=== PATIENT | female | born 1960 | race Caucasian/White ===

== ENCOUNTER → 2017-10-31 07:24 | Outpatient (CLI) | payer OTHER, SELFPAY | PROVIDERS: Family Provider Family Medicine; PCP Family Medicine; Visit Provider Obstetrics & Gynecology | DX: Z12.31 Encounter for screening mammogram for malignant neoplasm of breast (principal) | CPT/HCPCS: 77063; 77067 ==

== ENCOUNTER → 2018-01-14 15:30 | Outpatient (CLI) | payer OTHER, SELFPAY ==
[2018-01-18 10:35] LABS: HPV APTIMA, High Risk Negative (Negative)
== END ==
PROVIDERS: PCP Family Medicine; Visit Provider Obstetrics & Gynecology
DX: Z12.4 Encounter for screening for malignant neoplasm of cervix (principal)
CPT/HCPCS: 87624; 88175; G0145

== ENCOUNTER → 2019-06-23 | Outpatient (CLI) | payer OTHER, SELFPAY ==
--- NOTE | 2019-06-23 16:53 | CT_ITS ---
STUDY: CT ABDOMEN WITH CONTRAST REASON FOR EXAM: Female, 58 years old. JAUNDICE RADIATION DOSAGE (If Supplied By Facility): CTDIvol = ( 20.435 ) mGy, DLP = ( 492.74 ) mGycm TECHNIQUE: Transaxial images were obtained post I.V. administration of Oral and amp; IV Gastrografin and amp; 100mL Isovue-300, and oral contrast. Sagittal and coronal images were reconstructed. Individualized dose optimization techniques were used for this CT. COMPARISON: None. FINDINGS: The visualized lung bases are unremarkable. The visualized portions of the heart are within normal limits. Mild intrahepatic biliary ductal dilatation is present. Normal liver enhancement and contour. No liver masses are seen. The gallbladder is contracted. Normal spleen. Normal pancreas. Normal bilateral adrenal glands. Normal right kidney. Several small cysts are present in the left kidney. Normal visualized stomach. Normal small intestine. Normal colon. The appendix is visualized and appears normal. There is diffuse atherosclerotic calcification of the abdominal aorta, without a demonstrated aneurysm. Normal inferior vena cava. Normal retroperitoneum. Normal abdominal wall. There are diffuse degenerative changes of the visualized lumbar spine. CT/Abdomen WITH IV Contrast IMPRESSION: 1. Mild intrahepatic biliary ductal dilatation. No visualized mass kathleen hepatis or within the liver. No obvious stone seen in the CBD. Consider further assessment in the nonacute setting with MRCP/MRI of the abdomen or evaluation by GI. Electronically Signed: Sher Rubin MD at 20:21 EDT , Service support ,
== END | disposition home or self-care (01) ==
LOC: CT 16:51
PROVIDERS: Referring Provider Family Medicine; Visit Provider Family Medicine
DX: R17 Unspecified jaundice (principal)
CPT/HCPCS: 74160; Q9967

== ENCOUNTER → 2019-06-23 | Outpatient (CLI) | payer OTHER, SELFPAY ==
[2018-01-14 14:41] VITALS: BMI 31.4
[2019-06-23 18:09] LABS: Absolute Lymphocyte Count 1.56 X10^3/uL (0.83-4.51); Absolute Neutrophil Count 4.4 X10^3/uL (2.0-7.7); Basophil# 0.03 X10^3/uL; Basophil% 0.4 % (0-1); Eosinophil# 0.28 X10^3/uL; Eosinophils% 4.1 % (0-5); Hematocrit 38.1 % (37-47); Hemoglobin 12.6 g/dL (12.0-15.0); Lymphocyte # 1.56 X10^3/ul (4.0); Lymphocyte % 22.9 % (19-41); Mean Corp Hgb Conc 33.1 g/dL (32-36); Mean Corpuscular Hgb 32.2 pg (27.0-32.0); Mean Corpuscular Volume 97.4 fL (81-99); Mean Platelet Vol. 10.8 fl (6.2-12.0); Monocyte# 0.52 X10^3/uL; Monocyte% 7.6 % (0-10); NRBC Flagged by Analyzer 0 % (0-5); Neutrophil # 4.42 X10^3/uL (2.7-7.7); Neutrophil % 64.9 % (47-70); Platelet Count 397 K/mm3 (150-450); RBC Distribution Width CV 15.2 % (11.6-14.6); RBC Distribution Width SD 54.1 fl (35.1-43.9); Red Blood Count 3.91 M/mm3 (4.2-5.4); White Blood Count 6.8 K/mm3 (4.4-11.0)
[2019-06-23 18:16] LABS: Ammonia < 10.0 umol/L (11-32)
[2019-06-23 18:31] LABS: ALB/GLOB Ratio 0.8 RATIO (0.9-2.4); AST(SGOT) 100 U/L (15-37); Alanine Aminotransfer ALT/SGPT 148 U/L (13-56); Albumin, Serum 3.6 g/dL (3.2-5.0); Alkaline Phosphatase 589 U/L (45-117); Anion Gap 7 (5-15); BUN 12 mg/dL (7-18); BUN/Creat Ratio 15.5 RATIO (10-20); Calcium,Total 9.2 mg/dL (8.5-10.1); Chloride 106 mmol/L (98-107); Creatinine, Serum 0.78 mg/dL (0.55-1.02); EST Glomerular Filtration Rate 81 mL/min (>60); Est Glom Filt Rate - Afr Amer 98 mL/min (>60); Globulin 4.3 g/dL (2.2-4.2); Glucose 105 mg/dL (74-106); Potassium 3.6 mmol/L (3.5-5.1); Protein, Total 7.9 g/dL (6.4-8.2); Sodium Level 139 mmol/L (136-145)
[2019-06-25 05:06] LABS: HEPATITIS B SURFACE AG Negative (Negative); Hepatitis A AB, Total Negative (Negative); Hepatitis A IgM Antibody Negative (Negative); Hepatitis B Core AB IgM Negative (Negative); Hepatitis B Core Ab Total Negative (Negative); Hepatitis C Ab <0.1 s/co ratio (0.0-0.9)
[2019-06-25 05:16] LABS: Hep B Surface Antibodies Non Reactive (.)
== END | disposition home or self-care (01) ==
PROVIDERS: PCP Family Medicine; Referring Provider Family Medicine; Visit Provider Family Medicine
DX: R17 Unspecified jaundice (principal)
CPT/HCPCS: 36415; 80053; 82140; 85025; 86704; 86705; 86706; 86708; 86709; 86803; 87340

== ENCOUNTER → 2019-06-24 | Outpatient (CLI) | payer OTHER, SELFPAY ==
--- NOTE | 2019-06-24 14:30 | MRI_ITS ---
STUDY: MRI ABDOMEN WITHOUT CONTRAST REASON FOR EXAM: Female, 58 years old. Jaundice, nausea, no pain, no surgery TECHNIQUE: Standardized fat and water weighted pulse sequences were obtained in all 3 orthogonal planes. COMPARISON: CT 06/23/2019 FINDINGS: The visualized lung bases are unremarkable. The visualized portions of the heart are within normal limits. Normal liver. Mild intrahepatic biliary ductal dilatation and moderate extrahepatic biliary ductal dilatation with the common hepatic duct measuring 10 mm in diameter with abrupt obstruction of the proximal common bile duct with a normal appearance to the distal common bile duct and pancreatic duct. Possibilities include a common bile duct stone, common bile duct stricture, common bile duct intrinsic mass (cholangiocarcinoma) or less likely extrinsic compression by a mass in the head of the pancreas. Normal spleen. Normal pancreas. Normal bilateral adrenal glands. Normal right kidney. Normal left kidney. Normal visualized stomach. Normal small intestine. Normal colon. There is non-visualization of the appendix. Normal abdominal aorta. Normal inferior vena cava. Normal retroperitoneum. Normal abdominal wall. Normal osseous structures. MRI/Abdomen without Contrast IMPRESSION: Abrupt narrowing of the proximal common bile duct with moderate dilatation the common hepatic duct and mild intrahepatic biliary duct dilatation. Differential diagnosis includes common bile duct stone, stricture, or mass (cholangiocarcinoma). Correlation with ERCP would be useful. Electronically Signed: Joesph Vasquez MD at 15:23 EDT Tel , Service support ,
== END | disposition home or self-care (01) ==
PROVIDERS: Referring Provider Family Medicine; Visit Provider Family Medicine
DX: R17 Unspecified jaundice (principal)
CPT/HCPCS: 74181

== ENCOUNTER → 2019-06-25 10:13 | Outpatient (CLI) | payer OTHER, SELFPAY ==
[2019-06-26 13:08] LABS: Anti-Smooth Muscle ABS 13 Units (0-19)
[2019-06-26 13:09] LABS: Carbohydrate AG 19-9 19 U/mL (0-35)
== END ==
LOC: LAB.FUTURE 10:19 → LAB 06-27 06:58
PROVIDERS: PCP Family Medicine; Referring Provider Family Medicine; Visit Provider Family Medicine
DX: R17 Unspecified jaundice (principal)
CPT/HCPCS: 36415; 83516; 86301

== ENCOUNTER → 2019-07-01 | Outpatient (CLI) | payer OTHER, SELFPAY ==
[2019-07-01 14:39] LABS: Hematocrit 38.1 % (37-47); Hemoglobin 12.7 g/dL (12.0-15.0); Mean Corp Hgb Conc 33.3 g/dL (32-36); Mean Corpuscular Hgb 32.2 pg (27.0-32.0); Mean Corpuscular Volume 96.5 fL (81-99); Mean Platelet Vol. 11.1 fl (6.2-12.0); Platelet Count 431 K/mm3 (150-450); RBC Distribution Width CV 17.2 % (11.6-14.6); RBC Distribution Width SD 60.9 fl (35.1-43.9); Red Blood Count 3.95 M/mm3 (4.2-5.4); White Blood Count 7.5 K/mm3 (4.4-11.0)
[2019-07-01 14:48] LABS: International Normalized Ratio 0.9; Prothrombin Time (Protime)PT. 11.9 SECONDS (11.7-14.9)
[2019-07-01 14:49] LABS: Partial Thromboplast Time 28.3 Seconds (24.1-36.2)
[2019-07-01 15:16] LABS: ALB/GLOB Ratio 0.8 RATIO (0.9-2.4); AST(SGOT) 81 U/L (15-37); Alanine Aminotransfer ALT/SGPT 110 U/L (13-56); Albumin, Serum 3.4 g/dL (3.2-5.0); Alkaline Phosphatase 531 U/L (45-117); Anion Gap 7 (5-15); BUN 12 mg/dL (7-18); Calcium,Total 9.5 mg/dL (8.5-10.1); Chloride 109 mmol/L (98-107); Creatinine, Serum 0.71 mg/dL (0.55-1.02); EST Glomerular Filtration Rate 90 mL/min (>60); Est Glom Filt Rate - Afr Amer 109 mL/min (>60); Globulin 4.3 g/dL (2.2-4.2); Glucose 70 mg/dL (74-106); Potassium 3.7 mmol/L (3.5-5.1); Protein, Total 7.7 g/dL (6.4-8.2); Sodium Level 140 mmol/L (136-145)
== END | disposition home or self-care (01) ==
LOC: MTLAB 12:45
PROVIDERS: PCP Family Medicine; Referring Provider Internal Medicine Gastroenterology; Visit Provider Internal Medicine Gastroenterology
DX: R17 Unspecified jaundice (principal)
CPT/HCPCS: 36415; 80053; 85027; 85610; 85730

== ENCOUNTER 2019-07-04 07:16 | Inpatient (IN) | payer OTHER, SELFPAY ==
[2019-07-04 07:17] VITALS: BP 137/73; PULSE 65; RESP 18; TEMP 36.4; O2SAT 97; BMI 30.3
--- NOTE | 2019-07-04 07:40 | CT_ITS ---
STUDY: CT ABDOMEN AND PELVIS WITH CONTRAST REASON FOR EXAM: Female, 58 years old. CBD STENT X1 DAY AGO -- TODAY ABD PAIN, N/V RADIATION DOSAGE (If Supplied By Facility): CTDIvol = ( 15.04 ) mGy, DLP = ( 834.57 ) mGycm TECHNIQUE: Transaxial images were obtained from the dome of the diaphragm to the symphysis pubis with oral contrast. Oral and amp; IV Gastrografin and amp; 100mL Isovue-300 was administered. Sagittal and coronal images were reconstructed. Individualized dose optimization techniques were used for this CT. COMPARISON: None. FINDINGS: Minimal linear atelectasis in the medial right middle lobe. The visualized portions of the heart are within normal limits. A small caliber stent is seen in the common bile duct and proximal right hepatic duct. I suspect small gallstones within the gallbladder lumen. Normal spleen. Normal pancreas. Normal bilateral adrenal glands. Normal right kidney. Normal left kidney. Normal visualized stomach. Normal small intestine. Normal colon. The appendix is visualized and appears normal. There is diffuse atherosclerotic calcification of the abdominal aorta, without a demonstrated aneurysm. Normal inferior vena cava. Normal retroperitoneum. Normal urinary bladder. Calcified fibroid uterus. Normal abdominal wall. Normal osseous structures. CT/Abdomen/Pelvis WITH Contrast IMPRESSION: Status post stent in the common bile duct. The proximal tip is in the right hepatic duct and the distal tip is in the second portion of the duodenum. Findings suggestive of small gallstones. Calcified fibroid uterus. Electronically Signed: Eliot Barroso, at 9:48 EDT , Service support ,
[2019-07-04] MEDS: HYDROmorphone 1 MG/ML Syringe IV ×2 (07:51→10:33)
[2019-07-04] MEDS: 0.9% Normal Saline 1,000 ML 1000 ML IV (07:51)
[2019-07-04] MEDS: Ondansetron 4 MG/2 ML Vial IV ×2 (07:51→22:18)
--- NOTE | 2019-07-04 07:51 | ED.VISSUMM ---
- ER Visit Summary Date of Service: 07/04/19 Chief Complaint: Abdominal pain History of Present Illness: The patient is a [address] Raji Luque in Dr. Morales. Patient reports that she has been jaundiced for the past 2 weeks. She denies any pain with this. She had had a work-up undertaken and yesterday had an ERCP with a stent placement by Dr. Morales at [facility]. States that he found that there was a stricture there. This was an outpatient procedure. She is not taking anything for pain. Patient reports that she has abdominal pain that began last night. Is a sharp pain is 10 of 10 at worst 9-10 currently. Is worsened by pushing on it. She taken ibuprofen without relief. She is been nauseated and vomited 5-6 times. No blood in her emesis. She reports that she said 2-3 episodes of diarrhea today. Is been gail colored. No blood in her stools or black tarry stools. No dysuria or frequency. Physical Examination: Vitals: Stable. Afebrile. General: Well-nourished and well-developed. Head: Normocephalic atraumatic. Neck: Supple, no lymphadenopathy. No JVD. Nontender. Cardiovascular: Regular rate and rhythm. No murmurs. Respiratory: No respiratory distress. Clear to auscultation bilaterally. Abdominal: Soft, severe tenderness to palpation in the epigastric region as well as the left and right upper quadrants with mild left lower quadrant tenderness to palpation, nondistended, hypoactive bowel sounds. Guarding is present to the upper abdomen. Back: Nontender. Extremities: Nontender, no edema. Skin: Normal color, no rash. Neurologic: Alert and oriented ?3. Cranial nerves II through XII are intact. Normal strength and sensation. Psych: Normal affect. Test Results: CBC shows a white count of 11.2 with 89 segmented neutrophils and 7 lymphocytes. Hematocrit is 35.7. Chem-7 shows a potassium 3.3, glucose 125. Lactic acid is 1.2. LFTs show a total bili of 9.7 with a direct bili of 7.41. Her bilirubin was 12.6 3 days ago. Her alk phos is 476, ALT is 86, AST is 57. Lipase is 22,799. INR is normal. Clinical Impression(s) from Imaging Studies Abdomen/Pelvis CT 07/04/19 07:40 IMPRESSION: Status post stent in the common bile duct. The proximal tip is in the right hepatic duct and the distal tip is in the second portion of the duodenum. Findings suggestive of small gallstones. Calcified fibroid uterus. Electronically Signed: Eliot Barroso, at 9:48 EDT , Service support , Emergency Department Course and Treatment: Patient had an IV placed. She was given a liter of normal saline. She was given Dilaudid and Zofran IV. She is resting more comfortably. Patient was discussed with Dr. Murphy. She reports that her nausea has resolved after Zofran. Her pain is a 2 out of 10 in severity after pain medications. She refused an NG tube. Treatment Plan: Patient was discussed with Dr. Morales. He reports that he put a wire through the pancreatic duct and suspects that the pancreatitis is from that. He would like the patient to be admitted by hospitalist here. States that he is available by phone consult if needed. Disposition: Admitted in improved and stable condition. Impression: 1. Pancreatitis. 2. Jaundice, painless. 3. 1 day status post ERCP with stent placement. This note was generated with [employer] dictation software. It may contain incorrect words, spelling, and punctuation that were not noted in review of the chart prior to signing ED Disposition - Plan for ED Patient: Referrals: Raji Mathis MD [Primary Care Provider] -
[2019-07-04 07:52] LABS: Absolute Lymphocyte Count 0.77 X10^3/uL (0.83-4.51); Basophil# 0.02 X10^3/uL; Basophil% 0.2 % (0-1); Eosinophil# 0.07 X10^3/uL; Eosinophils% 0.6 % (0-5); Hematocrit 35.7 % (37-47); Hemoglobin 12.3 g/dL (12.0-15.0); Lymphocyte # 0.77 X10^3/ul (4.0); Lymphocyte % 6.9 % (19-41); Mean Corp Hgb Conc 34.5 g/dL (32-36); Mean Corpuscular Hgb 33.4 pg (27.0-32.0); Mean Platelet Vol. 10.2 fl (6.2-12.0); Monocyte# 0.38 X10^3/uL; Monocyte% 3.4 % (0-10); NRBC Flagged by Analyzer 0 % (0-5); Neutrophil # 9.95 X10^3/uL (2.7-7.7); Neutrophil % 88.5 % (47-70); Platelet Count 390 K/mm3 (150-450); RBC Distribution Width SD 62.8 fl (35.1-43.9); Red Blood Count 3.68 M/mm3 (4.2-5.4); White Blood Count 11.2 K/mm3 (4.4-11.0)
[2019-07-04 08:12] LABS: AST(SGOT) 57 U/L (15-37); Alanine Aminotransfer ALT/SGPT 86 U/L (13-56); Alkaline Phosphatase 476 U/L (45-117); Anion Gap 8 (5-15); BUN 12 mg/dL (7-18); BUN/Creat Ratio 16.6 RATIO (10-20); Bilirubin, Direct 7.41 mg/dL (0.00-0.30); Calcium,Total 9.2 mg/dL (8.5-10.1); Chloride 107 mmol/L (98-107); Creatinine, Serum 0.72 mg/dL (0.55-1.02); EST Glomerular Filtration Rate 87 mL/min (>60); Est Glom Filt Rate - Afr Amer 106 mL/min (>60); Estimated Creatinine Clearance 73.55 ml/min; Globulin 4.2 g/dL (2.2-4.2); Glucose 125 mg/dL (74-106); Lipase 22799 U/L (73-393); Potassium 3.3 mmol/L (3.5-5.1); Protein, Total 7.2 g/dL (6.4-8.2); Sodium Level 140 mmol/L (136-145)
[2019-07-04 08:15] LABS: Lactic Acid 1.2 mmol/L (0.4-1.9)
[2019-07-04 08:45] LABS: International Normalized Ratio 0.9
[2019-07-04 10:34] VITALS: BP 121/67; PULSE 58; RESP 14; O2SAT 97
--- NOTE | 2019-07-04 10:44 | NURSING ---
MED SURG [place] PANCREATITIS
[2019-07-04 11:52] VITALS: BP 112/55; PULSE 53; RESP 16; TEMP 36.6; O2SAT 95
[2019-07-04 12:03] VITALS: BMI 30.3
[2019-07-04 12:05] VITALS: BMI 30.3
[2019-07-04] MEDS: 0.9% Normal Saline 1,000 ML 150 ML IV (12:25)
--- NOTE | 2019-07-04 13:47 | CASEMGMT ---
RN CM Assessment. Presentation: abd pain, pancreatitis, jaundice Intro role of CM to patient in room. Pt is awake, alert, oriented and able to participate in assessment. States she works @ [employer] weekends in [employer]. Had procedure yesterday in [place], then increased abd pain, nausea, vomiting. States she works, is very independent. PCP: Dr. Mathis Specialist: Dr. Morales. [facility] Insurance: [employer] Prescription coverage: yes Living Arrangements: Lives independently, no care needs identified. DME: none Transportation: drives [place] PLAN: pt plans to return home. No needs identified @ this time. Lamont AVILESN RN ACM
[2019-07-04] MEDS: 0.9% Normal Saline 1,000 ML 500 ML IV (15:33)
[2019-07-04] MEDS: Potassium Chloride 10mEq/100mL 10 MEQ/100 ML IV.SOLN. 100 MEQ IV BOLUS (16:29)
[2019-07-04 16:36] VITALS: BP 119/63; PULSE 61; RESP 16; TEMP 36.8; O2SAT 97
--- NOTE | 2019-07-04 16:51 | HP.PCM_ITS ---
History of Present Illness Date of Admission: 07/04/19 Chief Complaint: Gastric abdominal pain The patient is a 58 year old F with no significant past medical history presents to the hospital with severe abdominal pain. She has noticed over the last 2 weeks she was becoming more jaundiced and had lost a little bit of weight. She also denied any pain during these last 2 weeks. She has noticed that with her jaundice, her urine has become darker and her stools have become breakdown person. She saw Dr. Morales who performed an ERCP yesterday and placed a stent in her common bile duct and took brushings as well as sent for cytology, with the concern being cancer given her painless jaundice. CT scan in the ER demonstrated good position for her bile duct stent, however she did have a lipase of 22,000 indicating post procedure pancreatitis. She was given a liter fluid in the ER and admitted to the hospital. Past Medical History Past Medical History (Chronic Problems): Chronic Problems (This Medical Record has been edited. Action required.) Obesity (Chronic) discussed weight loss, info given and why weight referral given Medical History: Medical History (This Medical Record has been edited. Action required.) Fatigue R53.83 Hay fever J30.1 Knee pain M25.569 Migraines G43.909 SOB (shortness of breath) R06.02 Sarcoidosis D86.9 Shoulder pain M25.519 Allergies No Known Allergies Allergy (Verified 07/04/19 07:17) Home Medications: Ambulatory Orders Medication Instructions Recorded Cholestyramine/Aspartame 4 gm PO BID 07/04/19 [Prevalite Packet] Surgical History: no surgical history Smoking Status: Former smoker Tobacco Use: Non-smoker, Cigarettes Alcohol: None Drugs: None - *Family History Maternal History Items: Heart Disease, Stroke Paternal History Items: Heart Disease, Stroke Review of Systems Constitutional: Denies: Chills, Fever, Weight Change Eyes: Reports: - - Jaundice HEENT: Denies: Head Aches, Sinus Congestion, Sinus Drainage Cardiovascular: Denies: Chest Pain, Palpitations Respiratory: Denies: Cough, Shortness of breath at rest, Sputum production Gastrointestinal: Reports: Abdominal Pain, Diarrhea. Denies: Nausea, Vomiting Genitourinary: Denies: Dysuria Musculoskeletal: Denies: Joint Pain, Joint Tenderness Skin: Reports: Jaundice. Denies: Rash, Wounds Neurological: Denies: Numbness, Tingling, Focal weakness Psychiatric: Denies: Anxiety, Depression Hematologic/ Lymphatic: Denies: Easy Bruising, Easy Bleeding VTE Information - Inpt Only VTE Present on Admission: No - Physical Exam Vitals/I&O's: Vital Signs Temp Pulse Resp BP Pulse Ox 98.3 F 61 16 119/63 97 07/04/19 16:36 07/04/19 16:36 07/04/19 16:36 07/04/19 16:36 07/04/19 16:36 Oxygen Delivery Method Room Air Weight: 176 lb 9.444 oz Body Mass Index (BMI) 30.3 Intake and Output for Last 24 Hours 07/02/19 07/03/19 07/04/19 23:59 23:59 23:59 Intake Total 2472.5 / 2472.5 Output Total 600 / 600 Balance 1872.5 / 1872.5 General: Alert, Oriented x3, Cooperative, No apparent distress HEENT: Atraumatic, PERRLA, EOMI, Normocephalic Oral: Dry Mucosa Neck: Supple, No JVD Lungs: Clear to auscultation, Normal air movement, No rhonchi, No wheeze, No rales, Diminished Cardiovascular: Regular rate, Regular Rhythm, Normal S1, Normal S2, No murmurs Abdomen: Soft, Non-Distended, No Hepato-splenomegaly, Tender - In the epigastric region and in the left upper and lower quadrants Extremities: No edema, Capillary Refill Less than 3 Seconds Skin: No rashes, No breakdown Neurological: Neuro grossly intact, Sensory exam intact to light touch and pain Psych/Mental Status: Normal Affect, Appropriate Laboratory Results 07/04/19 07:40: WBC 11.2 H, RBC 3.68 L, Hgb 12.3, Hct 35.7 L, MCV 97.0, MCH 33.4 H, MCHC 34.5, RDW Std Deviation 62.8 H, RDW Coeff of Todd 18.0 H, Plt Count 390, MPV 10.2, Immature Gran % (Auto) 0.400, Neut % (Auto) 88.5 H, Lymph % (Auto) 6.9 L, [place] % (Auto) 3.4, Eos % (Auto) 0.6, Baso % (Auto) 0.2, Absolute Neuts (auto) 10.0 H, Absolute Lymphs (auto) 0.77 L, Nucleated RBC % 0 07/04/19 07:40: Sodium 140, Potassium 3.3 L, Chloride 107, Carbon Dioxide 25.0, Anion Gap 8, BUN 12, Creatinine 0.72, Estim Creat Clear Calc 73.55, Est GFR (MDRD) Af Amer 106, Est GFR (MDRD) Non-Af 87, BUN/Creatinine Ratio 16.6, Glucose 125 H, Calcium 9.2, Total Bilirubin 9.70 H, Direct Bilirubin 7.41 H, AST 57 H, ALT 86 H, Alkaline Phosphatase 476 H, Total Protein 7.2, Albumin 3.0 L, Globulin 4.2, Lipase 08317 H 07/04/19 07:40: Lactic Acid 1.2 07/04/19 07:40: PT 12.0, INR 0.9 Current Medications Acetaminophen (Tylenol) 650 mg PO Q6H PRN PRN PRN Reason: Pain Score 1-10/Temp > 100.7 F Enoxaparin Sodium (Lovenox) 40 mg SC DAILY [facility] Sodium Chloride () 1,000 mls @ 150 mls/hr IV .Q6H40M [facility] Last Infusion: 07/04/19 16:29 Dose: 100 mls/hr Documented by: Sodium Chloride () 1,000 mls @ 500 mls/hr IV .Q2H [facility] Stop: 07/04/19 17:04 Last Infusion: 07/04/19 16:30 Dose: Infused Documented by: Potassium Chloride () 10 meq in 100 mls @ 100 mls/hr IV BOLUS Q1H [facility] Stop: 07/04/19 19:29 Last Admin: 07/04/19 16:29 Dose: 100 mls/hr Documented by: Melatonin (Melatonin) 3 mg PO QHS PRN PRN PRN Reason: INSOMNIA Morphine Sulfate () 4 mg IV Q3H PRN PRN PRN Reason: Pain Score 6-10/10 Ondansetron HCl (Zofran) 4 mg IV Q8H PRN PRN PRN Reason: NAUSEA/VOMITING Promethazine HCl (Phenergan) 25 mg IM Q6H PRN PRN PRN Reason: Breakthrough nausea/vomiting Sodium Chloride () 10 - 40 ml IV UD PRN PRN Reason: SALINE FLUSH Assessment/Plan All Active Problems (This Medical Record has been edited. Action required.) Acute bronchitis (Acute) 1. 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 Morales's wishes -Maintain n.p.o. until her pain improves, continue with IV morphine DVT: Lovenox Inpatient E&M: 39788 Init Hosp L2
[2019-07-04] MEDS: Potassium Chloride 10mEq/100mL 10 MEQ/100 ML IV.SOLN. 75 MEQ IV BOLUS ×3 (17:50→20:52)
[2019-07-04] MEDS: 0.9% Normal Saline 1,000 ML 100 ML IV (20:48)
[2019-07-04] MEDS: Morphine 4 MG/ML Syringe IV (22:18)
[2019-07-04 22:30] VITALS: BP 133/73; PULSE 73; RESP 16; TEMP 36.9; O2SAT 98
[2019-07-05] MEDS: 0.9% Normal Saline 1,000 ML 150 ML IV ×3 (04:03→18:22)
[2019-07-05 04:30] VITALS: BP 115/63; PULSE 68; RESP 16; TEMP 36.8; O2SAT 95
[2019-07-05 06:03] LABS: Absolute Lymphocyte Count 1.28 X10^3/uL (0.83-4.51); Absolute Neutrophil Count 7.1 X10^3/uL (2.0-7.7); Basophil# 0.02 X10^3/uL; Basophil% 0.2 % (0-1); Eosinophil# 0.21 X10^3/uL; Eosinophils% 2.3 % (0-5); Hematocrit 29.4 % (37-47); Hemoglobin 9.8 g/dL (12.0-15.0); Lymphocyte # 1.28 X10^3/ul (4.0); Lymphocyte % 14.1 % (19-41); Mean Corp Hgb Conc 33.3 g/dL (32-36); Mean Corpuscular Hgb 33.3 pg (27.0-32.0); Mean Platelet Vol. 10.1 fl (6.2-12.0); Monocyte# 0.44 X10^3/uL; Monocyte% 4.8 % (0-10); NRBC Flagged by Analyzer 0 % (0-5); Neutrophil % 78.1 % (47-70); POSITIVE MORPHOLOGY YES; Platelet Count 282 K/mm3 (150-450); RBC Distribution Width CV 18.6 % (11.6-14.6); Red Blood Count 2.94 M/mm3 (4.2-5.4); White Blood Count 9.1 K/mm3 (4.4-11.0)
[2019-07-05 06:06] LABS: Differential Indicated SCAN CRITERIA MET
[2019-07-05 06:21] LABS: Differential Comment SCANNED; Stomatocyte 1+; Target Cells 1+
[2019-07-05 06:31] LABS: ALB/GLOB Ratio 0.6 RATIO (0.9-2.4); AST(SGOT) 40 U/L (15-37); Alanine Aminotransfer ALT/SGPT 54 U/L (13-56); Albumin, Serum 2.2 g/dL (3.2-5.0); Alkaline Phosphatase 354 U/L (45-117); Anion Gap 8 (5-15); BUN 8 mg/dL (7-18); BUN/Creat Ratio 16.8 RATIO (10-20); Calcium,Total 8.3 mg/dL (8.5-10.1); Chloride 110 mmol/L (98-107); Creatinine, Serum 0.48 mg/dL (0.55-1.02); EST Glomerular Filtration Rate 142 mL/min (>60); Est Glom Filt Rate - Afr Amer 172 mL/min (>60); Estimated Creatinine Clearance 110.32 ml/min; Globulin 3.4 g/dL (2.2-4.2); Glucose 82 mg/dL (74-106); Lipase 6918 U/L (73-393); Potassium 3.8 mmol/L (3.5-5.1); Protein, Total 5.6 g/dL (6.4-8.2); Sodium Level 142 mmol/L (136-145)
--- NOTE | 2019-07-05 08:32 | PN_ITS ---
Subjective: Feels better, abdominal pain is significantly improved. No issues overnight Vitals/I&O's: Vital Signs Temp Pulse Resp BP Pulse Ox 98.3 F 68 16 115/63 95 07/05/19 04:30 07/05/19 04:30 07/05/19 04:30 07/05/19 04:30 07/05/19 04:30 Oxygen Delivery Method Room Air Weight: 176 lb 9.444 oz Body Mass Index (BMI) 30.3 Intake and Output for Last 24 Hours 07/03/19 07/04/19 07/05/19 23:59 23:59 23:59 Intake Total 3304.17 / 3304.17 725 / 725 Output Total 600 / 600 Balance 2704.17 / 2704.17 725 / 725 General: Alert, Oriented x3, Cooperative, No apparent distress HEENT: Atraumatic, PERRLA, EOMI, Normocephalic, scleral icterus Oral: Dry Mucosa Neck: Supple, No JVD Lungs: Clear to auscultation, Normal air movement, No rhonchi, No wheeze, No rales, Diminished Cardiovascular: Regular rate, Regular Rhythm, Normal S1, Normal S2, No murmurs Abdomen: Soft, Non-Distended, No Hepato-splenomegaly, Tender - In the epigastric region and in the left upper and lower quadrants Extremities: No edema, Capillary Refill Less than 3 Seconds Skin: No rashes, No breakdown, jaundice Neurological: Neuro grossly intact, Sensory exam intact to light touch and pain Psych/Mental Status: Normal Affect, Appropriate Laboratory Results 07/04/19 07:40: PT 12.0, INR 0.9 07/05/19 05:54: WBC 9.1, RBC 2.94 L, Hgb 9.8 L, Hct 29.4 L, MCV 100.0 H, MCH 33.3 H, MCHC 33.3, RDW Std Deviation 67.0 H, RDW Coeff of Todd 18.6 H, Plt Count 282, MPV 10.1, Immature Gran % (Auto) 0.500, Neut % (Auto) 78.1 H, Lymph % (Auto) 14.1 L, [place] % (Auto) 4.8, Eos % (Auto) 2.3, Baso % (Auto) 0.2, Absolute Neuts (auto) 7.1, Absolute Lymphs (auto) 1.28, Nucleated RBC % 0, Differential Comment SCANNED, Target Cells 1+, Stomatocytes 1+ 07/05/19 05:54: Sodium 142, Potassium 3.8, Chloride 110 H, Carbon Dioxide 24.0, Anion Gap 8, BUN 8, Creatinine 0.48 L, Estim Creat Clear Calc 110.32, Est GFR (MDRD) Af Amer 172, Est GFR (MDRD) Non-Af 142, BUN/Creatinine Ratio 16.8, Glucose 82, Calcium 8.3 L, Total Bilirubin 6.70 H, AST 40 H, ALT 54, Alkaline Phosphatase 354 H, Total Protein 5.6 L, Albumin 2.2 L, Globulin 3.4, Albumin/Globulin Ratio 0.6 L, Lipase 6918 H Current Medications Acetaminophen (Tylenol) 650 mg PO Q6H PRN PRN PRN Reason: Pain Score 1-10/Temp > 100.7 F Enoxaparin Sodium (Lovenox) 40 mg SC DAILY [facility] Sodium Chloride () 1,000 mls @ 150 mls/hr IV .Q6H40M [facility] Last Admin: 07/05/19 04:03 Dose: 150 mls/hr Documented by: Melatonin (Melatonin) 3 mg PO QHS PRN PRN PRN Reason: INSOMNIA Morphine Sulfate () 4 mg IV Q3H PRN PRN PRN Reason: Pain Score 6-10/10 Last Admin: 07/04/19 22:18 Dose: 4 mg Documented by: Ondansetron HCl (Zofran) 4 mg IV Q8H PRN PRN PRN Reason: NAUSEA/VOMITING Last Admin: 07/04/19 22:18 Dose: 4 mg Documented by: Promethazine HCl (Phenergan) 25 mg IM Q6H PRN PRN PRN Reason: Breakthrough nausea/vomiting Sodium Chloride () 10 - 40 ml IV UD PRN PRN Reason: SALINE FLUSH Medical Necessity - Tobacco Use Smoking Status: Former smoker Tobacco Use: Non-smoker, Cigarettes Assessment/Plan All Active Problems (This Medical Record has been edited. Action required.) Acute bronchitis (Acute) 1. 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 Morales's wishes -We will start her on a full liquid diet and see how she improves DVT: Lovenox Inpatient E&M: 37486 Subs Hosp L2
[2019-07-05 09:00] VITALS: BP 126/68; PULSE 73; RESP 16; TEMP 37.1; O2SAT 98
[2019-07-05 16:33] VITALS: BP 125/68; PULSE 89; RESP 18; TEMP 37.3; O2SAT 98
[2019-07-05 22:34] VITALS: BP 133/70; PULSE 82; RESP 18; TEMP 36.8
[2019-07-05 22:39] VITALS: RESP 18
[2019-07-05] MEDS: MELATONIN 3 MG TABLET PO (22:47)
[2019-07-06] MEDS: 0.9% Normal Saline 1,000 ML 150 ML IV ×2 (00:01→06:10)
[2019-07-06 04:30] VITALS: BP 124/78; PULSE 74; RESP 18; TEMP 36.7; O2SAT 95
--- NOTE | 2019-07-06 08:35 | DCINST_ITS ---
You will use the following diet at home:: Regular - Low fat and drink plenty of water Your food should be the consistency of: Regular Your liquids should be the consistency of: Regular/Thin Discharge Activity: Return to Normal Activity Call your doctor if you observe: Fever of 101 or Higher, Shortness of breath, Dizziness, Fainting spells, Swelling in the ankles, Chest pain, Increased palpitations (irregular heartbeat) Allergies/Adverse Reactions: Allergies No Known Allergies Allergy (Verified 07/04/19 07:17) Medications to take at Discharge Cholestyramine/Aspartame [Prevalite Packet] 4 gm PO BID 07/04/19 Primary Care Physician: Raji Mathis MD [Primary Care Provider] - Please follow up with your Primary Care Physician in: 1-2 weeks Test Results: Test results from this visit will be discussed in further detail at your follow- up appointment, if applicable. Please Follow Up With: Miguel Morales MD When: Sunday
--- NOTE | 2019-07-06 08:37 | DS.PCM_ITS ---
Discharge Date and Diagnosis Date of Admission: 07/04/19 Date of Discharge: 07/06/19 - Secondary Discharge Diagnosis Chronic Problems (This Medical Record has been edited. Action required.) Obesity (Chronic) discussed weight loss, info given and why weight referral given Hospital Course and Treatment Imaging Results: CT Abd/pelvis: IMPRESSION: Status post stent in the common bile duct. The proximal tip is in the right hepatic duct and the distal tip is in the second portion of the duodenum. Findings suggestive of small gallstones. Calcified fibroid uterus. Consults: None Operations: None Procedures: None Summary of Care Provided: Per HPI: The patient is a 58 year old F with no significant past medical history presents to the hospital with severe abdominal pain. She has noticed over the last 2 weeks she was becoming more jaundiced and had lost a little bit of we ight. She also denied any pain during these last 2 weeks. She has noticed that with her jaundice, her urine has become darker and her stools have become physician industrial. She saw Dr. Morales who performed an ERCP yesterday and placed a stent in her common bile duct and took brushings as well as sent for cytology, with the concern being cancer given her painless jaundice. CT scan in the ER demonstrated good position for her bile duct stent, however she did have a lipase of 22,000 indicating post procedure pancreatitis. She was given a liter fluid in the ER and admitted to the hospital. Hospital Course: 1. Post ERCP pancreatitis/possible cholangiocarcinoma with hyperbilirubinemia and painless [id number] female with no significant past medical history presents with severe abdominal pain after an ERCP. The ERCP was for painless jaundice and a stent has been placed. Initially her lipase on admission was 22,000, it did go down yesterday to about 7000 and she was feeling much better. She was started on a full liquid diet which she tolerated and requested to have a regular diet for dinner last night. She said that she was able to eat without any pain and would like to go home today. I discussed with her the risks and benefits of discharge and she expressed understanding. She will need to follow-up with GI to obtain pathology results from her ERCP. I d iscussed with her to have a low-fat diet and to drink plenty of fluids when she is home. - Physical Exam Vitals/I&O's: Vital Signs Temp Pulse Resp BP Pulse Ox 98.1 F 74 18 124/78 H 95 07/06/19 04:30 07/06/19 04:30 07/06/19 04:30 07/06/19 04:30 07/06/19 04:30 Oxygen Delivery Method Room Air Weight: 176 lb 9.444 oz Body Mass Index (BMI) 30.3 Intake and Output for Last 24 Hours 07/04/19 07/05/19 07/06/19 23:59 23:59 23:59 Intake Total 3304.17 / 3304.17 4175 / 4175 2170.0 / 2170.0 Output Total 600 / 600 Balance 2704.17 / 2704.17 4175 / 4175 2170.0 / 2170.0 General: Alert, Oriented x3, Cooperative, No apparent distress HEENT: Atraumatic, PERRLA, EOMI, Normocephalic, Oral: Dry Mucosa Neck: Supple, No JVD Lungs: Clear to auscultation, Normal air movement, No rhonchi, No wheeze, No rales, Diminished Cardiovascular: Regular rate, Regular Rhythm, Normal S1, Normal S2, No murmurs Abdomen: Soft, Non-Distended, No Hepato-splenomegaly, nontender Extremities: No edema, Capillary Refill Less than 3 Seconds Skin: No rashes, No breakdown, jaundice-improving Neurological: Neuro grossly intact, Sensory exam intact to light touch and pain Psych/Mental Status: Normal Affect, Appropriate Current Medications Acetaminophen (Tylenol) 650 mg PO Q6H PRN PRN PRN Reason: Pain Score 1-10/Temp > 100.7 F Enoxaparin Sodium (Lovenox) 40 mg SC DAILY TAYLRO Last Admin: 07/05/19 10:56 Dose: Not Given Documented by: Melatonin (Melatonin) 3 mg PO QHS PRN PRN PRN Reason: INSOMNIA Last Admin: 07/05/19 22:47 Dose: 3 mg Documented by: Morphine Sulfate () 4 mg IV Q3H PRN PRN PRN Reason: Pain Score 6-10/10 Last Admin: 07/04/19 22:18 Dose: 4 mg Documented by: Ondansetron HCl (Zofran) 4 mg IV Q8H PRN PRN PRN Reason: NAUSEA/VOMITING Last Admin: 07/04/19 22:18 Dose: 4 mg Documented by: Promethazine HCl (Phenergan) 25 mg IM Q6H PRN PRN PRN Reason: Breakthrough nausea/vomiting Sodium Chloride () 10 - 40 ml IV UD PRN PRN Reason: SALINE FLUSH Discharge Activity: Return to Normal Activity Call your doctor if you observe: Fever of 101 or Higher, Shortness of breath, Dizziness, Fainting spells, Swelling in the ankles, Chest pain, Increased palpitations (irregular heartbeat) Home Medications: Medications to take at Discharge Cholestyramine/Aspartame [Prevalite Packet] 4 gm PO BID 07/04/19 Primary Care Physician: Raji Mathis MD [Primary Care Provider] - Please follow up with your Primary Care Physician in: 1-2 weeks Please Follow Up With: Miguel Morales MD When: Sunday Disposition: Home Minutes spent on discharge:: 35 Patient Condition:: Stable Medical Necessity - Tobacco Use Smoking Status: Former smoker Tobacco Use: Non-smoker, Cigarettes Meaningful Use Info Meaningful Use Diagnoses (Choose all that apply): None applicable Inpatient E&M: 91134 [facility]
[2019-07-06 08:43] VITALS: BP 111/68; PULSE 81; RESP 16; TEMP 36.7; O2SAT 98
== END 2019-07-06 09:45 | disposition home or self-care (01) | DRG 439 ==
LOC: ED 07:44 → MS3 11:41
PROVIDERS: Admitting Provider Family Medicine; Emergency Provider Emergency Medicine; PCP Family Medicine; Visit Provider Family Medicine
DX: K85.90 Acute pancreatitis without necrosis or infection, unspecified (principal); K91.89 Other postprocedural complications and disorders of digestive system; R17 Unspecified jaundice; Y84.8 Other medical procedures as the cause of abnormal reaction of the patient, or of later complication, without mention of misadventure at the time of the procedure; E66.9 Obesity, unspecified; Z87.891 Personal history of nicotine dependence; Z68.30 Body mass index [BMI] 30.0-30.9, adult
CPT/HCPCS: 36415; 74177; 80048; 80053; 80076; 83605; 83690; 85025; 85610; 96361; 96374; 96375; 97802; 99282; J7030; Q9967; A4216; J2405

== ENCOUNTER → 2019-07-07 | Outpatient (CLI) | payer OTHER, SELFPAY ==
[2019-07-04 12:03] VITALS: BMI 30.3
[2019-07-07 15:10] LABS: International Normalized Ratio 0.9
[2019-07-07 15:11] LABS: Partial Thromboplast Time 28.4 Seconds (24.1-36.2)
[2019-07-07 15:23] LABS: ALB/GLOB Ratio 0.7 RATIO (0.9-2.4); AST(SGOT) 53 U/L (15-37); Alanine Aminotransfer ALT/SGPT 65 U/L (13-56); Albumin, Serum 2.8 g/dL (3.2-5.0); Alkaline Phosphatase 375 U/L (45-117); Anion Gap 6 (5-15); BUN 8 mg/dL (7-18); BUN/Creat Ratio 11.8 RATIO (10-20); Calcium,Total 9.3 mg/dL (8.5-10.1); Chloride 107 mmol/L (98-107); Creatinine, Serum 0.68 mg/dL (0.55-1.02); EST Glomerular Filtration Rate 94 mL/min (>60); Est Glom Filt Rate - Afr Amer 114 mL/min (>60); Globulin 4.2 g/dL (2.2-4.2); Glucose 123 mg/dL (74-106); Potassium 3.2 mmol/L (3.5-5.1); Sodium Level 141 mmol/L (136-145)
== END | disposition home or self-care (01) ==
LOC: MTLAB 13:33
PROVIDERS: PCP Family Medicine; Referring Provider Internal Medicine Gastroenterology; Visit Provider Internal Medicine Gastroenterology
DX: K83.8 Other specified diseases of biliary tract (principal); R17 Unspecified jaundice; R93.2 Abnormal findings on diagnostic imaging of liver and biliary tract
CPT/HCPCS: 36415; 80053; 85610; 85730

== ENCOUNTER → 2019-07-09 | Outpatient (CLI) | payer OTHER, SELFPAY ==
[2019-07-04 12:03] VITALS: BMI 30.3
== END | disposition home or self-care (01) ==
PROVIDERS: PCP Family Medicine; Referring Provider Internal Medicine Gastroenterology; Visit Provider Internal Medicine Gastroenterology
DX: K83.1 Obstruction of bile duct (principal)
CPT/HCPCS: 36415

== ENCOUNTER → 2019-07-17 | Outpatient (CLI) | payer OTHER, SELFPAY ==
[2019-07-04 12:03] VITALS: BMI 30.3
[2019-07-17 15:43] LABS: ALB/GLOB Ratio 0.6 RATIO (0.9-2.4); AST(SGOT) 98 U/L (15-37); Alanine Aminotransfer ALT/SGPT 136 U/L (13-56); Alkaline Phosphatase 576 U/L (45-117); Anion Gap 7 (5-15); BUN 12 mg/dL (7-18); Calcium,Total 9.4 mg/dL (8.5-10.1); Chloride 102 mmol/L (98-107); Creatinine, Serum 0.66 mg/dL (0.55-1.02); EST Glomerular Filtration Rate 97 mL/min (>60); Est Glom Filt Rate - Afr Amer 117 mL/min (>60); Globulin 4.8 g/dL (2.2-4.2); Glucose 99 mg/dL (74-106); Potassium 3.7 mmol/L (3.5-5.1); Protein, Total 7.8 g/dL (6.4-8.2); Sodium Level 135 mmol/L (136-145)
[2019-07-19 12:17] LABS: Carcinoembryonic Antigen 3.4 ng/mL (0.0-4.7)
== END | disposition home or self-care (01) ==
PROVIDERS: PCP Family Medicine; Referring Provider Internal Medicine Gastroenterology; Visit Provider Internal Medicine Gastroenterology
DX: K83.1 Obstruction of bile duct (principal)
CPT/HCPCS: 36415; 80053; 82378

== ENCOUNTER → 2019-08-08 | Outpatient (CLI) | payer OTHER, SELFPAY ==
--- NOTE | 2019-08-08 06:49 | MRI_ITS ---
STUDY: MRI ABDOMEN WITHOUT CONTRAST REASON FOR EXAM: Female, 59 years old. pre op, f/u biliary stenosis TECHNIQUE: Standardized fat and water weighted pulse sequences were obtained in all 3 orthogonal planes. COMPARISON: CT for 2420 FINDINGS: The visualized lung bases are unremarkable. The visualized portions of the heart are within normal limits. Normal liver. Normal gallbladder and extrahepatic biliary system. Normal spleen. Normal pancreas. Normal bilateral adrenal glands. Normal right kidney. Normal left kidney. Normal visualized stomach. Normal small intestine. Normal colon. The appendix is visualized and appears normal. Normal abdominal aorta. Normal inferior vena cava. Normal retroperitoneum. Normal abdominal wall. Normal osseous structures. MRI/Abdomen without Contrast IMPRESSION: Normal unenhanced MRI of the abdomen. Electronically Signed: Joesph Vasquez MD at 9:29 EDT Tel , Service support ,
== END | disposition home or self-care (01) ==
PROVIDERS: PCP Family Medicine
DX: K83.1 Obstruction of bile duct (principal); R93.2 Abnormal findings on diagnostic imaging of liver and biliary tract
CPT/HCPCS: 74181

== ENCOUNTER → 2019-08-26 | Outpatient (CLI) | payer OTHER, SELFPAY ==
--- NOTE | 2019-08-26 13:28 | RAD_ITS ---
STUDY: X-RAY CHEST REASON FOR EXAM: Female, 59 years old. PRE-OP. NO CHEST COMPLAINTS TODAY. HX COUGH D/T ALLERGIES POSSIBLE. ALSO HX CA TECHNIQUE: PA and lateral views of the chest. COMPARISON: Comparison is made with prior dated June 19, 2012. FINDINGS: Hyperinflation. Mild increased markings in the lung bases suggest mild scarring. There is no demonstrated pleural abnormality. Normal size heart. Calcified bilateral hilar. Normal visualized pulmonary arteries. Normal visualized aortic arch and descending thoracic aorta. Normal visualized thoracic spine. Normal visualized ribs, clavicles, and shoulders. A stent is seen within the common bile duct. RAD/Chest PA and Lateral IMPRESSION: Hyperinflation with mild degree of increased linear markings at the lung bases suggestive of mild scarring Electronically Signed: Eliot Barroso, at 15:35 EDT , Service support ,
--- NOTE | 2019-08-26 13:30 | EKG12_ITS ---
Test Reason : PRE OP Blood Pressure : / mmHG Vent. Rate : 082 BPM Atrial Rate : 082 BPM P-R Int : 150 ms QRS Dur : 098 ms QT Int : 370 ms P-R-T Axes : 056 022 032 degrees QTc Int : 432 ms Normal sinus rhythm Normal ECG Confirmed by QUETA MANRIQUE, RONAK ([id number]), pictures editor SHANELLE SUAREZ ([id number]) on 08/29/2019 11:16:35 AM Referred By: GERONIMO GUDINO Confirmed By:RONAK BIRCH MD
== END | disposition home or self-care (01) ==
LOC: LAB 13:12 → PSN 13:27
PROVIDERS: PCP Family Medicine
DX: Z01.818 Encounter for other preprocedural examination (principal)
CPT/HCPCS: 71046; 93005

== ENCOUNTER → 2019-08-27 | Outpatient (CLI) | payer OTHER, SELFPAY ==
[2019-08-27 16:51] LABS: Absolute Lymphocyte Count 1.83 X10^3/uL (0.83-4.51); Absolute Neutrophil Count 3.5 X10^3/uL (2.0-7.7); Basophil# 0.03 X10^3/uL; Basophil% 0.5 % (0-1); Eosinophil# 0.34 X10^3/uL; Eosinophils% 5.6 % (0-5); Hematocrit 47.9 % (37-47); Hemoglobin 14.5 g/dL (12.0-15.0); Lymphocyte # 1.83 X10^3/ul (4.0); Mean Corp Hgb Conc 30.3 g/dL (32-36); Mean Corpuscular Hgb 32.9 pg (27.0-32.0); Mean Corpuscular Volume 108.6 fL (81-99); Mean Platelet Vol. 8.8 fl (6.2-12.0); Monocyte# 0.42 X10^3/uL; Monocyte% 6.9 % (0-10); NRBC Flagged by Analyzer 0 % (0-5); Neutrophil # 3.46 X10^3/uL (2.7-7.7); Neutrophil % 56.7 % (47-70); Platelet Count 329 K/mm3 (150-450); RBC Distribution Width CV 12.2 % (11.6-14.6); RBC Distribution Width SD 48.8 fl (35.1-43.9); Red Blood Count 4.41 M/mm3 (4.2-5.4); White Blood Count 6.1 K/mm3 (4.4-11.0)
[2019-08-27 17:44] LABS: ALB/GLOB Ratio 0.9 RATIO (0.9-2.4); AST(SGOT) 44 U/L (15-37); Alanine Aminotransfer ALT/SGPT 34 U/L (13-56); Albumin, Serum 3.9 g/dL (3.2-5.0); Alkaline Phosphatase 147 U/L (45-117); Anion Gap 8 (5-15); BUN 9 mg/dL (7-18); BUN/Creat Ratio 11.7 RATIO (10-20); Calcium,Total 9.5 mg/dL (8.5-10.1); Chloride 104 mmol/L (98-107); Creatinine, Serum 0.77 mg/dL (0.55-1.02); EST Glomerular Filtration Rate 82 mL/min (>60); Est Glom Filt Rate - Afr Amer 99 mL/min (>60); Globulin 4.2 g/dL (2.2-4.2); Glucose 96 mg/dL (74-106); Potassium 3.9 mmol/L (3.5-5.1); Protein, Total 8.1 g/dL (6.4-8.2); Sodium Level 139 mmol/L (136-145)
== END | disposition home or self-care (01) ==
PROVIDERS: PCP Family Medicine
DX: Z01.818 Encounter for other preprocedural examination (principal)
CPT/HCPCS: 36415; 80053; 85025

== ENCOUNTER 2019-09-29 11:24 | Day surgery (SDC) | payer OTHER, SELFPAY ==
[2019-09-24 12:48] VITALS: BMI 28.7
[2019-09-25 17:14] LABS: Hematocrit 41.2 % (37-47); Hemoglobin 13.4 g/dL (12.0-15.0); Mean Corp Hgb Conc 32.5 g/dL (32-36); Mean Corpuscular Hgb 31.7 pg (27.0-32.0); Mean Corpuscular Volume 97.4 fL (81-99); Mean Platelet Vol. 8.9 fl (6.2-12.0); Platelet Count 409 K/mm3 (150-450); RBC Distribution Width SD 42.6 fl (35.1-43.9); Red Blood Count 4.23 M/mm3 (4.2-5.4); White Blood Count 5.3 K/mm3 (4.4-11.0)
[2019-09-25 17:50] LABS: Anion Gap 3 (5-15); BUN 15 mg/dL (7-18); BUN/Creat Ratio 22.6 RATIO (10-20); Calcium,Total 9.6 mg/dL (8.5-10.1); Chloride 107 mmol/L (98-107); Creatinine, Serum 0.66 mg/dL (0.55-1.02); EST Glomerular Filtration Rate 97 mL/min (>60); Est Glom Filt Rate - Afr Amer 117 mL/min (>60); Glucose 100 mg/dL (74-106); Potassium 3.9 mmol/L (3.5-5.1); Sodium Level 138 mmol/L (136-145)
[2019-09-29] VITALS (7 sets, daily range): BP systolic 121–134; BP diastolic 72–85; PULSE 74–84; RESP 15–16; TEMP 36.2–37.2; O2SAT 98–100; BMI 28.5
[2019-09-29] MEDS: Lactated Ringers 1,000 ML 100 ML IV (12:08)
--- NOTE | 2019-09-29 13:11 | PCM.HP.BLA ---
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: No Is patient in pain?: No Allergies No Known Allergies Allergy (Verified 09/24/19 12:48) Medications acetaminophen 325 mg capsule 325 mg PO ONCE PRN 09/24/19 [History Confirmed 09/24/19] docusate sodium 100 mg capsule 100 mg PO BID 09/24/19 [History Confirmed 09/24/19] magnesium hydroxide 400 mg/5 mL oral suspension 30 ml PO BID PRN ml 09/24/19 [History Confirmed 09/24/19] metoclopramide HCl 10 mg tablet 10 mg PO TID PRN tab 09/24/19 [History Confirmed 09/24/19] oxycodone 5 mg tablet 5 mg PO Q6H PRN 09/24/19 [History Confirmed 09/24/19] pantoprazole 40 mg tablet,delayed release 40 mg PO DAILY 09/24/19 [History Confirmed 09/24/19] Is last menstrual period known: No Post menopausal: Yes Patient : No PFSH Medical History (Updated 09/24/19 @ 13:[address] Chris Osman MD) Cholangiocarcinoma (Acute) Cholangiocarcinoma (Acute) Fatigue (Acute) Hay fever (Acute) Knee pain (Acute) Migraines (Acute) SOB (shortness of breath) (Acute) Sarcoidosis (Acute) Shoulder pain (Acute) Surgical History (Updated 09/24/19 @ 12:47 by Jannet Salazar) History of laparoscopy (Acute) Family History (Updated 09/24/19 @ 12:47 by Jannet Salazar) Father Heart disease Diabetes Cancer leukemia Mother Multiple sclerosis Social History (Updated 09/24/19 @ 13:[address] 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 The patient has been seen and operated on by Dr. Bakari Gaston at [facility]. Hopes have been made to be able to pursue a Whipple procedure but the patient was found to have peritoneal metastasis and so that procedure was aborted. The patient now is being referred locally to Dr. Cora Villalba for oncologic treatment. A request was made made to facilitate that treatment with placement of a port. The patient has not had any head neck interventions no IV devices. HPI HPI HPI: RUDY GONZALEZ, is a 59 F who presents to the office today for ROS General General: No weight change, appetite, fatigue, colon cancer, breast cancer or weakness HEENT HEENT: No difficulty swallowing, eye injury, eye surgery, swollen glands or hoarseness Endo Endocrine: No thyroid disease, diabetes mellitus, thyroid cancer, Hair loss, heat intolerance or cold intolerance Cardio Cardiovascular: No murmur, pacemaker, heart disease, atrial fibrillation, high blood pressure, heart attack, heart stent, palpitations, shortness of breat with exertion or chest pain Psych Psychiatric: No depression, anxiety or hearing voices Resp Respiratory: No shortness of breath, No sleep apnea, No cough, No COPD, No asthma, No emphysema, No wheezing Gastro Gastrointestinal: No abdominal pain, No nausea or vomiting, No diarrhea, No constipation, No blood in stool, No acid reflux, No hemorrhoids, No ulcers, Yes gallbladder problem, No black,tarry stools Rachid Hematologic: No blood thinners, No blood disorders, No bleeding, No anemia, No blood clots Neuro Neurologic: No weakness Exam Const General: cooperative, comfortable Nutritional Appearance: average body habitus Orientation: alert, awake [facility] Head: normal to inspection Resp Effort & Inspection: normal respiratory effort Auscultation: clear to auscultation bilaterally Cardio Rate: regular rate Rhythm: regular rhythm Heart Sounds: no murmurs GI Palpation: soft Auscultation: normal bowel sounds Skin General: no rashes or lesions noted Neuro General: alert Extrem General: no calf tenderness Psych Affect: normal affect Assessment & Plan Problems 1. 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 She recently had an exploratory laparotomy for intended Whipple procedure per Dr. Bakari Gaston at the [facility] on September 01, 2019. Unfortunately metastatic omental disease was identified. A gastrojejunal bypass procedure of the stomach was performed. Clinical stage IV (cT2, cN0, pM1) I have discussed with the patient placement of a internal jugular port. I recommend an attempt at a right internal jugular port placement possible conversion to the left. I described technique, benefit, risk and alternatives. She has had an opportunity to ask and have questions answered. We will schedule and expedite. Patient is aware of Covid-19 pandemic. Currently the [facility] is reporting a low local incidence. Cc: Dr. Raji Mathis and Dr. Cora Villalba and Dr. Nicolás Osman M.D., F.A.C.S. 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 There are no clinical changes since date of exam. Procedure Criteria Procedure Type: Elective COVID Risk Discussion: The surgeon/proceduralist and patient have discussed in detail the risk of exposure to and/or potential harm posed by the COVID-19 virus with having a surgery/procedure at this time versus the risk of delaying the surgery/procedure. It is not possible to know either the risk of delaying the surgery or procedure or chance of getting an infection with perfect accuracy, but a joint decision was made between the patient and the surgeon/proceduralist to proceed at this time with the scheduled surgery/procedure as indicated on the consent form.
--- NOTE | 2019-09-29 13:12 | PCM.DC.POR ---
Discharge Diet: No Restrictions - Pain medication may cause nausea. You should typically eat light foods as you take your pain medication. Discharge Activity: Return to Normal Activity, May Shower - Leave the bandage on for 2-3 days. When you remove the bandage, leave the steri-strips intact for one week. Additional Activity Instructions:: May not drive, work with heavy equipment, or sign legal documents for [address] if you are no longer taking narcotic pain medications. You may drive when you are no longer taking pain medications. Additional Dressing/Incision Instructions:: Leave the bandage on for 2-3 days. When you remove the bandage, leave the steri-strips intact until they fall off. Allergies/Adverse Reactions: Allergies No Known Allergies Allergy (Verified 09/29/19 11:57) Medications to take at Discharge acetaminophen 325 mg capsule 325 mg PO ONCE PRN 09/24/19 docusate sodium 100 mg capsule 100 mg PO BID PRN 09/24/19 magnesium hydroxide 400 mg/5 mL oral suspension 30 ml PO BID PRN ml 09/24/19 metoclopramide HCl 10 mg tablet 10 mg PO TID PRN tab 09/24/19 oxycodone 5 mg tablet 5 mg PO Q6H PRN 09/24/19 pantoprazole 40 mg tablet,delayed release 40 mg PO 1700 09/24/19 Enoxaparin Sodium [Lovenox] 40 mg SQ DAILY 09/25/19 Orders to be completed after discharge: CORONAVIRUS 19, JUDD SCREEN Time Frame: 09/25/19, Facility: [facility], Location: Laboratory Primary Care Physician: Raji Mathis MD [Primary Care Provider] - Test Results: Test results from this visit will be discussed in further detail at your follow-up appointment, if applicable. Please Follow Up With: Chris Osman MD - [phone] When: Office follow-up can be as needed
[2019-09-29] MEDS: Cefazolin 2 GM in 0.9% Normal Saline 100 ML IV (13:32)
[2019-09-29] MEDS: Bupivacaine Mpf 0.5% 30 ML VIAL (13:49)
--- NOTE | 2019-09-29 14:30 | PCM.OPRPT ---
Problem List (1) Cholangiocarcinoma Status: Acute Report of Operation Date of Procedure: 09/29/19 Pre-Operative Diagnosis: Cholangiocarcinoma Post-Operative Diagnosis: Same Surgery/Procedure Performed:: Right internal jugular 6 [employer] placement. Reference [id number]. Lot number [id number], expiry date 11/09/2020 Description of Surgical Findings:: 59-year-old female was taken the operating placed on the table underwent monitored anesthesia care. Ancef 2 g given intravenously. The right neck and chest were sterilely prepped and draped. 1% lidocaine mixed 50-50 with 0.5% Marcaine was used as a local anesthetic. Throughout the procedure total 20 cc was used. Under ultrasound guidance local was instilled overlying the right internal jugular vein that a micropuncture needle inserted micropuncture wire inserted. Then local instilled down upon the right chest wall. Midclavicular space secondary crawlspace transverse incision was created electrocautery is used to make a subcutaneous pocket. The tubing was tunneled from the neck to the chest site. Micropuncture sheath was placed over the wire and then exchanged out for an 035 J-wire. Fluoroscopy demonstrated good positioning. The sheath dilator was inserted. The wire dilator removed. The catheter advanced through the sheath. The sheath was split the catheterization at what was felt to be SVC atrial junction. I connected to the port secured with a port attachment device placed the port in the pocket secured that with 2-0 silk close the site with 3-0 Vicryl. Inserted a Osborne needle did not aspirated easily I looked with fluoroscopy lines appear to be slightly deep so I reopen the pocket removed a couple extra centimeters of line checked with fluoroscopy and 1 cc of Isovue. The catheter appeared to be in better position. I reconnected to the port resecured it replaced the port in the pocket and secured that with 2-0 silk. Port site was closed interrupted 3-0 Vicryl subdermal stitch. The port was accessed now it seemed to aspirate and flushed easily with saline was flushed with 2 and half cc of heparinized saline. The neck site was closed interrupted 5-0 Vicryl. Steri-Strips Telfa OpSite dressings applied. Sponge and instrument and needle counts were reported to the surgeon be correct. Blood loss minimal. Specimens none. Drains none. Blood loss minimal. The patient was taken to the recovery room satisfactory addition without apparent complication. Stat portable chest x-ray is pending. Chris Osman M.D., F.A.C.S. Type of Anesthesia:: Local MAC Anesthesiologist: Mariano Anne
--- NOTE | 2019-09-29 14:41 | RAD_ITS ---
STUDY: X-RAY CHEST REASON FOR EXAM: Female, 59 years old. POST OP RIGHT SIDED PORT PLACEMENT TECHNIQUE: Single AP portable view of the chest. COMPARISON: 08/26/2019 FINDINGS: EKG leads overlie the chest. As the previous study, a right subclavian Port-A-Cath has been placed, tip is in the distal SVC, no pneumothorax. The lungs are clear and expanded. There is no demonstrated pleural abnormality. Normal size heart. Normal mediastinum and aurelio. Normal visualized pulmonary arteries. Normal visualized aortic arch and descending thoracic aorta. Normal visualized thoracic spine. Normal visualized ribs, clavicles, and shoulders. There is no demonstrated abnormality of the visualized soft tissue structures of the upper abdomen. RAD/Chest 1 View (Portable) IMPRESSION: No acute pulmonary process Right subclavian Port-A-Cath has been placed, tip is in the SVC, no pneumothorax. Electronically Signed: Walter Perkins MD at 15:00 EDT , Service support ,
== END 2019-09-29 16:29 | disposition home or self-care (01) ==
LOC: SDC 11:25 → AC 11:26
PROVIDERS: PCP Family Medicine; Referring Provider Surgery; Visit Provider Surgery
PROC: (CPT 36561; principal; 2019-09-29 12:45)
DX: C22.1 Intrahepatic bile duct carcinoma (principal); C78.6 Secondary malignant neoplasm of retroperitoneum and peritoneum; Z45.2 Encounter for adjustment and management of vascular access device; K21.9 Gastro-esophageal reflux disease without esophagitis; Z87.891 Personal history of nicotine dependence
CPT/HCPCS: 00532; 36561; 36415; 71045; 77001; 80048; 85027; 87635; G2023; J7120; U0003

== ENCOUNTER 2019-11-26 12:49 | Outpatient (RCR) | payer OTHER, SELFPAY ==
[2019-09-29 11:58] VITALS: BMI 28.5
== END 2019-12-10 23:59 ==
LOC: EMPH 12:49
PROVIDERS: PCP Family Medicine; Visit Provider Family Medicine Geriatric Medicine
DX: Z11.59 Encounter for screening for other viral diseases (principal)
CPT/HCPCS: 87635; U0003

== ENCOUNTER → 2019-12-12 | Outpatient (CLI) | payer OTHER, SELFPAY ==
[2019-09-29 11:58] VITALS: BMI 28.5
--- NOTE | 2019-12-12 07:08 | CT_ITS ---
STUDY: CT ABDOMEN AND PELVIS WITH CONTRAST REASON FOR EXAM: Female, 59 years old. Malignant neoplasm of biliary tract, cholangiocarcinoma. 3 ROUNDS OF CHEMO AND BILI VALDEZ RESECTION WITH STENT RADIATION DOSAGE (If Supplied By Facility): CTDIvol = ( 13.33 ) mGy, DLP = ( 763.14 ) mGycm TECHNIQUE: Transaxial images were obtained from the dome of the diaphragm to the symphysis pubis with oral contrast. Oral and amp; IV Readi-CAT and amp; 100mL Isovue-300 was administered. Sagittal and coronal images were reconstructed. Individualized dose optimization techniques were used for this CT. COMPARISON: Comparison is made with prior study dated 07/04/2019. FINDINGS: Stable linear atelectasis and/or scarring in the medial aspect of the right middle lobe The visualized portions of the heart are within normal limits. A stent is seen in the common bile duct extending into the distal portion of the common bile duct. Small amount of air is seen within the left biliary ducts. There is evidence of 3.2 cm x 1.7 cm area of the decreased attenuation in the medial aspect of the right lobe of the liver. This may represent a focal area of the possible neoplastic involvement. Norrmal gallbladder and extrahepatic biliary system. Normal spleen. Normal pancreas. Normal bilateral adrenal glands. Normal right kidney. Normal left kidney. Normal visualized stomach. Normal small intestine. Normal colon. The appendix is visualized and appears normal. There is diffuse atherosclerotic calcification of the abdominal aorta, without a demonstrated aneurysm. Normal inferior vena cava. Normal retroperitoneum. Normal urinary bladder. Stable calcified fibroid uterus. This is in the fundal portion of the uterus. Normal abdominal wall. There are mild degenerative changes of the visualized lumbar spine. CT/Abdomen/Pelvis WITH Contrast IMPRESSION: Status post stent placement in the common bile duct. There is evidence of a small amount of air within the left biliary duct. Focal area of inhomogeneous hypodensity in the medial aspect of the right lobe of liver adjacent to the falciform ligament. This may represent an area of neoplastic involvement. The remainder of the examination is unchanged. Electronically Signed: Eliot Barroso, at 9:30 EDT , Service support ,
[2019-12-12 07:20] LABS: CREATININE FINGERSTICK 0.7 mg/dL (0.55-1.02)
[2019-12-12] MEDS: 0.9% Saline Lock 10 ML Syringe IV (07:37)
== END | disposition home or self-care (01) ==
LOC: CT 07:07
PROVIDERS: PCP Family Medicine; Referring Provider Internal Medicine Hematology & Oncology; Visit Provider Internal Medicine Hematology & Oncology
DX: C22.1 Intrahepatic bile duct carcinoma (principal)
CPT/HCPCS: 74177; Q9967; A4216

== ENCOUNTER 2020-01-08 15:56 | Outpatient (RCR) | payer OTHER, SELFPAY ==
[2019-09-29 11:58] VITALS: BMI 28.5
[2019-12-25 13:49] VITALS: BMI 28.4
== END 2020-01-10 23:59 ==
LOC: EMPH 15:56
PROVIDERS: PCP Family Medicine; Referring Provider Family Medicine Geriatric Medicine; Visit Provider Family Medicine Geriatric Medicine
DX: Z03.818 Encounter for observation for suspected exposure to other biological agents ruled out (principal)
CPT/HCPCS: 87426

== ENCOUNTER 2020-02-04 15:52 | Outpatient (RCR) | payer OTHER, SELFPAY ==
[2020-01-07 08:52] VITALS: BMI 29.5
[2020-01-14 09:53] VITALS: BMI 28.6
== END 2020-02-09 23:59 ==
LOC: EMPH 15:52
PROVIDERS: PCP Family Medicine; Referring Provider Family Medicine Geriatric Medicine; Visit Provider Family Medicine Geriatric Medicine
DX: Z03.818 Encounter for observation for suspected exposure to other biological agents ruled out (principal)
CPT/HCPCS: 87426

== ENCOUNTER → 2020-02-19 10:27 | Outpatient (CLI) | payer OTHER, SELFPAY ==
[2020-02-04 08:47] VITALS: BMI 29.0
--- NOTE | 2020-02-19 10:31 | MRI_ITS ---
STUDY: MRI BRAIN WITH AND WITHOUT CONTRAST REASON FOR EXAM: Female, 59 years old. restaging, H/O cholangiocarcinoma, C/O POUNDING IN EARS X 3 WEEKS TECHNIQUE: Standardized multiplanar fat and water weighted pulse sequences were obtained. IV 15 cc dotarem was administered for the contrast portion of the examination. COMPARISON: None. FINDINGS: Normal size of the ventricles and extra-axial spaces for the patient''s age. Normal white matter tracts of the supratentorial brain. Normal bilateral basal ganglia. Normal thalami. There is no extra-axial fluid accumulation. Normal flow voids within the major intracranial circulation suggesting patency by spin echo criteria. Normal venous enhancement. There is no enhancing intra-axial or extra-axial abnormality. Normal sella turcica, pituitary gland, infundibular stalk, optic chiasm and hypothalamus. Normal tectal plate and pineal gland. Normal midbrain, bartolome and medulla. Normal cerebellum. Normal basal cisterns. MRI/Brain W/WO Contrast IMPRESSION: Unremarkable unenhanced and enhanced MRI of the brain. Electronically Signed: Skye Guillen MD at 10:16 EST Tel , Service support ,
[2020-02-19] MEDS: 0.9 % NaCl (Sterile) Posiflush 10 mL IV (11:30)
[2020-02-19] MEDS: 0.9% Saline Lock 10 ML Syringe IV (11:35)
== END ==
PROVIDERS: PCP Family Medicine; Referring Provider Internal Medicine Medical Oncology; Visit Provider Internal Medicine Medical Oncology
DX: C22.1 Intrahepatic bile duct carcinoma (principal)
CPT/HCPCS: 70553; A9575; A4216

== ENCOUNTER → 2020-02-23 08:06 | Outpatient (CLI) | payer OTHER, SELFPAY ==
[2020-02-04 08:47] VITALS: BMI 29.0
--- NOTE | 2020-02-23 08:08 | CT_ITS ---
STUDY: CT ABDOMEN AND PELVIS WITH CONTRAST REASON FOR EXAM: Female, 59 years old. RESTAGING CHOLANGIOCARCINOMA RADIATION DOSAGE (If Supplied By Facility): CTDIvol = ( 12.65 ) mGy, DLP = ( 721.65 ) mGycm TECHNIQUE: Transaxial images were obtained from the dome of the diaphragm to the symphysis pubis with oral contrast. Oral and IV Readi-CAT and 100mL Isovue-300 was administered. Sagittal and coronal images were reconstructed. Individualized dose optimization techniques were used for this CT. COMPARISON: Comparison is made with prior study dated 12/12/2019. FINDINGS: Stable linear scarring and/or atelectasis in the medial aspect of the right middle lobe. The visualized portions of the heart are within normal limits. Once again, a stent is seen in the common bile duct. Mild degree of intrahepatic biliary ductal dilatation with air seen in the anterior biliary ducts most likely secondary to the stent. Stable 3.4 cm x 1.7 cm area of altered attenuation in the medial aspect of the right lobe of the liver. The gallbladder is contracted. Questionable tiny polyps along the gallbladder wall. Normal spleen. There is evidence of a 3.7 cm x 3.7 cm soft tissue mass in the region of the kathleen hepatis surrounding the biliary stent. This has progressed as compared to prior study. Normal bilateral adrenal glands. Normal right kidney. Normal left kidney. Normal visualized stomach. Normal small intestine. Normal colon. The appendix is visualized and appears normal. There is scattered atherosclerotic calcification of the abdominal aorta, without a demonstrated aneurysm. Normal inferior vena cava. Normal retroperitoneum. Normal urinary bladder. Calcified fibroid uterus. Normal abdominal wall. There are diffuse degenerative changes of the visualized lumbar spine. CT/Abdomen/Pelvis WITH Contrast IMPRESSION: Progressive soft tissue density in the region of the kathleen hepatis surrounding the stent. Stable heterogeneous appearance of the medial aspect of the right lobe of the liver. Electronically Signed: Eliot Barroso, at 13:43 EST , Service support ,
[2020-02-23] MEDS: 0.9% Saline Lock 10 ML Syringe IV (08:38)
== END ==
PROVIDERS: PCP Family Medicine; Referring Provider Internal Medicine Medical Oncology; Visit Provider Internal Medicine Medical Oncology
DX: C22.1 Intrahepatic bile duct carcinoma (principal)
CPT/HCPCS: 74177; Q9967; A4216

== ENCOUNTER 2020-03-08 11:31 | Outpatient (RCR) | payer OTHER, SELFPAY ==
[2020-02-04 08:47] VITALS: BMI 29.0
== END 2020-03-11 23:59 ==
LOC: EMPH 11:31
PROVIDERS: PCP Family Medicine; Referring Provider Family Medicine Geriatric Medicine; Visit Provider Family Medicine Geriatric Medicine
DX: Z03.818 Encounter for observation for suspected exposure to other biological agents ruled out (principal)
CPT/HCPCS: 87426

== ENCOUNTER → 2020-04-05 11:01 | Outpatient (CLI) | payer OTHER, SELFPAY ==
[2020-03-18 13:58] VITALS: BMI 29.2
[2020-04-05 09:19] VITALS: BMI 29.0
--- NOTE | 2020-04-05 11:04 | EKG12_ITS ---
Test Reason : NEW MEDS Blood Pressure : / mmHG Vent. Rate : 090 BPM Atrial Rate : 090 BPM P-R Int : 118 ms QRS Dur : 084 ms QT Int : 368 ms P-R-T Axes : 030 068 018 degrees QTc Int : 450 ms Normal sinus rhythm Nonspecific ST abnormality Abnormal ECG Confirmed by KATHRYN MANRIQUE, JORDI ([id number]), legal editor SHANELLE SUAREZ ([id number]) on 04/06/2020 12:10:12 PM Referred By: Daly Brandt Confirmed By:JORDI PERALTA MD
== END ==
PROVIDERS: PCP Family Medicine; Referring Provider Nurse Practitioner Family; Visit Provider Nurse Practitioner Family
DX: Z51.81 Encounter for therapeutic drug level monitoring (principal)
CPT/HCPCS: 93005

== ENCOUNTER 2020-04-09 14:08 | Outpatient (RCR) | payer OTHER, SELFPAY ==
[2020-03-11 14:42] VITALS: BMI 27.9
== END 2020-04-11 23:59 ==
LOC: EMPH 14:08
PROVIDERS: PCP Family Medicine; Referring Provider Family Medicine Geriatric Medicine; Visit Provider Family Medicine Geriatric Medicine
DX: Z03.818 Encounter for observation for suspected exposure to other biological agents ruled out (principal)
CPT/HCPCS: 87426

== ENCOUNTER → 2020-04-12 | Outpatient (CLI) | payer OTHER, SELFPAY ==
[2020-03-18 13:58] VITALS: BMI 29.2
[2020-04-05 09:19] VITALS: BMI 29.0
--- NOTE | 2020-04-12 09:58 | EKG12_ITS ---
Test Reason : PRE OP Blood Pressure : / mmHG Vent. Rate : 086 BPM Atrial Rate : 086 BPM P-R Int : 140 ms QRS Dur : 090 ms QT Int : 384 ms P-R-T Axes : 043 043 014 degrees QTc Int : 459 ms Normal sinus rhythm Normal ECG Confirmed by QUETA MANRIQUE, RONAK ([id number]), publishing editor OLEG RO ([id number]) on 04/13/2020 8:37:44 AM Referred By: Daly Brandt Confirmed By:RONAK BIRCH MD
== END | disposition home or self-care (01) ==
LOC: PSN 09:58
PROVIDERS: PCP Family Medicine; Referring Provider Nurse Practitioner Family; Visit Provider Nurse Practitioner Family
DX: Z51.81 Encounter for therapeutic drug level monitoring (principal)
CPT/HCPCS: 93005

== ENCOUNTER → 2020-04-19 09:19 | Outpatient (CLI) | payer OTHER, SELFPAY ==
[2020-03-18 13:58] VITALS: BMI 29.2
[2020-04-05 09:19] VITALS: BMI 29.0
[2020-04-12 10:58] VITALS: BMI 28.5
--- NOTE | 2020-04-19 09:21 | EKG12_ITS ---
Test Reason : MEDICATION Blood Pressure : / mmHG Vent. Rate : 083 BPM Atrial Rate : 083 BPM P-R Int : 136 ms QRS Dur : 092 ms QT Int : 384 ms P-R-T Axes : 072 083 035 degrees QTc Int : 451 ms Normal sinus rhythm Normal ECG Confirmed by KATHRYN MANRIQUE, JORDI ([id number]), slot editor RENATO GARNETT ([id number]) on 04/19/2020 2:22:56 PM Referred By: Daly Brandt Confirmed By:JORDI PERALTA MD
== END ==
PROVIDERS: PCP Family Medicine; Referring Provider Nurse Practitioner Family; Visit Provider Nurse Practitioner Family
DX: Z51.11 Encounter for antineoplastic chemotherapy (principal); C22.1 Intrahepatic bile duct carcinoma
CPT/HCPCS: 93005

== ENCOUNTER → 2020-04-27 11:55 | Outpatient (CLI) | payer OTHER, SELFPAY ==
[2020-03-18 13:58] VITALS: BMI 29.2
[2020-04-05 09:19] VITALS: BMI 29.0
[2020-04-19 10:42] VITALS: BMI 28.5
--- NOTE | 2020-04-27 11:57 | EKG12_ITS ---
Test Reason : HIGH RISK NEDS Blood Pressure : / mmHG Vent. Rate : 089 BPM Atrial Rate : 089 BPM P-R Int : 138 ms QRS Dur : 090 ms QT Int : 376 ms P-R-T Axes : 033 021 010 degrees QTc Int : 457 ms Normal sinus rhythm Normal ECG Confirmed by QUETA MANRIQUE, RONAK ([id number]), communications editor RENATO GARNETT ([id number]) on 04/28/2020 10:06:28 AM Referred By: Daly Brandt Confirmed By:RONAK BIRCH MD
== END ==
PROVIDERS: PCP Family Medicine; Referring Provider Nurse Practitioner Family; Visit Provider Nurse Practitioner Family
DX: C22.1 Intrahepatic bile duct carcinoma (principal); Z79.899 Other long term (current) drug therapy
CPT/HCPCS: 93005

== ENCOUNTER 2020-05-06 10:29 | Outpatient (RCR) | payer OTHER, SELFPAY ==
[2020-03-18 13:58] VITALS: BMI 29.2
[2020-04-05 09:19] VITALS: BMI 29.0
[2020-04-27 13:04] VITALS: BMI 29.0
== END 2020-05-09 23:59 ==
LOC: EMPH 10:29
PROVIDERS: PCP Family Medicine; Referring Provider Family Medicine Geriatric Medicine; Visit Provider Family Medicine Geriatric Medicine
DX: Z03.818 Encounter for observation for suspected exposure to other biological agents ruled out (principal)
CPT/HCPCS: 87426

== ENCOUNTER → 2020-05-25 09:31 | Outpatient (CLI) | payer OTHER, SELFPAY ==
[2020-03-18 13:58] VITALS: BMI 29.2
[2020-04-27 13:04] VITALS: BMI 29.0
--- NOTE | 2020-05-25 09:32 | EKGRS_ITS ---
Test Reason : FOLLOW UP Blood Pressure : / mmHG Vent. Rate : 086 BPM Atrial Rate : 086 BPM P-R Int : 140 ms QRS Dur : 084 ms QT Int : 364 ms P-R-T Axes : 054 062 040 degrees QTc Int : 435 ms Normal sinus rhythm Normal ECG Confirmed by KATHRYN MANRIQUE, JORDI ([id number]), international editorial producer RENATO GARNETT ([id number]) on 05/26/2020 10:04:09 AM Referred By: Mark Anthony Guzman Confirmed By:JORDI PERALTA MD
== END ==
PROVIDERS: PCP Family Medicine; Referring Provider Internal Medicine Medical Oncology; Visit Provider Internal Medicine Medical Oncology
DX: C22.1 Intrahepatic bile duct carcinoma (principal); Z79.899 Other long term (current) drug therapy
CPT/HCPCS: 93005

== ENCOUNTER 2020-06-02 09:32 | Outpatient (RCR) | payer OTHER, SELFPAY ==
[2020-03-18 13:58] VITALS: BMI 29.2
[2020-04-27 13:04] VITALS: BMI 29.0
== END 2020-06-09 23:59 ==
LOC: EMPH 09:32
PROVIDERS: PCP Family Medicine; Referring Provider Family Medicine Geriatric Medicine; Visit Provider Family Medicine Geriatric Medicine
DX: Z03.818 Encounter for observation for suspected exposure to other biological agents ruled out (principal)
CPT/HCPCS: 87426

== ENCOUNTER → 2020-06-18 08:32 | Outpatient (CLI) | payer OTHER, SELFPAY ==
[2020-03-18 13:58] VITALS: BMI 29.2
[2020-05-25 10:24] VITALS: BMI 28.0
--- NOTE | 2020-06-18 08:36 | CT_ITS ---
STUDY: CT ABDOMEN AND PELVIS WITH CONTRAST REASON FOR EXAM: Female, 59 years old. Abdominal pain, nausea, history of cholangiocarcinoma RADIATION DOSAGE (If Supplied By Facility): CTDIvol = ( 14.35 ) mGy, DLP = ( 573.25 ) mGycm TECHNIQUE: Transaxial images were obtained from the dome of the diaphragm to the symphysis pubis without oral contrast. Oral and amp;amp; IV Readi-CAT and amp;amp; 100mL Isovue-300 was administered. Sagittal and coronal images were reconstructed. Individualized dose optimization techniques were used for this CT. COMPARISON: 02/23/2020 FINDINGS: There are chronic interstitial fibrotic changes of the lung bases. The visualized portions of the heart are within normal limits. At the hepatic hilum, there is a stable concerning poorly defined area of low density measuring 3.4 x 1.7 cm. Metastasis is suspected. Biliary stent is noted. There is persistent mild intrahepatic biliary dilatation and pneumobilia. The gallbladder is contracted. Normal spleen. Normal pancreas. There are persistent subcentimeter lymph nodes in the region of the celiac axis and SMA. Normal bilateral adrenal glands. Normal right kidney. Normal left kidney. Normal visualized stomach. Normal small intestine. Retained stool noted throughout the colon. There is non-visualization of the appendix. There is diffuse atherosclerotic calcification of the abdominal aorta, without a demonstrated aneurysm. Normal inferior vena cava. Scattered subcentimeter mesenteric and retroperitoneal lymph nodes Normal urinary bladder. The uterus is still present, the endometrium cannot be accurately evaluated with CT. There is a calcified involuted fibroids. Normal abdominal wall. There are diffuse degenerative changes of the visualized lumbar spine, and pelvis. CT/Abdomen/Pelvis WITH Contrast IMPRESSION: Persistent hypoattenuation in the right lobe of the liver measuring 3.4 x 1.7 cm concerning for metastasis. Stable appearance of the biliary stent. I cannot accurately evaluate the tissues around the biliary stent is no oral contrast noted in the duodenum. There is stable unchanged mild intrahepatic biliary dilatation and pneumobilia. Persistent subcentimeter lymphadenopathy noted around the SMA, celiac axis, in the mesentery and retroperitoneum. No suspicious bulky adenopathy noted. Retained stool in the colon Uterus is still present, the endometrium cannot be accurately evaluated with CT. There is a stable calcified uterine fibroid noted Electronically Signed: Walter Perkins MD at 11:01 EDT , Service support ,
--- NOTE | 2020-06-18 08:36 | EKGRS_ITS ---
Test Reason : PREOP Blood Pressure : / mmHG Vent. Rate : 084 BPM Atrial Rate : 084 BPM P-R Int : 130 ms QRS Dur : 088 ms QT Int : 372 ms P-R-T Axes : 018 039 012 degrees QTc Int : 439 ms Normal sinus rhythm Normal ECG Confirmed by QUETA MANRIQUE, RONAK ([id number]), editor in chief OLEG RO ([id number]) on 06/21/2020 2:05:02 PM Referred By: Mark Anthony Guzman Confirmed By:RONAK BIRCH MD
[2020-06-18] MEDS: 0.9% Saline Lock 10 ML Syringe IV (09:00)
== END ==
PROVIDERS: PCP Family Medicine; Referring Provider Internal Medicine Medical Oncology; Visit Provider Internal Medicine Medical Oncology
DX: C22.1 Intrahepatic bile duct carcinoma (principal); Z79.899 Other long term (current) drug therapy
CPT/HCPCS: 74177; 93005; Q9967; A4216

== ENCOUNTER 2020-07-09 13:53 | Outpatient (RCR) | payer OTHER, SELFPAY ==
[2020-03-18 13:58] VITALS: BMI 29.2
[2020-05-25 10:24] VITALS: BMI 28.0
== END 2020-07-09 23:59 ==
LOC: EMPH 13:53
PROVIDERS: PCP Family Medicine; Referring Provider Family Medicine Geriatric Medicine; Visit Provider Family Medicine Geriatric Medicine
DX: Z03.818 Encounter for observation for suspected exposure to other biological agents ruled out (principal)
CPT/HCPCS: 87426

== ENCOUNTER → 2020-07-16 09:03 | Outpatient (CLI) | payer OTHER, SELFPAY ==
[2020-03-18 13:58] VITALS: BMI 29.2
[2020-06-22 10:35] VITALS: BMI 27.1
--- NOTE | 2020-07-16 09:04 | EKG12_ITS ---
Test Reason : PRE OP Blood Pressure : / mmHG Vent. Rate : 078 BPM Atrial Rate : 078 BPM P-R Int : 126 ms QRS Dur : 088 ms QT Int : 380 ms P-R-T Axes : 025 055 026 degrees QTc Int : 433 ms Normal sinus rhythm Normal ECG Confirmed by KATHRYN MANRIQUE, JORDI ([id number]), material expeditor RENATO GARNETT ([id number]) on 07/20/2020 8:38:06 AM Referred By: Mark Anthony Guzman Confirmed By:JORDI PERALTA MD
== END ==
PROVIDERS: PCP Family Medicine; Referring Provider Internal Medicine Medical Oncology; Visit Provider Internal Medicine Medical Oncology
DX: Z79.899 Other long term (current) drug therapy (principal)
CPT/HCPCS: 93005

== ENCOUNTER 2020-08-03 13:35 | Outpatient (RCR) | payer OTHER, SELFPAY ==
[2020-03-18 13:58] VITALS: BMI 29.2
[2020-06-22 10:35] VITALS: BMI 27.1
== END 2020-08-09 23:59 ==
LOC: EMPH 13:35
PROVIDERS: PCP Family Medicine; Referring Provider Family Medicine Geriatric Medicine; Visit Provider Family Medicine Geriatric Medicine
DX: Z03.818 Encounter for observation for suspected exposure to other biological agents ruled out (principal)
CPT/HCPCS: 87426

== ENCOUNTER → 2020-08-12 09:05 | Outpatient (CLI) | payer OTHER, SELFPAY ==
[2020-03-18 13:58] VITALS: BMI 29.2
[2020-07-19 10:27] VITALS: BMI 26.9
--- NOTE | 2020-08-12 09:06 | EKG12_ITS ---
Test Reason : HIGH RISK MEDS Blood Pressure : / mmHG Vent. Rate : 072 BPM Atrial Rate : 072 BPM P-R Int : 142 ms QRS Dur : 092 ms QT Int : 414 ms P-R-T Axes : 063 073 040 degrees QTc Int : 453 ms Normal sinus rhythm Low voltage QRS Borderline ECG Confirmed by LILLIAN MANRIQUE, MARTI ([id number]), assignment desk editor RENATO GARNETT ([id number]) on 08/16/2020 10:38:53 AM Referred By: Mark Anthony Guzman Confirmed By:KITTY SNYDER MD
== END ==
PROVIDERS: PCP Family Medicine; Referring Provider Internal Medicine Medical Oncology; Visit Provider Internal Medicine Medical Oncology
DX: C24.0 Malignant neoplasm of extrahepatic bile duct (principal); C34.90 Malignant neoplasm of unspecified part of unspecified bronchus or lung; C78.7 Secondary malignant neoplasm of liver and intrahepatic bile duct; Z79.899 Other long term (current) drug therapy
CPT/HCPCS: 93005

== ENCOUNTER 2020-08-30 14:02 | Outpatient (RCR) | payer OTHER, SELFPAY ==
[2020-03-18 13:58] VITALS: BMI 29.2
[2020-07-19 10:27] VITALS: BMI 26.9
== END 2020-09-08 23:59 ==
LOC: EMPH 14:02
PROVIDERS: PCP Family Medicine; Referring Provider Family Medicine Geriatric Medicine; Visit Provider Family Medicine Geriatric Medicine
DX: Z03.818 Encounter for observation for suspected exposure to other biological agents ruled out (principal)
CPT/HCPCS: 87426

== ENCOUNTER → 2020-09-09 08:54 | Outpatient (CLI) | payer OTHER, SELFPAY ==
[2020-03-18 13:58] VITALS: BMI 29.2
[2020-08-16 09:59] VITALS: BMI 26.6
--- NOTE | 2020-09-09 08:55 | EKG12_ITS ---
Test Reason : HIGH RISK MEDS Blood Pressure : / mmHG Vent. Rate : 077 BPM Atrial Rate : 077 BPM P-R Int : 150 ms QRS Dur : 088 ms QT Int : 410 ms P-R-T Axes : 058 051 035 degrees QTc Int : 463 ms Normal sinus rhythm Normal ECG Confirmed by LILLIAN MANRIQUE, MARTI ([id number]), book or script editor RENATO GARNETT ([id number]) on 09/10/2020 12:47:20 PM Referred By: Daly Brandt Confirmed By:KITTY SNYDER MD
== END ==
PROVIDERS: PCP Family Medicine; Referring Provider Nurse Practitioner Family; Visit Provider Nurse Practitioner Family
DX: C22.1 Intrahepatic bile duct carcinoma (principal); Z51.81 Encounter for therapeutic drug level monitoring; Z79.899 Other long term (current) drug therapy
CPT/HCPCS: 93005

== ENCOUNTER 2020-10-08 13:15 | Outpatient (RCR) | payer OTHER, SELFPAY ==
[2020-03-18 13:58] VITALS: BMI 29.2
[2020-08-16 09:59] VITALS: BMI 26.6
[2020-09-14 15:09] VITALS: BMI 26.5
== END 2020-10-08 16:00 | disposition home or self-care (01) ==
LOC: EMPH 13:15
PROVIDERS: PCP Family Medicine; Referring Provider Family Medicine Geriatric Medicine; Visit Provider Family Medicine Geriatric Medicine
DX: Z03.818 Encounter for observation for suspected exposure to other biological agents ruled out (principal)
CPT/HCPCS: 87426

== ENCOUNTER → 2020-10-11 08:31 | Outpatient (CLI) | payer OTHER, SELFPAY ==
[2020-03-18 13:58] VITALS: BMI 29.2
[2020-09-14 15:09] VITALS: BMI 26.5
--- NOTE | 2020-10-11 08:33 | CT_ITS ---
EXAM DESCRIPTION: CT scan of the abdomen and pelvis CLINICAL HISTORY: 60 years Female, MONITORING TREATMENT RESPONSE, history of cholangiocarcinoma COMPARISON: Previous CT scan of the abdomen pelvis obtained on 06/18/2020 TECHNIQUE: A CT scan of the abdomen and pelvis was performed initially without than with IV contrast contrast administration. Oral contrast was also administered. Coronal and sagittal reconstruction images were reviewed. This exam was performed according to our departmental dose-optimization program, which includes automated exposure control, adjustment of the mA and/or kV according to patient size and/or use of iterative reconstruction technique. FINDINGS: The lung bases and the base of the heart are normal. Air is noted in the right and left common hepatic ducts in this patient with a internal biliary stent in place. This was previously noted and is unchanged. A heterogeneous mass lesion is noted extending along the common bile duct from the patient''s known cholangiocarcinoma. This is seen previously and has not significantly changed, measuring approximately 3.4 x 4.7 cm in size. Since this mass lesion is closely approximated to the left lobe of the liver, hepatic invasion by the tumor is a diagnostic possibility and is unchanged. The spleen is normal.The adrenal glands are normal.The head, body, and tail of the pancreas are normal. The right and left kidneys were examined and appear to be normal. Both ureters appear to be normal, and no obstructive uropathy is identified. The abdominal aortal is normal along its course and distribution. There is very minimal periaortic lymphadenopathy identified with the largest lymph node measuring about 6 mm in size. This is previously noted is not significantly changed, and is indeterminate as it could represent either metastatic or inflammatory lymphadenopathy.. No abdominal masses or lesions are seen. The CT scan of the pelvis was then reviewed. The common iliac vessels, external iliac vessels, and common femoral vessels are normal along their course and distribution the patient is a fibroid uterus margin. No unremarkable seen in the anterior aspect of the midportion measures measuring about 3.8 x 4.7 cm in size and contain calcifications. The appendix is normal. No pericecal inflammatory reaction is seen. Bone scanning windows of the lumbar spine and pelvis were reviewed in the coronal and sagittal planes and appear to be normal. CT/Abdomen/Pelvis WITH Contrast IMPRESSION: 1. An internal biliary stent is noted in place in this patient with cholangiocarcinoma in the hepatic hilum with the malignant mass lesion being unchanged. Invasion of the left lobe of the liver cannot be completely excluded but this also is unchanged. 2. A large fibroid uterus is again identified with a dominant fibroid seen in the fundal portion of the uterus which is unchanged. Electronically Signed: Juventino Ocasio DO at 8:44 EDT Tel , Service support ,
--- NOTE | 2020-10-11 08:33 | EKG12_ITS ---
Test Reason : MEDICATION Blood Pressure : / mmHG Vent. Rate : 078 BPM Atrial Rate : 078 BPM P-R Int : 128 ms QRS Dur : 090 ms QT Int : 386 ms P-R-T Axes : 045 077 065 degrees QTc Int : 440 ms Normal sinus rhythm Low voltage QRS Borderline ECG Confirmed by QUETA MANRIQUE, RONAK ([id number]), editor at large RENATO GARNETT ([id number]) on 10/14/2020 1:33:32 PM Referred By: Mark Anthony Guzman Confirmed By:RONAK BIRCH MD
[2020-10-11 09:00] LABS: CREATININE FINGERSTICK 0.6 mg/dL (0.55-1.02); EGFR FINGERSTICK > 60.0000 mL/min (>60)
[2020-10-11] MEDS: 0.9% Saline Lock 10 ML Syringe IV (09:05)
== END ==
PROVIDERS: PCP Family Medicine; Referring Provider Internal Medicine Medical Oncology; Visit Provider Internal Medicine Medical Oncology
DX: C22.1 Intrahepatic bile duct carcinoma (principal); Z79.899 Other long term (current) drug therapy
CPT/HCPCS: 74177; 93005; Q9967; A4216

== ENCOUNTER → 2020-11-09 13:35 | Outpatient (CLI) | payer OTHER, SELFPAY ==
[2020-03-18 13:58] VITALS: BMI 29.2
[2020-10-14 13:39] VITALS: BMI 26.7
--- NOTE | 2020-11-09 13:36 | EKG12_ITS ---
Test Reason : HIGH RISK MED Blood Pressure : / mmHG Vent. Rate : 076 BPM Atrial Rate : 076 BPM P-R Int : 126 ms QRS Dur : 094 ms QT Int : 392 ms P-R-T Axes : 020 064 031 degrees QTc Int : 441 ms Normal sinus rhythm Incomplete right bundle branch block Confirmed by QUETA MANRIQUE, RONAK ([id number]), senior technical editor RENATO GARNETT ([id number]) on 11/10/2020 9:26:14 AM Referred By: Daly Brandt Confirmed By:RONAK BIRCH MD
== END ==
PROVIDERS: PCP Family Medicine; Referring Provider Nurse Practitioner Family; Visit Provider Nurse Practitioner Family
DX: C22.1 Intrahepatic bile duct carcinoma (principal); Z51.81 Encounter for therapeutic drug level monitoring; Z79.899 Other long term (current) drug therapy
CPT/HCPCS: 93005

== ENCOUNTER 2020-11-09 13:37 | Outpatient (RCR) | payer OTHER, SELFPAY ==
[2020-03-18 13:58] VITALS: BMI 29.2
[2020-09-14 15:09] VITALS: BMI 26.5
== END 2020-11-09 23:59 ==
LOC: EMPH 13:37
PROVIDERS: PCP Family Medicine; Referring Provider Family Medicine Geriatric Medicine; Visit Provider Family Medicine Geriatric Medicine
DX: Z03.818 Encounter for observation for suspected exposure to other biological agents ruled out (principal)
CPT/HCPCS: 87426

== ENCOUNTER → 2020-12-06 08:19 | Outpatient (CLI) | payer OTHER, SELFPAY ==
[2020-03-18 13:58] VITALS: BMI 29.2
--- NOTE | 2020-12-06 08:21 | EKG12_ITS ---
Test Reason : MEDICATION Blood Pressure : / mmHG Vent. Rate : 074 BPM Atrial Rate : 074 BPM P-R Int : 136 ms QRS Dur : 094 ms QT Int : 394 ms P-R-T Axes : 063 082 042 degrees QTc Int : 437 ms Normal sinus rhythm Low voltage QRS Borderline ECG Confirmed by KATHRYN MANRIQUE, JORDI ([id number]), image editor RENATO GARNETT ([id number]) on 12/08/2020 9:51:49 AM Referred By: Mark Anthony Guzman Confirmed By:JORDI PERALTA MD
== END ==
PROVIDERS: PCP Family Medicine; Referring Provider Internal Medicine Medical Oncology; Visit Provider Internal Medicine Medical Oncology
DX: C34.90 Malignant neoplasm of unspecified part of unspecified bronchus or lung (principal); C78.7 Secondary malignant neoplasm of liver and intrahepatic bile duct; Z51.81 Encounter for therapeutic drug level monitoring; Z79.899 Other long term (current) drug therapy
CPT/HCPCS: 93005

== ENCOUNTER 2020-12-09 13:08 | Outpatient (RCR) | payer OTHER, SELFPAY ==
[2020-03-18 13:58] VITALS: BMI 29.2
[2020-11-10 00:29] VITALS: BMI 26.5
== END 2020-12-09 23:59 ==
LOC: EMPH 13:08
PROVIDERS: PCP Family Medicine; Referring Provider Family Medicine Geriatric Medicine; Visit Provider Family Medicine Geriatric Medicine
DX: Z03.818 Encounter for observation for suspected exposure to other biological agents ruled out (principal)
CPT/HCPCS: 87426

== ENCOUNTER → 2021-01-03 08:40 | Outpatient (CLI) | payer OTHER, SELFPAY ==
[2020-03-18 13:58] VITALS: BMI 29.2
--- NOTE | 2021-01-03 08:46 | EKG12_ITS ---
Test Reason : MEDICATION Blood Pressure : / mmHG Vent. Rate : 074 BPM Atrial Rate : 074 BPM P-R Int : 148 ms QRS Dur : 090 ms QT Int : 406 ms P-R-T Axes : 058 062 052 degrees QTc Int : 450 ms Normal sinus rhythm Low voltage QRS Borderline ECG Confirmed by KATHRYN MANRIQUE, JORDI ([id number]), supervising film or videotape editor RENATO GARNETT ([id number]) on 01/04/2021 11:05:45 AM Referred By: RANDELL Confirmed By:JORDI PERALTA MD
== END ==
PROVIDERS: PCP Family Medicine; Visit Provider Internal Medicine Medical Oncology
DX: C22.1 Intrahepatic bile duct carcinoma (principal); Z51.81 Encounter for therapeutic drug level monitoring; Z79.899 Other long term (current) drug therapy
CPT/HCPCS: 93005

== ENCOUNTER 2021-01-06 12:01 | Outpatient (RCR) | payer OTHER, SELFPAY ==
[2020-03-18 13:58] VITALS: BMI 29.2
[2020-12-10 00:23] VITALS: BMI 26.5
== END 2021-01-09 23:59 ==
LOC: EMPH 12:01
PROVIDERS: PCP Family Medicine; Referring Provider Family Medicine Geriatric Medicine; Visit Provider Family Medicine Geriatric Medicine
DX: Z03.818 Encounter for observation for suspected exposure to other biological agents ruled out (principal)
CPT/HCPCS: 87426

== ENCOUNTER → 2021-01-13 15:47 | Outpatient (CLI) | payer OTHER, SELFPAY ==
[2020-03-18 13:58] VITALS: BMI 29.2
--- NOTE | 2021-01-13 15:49 | EKG12_ITS ---
Test Reason : ROUTINE Blood Pressure : / mmHG Vent. Rate : 086 BPM Atrial Rate : 086 BPM P-R Int : 128 ms QRS Dur : 098 ms QT Int : 382 ms P-R-T Axes : 024 037 015 degrees QTc Int : 457 ms Normal sinus rhythm Normal ECG Confirmed by LILLIAN MANRIQUE, MARTI ([id number]), film editor RENATO GARNETT ([id number]) on 01/17/2021 10:12:03 A M Referred By: Daly Brandt Confirmed By:KITTY SNYDER MD
== END ==
PROVIDERS: PCP Family Medicine; Referring Provider Nurse Practitioner Family; Visit Provider Nurse Practitioner Family
DX: R00.2 Palpitations (principal); Z51.81 Encounter for therapeutic drug level monitoring; Z79.899 Other long term (current) drug therapy
CPT/HCPCS: 93005

== ENCOUNTER 2021-01-20 14:40 | Outpatient (RCR) | payer OTHER, SELFPAY ==
[2020-03-18 13:58] VITALS: BMI 29.2
[2021-01-10 00:19] VITALS: BMI 26.5
== END 2021-02-08 23:59 ==
LOC: EMPH 14:40
PROVIDERS: PCP Family Medicine; Referring Provider Family Medicine Geriatric Medicine; Visit Provider Family Medicine Geriatric Medicine
DX: Z03.818 Encounter for observation for suspected exposure to other biological agents ruled out (principal)
CPT/HCPCS: 87426

== ENCOUNTER → 2021-01-31 10:01 | Outpatient (CLI) | payer OTHER, SELFPAY ==
[2020-03-18 13:58] VITALS: BMI 29.2
--- NOTE | 2021-01-31 10:03 | EKG12_ITS ---
Test Reason : MEDICATION Blood Pressure : / mmHG Vent. Rate : 067 BPM Atrial Rate : 067 BPM P-R Int : 134 ms QRS Dur : 090 ms QT Int : 406 ms P-R-T Axes : 032 058 033 degrees QTc Int : 429 ms Normal sinus rhythm Normal ECG Confirmed by KATHRYN MANRIQUE, JORDI ([id number]), health editor RENATO GARNETT ([id number]) on 02/01/2021 1:21:00 PM Referred By: Daly Brandt Confirmed By:JORDI PERALTA MD
== END ==
PROVIDERS: PCP Family Medicine; Referring Provider Nurse Practitioner Family; Visit Provider Nurse Practitioner Family
DX: C22.1 Intrahepatic bile duct carcinoma (principal); Z51.81 Encounter for therapeutic drug level monitoring; Z79.899 Other long term (current) drug therapy
CPT/HCPCS: 93005

== ENCOUNTER 2021-01-31 10:25 | Emergency (ER) | payer OTHER, SELFPAY ==
[2020-03-18 13:58] VITALS: BMI 29.2
[2021-01-31 10:25] VITALS: BP 147/74; PULSE 76; RESP 16; TEMP 36.4; O2SAT 100; BMI 25.4
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
== END 2021-01-31 11:04 | disposition home or self-care (01) ==
LOC: ED 10:58
PROVIDERS: Emergency Provider Emergency Medicine; PCP Family Medicine
DX: S16.1XXA Strain of muscle, fascia and tendon at neck level, initial encounter (principal); S20.219A Contusion of unspecified front wall of thorax, initial encounter; V43.52XA Car driver injured in collision with other type car in traffic accident, initial encounter; Z87.891 Personal history of nicotine dependence; Y93.I9 Activity, other involving external motion; Y92.411 Interstate highway as the place of occurrence of the external cause; Y99.8 Other external cause status
CPT/HCPCS: 71045; 99282

== ENCOUNTER → 2021-02-28 12:36 | Outpatient (CLI) | payer OTHER, SELFPAY ==
[2020-03-18 13:58] VITALS: BMI 29.2
--- NOTE | 2021-02-28 12:41 | EKG12_ITS ---
Test Reason : CANCER TX Blood Pressure : / mmHG Vent. Rate : 081 BPM Atrial Rate : 081 BPM P-R Int : 120 ms QRS Dur : 090 ms QT Int : 378 ms P-R-T Axes : 020 069 024 degrees QTc Int : 439 ms Normal sinus rhythm Low voltage QRS Borderline ECG Confirmed by KATHRYN MANRIQUE, JORDI ([id number]), food expeditor RENATO GARNETT ([id number]) on 03/01/2021 8:11:06 AM Referred By: Mark Anthony Guzman Confirmed By:JORDI PERALTA MD
--- NOTE | 2021-02-28 12:42 | CT_ITS ---
STUDY: CT ABDOMEN AND PELVIS WITH CONTRAST REASON FOR EXAM: Female, 60 years old. ASSESS TREATMENT RESPONSE -- history of cholangiocarcinoma. Common bile duct stent. RADIATION DOSAGE (If Supplied By Facility): CTDIvol = ( 12.95 ) mGy, DLP = ( 686.09 ) mGycm TECHNIQUE: Transaxial images were obtained from the dome of the diaphragm to the symphysis pubis with oral contrast. Oral and amp;amp; IV Readi-CAT and amp;amp; 100mL Isovue-300 was administered. Sagittal and coronal images were reconstructed. Individualized dose optimization techniques were used for this CT. COMPARISON: Comparison is made with prior study dated 10/11/2020. FINDINGS: Mild stable linear scarring in the anterior medial aspect of the right middle lobe. The visualized portions of the heart are within normal limits. A stent is seen within the common bile duct. Stable 3.4 cm x 4.7 cm hypodense soft tissue density seen in the region of the gallbladder fossa. This extends into the second portion of the duodenum. This most likely represents the area of known cholangiocarcinoma. Normal spleen. Normal pancreas. Normal bilateral adrenal glands. Normal right kidney. Normal left kidney. Normal visualized stomach. Normal small intestine. Normal colon. The appendix is visualized and appears normal. Normal abdominal aorta. Normal inferior vena cava. Normal retroperitoneum. Normal urinary bladder. Calcified fibroid uterus. Normal abdominal wall. Normal osseous structures. CT/Abdomen/Pelvis WITH Contrast IMPRESSION: Stable appearance of the common bile duct stent with a soft tissue density in the region of the kathleen hepatis in keeping with known cholangiocarcinoma. There has been essentially no change. Calcified fibroid uterus. Electronically Signed: Eliot Barroso MD at 15:02 EST , Service support ,
[2021-02-28] MEDS: 0.9% Saline Lock 10 ML Syringe IV (13:55)
== END ==
PROVIDERS: PCP Family Medicine; Referring Provider Internal Medicine Medical Oncology; Visit Provider Internal Medicine Medical Oncology
DX: C22.1 Intrahepatic bile duct carcinoma (principal); Z79.899 Other long term (current) drug therapy; C34.90 Malignant neoplasm of unspecified part of unspecified bronchus or lung
CPT/HCPCS: 74177; 93005; Q9967; A4216

== ENCOUNTER 2021-03-10 11:47 | Outpatient (RCR) | payer OTHER, SELFPAY ==
[2020-03-18 13:58] VITALS: BMI 29.2
[2021-02-09 00:24] VITALS: BMI 26.5
== END 2021-03-11 23:59 ==
LOC: EMPH 11:47
PROVIDERS: PCP Family Medicine; Referring Provider Family Medicine Geriatric Medicine; Visit Provider Family Medicine Geriatric Medicine
DX: Z03.818 Encounter for observation for suspected exposure to other biological agents ruled out (principal)
CPT/HCPCS: 87426; 87635; U0003; U0005

== ENCOUNTER 2021-03-28 12:00 | Outpatient (CLI) | payer OTHER, SELFPAY ==
[2020-03-18 13:58] VITALS: BMI 29.2
== END 2021-03-28 23:59 | disposition short-term general hospital (02) ==
LOC: PSN 12:01
PROVIDERS: PCP Family Medicine; Referring Provider Internal Medicine Medical Oncology; Visit Provider Internal Medicine Medical Oncology
DX: C34.90 Malignant neoplasm of unspecified part of unspecified bronchus or lung (principal); C78.7 Secondary malignant neoplasm of liver and intrahepatic bile duct; Z79.899 Other long term (current) drug therapy
CPT/HCPCS: 93005

== ENCOUNTER 2021-03-31 10:00 | Outpatient (RCR) | payer SELFPAY ==
[2020-03-18 13:58] VITALS: BMI 29.2
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
--- NOTE | 2021-03-31 10:30 | HP.PTDCSUM_ITS ---
It has been my pleasure to treat RUDY GONZALEZ referred by Dr. Raji Mathis MD, with the diagnosis of R shoulder biceps tendonitis for a total of 6 visit(s). Discharge Date: Please see the following information for a summary of their discharge status. Subjective: I am ready to be done. R shoulder Pain Intensity (Out of 10): 1 % Improvement: 90 Objective/Function: R shoulder pain is now 1/10. Pt is I with HEP. R shoulder strength: R shoulder abd= 4+/5, all other movements 5/5 throughout. R shoulder ROM: flex= 155, abd= 150. Rx goals achieved Goal 1:: Decrease R shoulder pain x 50% to aid with sleep Goal Progress: Goal Met Goal 2:: Increase R shoulder strength x 1 grade to aid with work requirements Goal Progress: Goal Met Goal 3:: Increase R shoulder flex and abd ROM x 30 degrees to aid with overhead lifting Goal Progress: Goal Met Goal 4:: I with HEP Goal Progress: Goal Met Plan: Discharge to [facility] If there are questions or concerns regarding this patient's physical therapy, please feel free to call me at [phone]. Thank you for the referral of this patient. Sincerely, Haider Ambrosio, PT, ATC Balance/Gait/Functional tests - Balance/Special Test Scores Quick DASH Score: 13.6356
== END 2021-03-31 19:00 | disposition home or self-care (01) ==
LOC: PT 10:00
PROVIDERS: PCP Family Medicine; Referring Provider Family Medicine; Visit Provider Family Medicine
DX: M75.20 Bicipital tendinitis, unspecified shoulder (principal)
CPT/HCPCS: 97110; 97161; 97164

== ENCOUNTER 2021-04-11 08:16 | Outpatient (RCR) | payer OTHER, SELFPAY ==
[2020-03-18 13:58] VITALS: BMI 29.2
[2021-03-12 00:23] VITALS: BMI 26.5
== END 2021-04-11 23:59 ==
LOC: EMPH 08:16
PROVIDERS: PCP Family Medicine; Referring Provider Family Medicine Geriatric Medicine; Visit Provider Family Medicine Geriatric Medicine
DX: Z03.818 Encounter for observation for suspected exposure to other biological agents ruled out (principal)
CPT/HCPCS: 87426

== ENCOUNTER 2021-04-25 15:30 | Outpatient (RCR) | payer OTHER, SELFPAY ==
[2020-03-18 13:58] VITALS: BMI 29.2
[2021-04-12 00:28] VITALS: BMI 26.5
== END 2021-05-09 23:59 ==
LOC: EMPH 15:30
PROVIDERS: PCP Family Medicine; Referring Provider Family Medicine Geriatric Medicine; Visit Provider Family Medicine Geriatric Medicine
DX: Z03.818 Encounter for observation for suspected exposure to other biological agents ruled out (principal)
CPT/HCPCS: 87426

== ENCOUNTER → 2021-04-25 | Outpatient (CLI) | payer OTHER, SELFPAY ==
[2020-03-18 13:58] VITALS: BMI 29.2
--- NOTE | 2021-04-25 08:34 | EKG12_ITS ---
Test Reason : ROUTINE Blood Pressure : / mmHG Vent. Rate : 073 BPM Atrial Rate : 073 BPM P-R Int : 134 ms QRS Dur : 090 ms QT Int : 390 ms P-R-T Axes : 036 064 050 degrees QTc Int : 429 ms Normal sinus rhythm Low voltage QRS Borderline ECG Confirmed by QUETA MANRIQUE, RONAK ([id number]), health editor RENATO GARNETT ([id number]) on 04/26/2021 12:59:21 PM Referred By: Mark Anthony Guzman Confirmed By:RONAK BIRCH MD
== END | disposition home or self-care (01) ==
LOC: PSN 08:32
PROVIDERS: PCP Family Medicine; Referring Provider Internal Medicine Medical Oncology; Visit Provider Internal Medicine Medical Oncology
DX: C34.90 Malignant neoplasm of unspecified part of unspecified bronchus or lung (principal); C78.7 Secondary malignant neoplasm of liver and intrahepatic bile duct; Z79.899 Other long term (current) drug therapy
CPT/HCPCS: 93005

== ENCOUNTER 2021-04-29 08:00 | Outpatient (CLI) | payer OTHER, SELFPAY ==
[2020-03-18 13:58] VITALS: BMI 29.2
[2021-04-29 08:37] LABS: AST(SGOT) 141 U/L (15-37); Alanine Aminotransfer ALT/SGPT 55 U/L (13-56); Albumin, Serum 3.6 g/dL (3.2-5.0); Alkaline Phosphatase 74 U/L (45-117); Bilirubin, Direct 0.13 mg/dL (0.00-0.30); Cholesterol 253 mg/dL (200); Globulin 3.2 g/dL (2.2-4.2); High Density Lipoprotein 83 mg/dL; Protein, Total 6.8 g/dL (6.4-8.2); Triglycerides 54 mg/dL; Very Low Density Lipoprotein 11 mg/dL (5-40)
== END 2021-04-29 23:59 | disposition home or self-care (01) ==
LOC: MEDOUTP 08:00
PROVIDERS: PCP Family Medicine; Referring Provider Internal Medicine Cardiovascular Disease; Visit Provider Internal Medicine Cardiovascular Disease
DX: R00.2 Palpitations (principal)
CPT/HCPCS: 36591; 80061; 80076; A4216

== ENCOUNTER 2021-06-20 08:27 | Outpatient (CLI) | payer OTHER, SELFPAY ==
[2020-03-18 13:58] VITALS: BMI 29.2
--- NOTE | 2021-06-20 08:30 | EKG12_ITS ---
Test Reason : ROUTINE Blood Pressure : / mmHG Vent. Rate : 081 BPM Atrial Rate : 081 BPM P-R Int : 138 ms QRS Dur : 090 ms QT Int : 384 ms P-R-T Axes : 051 057 023 degrees QTc Int : 446 ms Normal sinus rhythm Normal ECG Confirmed by KATHRYN MANRIQUE, JORDI ([id number]), assignment desk editor OLEG RO ([id number]) on 06/22/2021 10:23:14 AM Referred By: Mark Anthony Guzman Confirmed By:JORDI PERALTA MD
== END 2021-06-20 23:59 | disposition home or self-care (01) ==
LOC: PSN 08:29
PROVIDERS: PCP Family Medicine; Referring Provider Internal Medicine Medical Oncology; Visit Provider Internal Medicine Medical Oncology
DX: Z00.00 Encounter for general adult medical examination without abnormal findings (principal)
CPT/HCPCS: 93005

== ENCOUNTER 2021-06-23 16:07 | Emergency (ER) | payer OTHER, SELFPAY ==
[2020-03-18 13:58] VITALS: BMI 29.2
[2021-06-23 16:08] VITALS: BP 150/74; PULSE 97; RESP 16; TEMP 35.9; O2SAT 97; BMI 27.2
--- NOTE | 2021-06-23 16:32 | CT_ITS ---
STUDY: CT ABDOMEN AND PELVIS WITH CONTRAST ENHANCEMENT OF 1821 HOURS ON 06/23/2021 REASON FOR EXAM: Female, 60 years old. upper abd pain, cholangiocarcinoma -- IV PO Contrast RADIATION DOSAGE (If Supplied By Facility): CTDIvol = ( 12.16 ) mGy, DLP = ( 541.39 ) mGycm TECHNIQUE: Transaxial images were obtained from the dome of the diaphragm to the symphysis pubis without oral contrast. IV 100mL Isovue-300 was administered. Sagittal and coronal images were reconstructed. Individualized dose optimization techniques were used for this CT. COMPARISON: None. FINDINGS: The visualized lung bases are unremarkable. The visualized portions of the heart are within normal limits. Normal size liver. There is air in the anterior intrahepatic biliary system with a stent in the common duct to the level of the duodenum. There is a mild increase in soft tissue surrounding the common duct stent that could be indicative of some active cholangiocarcinoma. The gallbladder is absent. No pancreatitis or pancreatic mass lesions. Normal bilateral adrenal glands. Normal kidneys without obstructive uropathy. Normal visualized stomach. Normal small intestine. Moderate to marked constipation. No diverticulitis, colitis, intestinal obstruction.. Poorly seen, but probably normal appendix. Normal abdominal aorta. Normal inferior vena cava. Normal retroperitoneum. No free intra-abdominal air or fluid. Normal urinary bladder. Mildly anteverted and deviated towards the left , enlarged uterus with a large 4.4 cm partially calcified fibroid. No ovarian cystic or solid mass lesions. Normal abdominal wall. Normal osseous structures. CT/Abdomen/Pelvis WITH Contrast IMPRESSION: 1. This patient is post-surgical for a cholangiocarcinoma and currently has a common duct stent to the level of the duodenum with air in the intrahepatic biliary system--an expected finding. 2. There is some mild increased soft tissue surrounding the common duct stent that could be indicative of active cholangiocarcinoma. 3. Moderate to marked constipation. 4. No obstructive uropathy. Normal bladder. 5. Gallbladder is absent. 6. No distinct evidence of appendicitis, diverticulitis, colitis, or intestinal obstruction. 7. Mildly enlarged anteverted uterus deviated towards the left with a large 4.4 cm partially calcified fibroid. No ovarian abnormalities. 8. No free intra-abdominal air or fluid. Electronically Signed: Berto Bonilla MD at 19:28 EDT ,
--- NOTE | 2021-06-23 16:34 | EDS_ITS ---
HPI HPI - GI History of Present Illness Chief Complaint: Abd Pain Informant: patient Abdominal Pain/Flank Pain Onset: Weeks (2-3) Context: Gradual Onset Timing: Intermittent Quality: Aching Location: - (Always upper abdomen; sometimes right upper quadrant other times epigastrium/left upper quadrant sometimes all the way across. 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 She has been doing great until the past 2 or 3 weeks when she has been having intermittent upper abdominal pain after meals. She saw her oncologist today and after discussing all this was sent here for CT imaging and further evaluation. She states she does not have any pain right now and feels good. She had labs done today prior to seeing the oncologist. [facility] Medical History Cholangiocarcinoma Encounter for monitoring cardiotoxic drug therapy Migraines Palpitations Sarcoidosis Home Medications acetaminophen 325 mg capsule 325 mg PO DAILY PRN 09/24/19 [History Last Taken Unknown] docusate sodium 100 mg capsule 100 mg PO BID PRN 09/24/19 [History Last Taken Unknown] melatonin 3 mg PO QHS PRN 04/05/20 [History Last Taken Unknown] ivosidenib 250 mg PO DAILY 04/27/20 [History Last Taken Unknown] lidocaine-prilocaine 2.5 %-2.5 % topical cream 1 applic TOPICAL ONCE PRN 30 Days #30 g 01/12/21 [Rx Last Taken Unknown] Allergy/AdvReac Type Severity Reaction Status Date / Time No Known Allergies Allergy Verified 06/23/21 16:08 Family History Father Diabetes Heart disease Cancer leukemia Myocardial infarction, Onset Age: 75 Mother Multiple sclerosis Sister Basal cell carcinoma Surgical History History of laparoscopy History of tooth extraction Social History Smoking Status: Former smoker alcohol intake: current alcohol intake frequency: a few times a week Alcohol type: beer details: social substance use type: does not use caffeine: Yes what type of physical activity do you participate in: walking seatbelt use: always do you feel safe at home: Yes additional social history: - 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 ROS ROS ED Constitutional Constitutional ED: Denies chills or fever(s) Eyes Eyes: Denies change in vision or diplopia ENT ENT ED: Denies rhinorrhea or sore throat Cardiovascular Cardiovascular: Denies chest pain or palpitations Respiratory/Chest Respiratory/Chest: Denies cough or dyspnea Gastrointestinal Gastrointestinal: Reports as per HPI and abdominal pain; Denies diarrhea, nausea or vomiting Genitourinary Genitourinary ED: Denies dysuria or hematuria Musculoskeletal Musculoskeletal: Denies back pain or neck pain Integumentary Denies abscess or rash Neurologic Neurologic: Denies headache(s), paresthesias or weakness Psychiatric Psychiatric: Denies anxiety or suicidal thoughts EXAM Physical Exam Const Vital Signs: 06/23/21 16:08 06/23/21 17:06 06/23/21 20:12 Temperature 96.7 F L Temperature Source Temporal Pulse Rate 97 74 84 Respiratory Rate 16 16 18 Blood Pressure 150/74 H 142/77 H 131/74 H Blood Pressure Mean 99 98 93 Pulse Ox 97 97 98 Oxygen Delivery Method Room Air Room Air Room Air Positive well nourished and well developed General Appearance ED: well developed and NAD HEENT Reports moist mucous membranes normocephalic and atraumatic Eyes PERRL, EOMs intact bilaterally and no scleral icterus Neck full ROM and supple Resp normal respiratory effort and clear to auscultation bilaterally Cardio regular rate, regular rhythm and no murmurs GI non-distended GI Narrative: Mild tenderness epigastrium and left upper quadrant without guarding or rebound no other abdominal tenderness. Negative Roa. Auscultation: normoactive bowel sounds Palpation: soft Back/Spine no CVA tenderness General Back: other FROM Extremity normal to inspection General Extremety ED: Negative for edema, pulses abnormal or tenderness General Extremity: Negative for edema or pulses abnormal Neuro oriented x3, CN's II-XII intact bilaterally and no sensory deficits noted Sensorium / Orientation: awake and alert Motor Exam: strength 5/5 throughout Skin no rashes or lesions noted and no wounds MDM MDM MDM Narrative Medical decision making narrative: Patient had liver enzymes, chemistries, blood counts earlier that were unremarkable I added a lipase which was within normal limits and obtained an oral and IV contrasted CT. The results are as below. Although there is a marked amount of retained stool in the colon, the patient does not clinically dealing with constipation and has been having normal bowel movements without difficulty so I think that is unlikely the cause of her pain. The radiologist said that the gallbladder is absent however the patient is under the understanding that they did not remove her gallbladder when they put the stent in. It is similar appearing to the imaging at the end of 2020 showing exp ected pneumobilia. There are some increased soft tissue inflammatory changes that may be consistent with cholangiocarcinoma, but no other acute abnormalities. At this time, although the patient sounds like she may be having biliary colic, she may need other testing to prove that she is having a gallbladder issue. At this time there is no evidence of acute cholecystitis and she is asymptomatic and comfortable with being discharged home to follow-up. Lab Data Attestation: I reviewed the patient's lab results. Labs: Laboratory Results - last 24 hr 06/23/21 16:55 Lipase 225 Radiography Diagnostic Testing: Clinical Impression(s) from Imaging Studies Abdomen/Pelvis CT 06/23/21 16:32 IMPRESSION: 1. This patient is post-surgical for a cholangiocarcinoma and currently has a common duct stent to the level of the duodenum with air in the intrahepatic biliary system--an expected finding. 2. There is some mild increased soft tissue surrounding the common duct stent that could be indicative of active cholangiocarcinoma. 3. Moderate to marked constipation. 4. No obstructive uropathy. Normal bladder. 5. Gallbladder is absent. 6. No distinct evidence of appendicitis, diverticulitis, colitis, or intestinal obstruction. 7. Mildly enlarged anteverted uterus deviated towards the left with a large 4.4 cm partially calcified fibroid. No ovarian abnormalities. 8. No free intra-abdominal air or fluid. Electronically Signed: Berto Bonilla MD at 19:28 EDT , Discharge Plan Triage Chief Complaint: Abd Pain ED Provider: Aaron Caicedo Dx/Rx/DC Orders Clinical Impression: Intermittent upper abdominal pain, Cholangiocarcinoma Instructions: Abdominal Pain Prescriptions: No Action acetaminophen [Tylenol] 325 mg capsule 325 mg PO DAILY PRN (Reason: Pain 1-10 Or Fever) RF: 0 docusate sodium [Colace] 100 mg capsule 100 mg PO BID PRN (Reason: Constipation) RF: 0 lidocaine-prilocaine 2.5-2.5 % cream 1 applic topical ONCE PRN (Reason: port access) 30 Days Qty: 30 RF: 2 melatonin 3 MG tablet 3 mg PO QHS PRN (Reason: Sleep) RF: 0 ivosidenib 250 MG tablet 250 mg PO DAILY RF: 0 Primary Care Provider: Raji Mathis Referrals: Raji Mathis MD [Primary Care Provider] - (And/or your oncologist next week) Disposition Disposition: Home, Self Care
[2021-06-23 17:06] VITALS: BP 142/77; PULSE 74; RESP 16; O2SAT 97
[2021-06-23 17:17] LABS: Lipase 225 U/L (73-393)
[2021-06-23] MEDS: Ondansetron 4 MG/2 ML Vial IV (17:47)
[2021-06-23] MEDS: 0.9% Normal Saline 1,000 ML 1000 ML IV (17:47)
[2021-06-23 20:12] VITALS: BP 131/74; PULSE 84; RESP 18; O2SAT 98
[2021-06-23 20:39] VITALS: BP 119/80; PULSE 90; RESP 15; O2SAT 98
== END 2021-06-23 20:45 | disposition home or self-care (01) ==
PROVIDERS: Emergency Provider Emergency Medicine; PCP Family Medicine; Visit Provider Emergency Medicine
DX: C22.1 Intrahepatic bile duct carcinoma (principal); C78.6 Secondary malignant neoplasm of retroperitoneum and peritoneum; R10.10 Upper abdominal pain, unspecified; Z90.49 Acquired absence of other specified parts of digestive tract; Z87.891 Personal history of nicotine dependence; Z92.21 Personal history of antineoplastic chemotherapy; Z79.899 Other long term (current) drug therapy; G43.909 Migraine, unspecified, not intractable, without status migrainosus
CPT/HCPCS: 74177; 83690; 96361; 96374; 99282; J7030; Q9967; A4216; J2405

== ENCOUNTER 2021-06-30 11:33 | Day surgery (SDC) | payer OTHER, SELFPAY ==
[2020-03-18 13:58] VITALS: BMI 29.2
--- NOTE | 2021-06-30 | IMM_PTH ---
PATIENT: RUDY SCHWARZ LOC: EN U#:[id number] AGE/SX: 60/F ROOM: RE06/30/[address]: Dr. Chris Osman MD : 1960 BED: DIS: 06/30/2021 SPEC #: [id number] RECD: 07/15/21 10:30 STATUS: PAVAN REQ #: [id number] LINDA: 06/30/21 00:[address]: Chris Osman DEPT: IMMUNOHISTOCHEMISTRY RECD BY: Diana Brooks ENTERED: 07/15/21 10:31 SP TYPE: IMMUNO OTHR DR: Dr. Raji Mathis MD Tissues: Stomach, NOS Procedures: H Pylori (initial) PHYSICIAN & INSTITUTION [place] [id number] SPECIMEN INFORMATION: Tissue Source: Greater curvature of stomach Clinical Info: Abdominal pain, GERD Specimen Number: [id number] CPT code: 48753 METHODOLOGY: Deparaffinized sections of prefer/formalin-fixed tissue or PAP/DQ stained slides are incubated with monoclonal/polyclonal antibodies/oligonucleotide probes. Localization is made via biotin free immunoperoxidase method. Appropriate controls are performed and reacted as expected. Results on target cell population are indicated in the following table: RESULTS: ANTIBODY / CLONE RESULT H Pylori (polyclonal) negative These tests were developed and their performance characteristics determined by [facility]. They may not have been cleared or approved by the [place]. Food and Drug Administration. The FDA has determined that such clearance or approval is not necessary. The above immunohistochemical/dualISH marker is ordered by Dr. Osman and reviewed by the Pathologist. INTERPRETATION: Greater curvature of stomach, biopsy: Negative for Helicobacter pylori organisms. SJ:nithin 07/18/2021
--- NOTE | 2021-06-30 07:42 | PCM.HP.BLA ---
History and Physical Date of Ad[facility]: [facility]21 [facility] [address] [place] [address] [phone] OFFICE VISITDate of Service: 06/29/21 MR#:[id number]:[id number]: RUDY SCHWARZ ANNRep #:[id number] Provider: IVY Juárez/Sex: 60/F [facility] Intake Vital Signs 06/29/21 14:45 Height 5 ft 4 in Weight: 149 lb 4 oz BMI 25.6 BP 150/78 H Blood Pressure Location Rt brachial Position Sitting Respiration 17 Pulse 93 Pulse Source Monitor Temp 97.4 F L Temp Source Temporal Pulse Oximetry (%) 98 Oxygen Delivery Method room air Intake Visit Reasons: Abdominal Pain/Metastatic Disease Chief Complaint: Abdominal pain/ metastatic disease School Transportation Supervisor Required: No Is patient in pain?: No Allergies No Known Allergies Allergy (Verified 06/29/21 14:46) Medications acetaminophen 325 mg capsule 325 mg PO DAILY PRN 09/24/19 [History Confirmed 06/29/21] docusate sodium 100 mg capsule 100 mg PO BID PRN 09/24/19 [History Confirmed 06/29/21] melatonin 3 mg PO QHS PRN 04/05/20 [History Confirmed 06/29/21] ivosidenib 250 mg PO DAILY 04/27/20 [History Confirmed 06/29/21] lidocaine-prilocaine 2.5 %-2.5 % topical cream 1 applic TOPICAL ONCE PRN 30 Days #30 g 01/12/21 [Rx Confirmed 06/29/21] omeprazole 40 mg capsule,delayed release 40 mg PO DAILY #90 cap 06/29/21 [Rx Confirmed 06/29/21] [facility] Medical History (Updated 06/29/21 @ 16:01 by Lilliam MEJIA PA-C) Cholangiocarcinoma Encounter for monitoring cardiotoxic drug therapy GERD (gastroesophageal reflux disease) Migraines Palpitations Sarcoidosis Surgical History History of laparoscopy History of tooth extraction Family History Father Diabetes Heart disease Cancer leukemia Myocardial infarction, Onset Age: 75 Mother Multiple sclerosis Sister Basal cell carcinoma Social History Smoking Status: Former smoker alcohol intake: current alcohol intake frequency: a few times a week Alcohol type: beer details: social substance use type: does not use caffeine: Yes what type of physical activity do you participate in: walking seatbelt use: always do you feel safe at home: Yes additional social history: - 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 Patient has been diagnosed with cholangiocarcinoma in 2019. A Whipple procedure was attempted by Dr. Gaston, however once the surgery began patient was noted to have metastatic disease that did not show on imaging. Patient had a gastrojejunal bypass. She had a port-a-cath placed by Dr. Osman in 2019 and was started on chemotherapy right away. She completed IV chemotherapy in January of 2020. She is currently on oral chemotherapy. She follows with [facility]. Patient notes approximately 6 weeks ago she had developed reflux symptoms after eating. She would take TUMs which would help. Three weeks ago she developed abdominal pain. She notes abdominal pain can be on the right/left lateral sides with distention, epigastric pain which may be sharp and can even radiate to the RUQ and into the patient's back. She was told her prognosis would be 2-3 years from the time she was diagnosed. She states she is going on year 2 and is concerned that this may be the beginning of the end. She denies any cardiac history, previous blood clots or strokes. She denies any pulmonary diseases. She is not currently on blood thinners. She has never had an upper or lower scope. ROS General General: Yes weight change and fatigue; No appetite, colon cancer, breast cancer or weakness HEENT HEENT: No difficulty swallowing, eye injury, eye surgery, swollen glands or hoarseness Endo Endocrine: No thyroid disease, diabetes mellitus, thyroid cancer, Hair loss, heat intolerance or cold intolerance Skin Skin: No rash or changing moles Musc Musculoskeletal: No back problems, arthritis, rheumatoid arthritis, gout or joint pain Cardio Cardiovascular: No murmur, pacemaker, heart disease, atrial fibrillation, high blood pressure, heart attack, heart stent, palpitations, shortness of breat with exertion or chest pain Psych Psychiatric: No depression, anxiety or hearing voices Resp Respiratory: No shortness of breath, No sleep apnea, No cough, No COPD, No asthma, No emphysema and No wheezing Gastro Gastrointestinal: Yes abdominal pain, Yes nausea or vomiting, No diarrhea, No constipation, No blood in stool, Yes acid reflux, No hemorrhoids, No ulcers, Yes gallbladder problem and No black,tarry stools Rachid Hematologic: No blood thinners, No blood disorders, No bleeding, No anemia and No blood clots Neuro Neurologic: No system reviewed and no additional complaints, except as documented, No as per HPI, No abnormal gait, No abnormal hearing, No abnormal movements, No abnormal speech, No behavioral changes, No burning sensations, No confusion, No convulsions, No disequilibrium, No dizziness, No localized weakness, No frequent falls, No headache(s), No lack of coordination, No loss of vision, No memory loss, No numbness, No other visual disturbances, No radicular pain, No restless legs, No sensory deficit, No syncope, Yes tingling, No tremor(s), No weakness and No other Exam Const General: cooperative, healthy appearing, comfortable and no acute distress HENMT Head: normal to inspection Eyes General: appearance normal, both eyes and all related structures Neck Neck: normal visual inspection Neck mass: No Resp Effort & Inspection: normal respiratory effort Auscultation: clear to auscultation bilaterally Cardio Rate: regular rate Rhythm: regular rhythm GI Inspection: normal to inspection Palpation: soft and tender in the LUQ and in the RUQ Auscultation: normal bowel sounds Skin General: no rashes or lesions noted Neuro General: no focal motor deficits and CN's II-XI intact bilaterally Extrem General: normal to inspection Psych Appearance: grossly normal Affect: normal affect Assessment & Plan Assessment/Plan (1) Abdominal pain: QUALIFIERS: Abdominal location: generalized Qualified Code(s): R10.84 - Generalized abdominal pain PLAN: Assessment and Plan (1) Abdominal pain: Status: Acute Qualifiers: Abdominal location: generalized Qualified Code(s): R10.84 - Generalized abdominal pain Comment: On and Off, comes on with eating, vomited once. R/O Metastatic disease. CT 06/23/2021 shows bile duct stent with adjacent mass which is stable, no peritoneal metastases. Discussed possible causes including Metastatic disease vs Peptic ulcer. (2) GERD (gastroesophageal reflux disease): Status: Acute Qualifiers: Esophagitis presence: esophagitis presence not specified Qualified Code(s): K21.9 - Gastro-esophageal reflux disease without esophagitis Plan - ANKUR MartinezC: Dr. Osman also evaluated this patient. Dr. Osman will plan to perform an Esophagogastroduodenoscopy with possible biopsies. Procedure details, risks and benefits have been explained. Patient has had the opportunity to ask and have questions answered. Patient verbally understands and agrees with the plan. Patient will be started on omeprazole 40 mg daily. Plan Details Other Medications: New: omeprazole 40 mg PO DAILY 90 caps 3RF Coding Level of Care Code Off vis,est,level 4 Diagnoses Abdominal pain R10.84 Abdominal location: generalized GERD (gastroesophageal reflux disease) K21.9 Esophagitis presence: esophagitis presence not specified 06/29/21 8628<Electronically signed by Lilliam MEJIA PARaymondC>
[2021-06-30] MEDS: Lactated Ringers 1,000 ML 15 ML IV (11:30)
--- NOTE | 2021-06-30 12:04 | HP.PCM_ITS ---
History and Physical Date of Admission: 06/30/21 Date of Ad[facility]: [facility] [id number] [place] [address] [phone] OFFICE VISITDate of Service: 06/29/21 MR#:[id number]:[id number]: RUDY SCHWARZ ANNRep #:[id number] Provider: IVY Juárez/Sex: 60/F [facility] Vital Signs 06/29/21 14:45 Height 5 ft 4 in Weight: 149 lb 4 oz BMI 25.6 BP 150/78 H Blood Pressure Location Rt brachial Position Sitting Respiration 17 Pulse 93 Pulse Source Monitor Temp 97.4 F L Temp Source Temporal Pulse Oximetry (%) 98 Oxygen Delivery Method room air Intake Visit Reasons: Abdominal Pain/Metastatic Disease Chief Complaint: Abdominal pain/ metastatic disease 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 Required: No Is patient in pain?: No Allergies No Known Allergies Allergy (Verified 06/29/21 14:46) Medications acetaminophen 325 mg capsule 325 mg PO DAILY PRN 09/24/19 [History Confirmed 06/29/21] docusate sodium 100 mg capsule 100 mg PO BID PRN 09/24/19 [History Confirmed 06/29/21] melatonin 3 mg PO QHS PRN 04/05/20 [History Confirmed 06/29/21] ivosidenib 250 mg PO DAILY 04/27/20 [History Confirmed 06/29/21] lidocaine-prilocaine 2.5 %-2.5 % topical cream 1 applic TOPICAL ONCE PRN 30 Days #30 g 01/12/21 [Rx Confirmed 06/29/21] omeprazole 40 mg capsule,delayed release 40 mg PO DAILY #90 cap 06/29/21 [Rx Confirmed 06/29/21] [facility] Medical History (Updated 06/29/21 @ 16:01 by Lilliam MEJIA PA-C) Cholangiocarcinoma Encounter for monitoring cardiotoxic drug therapy GERD (gastroesophageal reflux disease) Migraines Palpitations Sarcoidosis Surgical History History of laparoscopy History of tooth extraction Family History Father Diabetes Heart disease Cancer leukemia Myocardial infarction, Onset Age: 75 Mother Multiple sclerosis Sister Basal cell carcinoma Social History Smoking Status: Former smoker alcohol intake: current alcohol intake frequency: a few times a week Alcohol type: beer details: social substance use type: does not use caffeine: Yes what type of physical activity do you participate in: walking seatbelt use: always do you feel safe at home: Yes 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 Patient has been diagnosed with cholangiocarcinoma in 2019. A Whipple procedure was attempted by Dr. Gaston, however once the surgery began patient was noted to have metastatic disease that did not show on imaging. Patient had a gastrojejunal bypass. She had a port-a-cath placed by Dr. Osman in 2019 and was started on chemotherapy right away. She completed IV chemotherapy in January of 2020. She is currently on oral chemotherapy. She follows with [facility]. Patient notes approximately 6 weeks ago she had developed reflux symptoms after eating. She would take TUMs which would help. Three weeks ago she developed abdominal pain. She notes abdominal pain can be on the right/left lateral sides with distention, epigastric pain which may be sharp and can even radiate to the RUQ and into the patient's back. She was told her prognosis would be 2-3 years from the time she was diagnosed. She states she is going on year 2 and is concerned that this may be the beginning of the end. She denies any cardiac history, previous blood clots or strokes. She denies any pulmonary diseases. She is not currently on blood thinners. She has never had an upper or lower scope. ROS General General: Yes weight change and fatigue; No appetite, colon cancer, breast cancer or weakness HEENT HEENT: No difficulty swallowing, eye injury, eye surgery, swollen glands or hoarseness Endo Endocrine: No thyroid disease, diabetes mellitus, thyroid cancer, Hair loss, heat intolerance or cold intolerance Skin Skin: No rash or changing moles Musc Musculoskeletal: No back problems, arthritis, rheumatoid arthritis, gout or joint pain Cardio Cardiovascular: No murmur, pacemaker, heart disease, atrial fibrillation, high blood pressure, heart attack, heart stent, palpitations, shortness of breat with exertion or chest pain Psych Psychiatric: No depression, anxiety or hearing voices Resp Respiratory: No shortness of breath, No sleep apnea, No cough, No COPD, No asthma, No emphysema and No wheezing Gastro Gastrointestinal: Yes abdominal pain, Yes nausea or vomiting, No diarrhea, No constipation, No blood in stool, Yes acid reflux, No hemorrhoids, No ulcers, Yes gallbladder problem and No black,tarry stools Rachid Hematologic: No blood thinners, No blood disorders, No bleeding, No anemia and No blood clots Neuro Neurologic: No system reviewed and no additional complaints, except as documented, No as per HPI, No abnormal gait, No abnormal hearing, No abnormal movements, No abnormal speech, No behavioral changes, No burning sensations, No confusion, No convulsions, No disequilibrium, No dizziness, No localized weakness, No frequent falls, No headache(s), No lack of coordination, No loss of vision, No memory loss, No numbness, No other visual disturbances, No radicular pain, No restless legs, No sensory deficit, No syncope, Yes tingling, No tremor(s), No weakness and No other Exam Const General: cooperative, healthy appearing, comfortable and no acute distress HENMT Head: normal to inspection Eyes General: appearance normal, both eyes and all related structures Neck Neck: normal visual inspection Neck mass: No Resp Effort & Inspection: normal respiratory effort Auscultation: clear to auscultation bilaterally Cardio Rate: regular rate Rhythm: regular rhythm GI Inspection: normal to inspection Palpation: soft and tender in the LUQ and in the RUQ Auscultation: normal bowel sounds Skin General: no rashes or lesions noted Neuro General: no focal motor deficits and CN's II-XI intact bilaterally Extrem General: normal to inspection Psych Appearance: grossly normal Affect: normal affect Assessment & Plan Assessment/Plan (1) Abdominal pain: QUALIFIERS: Abdominal location: generalized Qualified Code(s): R10.84 - Generalized abdominal pain PLAN: Assessment and Plan (1) Abdominal pain: Status: Acute Qualifiers: Abdominal location: generalized Qualified Code(s): R10.84 - Generalized abdominal pain Comment: On and Off, comes on with eating, vomited once. R/O Metastatic disease. CT 06/23/2021 shows bile duct stent with adjacent mass which is stable, no peritoneal metastases. Discussed possible causes including Metastatic disease vs Peptic ulcer. (2) GERD (gastroesophageal reflux disease): Status: Acute Qualifiers: Esophagitis presence: esophagitis presence not specified Qualified Code(s): K21.9 - Gastro-esophageal reflux disease without esophagitis Plan - ANKUR MartinezC: Dr. Osman also evaluated this patient. Dr. Osman will plan to perform an Esophagogastroduodenoscopy with possible biopsies. Procedure details, risks and benefits have been explained. Patient has had the opportunity to ask and have questions answered. Patient verbally understands and agrees with the plan. Patient will be started on omeprazole 40 mg daily. Plan Details Other Medications: New: omeprazole 40 mg PO DAILY 90 caps 3RF Coding Level of Care Code Off vis,est,level 4 Diagnoses Abdominal pain R10.84 Abdominal location: generalized GERD (gastroesophageal reflux disease) K21.9 Esophagitis presence: esophagitis presence not specified 06/29/21 1607<Electronically signed by Lilliam PASCUALC> I have re-examined the patient. There are no clinical changes since date of exam. Chris Osman M.D., F.A.C.S.
[2021-06-30 12:13] VITALS: BP 126/74; PULSE 85; RESP 18; TEMP 36.7; O2SAT 100; BMI 25.5
--- NOTE | 2021-06-30 12:45 | EGD_PTH ---
PATIENT: RUDY SCHWARZ LOC: EN U#:[id number] AGE/SX: 60/F ROOM: RE06/30/[address]: Dr. Chris Osman MD : 1960 BED: DIS: 06/30/2021 SPEC #: [id number] RECD: 06/30/21 13:16 STATUS: PAVAN YOUNG #: [id number] LINDA: 06/30/21 12:[address]: Chris Osman DEPT: SURGICAL PATHOLOGY RECD BY: Kenyetta Mcguire ENTERED: 06/30/21 13:39 SP TYPE: EGD BIOPSY OT DR: Dr. Raji Mathis MD Tissues: Stomach, NOS Procedures: Surgery Specimen Level IV HEADER OPERATION: EGD ([facility]) PRE-OP DIAGNOSIS: Abdominal pain, GERD TISSUE SUBMITTED: Greater curvature of stomach biopsy MICROSCOPIC DIAGNOSIS Greater curvature of stomach, biopsy: Mild gastritis. See microscopic description and comment. SJ:nithin 07/01/2021 COMMENT Immunohistochemistry for Helicobacter pylori can be performed if clinically indicated. Please notify the Laboratory if it is needed. MICROSCOPIC DESCRIPTION Slides are reviewed. The specimen shows fragments of gastric mucosa with chronic inflammatory cell infiltrates in the lamina propria consisting of lymphocytes and plasma cells, consistent with mild chronic gastritis. GROSS DESCRIPTION Received in fixative is one container labeled with the patient's name and designated greater curvature of stomach biopsy. The specimen consists of two irregular fragments of light chakraobrty soft tissue that in aggregate measure 0.6 x 0.3 x 0.1 cm. The specimen is totally submitted in one cassette. / SJ:nithin 06/30/2021 TC:3 CPT: 42267
[2021-06-30 13:10] VITALS: BP 126/74; BP 98/58; PULSE 84; RESP 16; TEMP 36.4; O2SAT 97
--- NOTE | 2021-06-30 13:11 | OP.EGD_ITS ---
Patient Name: Renate Devine Procedure Date: 06/30/2021 12:42 PM Date of : 1960 Age: 60 Procedure: Upper GI endoscopy Indications: Epigastric abdominal pain Providers: Chris Osman MD Medicines: See the Anesthesia note for documentation of the administered medications Complications: No immediate complications. Procedure: Pre-Anesthesia Assessment: - Prior to the procedure, a History and Physical was performed, and patient medications and allergies were reviewed. The patient's tolerance of previous anesthesia was also reviewed. The risks and benefits of the procedure and the sedation options and risks were discussed with the patient. All questions were answered, and informed consent was obtained. Prior Anticoagulants: The patient has taken no previous anticoagulant or antiplatelet agents. ASA Grade Assessment: III - A patient with severe systemic disease. After reviewing the risks and benefits, the patient was deemed in satisfactory condition to undergo the procedure. After obtaining informed consent, the endoscope was passed under direct vision. Throughout the procedure, the patient's blood pressure, pulse, and oxygen saturations were monitored continuously. The gastroscope was introduced through the mouth, and advanced to the second part of duodenum. The upper GI endoscopy was accomplished without difficulty. The patient tolerated the procedure well. Scope In: 12:48:58 PM Scope Out: 1:02:33 PM Total Procedure Duration Time 0 hours 13 minutes 35 seconds Findings: The Z-line was regular and was found 35 cm from the incisors. A small hiatal hernia was present. Diffuse moderate inflammation characterized by congestion (edema) and friability was found in the entire examined stomach. Biopsies were taken with a cold forceps for histology. The examined duodenum was normal. Evidence of a patent Billroth II gastrojejunostomy was found. The gastrojejunal anastomosis was characterized by healthy appearing mucosa. Impression: - Z-line regular, 35 cm from the incisors. - Small hiatal hernia. - Bile gastritis. Biopsied. - Normal examined duodenum. - Patent Billroth II gastrojejunostomy was found, characterized by healthy appearing mucosa. Suspect bile gastritis correlates with epigastric pain Recommendation: - Discharge patient to home. - Resume previous diet. - Continue present medications. - Use sucralfate tablets 1 gram PO BID. - Telephone my office for pathology results in 1 week. Procedure Code(s): --- Professional --- 32340, Esophagogastroduodenoscopy, flexible, transoral; with biopsy, single or multiple Diagnosis Code(s): --- Professional --- K44.9, Diaphragmatic hernia without obstruction or gangrene K29.60, Other gastritis without bleeding Z98.0, Intestinal bypass and anastomosis status R10.13, Epigastric pain CPT copyright 2017 [employer]. All rights reserved. The codes documented in this report are preliminary and upon laboratory technology teacher review may be revised to meet current compliance requirements. Chris Osman MD 06/30/2021 1:11:29 PM This report has been signed electronically. Number of Addenda: 0 Note Initiated On: 06/30/2021 12:42 PM
--- NOTE | 2021-06-30 13:12 | OP.CCLET_ITS ---
06/30/2021 Mark Anthony Guzman MD [address] [facility] [address] [place] [address] Re : Upper GI endoscopy procedure for Renate Devine Dear Dr. Guzman This procedure was performed on June. My impressions and recommendations are as follows: Impressions : - Z-line regular, 35 cm from the incisors. - Small hiatal hernia. - Bile gastritis. Biopsied. - Normal examined duodenum. - Patent Billroth II gastrojejunostomy was found, characterized by healthy appearing mucosa. Suspect bile gastritis correlates with epigastric pain Recommendations : - Discharge patient to home. - Resume previous diet. - Continue present medications. - Use sucralfate tablets 1 gram PO BID. - Telephone my office for pathology results in 1 week. My findings are described in the full procedure note, which is enclosed. If I can be of further assistance, please feel free to contact me at Doctor phone number(s): Work: . Sincerely, Chris Osman MD 06/30/2021 1:11:29 PM This report has been signed electronically.
[2021-06-30 13:15] VITALS: BP 101/67; BP 126/74; PULSE 84; RESP 16; O2SAT 96
[2021-06-30 13:20] VITALS: BP 126/74; BP 97/66; PULSE 83; RESP 16; O2SAT 98
[2021-06-30 13:25] VITALS: BP 110/64; BP 126/74; PULSE 79; RESP 16; TEMP 36.7; O2SAT 97
[2021-06-30 13:50] VITALS: BP 126/74
== END 2021-06-30 23:59 | disposition home or self-care (01) ==
LOC: EN 11:36 → AC 11:41
PROVIDERS: PCP Family Medicine; Referring Provider Family Medicine; Visit Provider Surgery
PROC: 0DJ08ZZ Inspection of Upper Intestinal Tract, Via Natural or Artificial Opening Endoscopic (ICD-10-PCS; CPT 43235; principal; 2021-06-30 12:40)
DX: K29.70 Gastritis, unspecified, without bleeding (principal); C22.1 Intrahepatic bile duct carcinoma; C24.0 Malignant neoplasm of extrahepatic bile duct; K44.9 Diaphragmatic hernia without obstruction or gangrene; K21.9 Gastro-esophageal reflux disease without esophagitis; D86.9 Sarcoidosis, unspecified; E66.9 Obesity, unspecified; Z78.0 Asymptomatic menopausal state; Z68.25 Body mass index [BMI] 25.0-25.9, adult; Z98.0 Intestinal bypass and anastomosis status; Z79.899 Other long term (current) drug therapy; Z87.891 Personal history of nicotine dependence
CPT/HCPCS: 43239; 88305; 88342

== ENCOUNTER 2021-07-07 05:25 | Day surgery (SDC) | payer OTHER, SELFPAY ==
[2020-03-18 13:58] VITALS: BMI 29.2
[2021-07-07] MEDS: Lactated Ringers 1,000 ML 15 ML IV ×2 (05:45→08:15)
--- NOTE | 2021-07-07 05:49 | EKG12_ITS ---
Test Reason : PRE OP Blood Pressure : / mmHG Vent. Rate : 073 BPM Atrial Rate : 073 BPM P-R Int : 138 ms QRS Dur : 092 ms QT Int : 414 ms P-R-T Axes : 026 047 019 degrees QTc Int : 456 ms Normal sinus rhythm Incomplete right bundle branch block Confirmed by QUETA MANRIQUE, RAJI ([id number]), senior editor RENATO GARNETT ([id number]) on 07/11/2021 11:39:17 AM Referred By: Raji Mathsi Confirmed By:RAJI BIRCH MD
[2021-07-07 05:50] VITALS: BP 125/79; PULSE 84; RESP 18; TEMP 36.3; O2SAT 97; BMI 25.8
--- NOTE | 2021-07-07 06:30 | RAD_ITS ---
STUDY: ERCP. REASON FOR EXAM: Female, 60 years old. Right upper quadrant pain. FLUOROSCOPY TIME (if supplied): ( 2 minutes and 55 seconds ). 12 images were submitted. TECHNIQUE: An ERCP was performed by the grass farm laborer. COMPARISON: None. FINDINGS: There is placement of an endoluminal stent graft in the common bile duct and second portion of the duodenum. RAD/ERCP Biliary Only IMPRESSION: Successful placement of an endoluminal stent graft in the common bile duct and second portion of the duodenum. Electronically Signed: Eliot Barroso MD at 13:23 EDT ,
--- NOTE | 2021-07-07 06:44 | PCM.HP.BLA ---
History and Physical Date of Admission: 07/07/21 60-year-old woman was diagnosed with metastatic cholangiocarcinoma, was found to have CBD stricture. She had ERCP with stent on 07/03/2019 and was found to have distal CBD mass with a mass in the liver. He had repeat ERCP on 07/28/2019, brushings were positive for adenocarcinoma. She had laparotomy on 09/01/2023 Whipple's procedure, was found to have gall bladder mass with omental metastatic disease so gastrojejunostomy was done. Pathology showed cholangiocarcinoma, NGS showed IDH1 mutation positive. She then started chemotherapy with cisplatin on Gemzar on October 15, 2019 at [facility]. Because of insurance issues, she has to switch her care to [facility]. She is due to start cycle 4 on 12/17/2019. She had a CT scan of the abdomen on 12/12/2019 which showed 3.2 cm mass in the right lobe of the liver adjacent to the falciform ligament, with a stent in the common bile duct. Received C4 on 12/17/2019. Got C5D1 on 01/07/2020, had chemotherapy related anemia so received 2 Units PRBC. Finished C6 on 02/04/2020. CT on 02/23/2020 showed increase in kathleen hepatis mass and stable liver mass. PET/CT on 03/09/2020 showed Hypermetabolic mass in R lobe of liver and kathleen-hepatis. She was referred for Radiation therapy but elected not to pursue radiation. She started Ivosidenib on 04/05/2020. She was started on Lovenox at [facility] in September 2019 and changed to Eliquis. Stopped Eliquis on 05/19/2020. Had CT on 06/18/2020 which showed stable disease. CT on 10/11/2020 showed stable disease. Remains on Ivosidenib. CT done on 02/28/2021 showed stable disease. Remains on Ivosidenib. Has been having abdominal pain with bloating on and off x 3 weeks. Was seen in the ER on 06/23/2021, CT showed stent in bile duct with stable mass, no peritoneal mass. She comes in today for evaluation of the previously placed stent and spyglass procedure to evaluate for any other signs of intra biliary cholangiocarcinoma. Medical History (Updated 06/29/21 @ 16:01 by Lilliam MEJIA PA-C) Cholangiocarcinoma Encounter for monitoring cardiotoxic drug therapy GERD (gastroesophageal reflux disease) Migraines Palpitations Sarcoidosis Surgical History History of laparoscopy History of tooth extraction Family History Father Diabetes Heart disease Cancer leukemia Myocardial infarction, Onset Age: 75 Mother Multiple sclerosis Sister Basal cell carcinoma Social History Smoking Status: Former smoker alcohol intake: current alcohol intake frequency: a few times a week Alcohol type: beer details: social substance use type: does not use caffeine: Yes what type of physical activity do you participate in: walking seatbelt use: always do you feel safe at home: Yes additional social history: - 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 ROS General General: Yes weight change and fatigue; No appetite, colon cancer, breast cancer or weakness HEENT HEENT: No difficulty swallowing, eye injury, eye surgery, swollen glands or hoarseness Endo Endocrine: No thyroid disease, diabetes mellitus, thyroid cancer, Hair loss, heat intolerance or cold intolerance Skin Skin: No rash or changing moles Musc Musculoskeletal: No back problems, arthritis, rheumatoid arthritis, gout or joint pain Cardio Cardiovascular: No murmur, pacemaker, heart disease, atrial fibrillation, high blood pressure, heart attack, heart stent, palpitations, shortness of breat with exertion or chest pain Psych Psychiatric: No depression, anxiety or hearing voices Resp Respiratory: No shortness of breath, No sleep apnea, No cough, No COPD, No asthma, No emphysema and No wheezing Gastro Gastrointestinal: Yes abdominal pain, Yes nausea or vomiting, No diarrhea, No constipation, No blood in stool, Yes acid reflux, No hemorrhoids, No ulcers, Yes gallbladder problem and No black,tarry stools Rachid Hematologic: No blood thinners, No blood disorders, No bleeding, No anemia and No blood clots Neuro Neurologic: No system reviewed and no additional complaints, except as documented, No as per HPI, No abnormal gait, No abnormal hearing, No abnormal movements, No abnormal speech, No behavioral changes, No burning sensations, No confusion, No convulsions, No disequilibrium, No dizziness, No localized weakness, No frequent falls, No headache(s), No lack of coordination, No loss of vision, No memory loss, No numbness, No other visual disturbances, No radicular pain, No restless legs, No sensory deficit, No syncope, Yes tingling, No tremor(s), No weakness and No other Exam Const General: cooperative, healthy appearing, comfortable and no acute distress [facility] Head: normal to inspection Eyes General: appearance normal, both eyes and all related structures Neck Neck: normal visual inspection Neck mass: No Resp Effort & Inspection: normal respiratory effort Auscultation: clear to auscultation bilaterally Cardio Rate: regular rate Rhythm: regular rhythm GI Inspection: normal to inspection Palpation: soft and tender in the LUQ and in the RUQ Auscultation: normal bowel sounds Skin General: no rashes or lesions noted Neuro General: no focal motor deficits and CN's II-XI intact bilaterally Extrem General: normal to inspection Psych Appearance: grossly normal Affect: normal affect Assessment and plan 60-year-old with metastatic cholangiocarcinoma will undergo ERCP with evaluation of the patent biliary system. She was explained alternatives, risk, benefits including outstanding bleeding, infection, sepsis, perforation, need for emergent . She have an ASA of 3.
--- NOTE | 2021-07-07 08:54 | OP.ERCP_ITS ---
Patient Name: Renate Devine Procedure Date: 07/07/2021 6:27 AM Date of : 1960 Age: 60 Procedure: ERCP Indications: Malignant stricture of the common bile duct Providers: Yamil David DO Medicines: See the Anesthesia note for documentation of the administered medications, General Anesthesia Patient Profile: This is a 60 year old female. Refer to note in patient chart for documentation of history and physical. Patient has symptoms of chronic right upper quadrant abdominal pain. Complications: No immediate complications. Procedure: Pre-Anesthesia Assessment: - Prior to the procedure, a History and Physical was performed, and patient medications and allergies were reviewed. The risks and benefits of the procedure and the sedation options and risks were discussed with the patient. All questions were answered and informed consent was obtained. Patient identification and proposed procedure were verified by the physician in the pre-procedure area. Mental Status Examination: alert and oriented. Airway Examination: normal oropharyngeal airway and neck mobility. Respiratory Examination: clear to auscultation. CV Examination: normal. Prophylactic Antibiotics: The patient does not require prophylactic antibiotics. Prior Anticoagulants: The patient has taken no previous anticoagulant or antiplatelet agents. ASA Grade Assessment: II - A patient with mild systemic disease. After reviewing the risks and benefits, the patient was deemed in satisfactory condition to undergo the procedure. The anesthesia plan was to use moderate sedation / analgesia (conscious sedation). Immediately prior to administration of medications, the patient was re-assessed for adequacy to receive sedatives. The heart rate, respiratory rate, oxygen saturations, blood pressure, adequacy of pulmonary ventilation, and response to care were monitored throughout the procedure. The physical status of the patient was re-assessed after the procedure. After obtaining informed consent, the scope was passed under direct vision. Throughout the procedure, the patient's blood pressure, pulse, and oxygen saturations were monitored continuously. The duodenoscope was introduced through the mouth, and advanced to the duodenum and used to inject contrast into the bile duct. The ERCP was accomplished without difficulty. The patient tolerated the procedure well. Scope In: 7:01:28 AM Scope Out: 8:41:01 AM Total Procedure Duration Time 1 hour 39 minutes 33 seconds Findings: The scope was passed under direct vision through the upper GI tract. The examined esophagus was normal. A large amount of food (residue) was found in the entire examined stomach. The major papilla was normal. One stent which had been placed through the major papilla into the biliary tree was no longer visible. It had migrated into the duct. A large frondlike/villous mass measuring five mm in diameter was found at the major papilla. The major papilla was prominent. The bile duct was deeply cannulated with the short-nosed traction sphincterotome. Contrast was injected. I personally interpreted the bile duct images. Ductal flow of contrast was adequate. Opacification of the entire opacified area was successful. The maximum diameter of the ducts was 7 mm. The lower third of the main bile duct and middle third of the main bile duct contained multiple segmental stenoses 6 mm in length. The upper third of the main bile duct was diffusely dilated, with a mass causing an obstruction. The largest diameter was 9 mm. A straight Roadrunner wire was passed into the biliary tree. A 5 mm biliary sphincterotomy was made with a traction (standard) sphincterotome using ERBE electrocautery. There was no post-sphincterotomy bleeding. The biliary tree was swept with a basket starting at the bifurcation. Sludge was swept from the duct. Sludge was swept from the duct. Three stones were removed. All stones remained. Dilation of the common bile duct with a 6-7-8 mm balloon dilator was successful. One 10 mm by 8 cm stent was placed 5 cm into the common bile duct. Bile flowed through the stent. The stent was in good position. Impression: - Normal esophagus. - A large amount of food (residue) in the stomach. - The major papilla appeared normal. - A previously placed stent had migrated into the biliary tree. - The major papilla appeared to have a mass. - The major papilla appeared to be prominent. - Multiple segmental biliary strictures were found in the lower third of the main bile duct and middle third of the main bile duct. The strictures were malignant appearing. - The upper third of the main bile duct was dilated, with a mass causing an obstruction. - Choledocholithiasis was found. Partial removal was accomplished with biliary sphincterotomy; a stent was inserted. - A biliary sphincterotomy was performed. - The biliary tree was swept and sludge was found. - Common bile duct was successfully dilated. - One stent was placed into the common bile duct. Procedure Code(s): --- Professional --- 73862, Endoscopic retrograde cholangiopancreatography (ERCP); with removal and exchange of stent(s), biliary or pancreatic duct, including pre- and post-dilation and guide wire passage, when performed, including sphincterotomy, when performed, each stent exchanged 94911, Endoscopic retrograde cholangiopancreatography (ERCP); with removal of calculi/debris from biliary/pancreatic duct(s) CPT copyright 2017 [employer]. All rights reserved. The codes documented in this report are preliminary and upon physician specialist review may be revised to meet current compliance requirements. Yamil David DO 07/07/2021 8:54:09 AM This report has been signed electronically. Number of Addenda: 0 Note Initiated On: 07/07/2021 6:27 AM
--- NOTE | 2021-07-07 08:55 | OP.CCLET_ITS ---
07/07/2021 Raji Mathis MD [address] [id number] Re : ERCP procedure for Renate Devine Dear Dr. Mathis This procedure was performed on June. My impressions and recommendations are as follows: Impressions : - Normal esophagus. - A large amount of food (residue) in the stomach. - The major papilla appeared normal. - A previously placed stent had migrated into the biliary tree. - The major papilla appeared to have a mass. - The major papilla appeared to be prominent. - Multiple segmental biliary strictures were found in the lower third of the main bile duct and middle third of the main bile duct. The strictures were malignant appearing. - The upper third of the main bile duct was dilated, with a mass causing an obstruction. - Choledocholithiasis was found. Partial removal was accomplished with biliary sphincterotomy; a stent was inserted. - A biliary sphincterotomy was performed. - The biliary tree was swept and sludge was found. - Common bile duct was successfully dilated. - One stent was placed into the common bile duct. Recommendations : My findings are described in the full procedure note, which is enclosed. If I can be of further assistance, please feel free to contact me at . Sincerely, Yamil David, 07/07/2021 8:54:09 AM This report has been signed electronically.
[2021-07-07 09:00] VITALS: BP 120/65; BP 125/79; PULSE 89; RESP 16; TEMP 36.2; O2SAT 99
[2021-07-07 09:15] VITALS: BP 125/79; BP 127/80; PULSE 89; RESP 16; O2SAT 98
[2021-07-07 09:30] VITALS: BP 116/84; BP 125/79; PULSE 76; RESP 16; O2SAT 98
[2021-07-07 09:45] VITALS: BP 125/79; BP 140/79; PULSE 75; RESP 16; TEMP 36.5; O2SAT 96
[2021-07-07 10:05] VITALS: BP 125/79
== END 2021-07-07 10:17 | disposition home or self-care (01) ==
LOC: EN 05:26 → AC 05:28
PROVIDERS: PCP Family Medicine; Referring Provider Family Medicine; Visit Provider Internal Medicine Gastroenterology
PROC: (CPT 43260; principal; 2021-07-07 06:00)
DX: C22.1 Intrahepatic bile duct carcinoma (principal); K80.51 Calculus of bile duct without cholangitis or cholecystitis with obstruction; T85.520A Displacement of bile duct prosthesis, initial encounter; K21.9 Gastro-esophageal reflux disease without esophagitis; Z87.891 Personal history of nicotine dependence; Z79.899 Other long term (current) drug therapy; X58.XXXA Exposure to other specified factors, initial encounter
CPT/HCPCS: 43264; 43276; 74328; 76000; 93005; J7120; A4216; C1726; C1769; J2405

== ENCOUNTER 2021-07-07 17:19 | Inpatient (IN) | payer OTHER, SELFPAY ==
[2020-03-18 13:58] VITALS: BMI 29.2
[2021-07-07 17:20] VITALS: BP 133/74; PULSE 94; RESP 19; TEMP 37.1; O2SAT 100; BMI 25.7
--- NOTE | 2021-07-07 17:35 | CT_ITS ---
We are attempting to reach an attending provider to discuss findings. An addendum with communication details will be sent when the communication is complete. STUDY: CT ABDOMEN AND PELVIS WITH CONTRAST REASON FOR EXAM: Female, 60 years old. Abdominal pain RADIATION DOSAGE (If Supplied By Facility): CTDIvol = ( 10.67 ) mGy, DLP = ( 717.62 ) mGycm TECHNIQUE: Transaxial images were obtained from the dome of the diaphragm to the symphysis pubis without oral contrast. IV 100mL Isovue-300 was administered. Sagittal and coronal images were reconstructed. Individualized dose optimization techniques were used for this CT. COMPARISON: 06/23/2021 FINDINGS: The visualized lung bases are unremarkable. The visualized portions of the heart are within normal limits. Normal liver. Biliary stent in place. Partial occlusion of the biliary stent is noted. Small amount of pneumobilia. Normal spleen. Normal pancreas. Normal bilateral adrenal glands. Normal right kidney. Normal left kidney. Normal visualized stomach. No bowel obstruction. Thickening of the ileocecal junction with a small peripherally enhancing structure measuring up to 1.2 cm best seen series 2 image 66. There is non-visualization of the appendix. Normal abdominal aorta. Normal inferior vena cava. Normal retroperitoneum. Normal urinary bladder. Calcified fibroid uterus. Normal abdominal wall. Normal osseous structures. CT/Abdomen/Pelvis W IV Cont ONLY IMPRESSION: Similar-appearing biliary stent and mild pneumobilia. Ascites. Thickening of the ileocecal junction with a small peripherally enhancing structure measuring up to 1.2 cm best seen series 2 image 66. Considerations include infectious or inflammatory process with potential small abscess. Electronically Signed: Ruddy Wynn MD at 19:31 EDT ,
--- NOTE | 2021-07-07 17:38 | EX.ED.DYSGE1 ---
HPI History of Present Illness Chief Complaint: Abd Pain Informant: patient Narrative Narrative: 60-year-old female underwent ERCP today for common bile duct stenting due to abdominal pain she was experiencing from her cholangiocarcinoma. 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 She had had a prior stent placed. She states she had some epigastric discomfort immediately after the procedure but was tolerable. This afternoon the pain became severe and radiated into her back. She notes associated nausea and vomiting. She states that she was told that she has a surgical gastroparesis now. No reported fevers. No chest pain. No hiccups. She does note that this feels like prior pancreatitis. She reports that she has had a recent EGD that showed ulcer disease. [facility] Medical History Alcohol use Cancer Cardiology follow-up encounter Cholangiocarcinoma Encounter for monitoring cardiotoxic drug therapy Former smoker Gastric reflux GERD (gastroesophageal reflux disease) Palpitations Post-menopausal Sarcoidosis Wears glasses Home Medications acetaminophen 325 mg capsule 325 mg PO DAILY PRN 09/24/19 [History Last Taken Unknown] docusate sodium 100 mg capsule 100 mg PO BID PRN 09/24/19 [History Last Taken Unknown] melatonin 3 mg PO QHS PRN 04/05/20 [History Last Taken Unknown] ivosidenib 500 mg PO DAILY 04/27/20 [History Last Taken Unknown] omeprazole 40 mg capsule,delayed release 40 mg PO DAILY #90 cap 06/29/21 [Rx Last Taken Unknown] sucralfate [Carafate] 1 g PO BID #90 tab 06/30/21 [Rx Last Taken Unknown] cholestyramine (with sugar) 4 gram oral powder 4 g PO DAILY #348.6 g 07/07/21 [Rx Last Taken Unknown] metoclopramide HCl 5 mg tablet 5 mg PO QAC #90 tab 07/07/21 [Rx Last Taken Unknown] Allergy/AdvReac Type Severity Reaction Status Date / Time No Known Allergies Allergy Verified 07/07/21 17:21 Family History Father Diabetes Heart disease Myocardial infarction, Onset Age: 75 Cancer leukemia, basal cell carcinoma Mother Multiple sclerosis Sister Basal cell carcinoma Surgical History History of esophagogastroduodenoscopy (EGD) History of laparoscopy History of tooth extraction Social History housing: house number of children: 2 current occupational status: employed 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 current occupational exposures/hazards: Yes (communicable diseases) pets and animals: Yes (two dogs, two cats) Smoking Status: Former smoker alcohol intake: current alcohol intake frequency: a few times a week Alcohol type: beer details: social substance use type: does not use caffeine: Yes what type of physical activity do you participate in: walking seatbelt use: always do you feel safe at home: Yes 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 ROS ED Constitutional Constitutional ED: Denies chills, fever(s) or weight loss Eyes Eyes: Denies change in vision or diplopia ENT ENT ED: Denies ear pain, rhinorrhea or sore throat Cardiovascular Cardiovascular: Denies chest pain, orthopnea, palpitations or racing heartbeat Respiratory/Chest Respiratory/Chest: Denies cough, dyspnea or orthopnea Gastrointestinal Gastrointestinal: Reports abdominal pain, nausea and vomiting; Denies diarrhea Genitourinary Genitourinary ED: Denies dysuria, hematuria or urinary frequency Musculoskeletal Musculoskeletal: Denies arthralgias or myalgias Integumentary Denies abscess or rash Neurologic Neurologic: Denies headache(s) or weakness Psychiatric Psychiatric: Denies anxiety, depression, suicidal ideation or suicidal thoughts Endocrine Endocrinology: Denies polydipsia, polyphagia or polyuria Allergic/Immunologic Allergic/Immunologic ED: Denies mouth swelling, tongue swelling or urticaria EXAM Physical Exam Narrative Exam Narrative: Patient appears in pain and laying in the bed Const Vital Signs: 07/07/21 17:20 Temperature 98.8 F Temperature Source Temporal Pulse Rate 94 Respiratory Rate 19 H Blood Pressure 133/74 H Blood Pressure Mean 93 Pulse Ox 100 Oxygen Delivery Method Room Air Positive well nourished and well developed General Appearance ED: well developed HEENT Reports normocephalic, head/scalp atraumatic, TM's clear and moist mucous membranes Negative for trauma Tympanic Membrane ED: Yes TM's clear Eyes PERRL and EOMs intact bilaterally Neck no lymphadenopathy, supple and no JVD Chest Wall Chest Narrative: Port site clean dry intact does not appear to have obvious complication Resp normal respiratory effort and clear to auscultation bilaterally Cardio regular rate, regular rhythm and no murmurs GI Palpation: soft, tender, guarding and rebound tenderness present Back/Spine no CVA tenderness and normal ROM Extremity normal to inspection General Extremety ED: Negative for edema General Extremity: Negative for edema Neuro oriented x3 and CN's II-XII intact bilaterally Sensorium / Orientation: alert Motor Exam: strength 5/5 throughout Psych mental status grossly normal Mood & Affect: Negative for depressed or tearful Skin no rashes or lesions noted and no wounds MDM MDM MDM Narrative Medical decision making narrative: Lipase at 1412 with a total bilirubin of 2 AST of 410 ALT 181 with alk phos of 154. Lactic acid normal at 0.3. White count at [address] of the ab pelvis demonstrates no free air or obvious perforation. There are some pneumobilia which is to be expected following her procedure. There is some ascites noted. Patient received IV fluids morphine Zofran and was redosed. I spoke with her concrete pipe plant supervisor Dr. David. Our plan is admission and the patient is in agreement Lab Data Attestation: I reviewed the patient's lab results. Labs: Laboratory Results - last 24 hr 07/07/21 07/07/21 07/07/21 18:00 18:00 18:20 WBC 7.0 RBC 3.31 L Hgb 11.8 L Hct 33.9 L MCV 102.4 H MCH 35.6 H MCHC 34.8 RDW Std Deviation 48.2 H RDW Coeff of Todd 12.7 Plt Count 148 L MPV 9.9 Immature Gran % (Auto) 0.300 Neut % (Auto) 90.1 H Lymph % (Auto) 7.5 L Collin % (Auto) 2.0 Eos % (Auto) 0.1 Baso % (Auto) 0.0 Absolute Neuts (auto) 6.3 Absolute Lymphs (auto) 0.52 L Nucleated RBC % 0 Differential Comment SCANNED Sodium 136 Potassium 4.1 Chloride 105 Carbon Dioxide 24.0 Anion Gap 7 BUN 15 Creatinine 0.74 Estim Creat Clear Calc 69.81 Est GFR (MDRD) Af Amer 103 Est GFR (MDRD) Non-Af 85 BUN/Creatinine Ratio 20.3 H Glucose 112 H Lactic Acid 0.3 L Calcium 8.9 Total Bilirubin 2.00 H AST 410 H ALT 181 H Alkaline Phosphatase 154 H Total Protein 6.7 Albumin 3.5 Globulin 3.2 Albumin/Globulin Ratio 1.1 Lipase 1412 H Radiography Diagnostic Testing: Clinical Impression(s) from Imaging Studies Abdomen/Pelvis CT 07/07/21 17:35 IMPRESSION: Similar-appearing biliary stent and mild pneumobilia. Ascites. Thickening of the ileocecal junction with a small peripherally enhancing structure measuring up to 1.2 cm best seen series 2 image 66. Considerations include infectious or inflammatory process with potential small abscess. Electronically Signed: Ruddy Wynn MD at 19:31 EDT , Discharge Plan Dx/Rx/DC Orders Clinical Impression: Cholangiocarcinoma, Acute pancreatitis, Abdominal pain Disposition Disposition: Acute Care [facility]
[2021-07-07] MEDS: 0.9% Normal Saline 1,000 ML 1000 ML IV (18:08)
[2021-07-07] MEDS: Morphine 4 MG/ML Syringe IV ×3 (18:08→22:33)
[2021-07-07] MEDS: Ondansetron 4 MG/2 ML Vial IV ×2 (18:09→19:51)
[2021-07-07 18:17] LABS: Absolute Lymphocyte Count 0.52 X10^3/uL (0.83-4.51); Absolute Neutrophil Count 6.3 X10^3/uL (2.0-7.7); Eosinophil# 0.01 X10^3/uL; Eosinophils% 0.1 % (0-5); Hematocrit 33.9 % (37-47); Hemoglobin 11.8 g/dL (12.0-15.0); Lymphocyte # 0.52 X10^3/ul (0.83-4.51); Lymphocyte % 7.5 % (19-41); Mean Corp Hgb Conc 34.8 g/dL (32-36); Mean Corpuscular Hgb 35.6 pg (27.0-32.0); Mean Corpuscular Volume 102.4 fL (81-99); Mean Platelet Vol. 9.9 fl (6.2-12.0); Monocyte# 0.14 X10^3/uL; NRBC Flagged by Analyzer 0 % (0-5); Neutrophil # 6.27 X10^3/uL (2.7-7.7); Neutrophil % 90.1 % (47-70); POSITIVE DIFFERENTIAL YES; Platelet Count 148 K/mm3 (150-450); RBC Distribution Width CV 12.7 % (11.6-14.6); RBC Distribution Width SD 48.2 fl (35.1-43.9); Red Blood Count 3.31 M/mm3 (4.2-5.4)
[2021-07-07 18:22] LABS: Differential Indicated SCAN CRITERIA MET
[2021-07-07 18:45] LABS: ALB/GLOB Ratio 1.1 RATIO (0.9-2.4); AST(SGOT) 410 U/L (15-37); Alanine Aminotransfer ALT/SGPT 181 U/L (13-56); Albumin, Serum 3.5 g/dL (3.2-5.0); Alkaline Phosphatase 154 U/L (45-117); Anion Gap 7 (5-15); BUN 15 mg/dL (7-18); BUN/Creat Ratio 20.3 RATIO (10-20); Calcium,Total 8.9 mg/dL (8.5-10.1); Chloride 105 mmol/L (98-107); Creatinine, Serum 0.74 mg/dL (0.55-1.02); EST Glomerular Filtration Rate 85 mL/min (>60); Est Glom Filt Rate - Afr Amer 103 mL/min (>60); Estimated Creatinine Clearance 69.81 ml/min; Globulin 3.2 g/dL (2.2-4.2); Glucose 112 mg/dL (74-106); Lipase 1412 U/L (73-393); Potassium 4.1 mmol/L (3.5-5.1); Protein, Total 6.7 g/dL (6.4-8.2); Sodium Level 136 mmol/L (136-145)
[2021-07-07 18:47] LABS: Differential Comment SCANNED
[2021-07-07 18:57] LABS: Lactic Acid 0.3 mmol/L (0.4-1.9)
[2021-07-07 20:00] VITALS: BP 124/74; PULSE 103; RESP 16; TEMP 36.6; O2SAT 97
--- NOTE | 2021-07-07 20:17 | PCM.HP.STD ---
HPI - General General Date of Admission: 07/07/21 HPI Narrative RUDY GONZALEZ, is a 60 F with a significant history of metastatic cholangiocarcinoma on ibrutinib and who had biliary stent placed a year ago and had another biliary stent placed on the same day of presentation now with progressively worsening abdominal pain that started after ERCP with stent placement on this same day (06/06/2021) of presentation. Her pain is excruciating. She reports intensity of 10 out of 10 of pain. She described the pain as pressure and sharp. The pain is located at her epigastric region and it radiates to her back. She denies any aggravating factors to the pain. Morphine that she received at the emergency department helped with her pain. She reports nausea and vomiting. Reportedly she had extensive amounts of vomitus. She denies fever. She reports chills. She reports anorexia. FORMERLY [facility] Medical History Alcohol use Cancer Cardiology follow-up encounter Cholangiocarcinoma Encounter for monitoring cardiotoxic drug therapy Former smoker Gastric reflux GERD (gastroesophageal reflux disease) Palpitations Post-menopausal Sarcoidosis Wears glasses Home Medications melatonin 3 mg PO QHS PRN 04/05/20 [History Last Taken 07/04/21] ivosidenib 500 mg PO DAILY@2100 04/27/20 [History Last Taken 07/06/21] omeprazole 40 mg capsule,delayed release 40 mg PO DAILY #90 cap 06/29/21 [Rx Last Taken 07/06/21] sucralfate [Carafate] 1 g PO BID #90 tab 06/30/21 [Rx Last Taken 07/06/21] acetaminophen 1,000 mg PO DAILY PRN 07/07/21 [History Last Taken 07/07/21] metoclopramide HCl 5 mg tablet 5 mg PO QAC #90 tab 07/07/21 [Rx Last Taken Unknown] Allergy/AdvReac Type Severity Reaction Status Date / Time No Known Allergies Allergy Verified 07/07/21 17:21 Family History Father Diabetes Heart disease Myocardial infarction, Onset Age: 75 Cancer leukemia, basal cell carcinoma Mother Multiple sclerosis Sister Basal cell carcinoma Surgical History History of esophagogastroduodenoscopy (EGD) History of laparoscopy History of tooth extraction Social History housing: house number of children: 2 current occupational status: employed 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 All other systems were reviewed and are negative. Vital Signs Vital Signs Vital Signs: 07/07/21 17:20 07/07/21 20:00 Temperature 98.8 F 98 F Temperature Source Temporal Temporal Pulse Rate 94 103 H Respiratory Rate 19 H 16 Blood Pressure 133/74 H 124/74 H Blood Pressure Mean 93 90 Pulse Ox 100 97 Oxygen Delivery Method Room Air Room Air Weight Weight: 68.039 kg Body Mass Index (BMI) 25.7 Physical Exam Narrative Physical exam: General: Well-nourished, well-developed. Head: Normocephalic, atraumatic, no tenderness Eyes: Vision is grossly intact. EOMI ENT, no trauma, moist mucous membranes, no rhinorrhea Neck: Nontender, full range of motion, no spinal tenderness, deformities, step-off CVS: Regular rate and rhythm. S1-S2 present. No murmur, gallop or rub. Respiratory : clear to auscultation bilaterally, chest wall nontender, no wheezing Abdomen: Soft, tender, nondistended, normal bowel sounds, no masses : Deferred Back: Nontender, no CVA tenderness, no midline spinal tenderness, deformities, step-offs Extremities: Nontender full range of motion, no trauma Skin: Normal color, no trauma, abrasions Neuro: Alert, oriented, cranial nerves II through XII grossly intact. Psychiatry: Normal mood. Normal affect. Not depressed. Not anxious. Results Lab / Micro Data Result Diagrams: 07/07/21 18:00 07/07/21 18:00 Labs: Laboratory Results - last 24 hr 07/07/21 18:00: WBC 7.0, RBC 3.31 L, Hgb 11.8 L, Hct 33.9 L, MCV 102.4 H, MCH 35.6 H, MCHC 34.8, RDW Std Deviation 48.2 H, RDW Coeff of Todd 12.7, Plt Count 148 L, MPV 9.9, Immature Gran % (Auto) 0.300, Neut % (Auto) 90.1 H, Lymph % (Auto) 7.5 L, [place] % (Auto) 2.0, Eos % (Auto) 0.1, Baso % (Auto) 0.0, Absolute Neuts (auto) 6.3, Absolute Lymphs (auto) 0.52 L, Nucleated RBC % 0, Differential Comment SCANNED 07/07/21 18:00: Sodium 136, Potassium 4.1, Chloride 105, Carbon Dioxide 24.0, Anion Gap 7, BUN 15, Creatinine 0.74, Estim Creat Clear Calc 69.81, Est GFR (MDRD) Af Amer 103, Est GFR (MDRD) Non-Af 85, BUN/Creatinine Ratio 20.3 H, Glucose 112 H, Calcium 8.9, Total Bilirubin 2.00 H, AST 410 H, ALT 181 H, Alkaline Phosphatase 154 H, Total Protein 6.7, Albumin 3.5, Globulin 3.2, Albumin/Globulin Ratio 1.1, Lipase 1412 H 07/07/21 18:20: Lactic Acid 0.3 L Radiology Impression Abdomen/Pelvis CT 07/07/21 17:35 IMPRESSION: Similar-appearing biliary stent and mild pneumobilia. Ascites. Thickening of the ileocecal junction with a small peripherally enhancing structure measuring up to 1.2 cm best seen series 2 image 66. Considerations include infectious or inflammatory process with potential small abscess. Electronically Signed: Ruddy Wynn MD at 19:31 EDT , ADDENDUM: 07/07/212005 IMPRESSION: Similar-appearing biliary stent and mild pneumobilia. Ascites. Thickening of the ileocecal junction with a small peripherally enhancing structure measuring up to 1.2 cm best seen series 2 image 66. Considerations include infectious or inflammatory process with potential small abscess. N.B. : The above Results were Read Back by Ruddy Wynn MD to Dr. Juan Ruiz MD, and understanding confirmed on 07/07/2021 19:59:20 (ET). Electronically Signed: Ruddy Wynn MD at 19:31 EDT Reading Location ID and State: [facility] / [place] Tel , Service support , Assessment & Plan Assessment/Plan (1) Pancreatitis: QUALIFIERS: Acute pancreatitis complication: no infection or necrosis Chronicity: acute Pancreatitis type: biliary Qualified Code(s): K85.10 - Biliary acute pancreatitis without necrosis or infection PLAN: Acute post ERCP pancreatitis Abdomen/pelvis CT was visualized and independently interpreted and agree with radiologist interpretation. Abdomen and pelvis CT with biliary stent and metastasis. Lipase of 1412. Of note her lipase on 06/23/2021 was 225. Total bilirubin of 2.0. AST of 410. ALT of 181. Alkaline phosphatase of 154. Trend CMP. CBC showed normal white count of 7; chronic anemia; and mild thrombocytopenia of 148. Trend CBC. Supportive treatment with lactated Ringer's. N.p.o. except meds. GI consult. DVT prophylaxis: Subcutaneous Lovenox ordered. Charges/Coding Visit Charges Inpatient E&M: 13601 Init Hosp L3
[2021-07-07] MEDS: 0.9% Normal Saline 1,000 ML 999 ML IV (20:44)
[2021-07-07 21:48] VITALS: BMI 25.5
[2021-07-07 22:05] VITALS: BP 129/66; PULSE 107; RESP 18; TEMP 38.3; O2SAT 92
[2021-07-07] MEDS: Acetaminophen 500 MG Tablet 1000 MG PO (22:32)
[2021-07-07] MEDS: Lactated Ringers 1,000 ML 150 ML IV (22:34)
[2021-07-08] VITALS (7 sets, daily range): BP systolic 105–131; BP diastolic 52–70; PULSE 78–95; RESP 16–18; TEMP 37.1–37.4; O2SAT 82–98
[2021-07-08] MEDS: 0.9% Normal Saline 1,000 ML 250 ML IV ×5 (03:15→20:15)
[2021-07-08] MEDS: Morphine 4 MG/ML Syringe IV ×3 (06:08→20:16)
[2021-07-08] MEDS: Metoclopramide 5 MG TABLET PO ×3 (06:08→16:23)
[2021-07-08 06:17] LABS: Absolute Lymphocyte Count 0.24 X10^3/uL (0.83-4.51); Absolute Neutrophil Count 5.1 X10^3/uL (2.0-7.7); Eosinophil# 0.03 X10^3/uL; Eosinophils% 0.6 % (0-5); Hematocrit 34.3 % (37-47); Hemoglobin 11.2 g/dL (12.0-15.0); Lymphocyte # 0.24 X10^3/ul (0.83-4.51); Lymphocyte % 4.4 % (19-41); Mean Corp Hgb Conc 32.7 g/dL (32-36); Mean Corpuscular Hgb 34.9 pg (27.0-32.0); Mean Corpuscular Volume 106.9 fL (81-99); Mean Platelet Vol. 8.9 fl (6.2-12.0); Monocyte# 0.06 X10^3/uL; Monocyte% 1.1 % (0-10); NRBC Flagged by Analyzer 0 % (0-5); Neutrophil # 5.08 X10^3/uL (2.7-7.7); Neutrophil % 93.7 % (47-70); POSITIVE DIFFERENTIAL YES; POSITIVE MORPHOLOGY YES; Platelet Count 134 K/mm3 (150-450); RBC Distribution Width CV 13.2 % (11.6-14.6); RBC Distribution Width SD 52.3 fl (35.1-43.9); Red Blood Count 3.21 M/mm3 (4.2-5.4); White Blood Count 5.4 K/mm3 (4.4-11.0)
[2021-07-08 06:19] LABS: Differential Indicated SCAN CRITERIA MET
[2021-07-08 06:39] LABS: Differential Comment SCANNED
[2021-07-08 06:58] LABS: ALB/GLOB Ratio 0.9 RATIO (0.9-2.4); AST(SGOT) 241 U/L (15-37); Alanine Aminotransfer ALT/SGPT 175 U/L (13-56); Albumin, Serum 3.1 g/dL (3.2-5.0); Alkaline Phosphatase 152 U/L (45-117); Anion Gap 5 (5-15); BUN 14 mg/dL (7-18); BUN/Creat Ratio 16.9 RATIO (10-20); Calcium,Total 8.5 mg/dL (8.5-10.1); Chloride 106 mmol/L (98-107); Creatinine, Serum 0.83 mg/dL (0.55-1.02); EST Glomerular Filtration Rate 74 mL/min (>60); Est Glom Filt Rate - Afr Amer 90 mL/min (>60); Estimated Creatinine Clearance 62.24 ml/min; Globulin 3.3 g/dL (2.2-4.2); Glucose 106 mg/dL (74-106); Potassium 4.2 mmol/L (3.5-5.1); Protein, Total 6.4 g/dL (6.4-8.2); Sodium Level 138 mmol/L (136-145)
[2021-07-08 07:19] LABS: Lipase 473 U/L (73-393)
[2021-07-08] MEDS: Acetaminophen 500 MG Tablet 1000 MG PO (10:11)
[2021-07-08] MEDS: Pantoprazole Sodium 40 MG Tablet PO (10:14)
--- NOTE | 2021-07-08 10:18 | PN.HOSP_ITS ---
Subjective Subjective Feels much better today, still has some abdominal pain but not nearly as bad as it was yesterday. Objective Data Objective Data Vital Signs: Vital Signs Temp Pulse Resp BP Pulse Ox 98.8 F 90 16 105/67 95 07/08/21 10:04 07/08/21 10:04 07/08/21 10:04 07/08/21 10:04 07/08/21 10:04 Oxygen Delivery Method Room Air Weight: 149 lb 0.52 oz Body Mass Index (BMI) 25.5 Intake & Output: Intake and Output for Last 24 Hours 07/07/21 07/08/21 07/09/21 03:59 03:59 03:59 Intake Total 2707.5 / 2707.5 1000 / 1000 Output Total 300 / 300 Balance 2707.5 / 2707.5 700 / 700 Lab / Micro Data Result Diagrams: 07/08/21 05:55 07/08/21 05:55 Labs: Laboratory Results - last 24 hr 07/07/21 18:00: WBC 7.0, RBC 3.31 L, Hgb 11.8 L, Hct 33.9 L, MCV 102.4 H, MCH 35.6 H, MCHC 34.8, RDW Std Deviation 48.2 H, RDW Coeff of Todd 12.7, Plt Count 148 L, MPV 9.9, Immature Gran % (Auto) 0.300, Neut % (Auto) 90.1 H, Lymph % (Auto) 7.5 L, [place]th[place]omew % (Auto) 2.0, Eos % (Auto) 0.1, Baso % (Auto) 0.0, Absolute Neuts (auto) 6.3, Absolute Lymphs (auto) 0.52 L, Nucleated RBC % 0, Differential Comment SCANNED 07/07/21 18:00: Sodium 136, Potassium 4.1, Chloride 105, Carbon Dioxide 24.0, Anion Gap 7, BUN 15, Creatinine 0.74, Estim Creat Clear Calc 69.81, Est GFR (MDRD) Af Amer 103, Est GFR (MDRD) Non-Af 85, BUN/Creatinine Ratio 20.3 H, Glucose 112 H, Calcium 8.9, Total Bilirubin 2.00 H, AST 410 H, ALT 181 H, Alkaline Phosphatase 154 H, Total Protein 6.7, Albumin 3.5, Globulin 3.2, Albumin/Globulin Ratio 1.1, Lipase 1412 H 07/07/21 18:20: Lactic Acid 0.3 L 07/08/21 05:55: WBC 5.4, RBC 3.21 L, Hgb 11.2 L, Hct 34.3 L, MCV 106.9 H, MCH 34.9 H, MCHC 32.7 D, RDW Std Deviation 52.3 H, RDW Coeff of Todd 13.2, Plt Count 134 L, MPV 8.9, Immature Gran % (Auto) 0.200, Neut % (Auto) 93.7 H, Lymph % (Auto) 4.4 L, Bartholomew % (Auto) 1.1, Eos % (Auto) 0.6, Baso % (Auto) 0.0, Absolute Neuts (auto) 5.1, Absolute Lymphs (auto) 0.24 L, Nucleated RBC % 0, Differential Comment SCANNED 07/08/21 05:55: Sodium 138, Potassium 4.2, Chloride 106, Carbon Dioxide 27.0, Anion Gap 5, BUN 14, Creatinine 0.83, Estim Creat Clear Calc 62.24, Est GFR (MDRD) Af Amer 90, Est GFR (MDRD) Non-Af 74, BUN/Creatinine Ratio 16.9, Glucose 106, Calcium 8.5, Total Bilirubin 5.10 H, AST 241 H, ALT 175 H, Alkaline Phosphatase 152 H, Total Protein 6.4, Albumin 3.1 L, Globulin 3.3, Albumin/Globulin Ratio 0.9 07/08/21 05:55: Lipase 473 H Radiography Diagnostic Testing: Radiology Impression Abdomen/Pelvis CT 07/07/21 17:35 IMPRESSION: Similar-appearing biliary stent and mild pneumobilia. Ascites. Thickening of the ileocecal junction with a small peripherally enhancing structure measuring up to 1.2 cm best seen series 2 image 66. Considerations include infectious or inflammatory process with potential small abscess. Electronically Signed: Ruddy Wynn MD at 19:31 EDT , ADDENDUM: 07/07/212005 IMPRESSION: Similar-appearing biliary stent and mild pneumobilia. Ascites. Thickening of the ileocecal junction with a small peripherally enhancing structure measuring up to 1.2 cm best seen series 2 image 66. Considerations include infectious or inflammatory process with potential small abscess. N.B. : The above Results were Read Back by Ruddy Wynn MD to Dr. Juan Ruiz MD, and understanding confirmed on 07/07/2021 19:59:20 (ET). Electronically Signed: Ruddy Wynn MD at 19:31 EDT , Physical Exam Const alert, oriented x3 and no apparent distress General Appearance: cooperative HEENT normocephalic and moist oral mucous membranes Eyes PERRL, EOMs intact bilaterally and conjunctivae normal Neck supple and no JVD Resp normal respiratory effort, no retractions, no use of accessory muscles and clear to auscultation bilaterally Auscultation: Negative for crackles, rales, rhonchi or wheezes Cardio regular rate, regular rhythm, S1 normal heart sound, S2 normal heart sound and no murmurs GI soft to palpation and non-distended; Negative for hepatosplenomegaly Palpation: tender epigastric Extremity no clubbing, cyanosis or edema Skin no rashes or lesions noted Neuro no focal motor deficits and no sensory deficits noted Psych affect normal Appearance: appropriate Assessment & Plan Assessment/Plan (1) Pancreatitis: QUALIFIERS: Chronicity: acute Pancreatitis type: biliary Acute pancreatitis complication: no infection or necrosis Qualified Code(s): K85.10 - Biliary acute pancreatitis without necrosis or infection PLAN: 1. Acute post ERCP pancreatitis/stage IV cholangiocarcinoma status post stent ? She had a stent placed yesterday for her metastatic cholangiocarcinoma and developed severe abdominal pain ? Much improved today, will slowly advance her diet ? Lipase on admission was 1412, bilirubin was 2 and now is 5.1 however LFTs are improving therefore we will continue to monitor ? Appreciate GI assistance ? Can resume all of her home medications when she is taking p.o. 2. GERD ? Stable ? Can continue with PPI and Carafate when taking p.o. DVT: Lovenox Charges/Coding Visit Charges Inpatient E&M: 04527 Subs Hosp L2
[2021-07-08] MEDS: Enoxaparin 40 MG/0.4 ML Syringe SC (10:26)
--- NOTE | 2021-07-08 10:40 | CASEMGMT ---
RN CM RN ANESTHETIST CM to room to meet with patient for initial transition planning/care coordination assessment. RN CLAU introduced self and role at [facility]. Pt voices understanding and consents to assessment at this time. Pt resting in bed in no distress at this time. SisterTri/REN, and bro-in-law, Ty, @ bedside. Pt agreeable to them being present during assessment. Pt is A/O at this time and answers all questions appropriately. Care providers, pharmacy, and demographics verified/updated at this time. PCP: Dr Mathis Specialists: Dr Velez, Dr Guzman--oncology Preferred Pharmacy: [facility] Retail Insurance: [employer] Prescription Benefit: Yes Living Will/HPOA: Has LW and HPOA, who is her sisterTri LNOK: Tri [place] Living Arrangements: Lives alone in ranch-style home. One step to enter. Independent w/ADL's and IADL's Transportation: Pt states drives self and states no transportation concerns at this time. DME: Denies using any DME and denies needs. HHC/SNF: No hx of either. No needs identified. Pt wishes to return home and states has no concerns with going home at time of discharge. CM to follow for any discharge planning/needs. Pt voices no concerns/needs at this time. Advised pt to ask for CM if any questions/concerns/needs arise. Voices understanding. PLAN: Home w/discharge plans in place. John PENA RN, CM
[2021-07-08] MEDS: Ondansetron 4 MG/2 ML Vial IV (15:24)
[2021-07-08 16:59] LABS: AST(SGOT) 156 U/L (15-37); Alanine Aminotransfer ALT/SGPT 139 U/L (13-56); Alkaline Phosphatase 137 U/L (45-117); Anion Gap 4 (5-15); BUN 15 mg/dL (7-18); BUN/Creat Ratio 21.1 RATIO (10-20); Calcium,Total 8.3 mg/dL (8.5-10.1); Chloride 108 mmol/L (98-107); Creatinine, Serum 0.71 mg/dL (0.55-1.02); EST Glomerular Filtration Rate 89 mL/min (>60); Est Glom Filt Rate - Afr Amer 107 mL/min (>60); Estimated Creatinine Clearance 72.76 ml/min; Globulin 3.1 g/dL (2.2-4.2); Glucose 95 mg/dL (74-106); Lipase 841 U/L (73-393); Potassium 4.4 mmol/L (3.5-5.1); Protein, Total 6.1 g/dL (6.4-8.2); Sodium Level 138 mmol/L (136-145)
--- NOTE | 2021-07-08 18:20 | PCM.PROGNOTE ---
Subjective Subjective Patient says that her abdominal pain is little bit better than yesterday. She still rates it about a 6 out of 10. She has not eaten anything. She has been on IV fluids approximately 250 cc an hour. She is urinating without any problems. Objective Data Objective Data Vital Signs: Vital Signs Temp Pulse Resp BP Pulse Ox 99.0 F 78 18 107/64 93 07/08/21 15:11 07/08/21 15:11 07/08/21 15:11 07/08/21 15:11 07/08/21 15:11 Oxygen Delivery Method Room Air Weight: 149 lb 0.52 oz Body Mass Index (BMI) 25.5 Intake & Output: Intake and Output for Last 24 Hours 07/06/21 07/07/21 07/08/21 23:59 23:59 23:59 Intake Total 1999 3857.5 / 3857.5 Output Total 450 / 450 Balance 1999 3407.5 / 3407.5 Lab / Micro Data Result Diagrams: 07/08/21 05:55 07/08/21 16:29 Labs: Laboratory Results - last 24 hr 07/07/21 18:00: WBC 7.0, RBC 3.31 L, Hgb 11.8 L, Hct 33.9 L, MCV 102.4 H, MCH 35.6 H, MCHC 34.8, RDW Std Deviation 48.2 H, RDW Coeff of Todd 12.7, Plt Count 148 L, MPV 9.9, Immature Gran % (Auto) 0.300, Neut % (Auto) 90.1 H, Lymph % (Auto) 7.5 L, [place] % (Auto) 2.0, Eos % (Auto) 0.1, Baso % (Auto) 0.0, Absolute Neuts (auto) 6.3, Absolute Lymphs (auto) 0.52 L, Nucleated RBC % 0, Differential Comment SCANNED 07/07/21 18:00: Sodium 136, Potassium 4.1, Chloride 105, Carbon Dioxide 24.0, Anion Gap 7, BUN 15, Creatinine 0.74, Estim Creat Clear Calc 69.81, Est GFR (MDRD) Af Amer 103, Est GFR (MDRD) Non-Af 85, BUN/Creatinine Ratio 20.3 H, Glucose 112 H, Calcium 8.9, Total Bilirubin 2.00 H, AST 410 H, ALT 181 H, Alkaline Phosphatase 154 H, Total Protein 6.7, Albumin 3.5, Globulin 3.2, Albumin/Globulin Ratio 1.1, Lipase 1412 H 07/07/21 18:20: Lactic Acid 0.3 L 07/08/21 05:55: WBC 5.4, RBC 3.21 L, Hgb 11.2 L, Hct 34.3 L, MCV 106.9 H, MCH 34.9 H, MCHC 32.7 D, RDW Std Deviation 52.3 H, RDW Coeff of Todd 13.2, Plt Count 134 L, MPV 8.9, Immature Gran % (Auto) 0.200, Neut % (Auto) 93.7 H, Lymph % (Auto) 4.4 L, [place] % (Auto) 1.1, Eos % (Auto) 0.6, Baso % (Auto) 0.0, Absolute Neuts (auto) 5.1, Absolute Lymphs (auto) 0.24 L, Nucleated RBC % 0, Differential Comment SCANNED 07/08/21 05:55: Sodium 138, Potassium 4.2, Chloride 106, Carbon Dioxide 27.0, Anion Gap 5, BUN 14, Creatinine 0.83, Estim Creat Clear Calc 62.24, Est GFR (MDRD) Af Amer 90, Est GFR (MDRD) Non-Af 74, BUN/Creatinine Ratio 16.9, Glucose 106, Calcium 8.5, Total Bilirubin 5.10 H, AST 241 H, ALT 175 H, Alkaline Phosphatase 152 H, Total Protein 6.4, Albumin 3.1 L, Globulin 3.3, Albumin/Globulin Ratio 0.9 07/08/21 05:55: Lipase 473 H 07/08/21 16:29: Sodium 138, Potassium 4.4, Chloride 108 H, Carbon Dioxide 26.0, Anion Gap 4 L, BUN 15, Creatinine 0.71, Estim Creat Clear Calc 72.76, Est GFR (MDRD) Af Amer 107, Est GFR (MDRD) Non-Af 89, BUN/Creatinine Ratio 21.1 H, Glucose 95, Calcium 8.3 L, Total Bilirubin 6.30 H, AST 156 H, ALT 139 H, Alkaline Phosphatase 137 H, Total Protein 6.1 L, Albumin 3.0 L, Globulin 3.1, Albumin/Globulin Ratio 1.0, Lipase 841 H Radiography Diagnostic Testing: Radiology Impression Abdomen/Pelvis CT 07/07/21 17:35 IMPRESSION: Similar-appearing biliary stent and mild pneumobilia. Ascites. Thickening of the ileocecal junction with a small peripherally enhancing structure measuring up to 1.2 cm best seen series 2 image 66. Considerations include infectious or inflammatory process with potential small abscess. Electronically Signed: Ruddy Wynn MD at 19:31 EDT , ADDENDUM: 07/07/212005 IMPRESSION: Similar-appearing biliary stent and mild pneumobilia. Ascites. Thickening of the ileocecal junction with a small peripherally enhancing structure measuring up to 1.2 cm best seen series 2 image 66. Considerations include infectious or inflammatory process with potential small abscess. N.B. : The above Results were Read Back by Ruddy Wynn MD to Dr. Juan Ruiz MD, and understanding confirmed on 07/07/2021 19:59:20 (ET). Electronically Signed: Ruddy Wynn MD at 19:31 EDT , Physical Exam Const alert General Appearance: cooperative Orientation / Consciousness: oriented to person HEENT hearing grossly normal bilaterally Head and Scalp: normal to inspection Face and Sinus: face symmetric Nose: external nose normal Mouth: oral and palatal mucosa normal Eyes conjunctivae normal General Eye: normal appearance of both eyes Neck full ROM General: normal visual inspection Lymph Lymphatic: no lymphadenopathy noted Chest inspection of chest normal and palpation of chest normal Chest: symmetrical chest wall rise Resp normal respiratory effort Effort and Inspection: able to speak in complete sentences Cardio regular rate GI non-distended Percussion: normal to percussion Rectal Exam: deferred Neuro Speech: speech normal Gait (Neuro): normal gait Assessment & Plan Assessment/Plan (1) Pancreatitis: QUALIFIERS: Chronicity: acute Pancreatitis type: biliary Acute pancreatitis complication: no infection or necrosis Qualified Code(s): K85.10 - Biliary acute pancreatitis without necrosis or infection PLAN: Pancreatitis status post ERCP with biliary obstruction. She is on IV fluids at 250 cc an hour. We will continue that. She can have clear liquids. Her CT scan does not show significant pancreatitis. Her lipase was at 1400 and had gone down to 400. I redrew it and is back up to a 843. We will continue IV fluids at 250 cc an hour and recheck ESR, CRP and lipase in the morning. (2) Bile duct adenocarcinoma: PLAN: She had a uncovered metal stent placed previously at the time of diagnosis and surgery. She had significant overgrowth of the tumor and side and protruding from her ampulla. She had a fully covered 10 x 80 biliary stent placed yesterday. All her LFTs are going down except for bilirubin is going up. I suspect either the stent is at the level of the kathleen hepatis which could be obstructing the left and right hepatic ducts. Or could be swelling from the new stent placed. If her bilirubin continues to go up then she will need a repeat procedure to remove the stent distally or replace it with a smaller stent. (3) Gastroparesis: PLAN: She was discovered to have a lot of food in her stomach during the procedure. I suspect she has gastroparesis secondary to her Billroth II surgery. I will put her on Reglan therapy. Charges/Coding Visit Charges Inpatient E&M: [address] [facility] Hosp L3
[2021-07-08] MEDS: IVOSIDENIB 500 MG PO (21:03)
[2021-07-09] MEDS: 0.9% Normal Saline 1,000 ML 250 ML IV ×3 (00:14→08:21)
[2021-07-09 02:47] VITALS: BP 118/61; PULSE 98; RESP 16; TEMP 37.4; O2SAT 95
[2021-07-09 06:12] LABS: Absolute Lymphocyte Count 0.33 X10^3/uL (0.83-4.51); Absolute Neutrophil Count 6.7 X10^3/uL (2.0-7.7); Eosinophil# 0.01 X10^3/uL; Eosinophils% 0.1 % (0-5); Hematocrit 32.2 % (37-47); Hemoglobin 10.2 g/dL (12.0-15.0); Lymphocyte # 0.33 X10^3/ul (0.83-4.51); Lymphocyte % 4.5 % (19-41); Mean Corp Hgb Conc 31.7 g/dL (32-36); Mean Corpuscular Hgb 35.1 pg (27.0-32.0); Mean Corpuscular Volume 110.7 fL (81-99); Mean Platelet Vol. 9.5 fl (6.2-12.0); Monocyte# 0.26 X10^3/uL; Monocyte% 3.5 % (0-10); NRBC Flagged by Analyzer 0 % (0-5); Neutrophil # 6.73 X10^3/uL (2.7-7.7); POSITIVE DIFFERENTIAL YES; POSITIVE MORPHOLOGY YES; Platelet Count 110 K/mm3 (150-450); RBC Distribution Width CV 13.4 % (11.6-14.6); RBC Distribution Width SD 55.6 fl (35.1-43.9); Red Blood Count 2.91 M/mm3 (4.2-5.4); White Blood Count 7.4 K/mm3 (4.4-11.0)
[2021-07-09 06:18] LABS: Differential Indicated SCAN CRITERIA MET
[2021-07-09] MEDS: Metoclopramide 5 MG TABLET PO ×2 (06:37→10:55)
[2021-07-09] MEDS: Sucralfate 1 GM Tablet PO (06:37)
[2021-07-09 06:43] LABS: Differential Comment SCANNED
[2021-07-09 06:54] LABS: ALB/GLOB Ratio 0.8 RATIO (0.9-2.4); AST(SGOT) 101 U/L (15-37); Alanine Aminotransfer ALT/SGPT 102 U/L (13-56); Albumin, Serum 2.5 g/dL (3.2-5.0); Alkaline Phosphatase 126 U/L (45-117); Anion Gap 5 (5-15); BUN 13 mg/dL (7-18); BUN/Creat Ratio 18.8 RATIO (10-20); Calcium,Total 7.7 mg/dL (8.5-10.1); Chloride 108 mmol/L (98-107); Creatinine, Serum 0.69 mg/dL (0.55-1.02); EST Glomerular Filtration Rate 92 mL/min (>60); Est Glom Filt Rate - Afr Amer 111 mL/min (>60); Estimated Creatinine Clearance 74.87 ml/min; Globulin 3.1 g/dL (2.2-4.2); Glucose 92 mg/dL (74-106); Potassium 4.1 mmol/L (3.5-5.1); Protein, Total 5.6 g/dL (6.4-8.2); Sodium Level 138 mmol/L (136-145)
[2021-07-09] MEDS: Acetaminophen 500 MG Tablet 1000 MG PO (08:26)
[2021-07-09 08:50] VITALS: BP 129/66; PULSE 94; RESP 16; TEMP 36.7; O2SAT 95
--- NOTE | 2021-07-09 10:06 | PCM.PN.HOSP ---
Subjective Subjective Doing well, states that the belly pain is much improved and she was able to tolerate a little bit of a diet last night and would like to be advanced this morning. Her bilirubin is still elevated at 5.3 will recheck in the morning Objective Data Objective Data Vital Signs: Vital Signs Temp Pulse Resp BP Pulse Ox 98.1 F 94 16 129/66 H 95 07/09/21 08:50 07/09/21 08:50 07/09/21 08:50 07/09/21 08:50 07/09/21 08:50 Oxygen Flow Rate (L/min) 2 Oxygen Delivery Method Room Air Weight: 149 lb 0.52 oz Body Mass Index (BMI) 25.5 Intake & Output: Intake and Output for Last 24 Hours 07/08/21 07/09/21 07/10/21 03:59 03:59 03:59 Intake Total 2707.5 / 2707.5 5116.66 / 5116.66 2000 / 2000 Output Total 850 / 850 500 / 500 Balance 2707.5 / 2707.5 4266.66 / 4266.66 1500 / 1500 Lab / Micro Data Result Diagrams: 07/09/21 05:50 07/09/21 05:50 Labs: Laboratory Results - last 24 hr 07/08/21 16:29: Sodium 138, Potassium 4.4, Chloride 108 H, Carbon Dioxide 26.0, Anion Gap 4 L, BUN 15, Creatinine 0.71, Estim Creat Clear Calc 72.76, Est GFR (MDRD) Af Amer 107, Est GFR (MDRD) Non-Af 89, BUN/Creatinine Ratio 21.1 H, Glucose 95, Calcium 8.3 L, Total Bilirubin 6.30 H, AST 156 H, ALT 139 H, Alkaline Phosphatase 137 H, Total Protein 6.1 L, Albumin 3.0 L, Globulin 3.1, Albumin/Globulin Ratio 1.0, Lipase 841 H 07/09/21 05:50: WBC 7.4, RBC 2.91 L, Hgb 10.2 L, Hct 32.2 L, MCV 110.7 H, MCH 35.1 H, MCHC 31.7 L, RDW Std Deviation 55.6 H, RDW Coeff of Todd 13.4, Plt Count 110 L, MPV 9.5, Immature Gran % (Auto) 0.900, Neut % (Auto) 91.0 H, Lymph % (Auto) 4.5 L, [place] % (Auto) 3.5, Eos % (Auto) 0.1, Baso % (Auto) 0.0, Absolute Neuts (auto) 6.7, Absolute Lymphs (auto) 0.33 L, Nucleated RBC % 0, Differential Comment SCANNED 07/09/21 05:50: Sodium 138, Potassium 4.1, Chloride 108 H, Carbon Dioxide 25.0, Anion Gap 5, BUN 13, Creatinine 0.69, Estim Creat Clear Calc 74.87, Est GFR (MDRD) Af Amer 111, Est GFR (MDRD) Non-Af 92, BUN/Creatinine Ratio 18.8, Glucose 92, Calcium 7.7 L, Total Bilirubin 5.30 H, AST 101 H, ALT 102 H, Alkaline Phosphatase 126 H, Total Protein 5.6 L, Albumin 2.5 L, Globulin 3.1, Albumin/Globulin Ratio 0.8 L Physical Exam Narrative Const alert, oriented x3 and no apparent distress General Appearance: cooperative HEENT normocephalic and moist oral mucous membranes Eyes PERRL, EOMs intact bilaterally and scleral icterus Neck supple and no JVD Resp normal respiratory effort, no retractions, no use of accessory muscles and clear to auscultation bilaterally Auscultation: Negative for crackles, rales, rhonchi or wheezes Cardio regular rate, regular rhythm, S1 normal heart sound, S2 normal heart sound and no murmurs GI soft to palpation and non-distended; Negative for hepatosplenomegaly Palpation: tender epigastric Extremity no clubbing, cyanosis or edema Skin no rashes or lesions noted Neuro no focal motor deficits and no sensory deficits noted Psych affect normal Appearance: appropriate Assessment & Plan Assessment/Plan (1) Pancreatitis: QUALIFIERS: Chronicity: acute Pancreatitis type: biliary Acute pancreatitis complication: no infection or necrosis Qualified Code(s): K85.10 - Biliary acute pancreatitis without necrosis or infection PLAN: 1. Acute post ERCP pancreatitis/stage IV cholangiocarcinoma status post stent ? She had a stent placed yesterday for her metastatic cholangiocarcinoma and developed severe abdominal pain ? Much improved today, will slowly advance her diet ? Lipase on admission was 1412, bilirubin was 2 and now is 5.3 however LFTs are improving therefore we will continue to monitor ? Appreciate GI assistance ? Can resume all of her home medications 2. GERD ? Stable ? Can continue with PPI and Carafate DVT: Lovenox Charges/Coding Visit Charges Inpatient E&M: 15775 Subs Hosp L2
[2021-07-09] MEDS: Pantoprazole Sodium 40 MG Tablet PO (10:55)
[2021-07-09] MEDS: Enoxaparin 40 MG/0.4 ML Syringe SC (10:55)
--- NOTE | 2021-07-09 13:39 | PCM.DC ---
Discharge Instructions Diet Discharge Diet: No restrictions Dressing / Incision Call your doctor if you observe: Fever of 101 or Higher, Shortness of breath, Dizziness, Fainting spells, Swelling in the ankles, Chest pain and Increased palpitations (irregular heartbeat) Follow Up Care Test Results: Test results from this visit will be discussed in further detail at your follow-up appointment, if applicable. Discharge Plan Admission Admit Date/Time: 07/07/21 20:20 Attending Provider: Arnold Mead Primary Care Provider: Raji Mathis Consulting Providers: Yamil David Discharge Orders/Prescriptions Prescriptions: Continued omeprazole 40 mg capsule,delayed release(DR/EC) 40 mg PO DAILY Qty: 90 RF: 3 melatonin 3 MG tablet 3 mg PO QHS PRN (Reason: Sleep) RF: 0 ivosidenib 250 MG tablet 500 mg PO DAILY@2100 RF: 0 sucralfate [Carafate] 1 gram tablet 1 g PO BID Qty: 90 RF: 0 acetaminophen 500 mg Tablet 1,000 mg PO DAILY PRN (Reason: Pain) RF: 0 metoclopramide HCl [Reglan] 5 mg tablet 5 mg PO QAC Qty: 90 RF: 1 Referrals / Follow Up: Mark Anthony Guzman MD [NON-STAFF] - Within 1 Week Raji Mathis MD [Primary Care Provider] - Within 1 Week Yamil David DO [STAFF PHYSICIAN] - Within 2 Weeks Disposition Disposition (needs filled in before D/C Order can be placed): Home, Self Care
--- NOTE | 2021-07-09 13:48 | DS.PCM_ITS ---
Providers Date of Admission: 07/07/21 Primary Care Physician: Dr. Raji Mathis MD Consultations 07/07/21 21:47 Consult: Gastroenterology Routine Consulting Provider: Yamil David Reason for Consult: Post ERCP pancreatitis EMERGENT Consult: Yes MD Notified: Yes Date Notified: 07/07/21 Time Notified: 06:16 Method of Notification: Text Reason For Visit: ACUTE POST ERCP PANCREATITIS Diagnosis Discharge Diagnosis (1) Pancreatitis: Status: Acute Code(s): K85.90 - Acute pancreatitis without necrosis or infection, unspecified Qualifiers: Chronicity: acute Pancreatitis type: biliary Acute pancreatitis complication: no infection or necrosis Qualified Code(s): K85.10 - Biliary acute pancreatitis without necrosis or infection Medications at Discharge Home Medications melatonin 3 mg PO QHS PRN 04/05/20 ivosidenib 500 mg PO DAILY@2100 04/27/20 omeprazole 40 mg capsule,delayed release 40 mg PO DAILY #90 cap 06/29/21 sucralfate [Carafate] 1 g PO BID #90 tab 06/30/21 acetaminophen 1,000 mg PO DAILY PRN 07/07/21 metoclopramide HCl 5 mg tablet 5 mg PO QAC #90 tab 07/07/21 Hospital Course Operations None Procedures EGD Summary of Care Provided Minutes Spent on Discharge: 40 Hospital Course: Per HPI: RUDY GONZALEZ, is a 60 F with a significant history of metastatic cholangiocarcinoma on ibrutinib and who had biliary stent placed a year ago and had another biliary stent placed on the same day of presentation now with progressively worsening abdominal pain that started after ERCP with stent placement on this same day (06/06/2021) of presentation. Her pain is excruciating. She reports intensity of 10 out of 10 of pain. She described the pain as pressure and sharp. The pain is located at her epigastric region and it radiates to her back. She denies any aggravating factors to the pain. Morphine that she received at the emergency department helped with her pain. She reports nausea and vomiting. Reportedly she had extensive amounts of vomitus. She denies fever. She reports chills. She reports anorexia. Hospital Course: 1. Acute post ERCP pancreatitis/stage IV cholangiocarcinoma status post stent? 60-year-old female presented to the hospital after she developed severe abdominal pain after an ERCP to replace a biliary stent. She has since improved significantly and is able to tolerate a regular diet today without any significant pain. Her bilirubin is elevated on the day of discharge to 5.3 last evening it had peaked to about 6.3 so she is improving. She desperately wants to go home today and gastroenterology felt that would be safe to do so. I do recommend that she follow-up with oncology within this week and I do recommend that she obtain a CMP to monitor her bilirubin on discharge. She also need to follow-up with gastroenterology in about 2 weeks. She does still does have some scleral icterus which is to be expected with a bilirubin of 5.3 but gastroenterology feels that her biliary stent is in good position. I discussed with her the plan for discharge today she expressed understanding of the risk and benefits of going home and would like to go home today. Weight / BMI Weight Weight: 149 lb 0.52 oz Body Mass Index (BMI) 25.5 ABG / Lab / Microbiology Data Result Diagrams: 07/09/21 05:50 07/09/21 05:50 Laboratory: Laboratory Results - last 24 hr 07/08/21 16:29: Sodium 138, Potassium 4.4, Chloride 108 H, Carbon Dioxide 26.0, Anion Gap 4 L, BUN 15, Creatinine 0.71, Estim Creat Clear Calc 72.76, Est GFR (MDRD) Af Amer 107, Est GFR (MDRD) Non-Af 89, BUN/Creatinine Ratio 21.1 H, Glucose 95, Calcium 8.3 L, Total Bilirubin 6.30 H, AST 156 H, ALT 139 H, Janeth line Phosphatase 137 H, Total Protein 6.1 L, Albumin 3.0 L, Globulin 3.1, Albumin/Globulin Ratio 1.0, Lipase 841 H 07/09/21 05:50: WBC 7.4, RBC 2.91 L, Hgb 10.2 L, Hct 32.2 L, MCV 110.7 H, MCH 35.1 H, MCHC 31.7 L, RDW Std Deviation 55.6 H, RDW Coeff of Todd 13.4, Plt Count 110 L, MPV 9.5, Immature Gran % (Auto) 0.900, Neut % (Auto) 91.0 H, Lymph % (Auto) 4.5 L, [place] % (Auto) 3.5, Eos % (Auto) 0.1, Baso % (Auto) 0.0, Absolute Neuts (auto) 6.7, Absolute Lymphs (auto) 0.33 L, Nucleated RBC % 0, Differential Comment SCANNED 07/09/21 05:50: Sodium 138, Potassium 4.1, Chloride 108 H, Carbon Dioxide 25.0, Anion Gap 5, BUN 13, Creatinine 0.69, Estim Creat Clear Calc 74.87, Est GFR (MDRD) Af Amer 111, Est GFR (MDRD) Non-Af 92, BUN/Creatinine Ratio 18.8, Glucose 92, Calcium 7.7 L, Total Bilirubin 5.30 H, AST 101 H, ALT 102 H, Alkaline Phosphatase 126 H, Total Protein 5.6 L, Albumin 2.5 L, Globulin 3.1, Albumin/Globulin Ratio 0.8 L D/C Instructions Discharge Diet: No restrictions Call your doctor if you observe: Fever of 101 or Higher, Shortness of breath, Dizziness, Fainting spells, Swelling in the ankles, Chest pain and Increased palpitations (irregular heartbeat) Meaningful Use Info Meaningful Use Diagnoses (Choose all that apply): None applicable Discharge Plan Admission Admit Date/Time: 07/07/21 20:20 Attending Provider: Arnold Mead Primary Care Provider: Raji Mathis Consulting Providers: Yamil David Discharge Orders/Prescriptions Prescriptions: Continued omeprazole 40 mg capsule,delayed release(DR/EC) 40 mg PO DAILY Qty: 90 RF: 3 melatonin 3 MG tablet 3 mg PO QHS PRN (Reason: Sleep) RF: 0 ivosidenib 250 MG tablet 500 mg PO DAILY@2100 RF: 0 sucralfate [Carafate] 1 gram tablet 1 g PO BID Qty: 90 RF: 0 acetaminophen 500 mg Tablet 1,000 mg PO DAILY PRN (Reason: Pain) RF: 0 metoclopramide HCl [Reglan] 5 mg tablet 5 mg PO QAC Qty: 90 RF: 1 Referrals / Follow Up: Mark Anthony Guzman MD [NON-STAFF] - Within 1 Week Raji Mathis MD [Primary Care Provider] - Within 1 Week Yamil David DO [STAFF PHYSICIAN] - Within 2 Weeks Disposition Disposition (needs filled in before D/C Order can be placed): Home, Self Care Charges/Coding Visit Charges Inpatient E&M: 57632 Disch Hosp
[2021-07-09 14:04] VITALS: BP 129/66; PULSE 94; RESP 16; TEMP 36.7; O2SAT 95
[2021-07-09] MEDS: 0.9% Saline Lock 10 ML Syringe IV (14:21)
--- NOTE | 2021-07-09 16:25 | PN_ITS ---
Subjective Subjective Doing well and wants to go home. Her LFTs have been improving. She does not have any abdominal pain or cramping. Objective Data Objective Data Vital Signs: Vital Signs Temp Pulse Resp BP Pulse Ox 98.1 F 94 16 129/66 H 95 07/09/21 14:04 07/09/21 14:04 07/09/21 14:04 07/09/21 14:04 07/09/21 14:04 Oxygen Flow Rate (L/min) 2 Oxygen Delivery Method Room Air Weight: 149 lb 0.52 oz Body Mass Index (BMI) 25.5 Intake & Output: Intake and Output for Last 24 Hours 07/07/21 07/08/21 07/09/21 23:59 23:59 23:59 Intake Total 1999 4828.33 / 4828.33 4275.83 / 4275.83 Output Total 450 / 850 900 / 900 Balance 1999 4378.33 / 3978.33 3375.83 / 3375.83 Lab / Micro Data Result Diagrams: 07/09/21 05:50 07/09/21 05:50 Labs: Laboratory Results - last 24 hr 07/08/21 16:29: Sodium 138, Potassium 4.4, Chloride 108 H, Carbon Dioxide 26.0, Anion Gap 4 L, BUN 15, Creatinine 0.71, Estim Creat Clear Calc 72.76, Est GFR (MDRD) Af Amer 107, Est GFR (MDRD) Non-Af 89, BUN/Creatinine Ratio 21.1 H, Glucose 95, Calcium 8.3 L, Total Bilirubin 6.30 H, AST 156 H, ALT 139 H, Alkaline Phosphatase 137 H, Total Protein 6.1 L, Albumin 3.0 L, Globulin 3.1, Albumin/Globulin Ratio 1.0, Lipase 841 H 07/09/21 05:50: WBC 7.4, RBC 2.91 L, Hgb 10.2 L, Hct 32.2 L, MCV 110.7 H, MCH 35.1 H, MCHC 31.7 L, RDW Std Deviation 55.6 H, RDW Coeff of Todd 13.4, Plt Count 110 L, MPV 9.5, Immature Gran % (Auto) 0.900, Neut % (Auto) 91.0 H, Lymph % (Auto) 4.5 L, [place] % (Auto) 3.5, Eos % (Auto) 0.1, Baso % (Auto) 0.0, Absolute Neuts (auto) 6.7, Absolute Lymphs (auto) 0.33 L, Nucleated RBC % 0, Differential Comment SCANNED 07/09/21 05:50: Sodium 138, Potassium 4.1, Chloride 108 H, Carbon Dioxide 25.0, Anion Gap 5, BUN 13, Creatinine 0.69, Estim Creat Clear Calc 74.87, Est GFR (MDRD) Af Amer 111, Est GFR (MDRD) Non-Af 92, BUN/Creatinine Ratio 18.8, Glucose 92, Calcium 7.7 L, Total Bilirubin 5.30 H, AST 101 H, ALT 102 H, Alkaline Phosphatase 126 H, Total Protein 5.6 L, Albumin 2.5 L, Globulin 3.1, Albumin/Globulin Ratio 0.8 L Physical Exam Const alert General Appearance: cooperative Orientation / Consciousness: oriented to person HEENT hearing grossly normal bilaterally Head and Scalp: normal to inspection Face and Sinus: face symmetric Nose: external nose normal Mouth: oral and palatal mucosa normal Eyes conjunctivae normal General Eye: normal appearance of both eyes Neck full ROM General: normal visual inspection Lymph Lymphatic: no lymphadenopathy noted Chest inspection of chest normal and palpation of chest normal Chest: symmetrical chest wall rise Resp normal respiratory effort Effort and Inspection: able to speak in complete sentences Cardio regular rate GI non-distended Percussion: normal to percussion Rectal Exam: deferred Neuro Speech: speech normal Gait (Neuro): normal gait Assessment & Plan Assessment/Plan (1) Bile duct adenocarcinoma: PLAN: Biliary acute pancreatitis without necrosis or infection PLAN: Pancreatitis status post ERCP with biliary obstruction. She is on IV fluids at 250 cc an hour. We will continue that. She can have clear liquids. Her CT scan does not show significant pancreatitis. Her lipase was at 1400 and had gone down to 400. I redrew it and is back up to a 843. We will continue IV fluids at 250 cc an hour and recheck ESR, CRP and lipase in the morning. (2) Bile duct adenocarcinoma: PLAN: She had a uncovered metal stent placed previously at the time of diagnosis and surgery. She had significant overgrowth of the tumor and side and protruding from her ampulla. She had a fully covered 10 x 80 biliary stent placed yesterday. All her LFTs are going down except for bilirubin is going up. I suspect either the stent is at the level of the kathleen hepatis which could be obstructing the left and right hepatic ducts. Or could be swelling from the new stent placed. If her bilirubin continues to go up then she will need a repeat procedure to remove the stent distally or replace it with a smaller stent. (3) Gastroparesis: PLAN: She was discovered to have a lot of food in her stomach during the procedure. I suspect she has gastroparesis secondary to her Billroth II surgery. I will put her on Reglan therapy. Charges/Coding Visit Charges Inpatient E&M: 26220 [facility] Hosp L3
== END 2021-07-09 15:10 | disposition home or self-care (01) | DRG 438 ==
LOC: ED 19:42 → MS3 20:19
PROVIDERS: Internal Medicine Gastroenterology; Admitting Provider Hospitalist; Emergency Provider Emergency Medicine; PCP Family Medicine; Visit Provider Family Medicine
DX: K85.10 Biliary acute pancreatitis without necrosis or infection (principal); K83.1 Obstruction of bile duct; C78.89 Secondary malignant neoplasm of other digestive organs; R18.8 Other ascites; C22.1 Intrahepatic bile duct carcinoma; K31.84 Gastroparesis; K21.9 Gastro-esophageal reflux disease without esophagitis; Z79.899 Other long term (current) drug therapy; Z87.891 Personal history of nicotine dependence
CPT/HCPCS: 36415; 36591; 74177; 80053; 83605; 83690; 85025; 97802; 99251; 99283; J7030; J7120; Q9967; A4216; G0463; J2405

== ENCOUNTER 2021-07-11 16:02 | Inpatient (IN) | payer OTHER, SELFPAY ==
[2020-03-18 13:58] VITALS: BMI 29.2
[2021-07-11 16:03] VITALS: BP 143/87; PULSE 94; RESP 18; TEMP 37; O2SAT 97; BMI 27.8
--- NOTE | 2021-07-11 16:34 | CT_ITS ---
STUDY: CT Abdomen And Pelvis W/ Contrast Injection 07/11/2021 5:41 PM REASON FOR EXAM: Female, 60 years old. Abdominal pain abd distention Individualized dose optimization techniques were used for this CT. COMPARISON: Jul 07 2021 7:00pm and PET 12.29.20 TECHNIQUE: CT Abdomen And Pelvis W/ Contrast Injection IV 100mL [id number]-300 FINDINGS: There are atherosclerotic calcifications of visualized coronary arteries. There is bilateral pneumonia. There are bilateral pleural effusions. There is intrahepatic ductal dilation. Biliary stent in place. Pneumobilia. Normal spleen. Dilated pancreatic duct. There is ascites. Mass like area near the port hepatis measuring 21 mm with narrowing of the right portal vein suggesting regional invasion. Ill defined lesions in the right lobe of the liver concerning for metastatic focus. Normal bilateral adrenal glands. No acute findings of the right kidney. Stable left renal hypodensity. Normal visualized stomach. Normal small intestine. There are again an enhancing nodule near the ileocecal valve measuring 7 mm. Se 2 IM :74. There is a similar lesion of the ascending colon measuring 8mm. se 2 IM: 57. There is non-visualization of the appendix. Wall thickening and inflammation of the descending colon and rectosigmoid colon suggesting colitis. There are calcifications of the abdominal aorta. This is consistent for atherosclerotic disease. There is NO abdominal aortic aneurysm. Vascular workup can be obtained based on clinical correlation. Normal inferior vena cava. Subcentimeter mesenteric lymph nodes. Normal urinary bladder. The uterus is lobulated in contour. There are multiple partially calcified masses in the uterus. This is consistent for a fibroid/ myomatous uterus. Normal abdominal wall. Normal osseous structures. CT/Abdomen/Pelvis W IV Cont ONLY IMPRESSION: (NOT LISTED IN ORDER OF SIGNIFICANCE) Wall thickening and inflammation of the descending colon and rectosigmoid colon suggesting colitis. Mass like area near the port hepatis measuring 21 mm with narrowing of the right portal vein suggesting regional invasion. Ill defined lesions in the right lobe of the liver concerning for metastatic focus. Ascites. There are bilateral pleural effusions. There is bilateral pneumonia. There are again an enhancing nodule near the ileocecal valve measuring 7 mm. Se 2 IM :74. There is a similar lesion of the ascending colon measuring 8mm. se 2 IM: 57. Given the chronicity neoplastic process such as metastatic disease cannot be excluded. PET scan can better evaluate. Other findings as above. Electronically Signed: Haider Francis MD at 17:52 EDT ,
--- NOTE | 2021-07-11 16:36 | EDS_ITS ---
HPI History of Present Illness Chief Complaint: Abn Labs Informant: patient and family Onset/Context/Timing Onset: Days Context: Gradual Onset Timing: Continuous Current Severity: Mild Maximum Severity: Mild Narrative Narrative: 60-year-old female history of choriocarcinoma with prior stent and prior abdominal bypass surgery. Last week she was admitted had an ERCP done by Dr. David the career counselor and had another stent placed. She was doing well developed pancreatitis and was readmitted and then discharged on Sunday. Today she saw her oncology team and her labs showed elevated bilirubin and increasing lipase and it was sent her to the ER to be readmitted. She also states that she is having a lot of bloating but denies any nausea or vomiting today. She has had 2 bowel movements today. Denies any dysuria. Denies any fever. Prior similar symptoms: Yes Recent Illness/Hospitalization: Yes PFSH [facility], [facility] Medical History Alcohol use Cancer Cardiology follow-up encounter Cholangiocarcinoma Encounter for monitoring cardiotoxic drug therapy Former smoker Gastric reflux GERD (gastroesophageal reflux disease) Palpitations Post-menopausal Sarcoidosis Wears glasses Home Medications melatonin 3 mg PO QHS PRN 04/05/20 [History Last Taken 07/10/21] ivosidenib 500 mg PO DAILY@2100 04/27/20 [History Last Taken 07/10/21] omeprazole 40 mg capsule,delayed release 40 mg PO DAILY #90 cap 06/29/21 [Rx Last Taken 07/11/21] sucralfate [Carafate] 1 g PO BID #90 tab 06/30/21 [Rx Last Taken 07/11/21] acetaminophen 1,000 mg PO DAILY PRN 07/07/21 [History Last Taken 07/10/21] metoclopramide HCl 5 mg tablet 5 mg PO QAC #90 tab 07/07/21 [Rx Last Taken 07/10/21] levofloxacin 500 mg tablet 500 mg PO DAILY #5 tab 07/09/21 [Rx Last Taken 07/10/21] Allergy/AdvReac Type Severity Reaction Status Date / Time No Known Allergies Allergy Verified 07/11/21 16:05 Family History Father Diabetes Heart disease Myocardial infarction, Onset Age: 75 Cancer leukemia, basal cell carcinoma Mother Multiple sclerosis Sister Basal cell carcinoma Surgical History History of esophagogastroduodenoscopy (EGD) History of laparoscopy History of tooth extraction Social History housing: house number of children: 2 current occupational status: employed 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 Review of Systems ROS Unobtainable: Denies due to encephalopathy Constitutional Constitutional ED: Denies fever(s) Eyes Eyes: Denies change in vision ENT ENT ED: Denies ear pain Cardiovascular Cardiovascular: Denies chest pain Respiratory/Chest Respiratory/Chest: Denies dyspnea Gastrointestinal Gastrointestinal: Denies constipation, diarrhea, melena, nausea or vomiting Genitourinary Genitourinary ED: Denies dysuria Musculoskeletal Musculoskeletal: Denies myalgias Integumentary Denies rash Neurologic Neurologic: Denies headache(s) Psychiatric Psychiatric: Denies depression Endocrine Endocrinology: Denies polyuria Allergic/Immunologic Allergic/Immunologic ED: Denies urticaria EXAM Physical Exam Narrative Exam Narrative: 60-year-old female no acute distress. Vital signs stable afebrile. HEENT exam unremarkable moist mucous memories except scleral icterus. Lungs clear to auscultation. Heart regular rhythm no murmur. Abdomen soft no peritoneal signs. Distended. Positive bowel sounds. No hernia or mass. Moving all 4 extremities. Neurologically awake and alert. Const Vital Signs: 07/11/21 16:03 Temperature 98.6 F Temperature Source Temporal Pulse Rate 94 Respiratory Rate 18 Blood Pressure 143/87 H Blood Pressure Mean 105 Pulse Ox 97 Oxygen Delivery Method Room Air Positive well nourished and well developed; Negative for obese, cachectic, contractures or unkempt General Appearance ED: well developed and NAD; Negative for unkempt, cachectic, contractures, cyanotic or diaphoretic Nutritional Appearance: Negative for cachectic or obese HEENT Reports moist mucous membranes Negative for trauma or tenderness Eyes PERRL and EOMs intact bilaterally General Eye ED: Yes scleral icterus; Negative for pale conjunctiva Neck no lymphadenopathy, supple and no JVD General: Negative for tenderness Chest Wall inspection of chest normal and palpation of chest normal Resp normal respiratory effort and clear to auscultation bilaterally Auscultation: Negative for rales or rhonchi Cardio regular rate, regular rhythm, S1 normal heart sound, S2 normal heart sound and no murmurs GI normal to inspection, nondistended, normoactive bowel sounds, non-tender and no masses; Negative for non-distended Inspection: abdominal distention Auscultation: normoactive bowel sounds Palpation: soft; Negative for tender, guarding or rebound tenderness present Back/Spine no CVA tenderness General Back: Negative for CVA tenderness Cervical Spine: Negative for cervical spine tenderness Thoracic Spine / Upper Back: Negative for thoracic spinal tenderness Extremity normal to inspection General Extremety ED: Negative for edema or tenderness General Extremity: Negative for edema Neuro oriented x3 Sensorium / Orientation: alert; Negative for orientation impaired, lethargic or stuporous Motor Exam: strength 5/5 throughout Psych mental status grossly normal Appearance: Negative for unkempt Attitude: No agitated Mood & Affect: Negative for depressed or tearful Skin no rashes or lesions noted and no wounds MDM MDM MDM Narrative Medical decision making narrative: 60-year-old female with cholangiocarcinoma. With a common bile duct stent. Concern is the stents occluded. Labs are abnormal today with increasing liver enzymes and lipase. I have already spoken to Friend patient will be readmitted due to her distention I am but obtain a CAT scan. She had labs done earlier today. She does not want anything at this time for pain or nausea. Lab Data Attestation: I reviewed the patient's lab results. Lab results narrative: CBC shows a white count of 3.1. H&H 11 and 31. Platelets are low at 118. CAT scan results as read by the radiologist and reviewed by me. Labs: Laboratory Results - last 24 hr 07/11/21 17:00 WBC 3.1 L RBC 3.18 L Hgb 11.1 L Hct 31.2 L MCV 98.1 D MCH 34.9 H MCHC 35.6 D RDW Std Deviation 46.0 H RDW Coeff of Todd 12.7 Plt Count 118 L MPV 10.1 Immature Gran % (Auto) 0.300 Neut % (Auto) 69.7 Lymph % (Auto) 19.6 [place] % (Auto) 8.8 Eos % (Auto) 1.3 Baso % (Auto) 0.3 Absolute Neuts (auto) 2.1 Absolute Lymphs (auto) 0.60 L Nucleated RBC % 0 Radiography Diagnostic Testing: Clinical Impression(s) from Imaging Studies Abdomen/Pelvis CT 07/11/21 16:34 IMPRESSION: (NOT LISTED IN ORDER OF SIGNIFICANCE) Wall thickening and inflammation of the descending colon and rectosigmoid colon suggesting colitis. Mass like area near the port hepatis measuring 21 mm with narrowing of the right portal vein suggesting regional invasion. Ill defined lesions in the right lobe of the liver concerning for metastatic focus. Ascites. There are bilateral pleural effusions. There is bilateral pneumonia. There are again an enhancing nodule near the ileocecal valve measuring 7 mm. Se 2 IM :74. There is a similar lesion of the ascending colon measuring 8mm. se 2 IM: 57. Given the chronicity neoplastic process such as metastatic disease cannot be excluded. PET scan can better evaluate. Other findings as above. Electronically Signed: Haider Francis MD at 17:52 EDT , Discharge Plan Triage Chief Complaint: Abn Labs ED Provider: Ty Macdonald Dx/Rx/DC Orders Clinical Impression: Abdominal pain, Cholangiocarcinoma, Acute pancreatitis, Common bile duct obstruction secondary to biliary stent, Jaundice Prescriptions: No Action omeprazole 40 mg capsule,delayed release(DR/EC) 40 mg PO DAILY Qty: 90 RF: 3 melatonin 3 MG tablet 3 mg PO QHS PRN (Reason: Sleep) RF: 0 ivosidenib 250 MG tablet 500 mg PO DAILY@2100 RF: 0 sucralfate [Carafate] 1 gram tablet 1 g PO BID Qty: 90 RF: 0 acetaminophen 500 mg Tablet 1,000 mg PO DAILY PRN (Reason: Pain) RF: 0 metoclopramide HCl [Reglan] 5 mg tablet 5 mg PO QAC Qty: 90 RF: 1 levofloxacin 500 mg tablet 500 mg PO DAILY Qty: 5 RF: 0 Primary Care Provider: Raji Mathis Referrals: Raji Mathis MD [Primary Care Provider] - Disposition Disposition: Acute Care Hospital [facility]
--- NOTE | 2021-07-11 16:51 | HP.PCM.HOS_ITS ---
HPI - General General Date of Admission: 07/11/21 Date of Service: 07/11/21 Chief Complaint: Abdominal bloating, elevated bilirubin at Onc follow-up HPI Narrative The patient is a 60 y/o F w/ PMHx: Hx EtOH Abuse, GERD, Former tobacco use, Sarcoidosis, s/p Bilroth II, Stage IV metastatic cholangiocarcinoma following w/ Dr. Guzman, noted to have been recently discharged on 07/09/2021 following admission from 07/07/2021 until discharge treated for acute pancreatitis post ERCP complicated by stage IV cholangiocarcinoma with during that admission EGD with a fully covered 10 x [address] David with at that time bilirubin rising however other LFTs were de-escalating therefore at that time it was suspected that the stent had been at the level of the kathleen hepatis possibly obstructing the left right hepatic ducts or swelling from the new stent placement with plan repeat procedure for removal of the distal stent or replacement if further rise. Additionally during that procedure patient had a lot of food remnants in her stomach noted suspected secondary to gastroparesis secondary to Juve Moon to surgery therefore at that time she was placed on Reglan of note. The patient now re-presents to the [facility] ED on 07/11/21 with history of worsening jaundiced with follow-up 07/11/2021 with oncology with repeat labs with notable hypokalemia in addition to rising total bilirubin from prior prompting referral to the ED for evaluation. Patient denies any significant recurrent pain to the abdomen but does admit to bloating with no nausea or emesis associated with 2 bowel movements on day of presentation; however, on palpation patient has notable epigastric discomfort and some voluntary guarding. Patient denies any recent fevers or chills. She does report that the jaundice is improved from the day prior but still persistent. Recent outpatient 07/11/2021 CMP with potassium 2.6, glucose 125, total bilirubin increased to 7.80 from prior 07/09/2021 5.30, AST/ALT however decreased to 73/75 from prior 07/09/2021 AST/ALT 101/102, alk phos mildly increased 07/12/2019 2-21 from prior 07/09/2021 126, CRP 157, amylase 162, lipase 1468 from 07/08/2021 841. Work-up in the ED included T98.6, heart rate 94, BP 143/87, respiratory rate 18, 97% on room air, CT abdomen and pelvis with IV contrast and requested per ED physician and is pending. ED physician did discuss case with Dr. David. [facility] Medical History Alcohol use Cancer Cardiology follow-up encounter Cholangiocarcinoma Encounter for monitoring cardiotoxic drug therapy Former smoker Gastric reflux GERD (gastroesophageal reflux disease) Palpitations Post-menopausal Sarcoidosis Wears glasses Home Medications melatonin 3 mg PO QHS PRN 04/05/20 [History Last Taken 07/10/21] ivosidenib 500 mg PO DAILY@2100 04/27/20 [History Last Taken 07/10/21] omeprazole 40 mg capsule,delayed release 40 mg PO DAILY #90 cap 06/29/21 [Rx Last Taken 07/11/21] sucralfate [Carafate] 1 g PO BID #90 tab 06/30/21 [Rx Last Taken 07/11/21] acetaminophen 1,000 mg PO DAILY PRN 07/07/21 [History Last Taken 07/10/21] metoclopramide HCl 5 mg tablet 5 mg PO QAC #90 tab 07/07/21 [Rx Last Taken 07/10/21] levofloxacin 500 mg tablet 500 mg PO DAILY #5 tab 07/09/21 [Rx Last Taken 07/10/21] Allergy/AdvReac Type Severity Reaction Status Date / Time No Known Allergies Allergy Verified 07/11/21 16:05 Family History Father Diabetes Heart disease Myocardial infarction, Onset Age: 75 Cancer leukemia, basal cell carcinoma Mother Multiple sclerosis Sister Basal cell carcinoma Surgical History History of esophagogastroduodenoscopy (EGD) History of laparoscopy History of tooth extraction Social History housing: house number of children: 2 current occupational status: employed 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 HEENT: + Scleral icterus, jaundice. Eyes: No visual loss, blurred vision, double vision. Ears, Nose, Throat: No hearing loss, sneezing, congestion, runny nose or sore throat. SKIN: No rash or itching, lesions, wounds. CARDIOVASCULAR: No chest pain, chest pressure or chest discomfort, palpitations, edema, orthopnea, syncopal events. RESPIRATORY: + Shortness of breath with specifically positional changes secondary to abdominal distention, No cough or sputum, wheezing, hemoptysis. GASTROINTESTINAL: + Anorexia, abdominal discomfort, abdominal discomfort. No marked nausea, vomiting, diarrhea, melena, BRBPR. GENITOURINARY: No dysuria, frequency, urgency or retention. NEUROLOGICAL: No headache, dizziness, syncope, paralysis, ataxia, numbness or tingling in the extremities, focal weakness, change in bowel or bladder control, seizure. MUSCULOSKELETAL: + muscle, back pain, joint pain or stiffness. HEMATOLOGIC: + anemia, bleeding or bruising. LYMPHATICS: No enlarged nodes. No history of splenectomy. PSYCHIATRIC: No history of depression or anxiety. ENDOCRINOLOGIC: No reports of sweating, cold or heat intolerance. No polyuria or polydipsia. ALLERGIES: No history of asthma, hives, eczema or rhinitis. Vital Signs Vital Signs Vital Signs: 07/11/21 16:03 Temperature 98.6 F Temperature Source Temporal Pulse Rate 94 Respiratory Rate 18 Blood Pressure 143/87 H Blood Pressure Mean 105 Pulse Ox 97 Oxygen Delivery Method Room Air Weight Weight: 162 lb Body Mass Index (BMI) 27.8 Physical Exam Narrative Physical Examination: General: Awake, alert, oriented x 3 and cooperative, seated upright in the ED bed, fatigued, discomfort on palpation of the abdomen Skin: Clearly jaundiced color, normal turgor, no icterus, no cyanosis. HEENT: AT/NC, EOMI, PERRLA, moderately dry MM, no carotid bruits or JVD noted, scleral icterus present. Lungs: Mild diminished, greater bases, poor effort no rales, ronchi or wheezing. Heart: Currently regular rate and rhythm; no gallop, rub audible. Abdomen: Soft, notable epigastric tenderness to palpation with voluntary guarding, distended, hyperactive bowel sounds, difficult to assess HSM given habitus with distention and pain. Extremities: No cyanosis, clubbing, or edema. Neurological: Patient awake, alert, oriented as noted, cognitive function intact; pupils equally reactive to light and accommodation, cranial nerves II- XII grossly normal, moving all 4 extremities, no focal deficits, strength moderately global decrease secondary to acute presentation Psychiatric: Affect appears fatigued, tearful at times with discussions. Results Lab / Micro Data Result Diagrams: 07/11/21 17:00 Assessment & Plan Assessment/Plan (1) Acute pancreatitis: QUALIFIERS: Pancreatitis type: other Acute pancreatitis complication: unspecified Qualified Code(s): K85.80 - Other acute pancreatitis without necrosis or infection (2) Jaundice: (3) Elevated bilirubin: PLAN: The patient is a 60 y/o F w/ PMHx: Hx EtOH Abuse, GERD, Former tobacco use, Sarcoidosis, s/p Bilroth II, Stage IV metastatic cholangiocarcinoma following w/ Dr. Guzman, noted to have been recently discharged on 07/09/2021 following admission from 07/07/2021 until discharge treated for acute pancreatitis post ERCP complicated by stage IV cholangiocarcinoma with during that admission EGD with a fully covered 10 x [address] David with at that time bilirubin rising however other LFTs were de-escalating therefore at that time it was suspected that the stent had been at the level of the kathleen hepatis possibly obstructing who now re-presents to the [facility] ED on 07/11/21 with history of worsening jaundiced with follow-up 07/11/2021 with oncology with repeat labs with notable hypokalemia in addition to rising total bilirubin from prior prompting referral to the ED for evaluation. #1. Metastatic cholangiocarcinoma stage IV complicated by rising bilirubin, lipase (Acute Pancreatitis) with recent post ERCP pancreatitis: Patient with most recent prior to this ERCP with stent placement 07/03/2019 with a distal CBD mass with possible liver mass with positive brushings and eventually for adenocarcinoma with laparotomy 09/01/2023 with Whipple procedure with at that t maricarmen also noted gallbladder mass with omental metastatic disease therefore gastrojejunostomy performed with pathology demonstrating cholangiocarcinoma started on chemotherapy with worsening image findings 02/2020 with PET scan with hypermetabolic mass in the right lobe of the liver and kathleen hepatis with referral to radiation therapy at that time however patient did not pursue this and was started on ivosidenib 04/05/2020 in addition to Lovenox while at [facility] September 2019 eventually changed to Eliquis TAVR this was stopped 05/19/2020 with ED visit 06/23/[address] at that time demonstrating a stent in the bile duct with a stable mass with no peritoneal findings. Patient however had worsening abdom inal pain following recent ERCP and stent placement 06/06/2021 and presented to the ED 07/07/2021 with as noted fully covered biliary stent placement and initiation of Reglan at that time. Will admit to medical surgical floor, plan continued consultation with Dr. David, maintain n.p.o. status, continue IVFs, IV PPI, discussed with gastroenterology for repeat ERCP, trend CMP, correct electrolyte disturbances, request oncology involvement as well if preference per gastroenterology. CT A/P pending. #2. Hypokalemia: Admission K+ 2.6, magnesium level requested, supplementation given, repeat level this evening with further correction as needed and also in AM. #3. Suspected gastroparesis: Noted food remnants in last ERCP in the stomach, suspected gastroparesis secondary to Billroth II procedure prior, will continue patient Reglan regimen started by gastroenterology and per their request will transition to 10 mg IV every 6 upon admission. #4. GERD: We will maintain on IV PPI. #5. Former tobacco use: Encourage continued tobacco cessation. #6. DVT prophylaxis: SCDs, defer any chemoprophylaxis as from prior notes likely will need repeat ERCP with stent alteration/replacement. #7. CODE status: Patient ROLLY is her sister who is and living will is currently in place. Discussed CODE status at length including difference between FULL code, DNR-CCA and DNR-CC status. Following discussions about the differences in these status, requested DNR-CCA, no intubation. Advanced Care Planning Face to Face Time: 16 minutes. Charges/Coding Visit Charges Inpatient E&M: 05254 Init Hosp L3 Procedures Hospitalists Procedures: 17237 Advncd Care Plan 30 Min
[2021-07-11 17:14] LABS: Absolute Neutrophil Count 2.1 X10^3/uL (2.0-7.7); Basophil# 0.01 X10^3/uL; Basophil% 0.3 % (0-1); Eosinophil# 0.04 X10^3/uL; Eosinophils% 1.3 % (0-5); Hematocrit 31.2 % (37-47); Hemoglobin 11.1 g/dL (12.0-15.0); Lymphocyte % 19.6 % (19-41); Mean Corp Hgb Conc 35.6 g/dL (32-36); Mean Corpuscular Hgb 34.9 pg (27.0-32.0); Mean Corpuscular Volume 98.1 fL (81-99); Mean Platelet Vol. 10.1 fl (6.2-12.0); Monocyte# 0.27 X10^3/uL; Monocyte% 8.8 % (0-10); NRBC Flagged by Analyzer 0 % (0-5); Neutrophil # 2.13 X10^3/uL (2.7-7.7); Neutrophil % 69.7 % (47-70); POSITIVE DIFFERENTIAL YES; Platelet Count 118 K/mm3 (150-450); RBC Distribution Width CV 12.7 % (11.6-14.6); Red Blood Count 3.18 M/mm3 (4.2-5.4); White Blood Count 3.1 K/mm3 (4.4-11.0)
[2021-07-11 17:15] LABS: Differential Indicated SCAN CRITERIA MET
[2021-07-11] MEDS: Ondansetron 4 MG/2 ML Vial IV (17:50)
[2021-07-11 18:15] VITALS: BP 143/87; PULSE 94; RESP 18; TEMP 37; O2SAT 97
[2021-07-11 18:21] LABS: Magnesium 1.6 mg/dL (1.6-2.6)
[2021-07-11 18:41] VITALS: BP 144/83; PULSE 85; RESP 18; TEMP 37.3; O2SAT 98
[2021-07-11 18:45] VITALS: BMI 27.1
[2021-07-11] MEDS: CLARIFY ORDER NOTE (19:44)
[2021-07-11] MEDS: 0.9% Normal Saline 1,000 ML 250 ML IV ×2 (19:44→23:46)
[2021-07-11 19:57] VITALS: O2SAT 96
[2021-07-11] MEDS: Metoclopramide 10 MG/2 ML Vial IV (20:13)
[2021-07-11] MEDS: Potassium Chloride 10mEq/100mL 10 MEQ/100 ML IV.SOLN. 100 MEQ IV BOLUS ×4 (20:14→23:45)
[2021-07-11] MEDS: MELATONIN 3 MG TABLET PO (23:45)
[2021-07-12 02:21] LABS: ALB/GLOB Ratio 0.6 RATIO (0.9-2.4); AST(SGOT) 51 U/L (15-37); Alanine Aminotransfer ALT/SGPT 57 U/L (13-56); Albumin, Serum 2.1 g/dL (3.2-5.0); Alkaline Phosphatase 191 U/L (45-117); Anion Gap 5 (5-15); BUN 4 mg/dL (7-18); BUN/Creat Ratio 8.9 RATIO (10-20); Calcium,Total 7.9 mg/dL (8.5-10.1); Chloride 108 mmol/L (98-107); Creatinine, Serum 0.45 mg/dL (0.55-1.02); EST Glomerular Filtration Rate 152 mL/min (>60); Est Glom Filt Rate - Afr Amer 184 mL/min (>60); Globulin 3.3 g/dL (2.2-4.2); Glucose 105 mg/dL (74-106); Potassium 2.9 mmol/L (3.5-5.1); Protein, Total 5.4 g/dL (6.4-8.2); Sodium Level 140 mmol/L (136-145)
[2021-07-12] MEDS: 0.9% Normal Saline 1,000 ML 250 ML IV ×4 (03:05→16:56)
[2021-07-12] MEDS: Potassium Chloride 20mEq/100mL 20 MEQ/100 ML IV.SOLN. 50 MEQ IV BOLUS ×2 (03:06→05:13)
[2021-07-12] MEDS: Sucralfate 1 GM Tablet PO ×2 (05:15→15:46)
[2021-07-12] MEDS: Metoclopramide 10 MG/2 ML Vial IV ×3 (05:15→17:45)
[2021-07-12] MEDS: levoFLOXacin 500 MG Tablet PO (05:15)
[2021-07-12 05:27] VITALS: BP 141/79; PULSE 78; RESP 16; TEMP 36.7; O2SAT 94
--- NOTE | 2021-07-12 07:43 | PN.HOSP_ITS ---
Subjective Subjective Follow-up for stage IV cholangiocarcinoma complicated with obstructive jaundice with suspicion of hepatobiliary infection Objective Data Objective Data Vital Signs: Vital Signs Temp Pulse Resp BP Pulse Ox 98.0 F 78 16 141/79 H 94 07/12/21 05:27 07/12/21 05:27 07/12/21 05:27 07/12/21 05:27 07/12/21 05:27 Oxygen Delivery Method Room Air Weight: 157 lb 10.088 oz Body Mass Index (BMI) 27.1 Intake & Output: Intake and Output for Last 24 Hours 07/10/21 07/11/21 07/12/21 23:59 23:59 23:59 Intake Total 1410 / 1410 1950.1949.00 Balance 1410 / 1410 1950.1949. Lab / Micro Data Result Diagrams: 07/12/21 08:45 07/12/21 08:45 Labs: Laboratory Results - last 24 hr 07/11/21 11:20: Magnesium 1.6 07/11/21 17:00: WBC 3.1 L, RBC 3.18 L, Hgb 11.1 L, Hct 31.2 L, MCV 98.1 D, MCH 34.9 H, MCHC 35.6 D, RDW Std Deviation 46.0 H, RDW Coeff of Todd 12.7, Plt Count 118 L, MPV 10.1, Immature Gran % (Auto) 0.300, Neut % (Auto) 69.7, Lymph % (Auto) 19.6, Bucks % (Auto) 8.8, Eos % (Auto) 1.3, Baso % (Auto) 0.3, Absolute Neuts (auto) 2.1, Absolute Lymphs (auto) 0.60 L, Nucleated RBC % 0, Differential Comment , Diff Path Review July07/12/21 01:55: Sodium 140, Potassium 2.9 L, Chloride 108 H, Carbon Dioxide 27.0 , Anion Gap 5, BUN 4 L, Creatinine 0.45 L, Estim Creat Clear Calc 114.80, Est GFR (MDRD) Af Amer 184, Est GFR (MDRD) Non-Af 152, BUN/Creatinine Ratio 8.9 L, Glucose 105, Calcium 7.9 L, Total Bilirubin 5.70 H, AST 51 H, ALT 57 H, Alkaline Phosphatase 191 H, Total Protein 5.4 L, Albumin 2.1 L, Globulin 3.3, Albumin/Globulin Ratio 0.6 L Radiography Diagnostic Testing: Radiology Impression Abdomen/Pelvis CT 07/11/21 16:34 IMPRESSION: (NOT LISTED IN ORDER OF SIGNIFICANCE) Wall thickening and inflammation of the descending colon and rectosigmoid colon suggesting colitis. Mass like area near the port hepatis measuring 21 mm with narrowing of the right portal vein suggesting regional invasion. Ill defined lesions in the right lobe of the liver concerning for metastatic focus. Ascites. There are bilateral pleural effusions. There is bilateral pneumonia. There are again an enhancing nodule near the ileocecal valve measuring 7 mm. Se 2 IM :74. There is a similar lesion of the ascending colon measuring 8mm. se 2 IM: 57. Given the chronicity neoplastic process such as metastatic disease cannot be excluded. PET scan can better evaluate. Other findings as above. Physical Exam Narrative General: Alert, Oriented x3, Cooperative HEENT: Icterus present. Atraumatic, PERRLA, EOMI, Normocephalic Oral: No Gingival or Mucosal Lesions/ Ulcerations Neck: Supple, No JVD, Negative Carotid Bruits Lungs: Air entry diminished in bilateral lung bases. No crepitation/rhonchi Cardiovascular: Regular rate, Regular Rhythm, Normal S1, Normal S2, No murmurs Abdomen: Mild tenderness on deep palpation at xiphisternal. Bowel Sounds Present, Soft, Non-Distended. No palpable mass : No renal angle tenderness. No suprapubic tenderness. Extremities: No edema, Capillary Refill Less than 3 Seconds Skin: Yellowing skin. Musculoskeletal: No Tenderness to Palpation of Joints or Extremities Neurological: Cranial nerves II-XII grossly intact, DTR 2+/4 and Symmetrical, Neuro grossly intact Psych/Mental Status: Normal Affect, Appropriate Assessment & Plan Assessment/Plan (1) Acute pancreatitis: QUALIFIERS: Acute pancreatitis complication: unspecified Pancreatitis type: other Qualified Code(s): K85.80 - Other acute pancreatitis without necrosis or infection (2) Jaundice: (3) Elevated bilirubin: PLAN: The patient is a 60 y/o F with a stage IV metastatic cholangiocarcinoma on ibrutinib being followed by Dr. Guzman admitted with worsening jaundice found on follow-up with oncologist on 07/11, hypokalemia and elevated total bilirubin. #1. Metastatic cholangiocarcinoma stage IV complicated by rising bilirubin, lipase (Acute Pancreatitis) with recent post ERCP pancreatitis: Patient is admitted on [facility] floor. GI is consulted. Continue IV fluid, n.p.o., blood cultures x2 ordered. Patient is started on IV Zosyn. At home she is she was on Levaquin. Patient was recently discharged on 07/09 after she developed severe abdominal pain after ERCP and stent placement on 07/07/2021. ERCP report: The previous stent was migrated into biliary tree. Major papula appeared to have mass. Multiple malignant appearing segmental biliary structures were found. Lower third of CBD and middle third of the bile duct. Upper third of the bile duct was dilated with mass causing obstruction. Choledocholithiasis was found. Partial removal accomplished with biliary sphincterotomy and stent was placed. Prior to that patient had ERCP with stent placement on 07/03/2019 with distal CBD mass with liver metastasis, diagnosed to be adenocarcinoma and had laparotomy on 09/01/2021 with with Whipple's procedure. #2. Hypokalemia: Hypokalemia potassium 2.6. On replacement. Repeat potassium shows K2.9, magnesium 1.6. Magnesium also on lower level of normal. Repeat labs shows potassium 3.3, phosphorus 1.1, severe hypophosphatemia. IV phosphate ordered. Magnesium replaced #3. Suspected gastroparesis: During last ERCP, food remnants were found in the stomach, suspected gastroparesis secondary to Billroth II procedure prior, will continue patient Reglan regimen started by gastroenterology and per their request will transition to 10 mg IV every 6 upon admission. #4. GERD: on IV PPI. #5. Former tobacco use: Encourage continued tobacco cessation. #6. DVT prophylaxis: SCDs, defer any chemoprophylaxis as from prior notes likely will need repeat ERCP with stent alteration/replacement. #7. CODE status: Patient ROLLY is her sister who is and living will is currently in place. Discussed CODE status at length including difference between FULL code, DNR-CCA and DNR-CC status. Following discussions about the differe nces in these status, requested DNR-CCA, no intubation. Advanced Care Planning Face to Face Time: 16 minutes. Charges/Coding Visit Charges Inpatient E&M: 63434 Subs Hosp L2
[2021-07-12 09:08] LABS: Absolute Lymphocyte Count 0.74 X10^3/uL (0.83-4.51); Absolute Neutrophil Count 2.4 X10^3/uL (2.0-7.7); Basophil# 0.01 X10^3/uL; Basophil% 0.3 % (0-1); Eosinophil# 0.05 X10^3/uL; Eosinophils% 1.4 % (0-5); Hematocrit 30.6 % (37-47); Hemoglobin 10.4 g/dL (12.0-15.0); Lymphocyte # 0.74 X10^3/ul (0.83-4.51); Lymphocyte % 21.1 % (19-41); Mean Corpuscular Hgb 34.7 pg (27.0-32.0); Mean Platelet Vol. 10.2 fl (6.2-12.0); Monocyte# 0.28 X10^3/uL; NRBC Flagged by Analyzer 0 % (0-5); Neutrophil # 2.37 X10^3/uL (2.7-7.7); Neutrophil % 67.8 % (47-70); POSITIVE MORPHOLOGY YES; Platelet Count 127 K/mm3 (150-450); RBC Distribution Width CV 13.3 % (11.6-14.6); RBC Distribution Width SD 50.3 fl (35.1-43.9); White Blood Count 3.5 K/mm3 (4.4-11.0)
[2021-07-12 09:09] LABS: Differential Indicated SCAN CRITERIA MET
[2021-07-12 09:47] LABS: ALB/GLOB Ratio 0.6 RATIO (0.9-2.4); AST(SGOT) 51 U/L (15-37); Alanine Aminotransfer ALT/SGPT 61 U/L (13-56); Albumin, Serum 2.2 g/dL (3.2-5.0); Alkaline Phosphatase 223 U/L (45-117); Anion Gap 11 (5-15); BUN 4 mg/dL (7-18); BUN/Creat Ratio 8.8 RATIO (10-20); Calcium,Total 8.1 mg/dL (8.5-10.1); Chloride 106 mmol/L (98-107); Creatinine, Serum 0.46 mg/dL (0.55-1.02); EST Glomerular Filtration Rate 149 mL/min (>60); Est Glom Filt Rate - Afr Amer 180 mL/min (>60); Estimated Creatinine Clearance 112.31 ml/min; Globulin 3.7 g/dL (2.2-4.2); Glucose 98 mg/dL (74-106); Lipase 128 U/L (73-393); Potassium 3.3 mmol/L (3.5-5.1); Protein, Total 5.9 g/dL (6.4-8.2); Sodium Level 141 mmol/L (136-145)
[2021-07-12] MEDS: 0.9% Saline Lock 10 ML Syringe IV ×3 (09:53→17:45)
[2021-07-12 09:57] LABS: Phosphorus 1.1 mg/dL (2.5-4.9)
[2021-07-12] MEDS: IVOSIDENIB 500 MG PO ×2 (10:18→21:07)
--- NOTE | 2021-07-12 10:55 | CASEMGMT ---
MANOJ OLGUIN Readmission Note Previous Admission: 07/07/21-07/09/21 Diagnosis: acute post ERCP pancreatitis DC Disposition: Home Current Admission Diagnosis: hyperbilirubinemia, recurrent acute pancreatitis Pt with stage IV cholangiocarcinoma. Pt presented to ER from home with elevated bilirubin and increased lipase from oncologist. Pt reports she had follow up appts with Thomas Rodriguez and Friend for this week. Pt reports taking her medications as ordered except for the Reglan. She did not realize the reglan was sent to [facility] pharmacy instead of [facility] pharmacy. She states she picked up the med on Sunday. Pt would like all future rx sent to [facility]. Pt denies any homegoing needs and plans to return home. DC PLAN: Home
[2021-07-12 12:20] VITALS: BP 125/81; PULSE 92; RESP 18; TEMP 36.8; O2SAT 95
[2021-07-12 15:51] VITALS: BP 146/81; PULSE 84; RESP 18; TEMP 36.5; O2SAT 97
--- NOTE | 2021-07-12 15:56 | CON.PCM.ON_ITS ---
Assessment & Plan Assessment/Plan (1) Acute pancreatitis: Status: Acute Code(s): K85.90 - Acute pancreatitis without necrosis or infection, unspecified Qualifiers: Pancreatitis type: other Acute pancreatitis complication: unspecified Qualified Code(s): K85.80 - Other acute pancreatitis without necrosis or infection Plan: To continue supportive care and consult Dr. David. Will not follow further on this admission unless new problems arise. So follow up with [facility] on discharge. (2) Jaundice: Status: Acute Code(s): R17 - Unspecified jaundice Plan: May be due biliary obstruction from cholangiocarcinoma. To discuss further evaluation with Dr. David. (3) Cholangiocarcinoma: Status: Chronic Code(s): C22.1 - Intrahepatic bile duct carcinoma Plan: To continue Ivosidenib for now. HPI Consult Data Date of Service:: 07/12/21 PCP / Referring Provider: Dr. Raji Mathis MD Attending: Dr. Avi Jones MD Chief Complaint Chief Complaint: Asked to see Pt with Cholangiocarcinoma. History of Present Illness History of Present Illness: 60y.o.woman with H/O Cholangiocarcinoma/Gallbladder cancer stage IV, peritoneal metastases S/P biliary stent with residual portal mass, on Ivosidenib orally is admitted with Pancreatitis and abdominal after ERCP done on 07/07/2021. Her bilirubin and amylase/lipase is trending downwards. She is feeling better since admission. Advanced Directives Power of Commercial Litigation Attorney: Yes Living Will: Yes [facility] Medical History Alcohol use Cancer Cardiology follow-up encounter Cholangiocarcinoma Encounter for monitoring cardiotoxic drug therapy Former smoker Gastric reflux GERD (gastroesophageal reflux disease) Palpitations Post-menopausal Sarcoidosis Wears glasses Home Medications melatonin 3 mg PO QHS PRN 04/05/20 [History Last Taken 07/10/21] ivosidenib 500 mg PO DAILY@2100 04/27/20 [History Last Taken 07/10/21] omeprazole 40 mg capsule,delayed release 40 mg PO DAILY #90 cap 06/29/21 [Rx Last Taken 07/11/21] sucralfate [Carafate] 1 g PO BID #90 tab 06/30/21 [Rx Last Taken 07/11/21] acetaminophen 1,000 mg PO DAILY PRN 07/07/21 [History Last Taken 07/10/21] metoclopramide HCl 5 mg tablet 5 mg PO QAC #90 tab 07/07/21 [Rx Last Taken 07/10/21] levofloxacin 500 mg tablet 500 mg PO DAILY #5 tab 07/09/21 [Rx Last Taken 07/10/21] Allergy/AdvReac Type Severity Reaction Status Date / Time No Known Allergies Allergy Verified 07/11/21 16:05 Family History Father Diabetes Heart disease Myocardial infarction, Onset Age: 75 Cancer leukemia, basal cell carcinoma Mother Multiple sclerosis Sister Basal cell carcinoma Surgical History History of esophagogastroduodenoscopy (EGD) History of laparoscopy History of tooth extraction Social History housing: house number of children: 2 current occupational status: employed 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 current occupational exposures/hazards: Yes (communicable diseases) pets and animals: Yes (two dogs, two cats) Smoking Status: Former smoker alcohol intake: current alcohol intake frequency: a few times a week Alcohol type: beer details: social substance use type: does not use caffeine: Yes what type of physical activity do you participate in: walking seatbelt use: always do you feel safe at home: Yes additional social history: - 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 ROS Constitutional Constitutional: Reports fatigue; Denies chills or fever(s) ENT HEENT: Denies dysphagia, hoarseness, loss taste/smell, neck mass or odynophagia Cardiovascular Cardiovascular: Denies chest pain, clubbing, diaphoresis or dyspnea Respiratory/Chest Respiratory/Chest: Denies chest tightness, cough or dyspnea Gastrointestinal Gastrointestinal: Reports abdominal pain and bloating; Denies anorexia Genitourinary Genitourinary: Denies change in urinary stream, dysuria or flank pain Musculoskeletal Musculoskeletal: Denies abnormal gait or back pain Integumentary Integumentary: Denies alopecia or changing lesions Neurologic Neurologic: Denies abnormal speech or behavior changes Psychiatric Psychiatric: Denies anxiety, depression or homicidal ideation Endocrine Endocrinology: Denies cold intolerance, flushing or heat intolerance Hematologic/Lymphatic Hematologic/Lymphatic: Denies easy bleeding, easy bruising or lymphadenopathy Physical Exam Const alert and oriented x3 Orientation / Consciousness: oriented to person HEENT normocephalic Head and Scalp: atraumatic Eyes PERRL and EOMs intact bilaterally Neck no lymphadenopathy Lymph Lymphatic: no lymphadenopathy noted Chest inspection of chest normal Resp normal respiratory effort Effort and Inspection: able to speak in complete sentences Cardio regular rate, regular rhythm, S1 normal heart sound and S2 normal heart sound GI GI Narrative: + epigastric tenderness slightly Extremity normal to inspection and no clubbing, cyanosis or edema Skin no rashes or lesions noted Neuro CN's II-XII intact bilaterally, moves all extremities and no focal motor deficits Psych mental status grossly normal Vital Signs Temperature 97.7 F L 07/12/21 15:51 Temperature Source Oral 07/12/21 15:51 Pulse Rate 84 07/12/21 15:51 Pulse Strength Normal (2+) 07/12/21 07:53 Respiratory Rate 18 07/12/21 15:51 Respiratory Effort 07/12/21 07:57 Respiratory Depth Normal 07/12/21 07:57 Respiratory Pattern Normal 07/12/21 07:57 Blood Pressure 146/81 H 07/12/21 15:51 Blood Pressure Mean 102 07/12/21 15:51 Blood Pressure Source Monitor 07/12/21 15:51 Blood Pressure Position Semi-Fowlers 07/12/21 15:51 Blood Pressure Location Right Arm 07/12/21 15:51 Pulse Ox 97 07/12/21 15:51 Oxygen Delivery Method Room Air 07/12/21 15:51 Laboratory Results - last 24 hr 07/11/21 11:20: Magnesium 1.6 07/11/21 17:00: WBC 3.1 L, RBC 3.18 L, Hgb 11.1 L, Hct 31.2 L, MCV 98.1 D, MCH 34.9 H, MCHC 35.6 D, RDW Std Deviation 46.0 H, RDW Coeff of Todd 12.7, Plt Count 118 L, MPV 10.1, Immature Gran % (Auto) 0.300, Neut % (Auto) 69.7, Lymph % (Auto) 19.6, [place] % (Auto) 8.8, Eos % (Auto) 1.3, Baso % (Auto) 0.3, Absolute Neuts (auto) 2.1, Absolute Lymphs (auto) 0.60 L, Nucleated RBC % 0, Differential Comment , Diff Path Review May foll 07/12/21 01:55: Sodium 140, Potassium 2.9 L, Chloride 108 H, Carbon Dioxide 27.0, Anion Gap 5, BUN 4 L, Creatinine 0.45 L, Estim Creat Clear Calc 114.80, Est GFR (MDRD) Af Amer 184, Est GFR (MDRD) Non-Af 152, BUN/Creatinine Ratio 8.9 L, Glucose 105, Calcium 7.9 L, Total Bilirubin 5.70 H, AST 51 H, ALT 57 H, Alkaline Phosphatase 191 H, Total Protein 5.4 L, Albumin 2.1 L, Globulin 3.3, Albumin/Globulin Ratio 0.6 L 07/12/21 08:45: WBC 3.5 L, RBC 3.00 L, Hgb 10.4 L, Hct 30.6 L, MCV 102.0 H, MCH 34.7 H, MCHC 34.0, RDW Std Deviation 50.3 H, RDW Coeff of Todd 13.3, Plt Count 127 L, MPV 10.2, Immature Gran % (Auto) 1.400 H, Neut % (Auto) 67.8, Lymph % (Auto) 21.1, [place] % (Auto) 8.0, Eos % (Auto) 1.4, Baso % (Auto) 0.3, Absolute Neuts (auto) 2.4, Absolute Lymphs (auto) 0.74 L, Nucleated RBC % 0 07/12/21 08:45: Sodium 141, Potassium 3.3 L, Chloride 106, Carbon Dioxide 24.0, Anion Gap 11, BUN 4 L, Creatinine 0.46 L, Estim Creat Clear Calc 112.31, Est GFR (MDRD) Af Amer 180, Est GFR (MDRD) Non-Af 149, BUN/Creatinine Ratio 8.8 L, Glucose 98, Calcium 8.1 L, Total Bilirubin 6.40 H, AST 51 H, ALT 61 H, Alkaline Phosphatase 223 H, Total Protein 5.9 L, Albumin 2.2 L, Globulin 3.7, Albumin/Globulin Ratio 0.6 L, Lipase 128 07/12/21 08:45: Phosphorus 1.1 L* Diagnostic Data Abdomen/Pelvis CT 07/11/21 16:34 IMPRESSION: (NOT LISTED IN ORDER OF SIGNIFICANCE) Wall thickening and inflammation of the descending colon and rectosigmoid colon suggesting colitis. Mass like area near the port hepatis measuring 21 mm with narrowing of the right portal vein suggesting regional invasion. Ill defined lesions in the right lobe of the liver concerning for metastatic focus. Ascites. There are bilateral pleural effusions. There is bilateral pneumonia. There are again an enhancing nodule near the ileocecal valve measuring 7 mm. Se 2 IM :74. There is a similar lesion of the ascending colon measuring 8mm. se 2 IM: 57. Given the chronicity neoplastic process such as metastatic disease cannot be excluded. PET scan can better evaluate. Other findings as above. Electronically Signed: Haider Francis MD at 17:52 EDT , Charges/Coding Visit Charges Office Visits / Consults: [id number] IP Consult L3
[2021-07-12 21:12] VITALS: BP 140/69; PULSE 86; RESP 16; TEMP 36.9; O2SAT 94
[2021-07-13] VITALS (10 sets, daily range): BP systolic 106–155; BP diastolic 60–92; PULSE 84–104; RESP 16–22; TEMP 36.8–37.2; O2SAT 92–99; BMI 28.5
[2021-07-13] MEDS: Metoclopramide 10 MG/2 ML Vial IV ×3 (00:34→18:10)
[2021-07-13] MEDS: 0.9% Normal Saline 1,000 ML 250 ML IV ×2 (00:34→08:39)
--- NOTE | 2021-07-13 06:00 | EKG12_ITS ---
Test Reason : PRE OP Blood Pressure : / mmHG Vent. Rate : 080 BPM Atrial Rate : 080 BPM P-R Int : 120 ms QRS Dur : 090 ms QT Int : 402 ms P-R-T Axes : 016 031 020 degrees QTc Int : 463 ms Normal sinus rhythm Low voltage QRS Prolonged QT Abnormal ECG When compared with ECG of 07-JUL-2021 06:05, T wave inversion now evident in Anterior leads Confirmed by LILLIAN MANRIQUE, MARTI ([id number]), society editor RENATO GARNETT ([id number]) on 07/15/2021 9:47:11 AM Referred By: JELANI Confirmed By:KITTY SNYDER MD
[2021-07-13] MEDS: HYDROmorphone 0.5 MG/0.5 ML SYRINGE IV (08:48)
[2021-07-13] MEDS: 0.9% Saline Lock 10 ML Syringe IV ×2 (08:51→23:31)
[2021-07-13 09:11] LABS: Basophil# 0.01 X10^3/uL; Basophil% 0.2 % (0-1); Eosinophil# 0.08 X10^3/uL; Eosinophils% 1.5 % (0-5); Hematocrit 30.9 % (37-47); Hemoglobin 10.6 g/dL (12.0-15.0); Lymphocyte % 16.5 % (19-41); Mean Corp Hgb Conc 34.3 g/dL (32-36); Mean Platelet Vol. 10.3 fl (6.2-12.0); Monocyte# 0.35 X10^3/uL; Monocyte% 6.4 % (0-10); NRBC Flagged by Analyzer 0 % (0-5); Neutrophil # 4.04 X10^3/uL (2.7-7.7); Neutrophil % 73.8 % (47-70); POSITIVE MORPHOLOGY YES; Platelet Count 165 K/mm3 (150-450); RBC Distribution Width CV 13.6 % (11.6-14.6); RBC Distribution Width SD 50.9 fl (35.1-43.9); Red Blood Count 3.03 M/mm3 (4.2-5.4); White Blood Count 5.5 K/mm3 (4.4-11.0)
[2021-07-13 09:14] LABS: Differential Indicated SCAN CRITERIA MET
[2021-07-13 09:40] LABS: Differential Comment SCANNED; Reactive Lymphocyte 1+
[2021-07-13 09:48] LABS: ALB/GLOB Ratio 0.7 RATIO (0.9-2.4); AST(SGOT) 50 U/L (15-37); Alanine Aminotransfer ALT/SGPT 57 U/L (13-56); Albumin, Serum 2.5 g/dL (3.2-5.0); Alkaline Phosphatase 327 U/L (45-117); Anion Gap 10 (5-15); BUN 6 mg/dL (7-18); BUN/Creat Ratio 13.4 RATIO (10-20); Calcium,Total 8.2 mg/dL (8.5-10.1); Chloride 105 mmol/L (98-107); Creatinine, Serum 0.45 mg/dL (0.55-1.02); EST Glomerular Filtration Rate 151 mL/min (>60); Est Glom Filt Rate - Afr Amer 183 mL/min (>60); GGTP 364 U/L (5-55); Globulin 3.7 g/dL (2.2-4.2); Glucose 85 mg/dL (74-106); Magnesium 1.5 mg/dL (1.6-2.6); Phosphorus 2.5 mg/dL (2.5-4.9); Potassium 3.3 mmol/L (3.5-5.1); Protein, Total 6.2 g/dL (6.4-8.2); Sodium Level 138 mmol/L (136-145)
--- NOTE | 2021-07-13 11:16 | PN.HOSP_ITS ---
Subjective Subjective Follow-up for stage IV cholangiocarcinoma with obstructive jaundice. Patient has abdominal discomfort, bloating sensation. She said she gained weight although she has not eaten for 1 week. She states she usually weighs 150 to 155 pound but currently she is 166 pounds. Objective Data Objective Data Vital Signs: Vital Signs Temp Pulse Resp BP Pulse Ox 98.6 F 93 16 151/92 H 97 07/13/21 08:40 07/13/21 08:40 07/13/21 08:40 07/13/21 08:40 07/13/21 08:40 Oxygen Delivery Method Room Air Weight: 166 lb 7.184 oz Body Mass Index (BMI) 27.1 Intake & Output: Intake and Output for Last 24 Hours 07/11/21 07/12/21 07/13/21 23:59 23:59 23:59 Intake Total 1410 / 1410 5987.3333 / 5987.3333 1430.83 / 1430.83 Balance 1410 / 1410 5987.3333 / 5987.3333 1430.83 / 1430.83 Lab / Micro Data Result Diagrams: 07/13/21 08:55 07/13/21 08:55 Labs: Laboratory Results - last 24 hr 07/13/21 08:55: WBC 5.5, RBC 3.03 L, Hgb 10.6 L, Hct 30.9 L, MCV 102.0 H, MCH 35.0 H, MCHC 34.3, RDW Std Deviation 50.9 H, RDW Coeff of Todd 13.6, Plt Count 165, MPV 10.3, Immature Gran % (Auto) 1.600 H, Neut % (Auto) 73.8 H, Lymph % (Auto) 16.5 L, [place] % (Auto) 6.4, Eos % (Auto) 1.5, Baso % (Auto) 0.2, Absolute Neuts (auto) 4.0, Absolute Lymphs (auto) 0.90, Nucleated RBC % 0, Differential Comment SCANNED, Reactive Lymphocytes 1+ 07/13/21 08:55: Sodium 138, Potassium 3.3 L, Chloride 105, Carbon Dioxide 23.0, Anion Gap 10, BUN 6 L, Creatinine 0.45 L, Estim Creat Clear Calc 114.80, Est GFR (MDRD) Af Amer 183, Est GFR (MDRD) Non-Af 151, BUN/Creatinine Ratio 13.4, Glucose 85, Calcium 8.2 L, Phosphorus 2.5, Magnesium 1.5 L, Total Bilirubin 7.10 H, GGT 364 H, AST 50 H, ALT 57 H, Alkaline Phosphatase 327 H, Total Protein 6.2 L, Albumin 2.5 L, Globulin 3.7, Albumin/Globulin Ratio 0.7 L Micro: Microbiology 07/13/21 06:45 Nasal Secretion SARS-CoV-2 Antigen (Rapid) - Final Physical Exam Narrative General: Alert, Oriented x3, Cooperative HEENT: Icterus present. Atraumatic, PERRLA, EOMI, Normocephalic Oral: No Gingival or Mucosal Lesions/ Ulcerations Neck: Supple, No JVD, Negative Carotid Bruits Lungs: Air entry diminished in bilateral lung bases. No crepitation/rhonchi Cardiovascular: Regular rate, Regular Rhythm, Normal S1, Normal S2, No murmurs Abdomen: Mild tenderness on deep palpation at xiphisternal. Bowel Sounds Present, Soft, abdominal distention. No palpable mass : No renal angle tenderness. No suprapubic tenderness. Extremities: No edema, Capillary Refill Less than 3 Seconds Skin: Yellowing skin. Musculoskeletal: No Tenderness to Palpation of Joints or Extremities Neurological: Cranial nerves II-XII grossly intact, DTR 2+/4 and Symmetrical, Neuro grossly intact Psych/Mental Status: Normal Affect, Appropriate Assessment & Plan Assessment/Plan (1) Acute pancreatitis: QUALIFIERS: Pancreatitis type: other Acute pancreatitis complication: unspecified Qualified Code(s): K85.80 - Other acute pancreatitis without necrosis or infection (2) Jaundice: (3) Elevated bilirubin: PLAN: The patient is a 60 y/o F with a stage IV metastatic cholangioc arcinoma on ibrutinib being followed by Dr. Guzman admitted with worsening jaundice found on follow-up with oncologist on 07/11, hypokalemia and elevated total bilirubin. #1. Metastatic cholangiocarcinoma stage IV complicated by rising bilirubin, lipase (Acute Pancreatitis) with recent post ERCP pancreatitis: Patient is admitted on MedSurg floor. GI is consulted. Continue IV fluid, n.p.o., blood cultures x2 ordered. Patient is started on IV Zosyn. At home she is she was on Levaquin. Patient was recently discharged on 07/09 after she developed severe abdominal pain after ERCP and stent placement on 07/07/2021. ERCP report: The previous stent was migrated into biliary tree. Major papula ap peared to have mass. Multiple malignant appearing segmental biliary structures were found. Lower third of CBD and middle third of the bile duct. Upper third of the bile duct was dilated with mass causing obstruction. Choledocholithiasis was found. Partial removal accomplished with biliary sphincterotomy and stent was placed. Prior to that patient had ERCP with stent placement on 07/03/2019 with distal CBD mass with liver metastasis, diagnosed to be adenocarcinoma and had laparotomy on 09/01/2021 with with Whipple's procedure. 07/13: She is a scheduled for repeat ERCP today. Continue IV antibiotic, IV PPI. She has been getting IV fluid that might have resulted into weight gain and increasing third space. IV fluid discontinued. She is +8.8 L fluid. Lasix 40 mg IV 1 dose ordered #2. Hypokalemia: Hypokalemia potassium 2.6. On replacement. Repeat potassium shows K2.9, magnesium 1.6. Magnesium also on lower level of normal. Repeat labs shows potassium 3.3, phosphorus 1.1, severe hypophosphatemia. IV phosphate ordered. Magnesium replaced 07/13: Hypomagnesemia, hypophosphatemia and hypokalemia. IV electrolytes replacement ordered #3. Suspected gastroparesis: During last ERCP, food remnants were found in the stomach, suspected gastroparesis secondary to Billroth II procedure prior, will continue patient Reglan regimen started by gastroenterology and per their request will transition to 10 mg IV every 6 upon admission. #4. GERD: on IV PPI. #5. Former tobacco use: Encourage continued tobacco cessation. #6. DVT prophylaxis: SCDs, defer any chemoprophylaxis as from prior notes likely will need repeat ERCP with stent alteration/replacement. #7. CODE status: Patient ROLLY is her sister who is and living will is currently in place. Discussed CODE status at length including difference between FULL code, DNR-CCA and DNR-CC status. Following discussions about the differences in these status, requested DNR-CCA, no intubation. Advanced Care Planning Face to Face Time: 16 minutes. Charges/Coding Visit Charges Inpatient E&M: 22575 Subs Hosp L2
--- NOTE | 2021-07-13 11:20 | NURSING ---
pt to endo
[2021-07-13 13:15] LABS: Pathologist Review Reviewed
--- NOTE | 2021-07-13 13:45 | RAD_ITS ---
STUDY: ERCP. REASON FOR EXAM: Female, 60 years old. Right upper quadrant pain. FLUOROSCOPY TIME (if supplied): ( 49.1 seconds ) minutes/seconds. 7 images were obtained. TECHNIQUE: An ERCP was performed by the senior administrative support. Contrast was injected. COMPARISON: None. FINDINGS: There is evidence of a dilated intrahepatic biliary ducts. Mild dilatation of the common bile duct. A biliary stent was placed. RAD/ERCP Biliary Only IMPRESSION: Dilated intrahepatic and extra hepatic biliary ducts. Stent placement. Electronically Signed: Eliot Barroso MD at 15:42 EDT ,
[2021-07-13] MEDS: Lactated Ringers 1,000 ML 30 ML IV (14:00)
--- NOTE | 2021-07-13 16:22 | OP.ERCP_ITS ---
Patient Name: Renate Devine Procedure Date: 07/13/2021 1:19 PM Date of : 1960 Age: 60 Procedure: ERCP Indications: Malignant stricture of the common bile duct Providers: Yamil David DO Medicines: General Anesthesia Patient Profile: This is a 60 year old female. Refer to note in patient chart for documentation of history and physical. Complications: No immediate complications. Procedure: Pre-Anesthesia Assessment: - Prior to the procedure, a History and Physical was performed, and patient medications and allergies were reviewed. The patient is competent. The risks and benefits of the procedure and the sedation options and risks were discussed with the patient. All questions were answered and informed consent was obtained. Patient identification and proposed procedure were verified by the physician in the pre-procedure area. Mental Status Examination: alert and oriented. Airway Examination: normal oropharyngeal airway and neck mobility. Respiratory Examination: clear to auscultation. CV Examination: normal. Prophylactic Antibiotics: The patient does not require prophylactic antibiotics. Prior Anticoagulants: The patient has taken no previous anticoagulant or antiplatelet agents. ASA Grade Assessment: II - A patient with mild systemic disease. After reviewing the risks and benefits, the patient was deemed in satisfactory condition to undergo the procedure. The anesthesia plan was to use moderate sedation / analgesia (conscious sedation). Immediately prior to administration of medications, the patient was re-assessed for adequacy to receive sedatives. The heart rate, respiratory rate, oxygen saturations, blood pressure, adequacy of pulmonary ventilation, and response to care were monitored throughout the procedure. The physical status of the patient was re-assessed after the procedure. After obtaining informed consent, the scope was passed under direct vision. Throughout the procedure, the patient's blood pressure, pulse, and oxygen saturations were monitored continuously. The [id number] endoscope was introduced through the mouth, and advanced to the duodenum and used to inject contrast into the bile duct. The ERCP was accomplished without difficulty. The patient tolerated the procedure well. Scope In: Scope Out: 2:36:10 PM Findings: The crepe sole wire brusher film was normal. The esophagus was successfully intubated under direct vision. The scope was advanced to a normal major papilla in the descending duodenum without detailed examination of the pharynx, larynx and associated structures, and upper GI tract. The upper GI tract was grossly normal. The bile duct was deeply cannulated with the short-nosed traction sphincterotome. Contrast was injected. I personally interpreted the bile duct images. There was brisk flow of contrast through the ducts. Opacification of the entire opacified area and lower third of the main bile duct was successful. The maximum diameter of the ducts was 8 mm. The lower third of the main bile duct was partially obstructed by what appeared to be a mass. Opacification of the main bile duct was successful. The maximum diameter of the ducts was 9 mm. A straight Roadrunner wire was passed into the biliary tree. A 5 mm biliary sphincterotomy was made with a traction (standard) sphincterotome using ERBE electrocautery. There was no post-sphincterotomy bleeding. The biliary tree was swept with a 15 mm balloon starting at the bifurcation. Sludge was swept from the duct. Clots were swept from the duct. Debris was swept from the duct. Dilation of the common bile duct with an 8-9-10 mm balloon (to a maximum balloon size of 10 mm) dilator was successful. One stent was removed from the biliary tree using a rat-toothed forceps. The stent was found to be patent via the water column test. Impression: - A biliary tract obstruction secondary to what appeared to be a mass was found in the lower third of the main duct. - A biliary sphincterotomy was performed. - The biliary tree was swept and sludge, clots and debris were found. - Common bile duct was successfully dilated. - One stent was removed from the biliary tree. Procedure Code(s): --- Professional --- 88238, 59, Endoscopic retrograde cholangiopancreatography (ERCP); with trans-endoscopic balloon dilation of biliary/pancreatic duct(s) or of ampulla (sphincteroplasty), including sphincterotomy, when performed, each duct 59999, Endoscopic retrograde cholangiopancreatography (ERCP); with removal of foreign body(s) or stent(s) from biliary/pancreatic duct(s) 37867, Endoscopic retrograde cholangiopancreatography (ERCP); with removal of calculi/debris from biliary/pancreatic duct(s) 43755, Endoscopic catheterization of the biliary ductal system, radiological supervision and interpretation CPT copyright 2017 [employer]. All rights reserved. The codes documented in this report are preliminary and upon director child abuse therapy review may be revised to meet current compliance requirements. Yamil David DO 07/13/2021 4:21:56 PM This report has been signed electronically. Number of Addenda: 0 Note Initiated On: 07/13/2021 1:19 PM
--- NOTE | 2021-07-13 16:23 | OP.CCLET_ITS ---
07/13/2021 Raji Mathis MD [address] [id number] Re : [facility] Dear Dr. Mathis This procedure was performed on Tuesday, July 13, 2021. My impressions and recommendations are as follows: Impressions : - A biliary tract obstruction secondary to what appeared to be a mass was found in the lower third of the main duct. - A biliary sphincterotomy was performed. - The biliary tree was swept and sludge, clots and debris were found. - Common bile duct was successfully dilated. - One stent was removed from the biliary tree. Recommendations : My findings are described in the full procedure note, which is enclosed. If I can be of further assistance, please feel free to contact me at . Sincerely, Yamil David, 07/13/2021 4:21:56 PM This report has been signed electronically.
[2021-07-13] MEDS: Furosemide 40 MG/4 ML Vial IV (16:40)
--- NOTE | 2021-07-13 18:06 | PCM.PROGNOTE ---
Subjective Subjective She underwent ERCP today with stent removal and expansion of her pre-existing uncovered metal stent that was placed 2 years ago. There was good flow into the duodenum after undergoing stent removal which expanded out the duct and dilation of the duct. She has a lot of ingrowth of tumor into the duodenum. She is complaining of a lot of bloating and cramping. She is not able to eat much. Objective Data Objective Data Vital Signs: Vital Signs Temp Pulse Resp BP Pulse Ox 98.4 F 104 H 16 150/90 H 94 07/13/21 16:50 07/13/21 16:50 07/13/21 16:50 07/13/21 16:50 07/13/21 16:50 Oxygen Flow Rate (L/min) 2 Oxygen Delivery Method Room Air Weight: 166 lb 7.184 oz Body Mass Index (BMI) 28.5 Intake & Output: Intake and Output for Last 24 Hours 07/11/21 07/12/21 07/13/21 23:59 23:59 23:59 Intake Total 1410 / 1410 5987.3333 / 5987.3333 2568.33 / 2568.33 Balance 1410 / 1410 5987.3333 / 5987.3333 2568.33 / 2568.33 Lab / Micro Data Result Diagrams: 07/13/21 08:55 07/13/21 08:55 Labs: Laboratory Results - last 24 hr 07/11/21 17:00: Diff Path Review Reviewed 07/13/21 08:55: WBC 5.5, RBC 3.03 L, Hgb 10.6 L, Hct 30.9 L, MCV 102.0 H, MCH 35.0 H, MCHC 34.3, RDW Std Deviation 50.9 H, RDW Coeff of Todd 13.6, Plt Count 165, MPV 10.3, Immature Gran % (Auto) 1.600 H, Neut % (Auto) 73.8 H, Lymph % (Auto) 16.5 L, [place] % (Auto) 6.4, Eos % (Auto) 1.5, Baso % (Auto) 0.2, Absolute Neuts (auto) 4.0, Absolute Lymphs (auto) 0.90, Nucleated RBC % 0, Differential Comment SCANNED, Reactive Lymphocytes 1+ 07/13/21 08:55: Sodium 138, Potassium 3.3 L, Chloride 105, Carbon Dioxide 23.0, Anion Gap 10, BUN 6 L, Creatinine 0.45 L, Estim Creat Clear Calc 114.80, Est GFR (MDRD) Af Amer 183, Est GFR (MDRD) Non-Af 151, BUN/Creatinine Ratio 13.4, Glucose 85, Calcium 8.2 L, Phosphorus 2.5, Magnesium 1.5 L, Total Bilirubin 7.10 H, GGT 364 H, AST 50 H, ALT 57 H, Alkaline Phosphatase 327 H, Total Protein 6.2 L, Albumin 2.5 L, Globulin 3.7, Albumin/Globulin Ratio 0.7 L Micro: Microbiology 07/13/21 06:45 Nasal Secretion SARS-CoV-2 Antigen (Rapid) - Final Radiography Diagnostic Testing: Radiology Impression ERCP X-Ray 07/13/21 13:45 IMPRESSION: Dilated intrahepatic and extra hepatic biliary ducts. Stent placement. Electronically Signed: Eliot Barroso MD at 15:42 EDT , Physical Exam Const alert General Appearance: cooperative Orientation / Consciousness: oriented to person HEENT hearing grossly normal bilaterally Head and Scalp: normal to inspection Face and Sinus: face symmetric Nose: external nose normal Mouth: oral and palatal mucosa normal Eyes conjunctivae normal General Eye: normal appearance of both eyes Neck full ROM General: normal visual inspection Lymph Lymphatic: no lymphadenopathy noted Chest inspection of chest normal and palpation of chest normal Chest: symmetrical chest wall rise Resp normal respiratory effort Effort and Inspection: able to speak in complete sentences Cardio regular rate GI non-distended Inspection: abdominal distention Percussion: normal to percussion Rectal Exam: deferred Neuro Speech: speech normal Gait (Neuro): normal gait Assessment & Plan Assessment/Plan (1) Ascites: PLAN: I put in an order for a diagnostic and therapeutic paracentesis to rule out peritoneal carcinomatosis secondary to metastatic cholangiocarcinoma. (2) Bile duct adenocarcinoma: PLAN: There is a new liver lesion seen that could be a metastatic lesion from cholangiocarcinoma versus colon cancer as the patient has never had a colonoscopy. I will reorder CA 19-9. Charges/Coding Visit Charges Inpatient E&M: 34418 Subs Hosp L2
[2021-07-13] MEDS: IVOSIDENIB 500 MG PO (22:21)
[2021-07-14] MEDS: Metoclopramide 10 MG/2 ML Vial IV ×5 (00:07→23:14)
[2021-07-14] MEDS: 0.9% Saline Lock 10 ML Syringe IV ×4 (00:08→13:58)
[2021-07-14 02:38] VITALS: BP 116/61; PULSE 77; RESP 16; TEMP 36.9; O2SAT 93
[2021-07-14 06:17] LABS: Absolute Lymphocyte Count 1.65 X10^3/uL (0.83-4.51); Basophil# 0.02 X10^3/uL; Basophil% 0.3 % (0-1); Differential Indicated SCAN CRITERIA MET; Eosinophils% 1.6 % (0-5); Hematocrit 27.9 % (37-47); Hemoglobin 9.6 g/dL (12.0-15.0); Lymphocyte # 1.65 X10^3/ul (0.83-4.51); Lymphocyte % 26.1 % (19-41); Mean Corp Hgb Conc 34.4 g/dL (32-36); Mean Corpuscular Hgb 34.9 pg (27.0-32.0); Mean Corpuscular Volume 101.5 fL (81-99); Mean Platelet Vol. 10.3 fl (6.2-12.0); Monocyte# 0.48 X10^3/uL; Monocyte% 7.6 % (0-10); NRBC Flagged by Analyzer 0 % (0-5); Neutrophil # 3.97 X10^3/uL (2.7-7.7); POSITIVE MORPHOLOGY YES; Platelet Count 180 K/mm3 (150-450); RBC Distribution Width SD 51.3 fl (35.1-43.9); Red Blood Count 2.75 M/mm3 (4.2-5.4); White Blood Count 6.3 K/mm3 (4.4-11.0)
[2021-07-14 06:30] LABS: Prothrombin Time (Protime)PT. 12.9 SECONDS (11.7-14.9)
[2021-07-14 06:32] LABS: Anisocytosis 1+; Macrocytosis 1+
[2021-07-14 06:46] LABS: Phosphorus 3.7 mg/dL (2.5-4.9)
[2021-07-14 06:48] LABS: ALB/GLOB Ratio 0.6 RATIO (0.9-2.4); AST(SGOT) 33 U/L (15-37); Alanine Aminotransfer ALT/SGPT 43 U/L (13-56); Albumin, Serum 2.2 g/dL (3.2-5.0); Alkaline Phosphatase 262 U/L (45-117); Anion Gap 8 (5-15); BUN 9 mg/dL (7-18); BUN/Creat Ratio 16.9 RATIO (10-20); Calcium,Total 8.6 mg/dL (8.5-10.1); Chloride 104 mmol/L (98-107); Creatinine, Serum 0.53 mg/dL (0.55-1.02); EST Glomerular Filtration Rate 124 mL/min (>60); Est Glom Filt Rate - Afr Amer 150 mL/min (>60); Estimated Creatinine Clearance 97.47 ml/min; Globulin 3.5 g/dL (2.2-4.2); Glucose 77 mg/dL (74-106); Magnesium 1.7 mg/dL (1.6-2.6); Potassium 3.5 mmol/L (3.5-5.1); Protein, Total 5.7 g/dL (6.4-8.2); Sodium Level 138 mmol/L (136-145)
[2021-07-14 07:51] VITALS: O2SAT 93
[2021-07-14 08:27] VITALS: BP 106/59; PULSE 70; RESP 18; TEMP 36.8; O2SAT 98
--- NOTE | 2021-07-14 11:58 | PCM.PN.HOSP ---
Subjective Subjective Patient still has mild abdominal distention. Had ERCP yesterday. Objective Data Objective Data Vital Signs: Vital Signs Temp Pulse Resp BP Pulse Ox 98.2 F 70 18 106/59 L 98 07/14/21 08:27 07/14/21 08:27 07/14/21 08:27 07/14/21 08:27 07/14/21 08:27 Oxygen Flow Rate (L/min) 2 Oxygen Delivery Method Room Air Weight: 159 lb 2.78 oz Body Mass Index (BMI) 28.5 Intake & Output: Intake and Output for Last 24 Hours 07/12/21 07/13/21 07/14/21 23:59 23:59 23:59 Intake Total 5987.3333 / 5987.3333 2832.33 / 2832.33 673.3333 / 673.3333 Balance 5987.3333 / 5987.3333 2832.33 / 2832.33 673.3333 / 673.3333 Lab / Micro Data Result Diagrams: 07/14/21 05:50 07/14/21 05:50 Labs: Laboratory Results - last 24 hr 07/11/21 17:00: Diff Path Review Reviewed 07/14/21 05:50: WBC 6.3, RBC 2.75 L, Hgb 9.6 L, Hct 27.9 L, MCV 101.5 H, MCH 34.9 H, MCHC 34.4, RDW Std Deviation 51.3 H, RDW Coeff of Todd 14.0, Plt Count 180, MPV 10.3, Immature Gran % (Auto) 1.400 H, Neut % (Auto) 63.0, Lymph % (Auto) 26.1, [place] % (Auto) 7.6, Eos % (Auto) 1.6, Baso % (Auto) 0.3, Absolute Neuts (auto) 4.0, Absolute Lymphs (auto) 1.65, Nucleated RBC % 0, Anisocytosis 1+, Macrocytosis 1+ 07/14/21 05:50: Sodium 138, Potassium 3.5, Chloride 104, Carbon Dioxide 26.0, Anion Gap 8, BUN 9, Creatinine 0.53 L, Estim Creat Clear Calc 97.47, Est GFR (MDRD) Af Amer 150, Est GFR (MDRD) Non-Af 124, BUN/Creatinine Ratio 16.9, Glucose 77, Calcium 8.6, Magnesium 1.7, Total Bilirubin 2.90 H, AST 33, ALT 43, Alkaline Phosphatase 262 H, Total Protein 5.7 L, Albumin 2.2 L, Globulin 3.5, Albumin/Globulin Ratio 0.6 L 07/14/21 05:50: Phosphorus 3.7 07/14/21 05:50: PT 12.9, INR 1.0 Micro: Microbiology 07/12/21 09:44 Blood Culture (Wb) - Anticubital Left Blood Culture - Preliminary No growth in 48 hours. 07/12/21 09:44 Blood Culture (Wb) - Anticubital Right Blood Culture - Preliminary No growth in 48 hours. 07/13/21 06:45 Nasal Secretion SARS-CoV-2 Antigen (Rapid) - Final Radiography Diagnostic Testing: Radiology Impression ERCP X-Ray 07/13/21 13:45 IMPRESSION: Dilated intrahepatic and extra hepatic biliary ducts. Stent placement. Electronically Signed: Eliot Barroso MD at 15:42 EDT , Physical Exam Narrative General: Alert, Oriented x3, Cooperative HEENT: Icterus present. Atraumatic, PERRLA, EOMI, Normocephalic Oral: No Gingival or Mucosal Lesions/ Ulcerations Neck: Supple, No JVD, Negative Carotid Bruits Lungs: Air entry diminished in bilateral lung bases. No crepitation/rhonchi Cardiovascular: Regular rate, Regular Rhythm, Normal S1, Normal S2, No murmurs Abdomen: Mild tenderness on deep palpation at xiphisternal. Bowel Sounds Present, Soft, abdominal distention/moderate ascites. No palpable mass : No renal angle tenderness. No suprapubic tenderness. Extremities: No edema, Capillary Refill Less than 3 Seconds Skin: Yellowing skin. Musculoskeletal: No Tenderness to Palpation of Joints or Extremities Neurological: Cranial nerves II-XII grossly intact, DTR 2+/4 and Symmetrical, Neuro grossly intact Psych/Mental Status: Normal Affect, Appropriate Assessment & Plan Assessment/Plan (1) Acute pancreatitis: QUALIFIERS: Pancreatitis type: other Acute pancreatitis complication: unspecified Qualified Code(s): K85.80 - Other acute pancreatitis without necrosis or infection (2) Jaundice: (3) Elevated bilirubin: PLAN: The patient is a 60 y/o F with a stage IV metastatic cholangiocarcinoma on ibrutinib being followed by Dr. Guzman admitted with worsening jaundice found on follow-up with oncologist on 07/11, hypokalemia and elevated total bilirubin. #1. Metastatic cholangiocarcinoma stage IV complicated by rising bilirubin, lipase (Acute Pancreatitis) with recent post ERCP pancreatitis: Patient is admitted on [facility] floor. GI is consulted. Continue IV fluid, n.p.o., blood cultures x2 ordered. Patient is started on IV Zosyn. At home she is she was on Levaquin. Patient was recently discharged on 07/09 after she developed severe abdominal pain after ERCP and stent placement on 07/07/2021. ERCP report: The previous stent was migrated into biliary tree. Major papula appeared to have mass. Multiple malignant appearing segmental biliary structures were found. Lower third of CBD and middle third of the bile duct. Upper third of the bile duct was dilated with mass causing obstruction. Choledocholithiasis was found. Partial removal accomplished with biliary sphincterotomy and stent was placed. Prior to that patient had ERCP with stent placement on 07/03/2019 with distal CBD mass with liver metastasis, diagnosed to be adenocarcinoma and had laparotomy on 09/01/2021 with with Whipple's procedure. 07/13: She is a scheduled for repeat ERCP today. Continue IV antibiotic, IV PPI. She has been getting IV fluid that might have resulted into weight gain and increasing third space. IV fluid discontinued. She is +8.8 L fluid. Lasix 40 mg IV 1 dose ordered 07/14: Positive fluid about 10 L. But urine output is not mentioned therefore is not correct. Blood pressure 106/59. Will not give any extra fluid. Patient has a scheduled paracentesis today. She said her cholangiocarcinoma has metastasized to colon and liver. Follow-up Dr. Guzman as she was told that she may need radiotherapy #2. Hypokalemia: Hypokalemia potassium 2.6. On replacement. Repeat potassium shows K2.9, magnesium 1.6. Magnesium also on lower level of normal. Repeat labs shows potassium 3.3, phosphorus 1.1, severe hypophosphatemia. IV phosphate ordered. Magnesium replaced 07/13: Hypomagnesemia, hypophosphatemia and hypokalemia. IV electrolytes replacement ordered 07/14: Potassium 3.5. Hypomagnesemia hypophosphatemia corrected. #3. Suspected gastroparesis: During last ERCP, food remnants were found in the stomach, suspected gastroparesis secondary to Billroth II procedure prior, will continue patient Reglan regimen started by gastroenterology and per their request will transition to 10 mg IV every 6 upon admission. #4. GERD: on IV PPI. #5. Former tobacco use: Encourage continued tobacco cessation. #6. DVT prophylaxis: SCDs, defer any chemoprophylaxis as from prior notes likely will need repeat ERCP with stent alteration/replacement. #7. CODE status: Patient ROLLY is her sister who is and living will is currently in place. Discussed CODE status at length including difference between FULL code, DNR-CCA and DNR-CC status. Following discussions about the differences in these status, requested DNR-CCA, no intubation. Advanced Care Planning Face to Face Time: 16 minutes. Charges/Coding Visit Charges Inpatient E&M: 06757 Subs Hosp L2
--- NOTE | 2021-07-14 12:00 | US_ITS ---
STUDY: ABDOMINAL ULTRASOUND - 4 quadrant. REASON FOR VISIT: Female, 60 years old. Ascites survey. TECHNIQUE: Ultrasound evaluation of the 4 quadrants was performed with real-time and static mcclelland-scale imaging. TECHNICAL QUALITY: Adequate. COMPARISON: None. FINDINGS: Assessment of ascites was obtained. A small amount of free fluid is seen in the right lower quadrant. Not enough fluid for safe paracentesis. US/Abdomen Limited IMPRESSION: Small amount of fluid in the right lower quadrant. Not enough fluid for safe paracentesis. Electronically Signed: Eliot Barroso MD at 14:11 EDT ,
--- NOTE | 2021-07-14 12:30 | NURSING ---
Patient off unit to Radiology
--- NOTE | 2021-07-14 12:30 | CASEMGMT ---
Pt screened with [facility] Palliative Care Screening Tool due to readmission. No order received.
--- NOTE | 2021-07-14 12:57 | NURSING ---
PER DR. NEGRETE, THERE IS NOT ENOUGH FLUID ON ULTRASOUND TO SAFELY PERFORM PARACENTESIS.
[2021-07-14 13:57] VITALS: BP 130/71; PULSE 91; RESP 16; TEMP 36.8; O2SAT 96
[2021-07-14] MEDS: Ursodiol 250 MG Tablet 500 MG PO ×2 (13:58→21:09)
[2021-07-14] MEDS: Potassium Chloride Oral Tablet 20 MEQ 40 MEQ PO (13:58)
--- NOTE | 2021-07-14 17:47 | PN_ITS ---
Subjective Subjective Patient is feeling a little bit better. She did tolerated diet today. She is feeling very bloated. She had an ultrasound today. There was no fluid for paracentesis. Objective Data Objective Data Vital Signs: Vital Signs Temp Pulse Resp BP Pulse Ox 98.2 F 91 16 130/71 H 96 07/14/21 13:57 07/14/21 13:57 07/14/21 13:57 07/14/21 13:57 07/14/21 13:57 Oxygen Flow Rate (L/min) 2 Oxygen Delivery Method Room Air Weight: 159 lb 2.78 oz Body Mass Index (BMI) 28.5 Intake & Output: Intake and Output for Last 24 Hours 07/12/21 07/13/21 07/14/21 23:59 23:59 23:59 Intake Total 5987.3333 / 5987.3333 2832.33 / 2832.33 823.3333 / 823.3333 Balance 5987.3333 / 5987.3333 2832.33 / 2832.33 823.3333 / 823.3333 Lab / Micro Data Result Diagrams: 07/14/21 05:50 07/14/21 05:50 Labs: Laboratory Results - last 24 hr 07/14/21 05:50: WBC 6.3, RBC 2.75 L, Hgb 9.6 L, Hct 27.9 L, MCV 101.5 H, MCH 34.9 H, MCHC 34.4, RDW Std Deviation 51.3 H, RDW Coeff of Todd 14.0, Plt Count 180, MPV 10.3, Immature Gran % (Auto) 1.400 H, Neut % (Auto) 63.0, Lymph % (A uto) 26.1, [place] % (Auto) 7.6, Eos % (Auto) 1.6, Baso % (Auto) 0.3, Absolute Neuts (auto) 4.0, Absolute Lymphs (auto) 1.65, Nucleated RBC % 0, Anisocytosis 1+, Macrocytosis 1+ 07/14/21 05:50: Sodium 138, Potassium 3.5, Chloride 104, Carbon Dioxide 26.0, Anion Gap 8, BUN 9, Creatinine 0.53 L, Estim Creat Clear Calc 97.47, Est GFR (MDRD) Af Amer 150, Est GFR (MDRD) Non-Af 124, BUN/Creatinine Ratio 16.9, Glucose 77, Calcium 8.6, Magnesium 1.7, Total Bilirubin 2.90 H, AST 33, ALT 43, Alkaline Phosphatase 262 H, Total Protein 5.7 L, Albumin 2.2 L, Globulin 3.5, Albumin/Globulin Ratio 0.6 L 07/14/21 05:50: Phosphorus 3.7 07/14/21 05:50: PT 12.9, INR 1.0 Micro: Microbiology 07/12/21 09:44 Blood Culture (Wb) - Anticubital Left Blood Culture - Preliminary No growth in 48 hours. 07/12/21 09:44 Blood Culture (Wb) - Anticubital Right Blood Culture - Preliminary No growth in 48 hours. 07/13/21 06:45 Nasal Secretion SARS-CoV-2 Antigen (Rapid) - Final Radiography Diagnostic Testing: Radiology Impression Abdomen Ultrasound 07/14/21 12:00 IMPRESSION: Small amount of fluid in the right lower quadrant. Not enough fluid for safe paracentesis. Electronically Signed: Eliot Barroso MD at 14:11 EDT , Physical Exam Const alert General Appearance: cooperative Orientation / Consciousness: oriented to person HEENT hearing grossly normal bilaterally Head and Scalp: normal to inspection Face and Sinus: face symmetric Nose: external nose normal Mouth: oral and palatal mucosa normal Eyes conjunctivae normal General Eye: normal appearance of both eyes Neck full ROM General: normal visual inspection Lymph Lymphatic: no lymphadenopathy noted Chest inspection of chest normal and palpation of chest normal Chest: symmetrical chest wall rise Resp normal respiratory effort Effort and Inspection: able to speak in complete sentences Cardio regular rate GI non-distended Percussion: normal to percussion Rectal Exam: deferred Neuro Speech: speech normal Gait (Neuro): normal gait Assessment & Plan Assessment/Plan (1) Bile duct adenocarcinoma: PLAN: She is status post ERCP with stent removal and dilation along with cleaning out of the duct of tumor ingrowth. Her bilirubin is decreasing and her abdominal pain is a lot better. (2) Abdominal pain: QUALIFIERS: Abdominal location: generalized Qualified Code(s): R10.84 - Generalized abdominal pain PLAN: Her abdominal pain is multifactorial secondary to gastroparesis, bile duct cancer, lymphadenopathy and Billroth II procedure (3) Gastroparesis: PLAN: . Recommend to increase Reglan to 10 mg p.o. every 6 hours. I will also give her lactulose 20 cc a day to indirectly empty out her stomach. She will need to continue PPI therapy. May consider Questran also as an outpatient due to her persistent bile acid reflux and gastritis. (4) Pancreatitis: QUALIFIERS: Chronicity: acute Pancreatitis type: biliary Acute pancreatitis complication: no infection or necrosis Qualified Code(s): K85.10 - Biliary acute pancreatitis without necrosis or infection PLAN: Patient down to normal. Charges/Coding Visit Charges Inpatient E&M: 93884 Subs Hosp L3
[2021-07-14] MEDS: Sucralfate 1 GM Tablet PO (17:49)
[2021-07-14] MEDS: Lactulose 20 GM/30 ML UDC PO (19:00)
[2021-07-14] MEDS: Furosemide 20 MG Tablet PO (19:00)
[2021-07-14 20:00] VITALS: BP 119/62; PULSE 88; RESP 16; TEMP 37.3; O2SAT 94
[2021-07-14] MEDS: oxyCODONE 5 MG Tablet PO (21:07)
[2021-07-14] MEDS: IVOSIDENIB 500 MG PO (21:09)
[2021-07-14] MEDS: Magnesium Chloride 64 MG Delay Rel.Tablet 128 MG PO (21:09)
[2021-07-15 02:00] VITALS: BP 132/80; PULSE 86; RESP 16; TEMP 37; O2SAT 94
[2021-07-15] MEDS: 0.9% Saline Lock 10 ML Syringe IV ×2 (05:49→14:32)
[2021-07-15 06:01] LABS: Absolute Lymphocyte Count 0.92 X10^3/uL (0.83-4.51); Absolute Neutrophil Count 3.6 X10^3/uL (2.0-7.7); Basophil# 0.01 X10^3/uL; Basophil% 0.2 % (0-1); Hematocrit 27.6 % (37-47); Hemoglobin 9.5 g/dL (12.0-15.0); Lymphocyte # 0.92 X10^3/ul (0.83-4.51); Lymphocyte % 18.1 % (19-41); Mean Corp Hgb Conc 34.4 g/dL (32-36); Mean Corpuscular Hgb 35.3 pg (27.0-32.0); Mean Corpuscular Volume 102.6 fL (81-99); Mean Platelet Vol. 9.9 fl (6.2-12.0); Monocyte# 0.45 X10^3/uL; Monocyte% 8.9 % (0-10); NRBC Flagged by Analyzer 0 % (0-5); Neutrophil # 3.55 X10^3/uL (2.7-7.7); Neutrophil % 69.8 % (47-70); POSITIVE MORPHOLOGY YES; Platelet Count 167 K/mm3 (150-450); RBC Distribution Width CV 14.2 % (11.6-14.6); RBC Distribution Width SD 50.9 fl (35.1-43.9); Red Blood Count 2.69 M/mm3 (4.2-5.4); White Blood Count 5.1 K/mm3 (4.4-11.0)
[2021-07-15] MEDS: Sucralfate 1 GM Tablet PO (06:04)
[2021-07-15] MEDS: Metoclopramide 10 MG/2 ML Vial IV ×2 (06:04→11:47)
[2021-07-15 06:07] LABS: Differential Indicated SCAN CRITERIA MET
[2021-07-15 06:20] LABS: Macrocytosis 1+
[2021-07-15 06:34] LABS: ALB/GLOB Ratio 0.6 RATIO (0.9-2.4); AST(SGOT) 36 U/L (15-37); Alanine Aminotransfer ALT/SGPT 44 U/L (13-56); Albumin, Serum 2.3 g/dL (3.2-5.0); Alkaline Phosphatase 228 U/L (45-117); Anion Gap 8 (5-15); BUN 4 mg/dL (7-18); BUN/Creat Ratio 7.9 RATIO (10-20); Calcium,Total 8.2 mg/dL (8.5-10.1); Chloride 100 mmol/L (98-107); Creatinine, Serum 0.51 mg/dL (0.55-1.02); EST Glomerular Filtration Rate 132 mL/min (>60); Est Glom Filt Rate - Afr Amer 159 mL/min (>60); Globulin 3.7 g/dL (2.2-4.2); Glucose 112 mg/dL (74-106); Potassium 3.1 mmol/L (3.5-5.1); Sodium Level 136 mmol/L (136-145)
--- NOTE | 2021-07-15 07:34 | PN_ITS ---
Subjective Subjective Patient is actually doing very well today. She says this is the best that she has felt since her admission. She responded very well to diuretic therapy. She still is bloated but her shortness of breath is improved along with her lower extremity swelling. She denies any nausea. She would like to advance her diet. Objective Data Objective Data Vital Signs: Vital Signs Temp Pulse Resp BP Pulse Ox 98.6 F 86 16 132/80 H 94 07/15/21 02:00 07/15/21 02:00 07/15/21 02:00 07/15/21 02:00 07/15/21 02:00 Oxygen Flow Rate (L/min) 2 Oxygen Delivery Method Room Air Weight: 163 lb 2.273 oz Body Mass Index (BMI) 28.5 Intake & Output: Intake and Output for Last 24 Hours 07/13/21 07/14/21 07/15/21 23:59 23:59 23:59 Intake Total 2832.33 / 2832.33 1283.3333 / 1283.3333 50 / 50 Balance 2832.33 / 2832.33 1283.3333 / 1283.3333 50 / 50 Lab / Micro Data Result Diagrams: 07/15/21 05:55 07/15/21 05:55 Labs: Laboratory Results - last 24 hr 07/15/21 05:55: WBC 5.1, RBC 2.69 L, Hgb 9.5 L, Hct 27.6 L, MCV 102.6 H, MCH 35.3 H, MCHC 34.4, RDW Std Deviation 50.9 H, RDW Coeff of Todd 14.2, Plt Count 167, MPV 9.9, Immature Gran % (Auto) 1.000 H, Neut % (Auto) 69.8, Lymph % (Auto) 18.1 L, [place] % (Auto) 8.9, Eos % (Auto) 2.0, Baso % (Auto) 0.2, Absolute Neuts (auto) 3.6, Absolute Lymphs (auto) 0.92, Nucleated RBC % 0, Macrocytosis 1+ 07/15/21 05:55: Sodium 136, Potassium 3.1 L, Chloride 100, Carbon Dioxide 28.0, Anion Gap 8, BUN 4 L, Creatinine 0.51 L, Estim Creat Clear Calc 101.30, Est GFR (MDRD) Af Amer 159, Est GFR (MDRD) Non-Af 132, BUN/Creatinine Ratio 7.9 L, Glucose 112 H, Calcium 8.2 L, Total Bilirubin 2.30 H, AST 36, ALT 44, Alkaline Phosphatase 228 H, Total Protein 6.0 L, Albumin 2.3 L, Globulin 3.7, Albumin/Globulin Ratio 0.6 L Micro: Microbiology 07/12/21 09:44 Blood Culture (Wb) - Anticubital Left Blood Culture - Preliminary No growth in 48 hours. 07/12/21 09:44 Blood Culture (Wb) - Anticubital Right Blood Culture - Preliminary No growth in 48 hours. 07/13/21 06:45 Nasal Secretion SARS-CoV-2 Antigen (Rapid) - Final Radiography Diagnostic Testing: Radiology Impression Abdomen Ultrasound 07/14/21 12:00 IMPRESSION: Small amount of fluid in the right lower quadrant. Not enough fluid for safe paracentesis. Electronically Signed: Eliot Barroso MD at 14:11 EDT , Physical Exam Const alert General Appearance: cooperative Orientation / Consciousness: oriented to person HEENT hearing grossly normal bilaterally Head and Scalp: normal to inspection Face and Sinus: face symmetric Nose: external nose normal Mouth: oral and palatal mucosa normal Eyes conjunctivae normal General Eye: normal appearance of both eyes Neck full ROM General: normal visual inspection Lymph Lymphatic: no lymphadenopathy noted Chest inspection of chest normal and palpation of chest normal Chest: symmetrical chest wall rise Resp normal respiratory effort Effort and Inspection: able to speak in complete sentences Cardio regular rate GI non-distended Percussion: normal to percussion Rectal Exam: deferred Neuro Speech: speech normal Gait (Neuro): normal gait Assessment & Plan Assessment/Plan (1) Ascites: PLAN: There was no ascites to be tapped yesterday. I suspect that she is third spacing due to severe hypoalbuminemia associated with poor nutrition secondary to cholangiocarcinoma. (2) Jaundice: PLAN: Jaundice is resolving after getting metal stent removed along with dilation of common bile duct stricture due to ingrowth of current uncovered metal stent. She is on ursodiol will need to continue that as an outpatient twice a day. Would recommend that patient be on Reglan therapy but increase to 10 mg every 6 hours, lactulose 20 cc every other day, Protonix 40 mg a day. If patient tolerates a diet she can be discharged to home with close follow-up. She has a follow-up visit with oncology and 6 days. She can follow-up with me in 2 weeks in the office. (3) Acute pancreatitis: QUALIFIERS: Pancreatitis type: other Acute pancreatitis complication: unspecified Qualified Code(s): K85.80 - Other acute pancreatitis without necrosis or infection PLAN: Patient does not have any more signs or symptoms of pancreatitis. Recommended continued diet. Charges/Coding Visit Charges Inpatient E&M: 19500 Subs Hosp L2
[2021-07-15] MEDS: Potassium Chloride Oral Tablet 20 MEQ 40 MEQ PO (08:35)
[2021-07-15 08:39] VITALS: BP 129/70; PULSE 74; RESP 16; TEMP 37.2; O2SAT 98
--- NOTE | 2021-07-15 09:53 | PCM.DC ---
Discharge Instructions Diet Discharge Diet: No restrictions Activity Discharge Activity: Return to Normal Activity Dressing / Incision Call your doctor if you observe: Fever of 101 or Higher, Shortness of breath, Dizziness, Fainting spells, Swelling in the ankles, Chest pain and Increased palpitations (irregular heartbeat) Follow Up Care Test Results: Test results from this visit will be discussed in further detail at your follow-up appointment, if applicable. Discharge Plan Admission Admit Date/Time: 07/11/21 17:41 Attending Provider: Arnold Mead Primary Care Provider: Raji Mathis Consulting Providers: Nicanor Wilcox ; Mark Anthony Guzman ; Gracie Kearns ; Chris Johnson ; Manuel Napoles ; Adarsh Gonzales ; Tushar Sales ; Daly Brandt NP ; Ria Ballesteros ; Avi Jones Discharge Orders/Prescriptions Prescriptions: New ursodiol 250 mg Tablet 500 mg PO BID 30 Days Qty: 120 RF: 0 furosemide 20 mg Tablet 20 mg PO DAILY 30 Days Qty: 30 RF: 0 lactulose 20 gram/30 mL solution 20 g PO DAILY Qty: 1200 RF: 0 Continued omeprazole 40 mg capsule,delayed release(DR/EC) 40 mg PO DAILY Qty: 90 RF: 3 melatonin 3 MG tablet 3 mg PO QHS PRN (Reason: Sleep) RF: 0 ivosidenib 250 MG tablet 500 mg PO DAILY@2100 RF: 0 sucralfate [Carafate] 1 gram tablet 1 g PO BID Qty: 90 RF: 0 acetaminophen 500 mg Tablet 1,000 mg PO DAILY PRN (Reason: Pain) RF: 0 Changed metoclopramide HCl [Reglan] 5 mg tablet 10 mg PO Q6H Qty: 90 RF: 1 Discontinued levofloxacin 500 mg tablet 500 mg PO DAILY Qty: 5 RF: 0 Referrals / Follow Up: Mark Anthony Guzman MD [NON-STAFF] - Within 1 Week Raji Mathis MD [Primary Care Provider] - Within 1 Week Yamil David DO [STAFF PHYSICIAN] - Within 2 Weeks Disposition Disposition (needs filled in before D/C Order can be placed): Home, Self Care
--- NOTE | 2021-07-15 10:06 | DS.PCM_ITS ---
Providers Date of Admission: 07/11/21 Primary Care Physician: Dr. Raji Mathis MD Consultations 07/11/21 18:27 Consult: Gastroenterology Routine Consulting Provider: [facility] Reason for Consult: Metastatic cholangiocarcinoma stage IV w/ rising bili, ac [place] pancreatitis EMERGENT Consult: No Notified: Yes Date Notified: 07/11/21 Time Notified: 17:47 Method of Notification: called per ED. Consult: Oncology/Hematology Routine Consulting Provider: [facility] ([facility]) Reason for Consult: Metastatic cholangiocarcinoma stage IV w/ rising bilirubin/lipase EMERGENT Consult: No Notified: Yes Date Notified: 07/11/21 Time Notified: 17:46 Method of Notification: sent per Oncology for adm Reason For Visit: HYPERBILIRUBINEMIA, RECURRENT ACUTE PANCREATITIS Diagnosis Discharge Diagnosis (1) Ascites: Status: Acute Code(s): R18.8 - Other ascites (2) Jaundice: Status: Acute Code(s): R17 - Unspecified jaundice (3) Acute pancreatitis: Status: Acute Code(s): K85.90 - Acute pancreatitis without necrosis or infection, unspecified Qualifiers: Acute pancreatitis complication: unspecified Pancreatitis type: other Qualified Code(s): K85.80 - Other acute pancreatitis without necrosis or infection Medications at Discharge Home Medications melatonin 3 mg PO QHS PRN 04/05/20 ivosidenib 500 mg PO DAILY@2100 04/27/20 omeprazole 40 mg capsule,delayed release 40 mg PO DAILY #90 cap 06/29/21 sucralfate [Carafate] 1 g PO BID #90 tab 06/30/21 acetaminophen 1,000 mg PO DAILY PRN 07/07/21 furosemide 20 mg PO DAILY 30 Days #30 tab 07/15/21 lactulose 20 g PO DAILY #1200 ml 07/15/21 metoclopramide HCl [Reglan] 10 mg PO Q6H #90 tab 07/15/21 ursodiol 500 mg PO BID 30 Days #120 tab 07/15/21 Hospital Course Operations ERCP Procedures None Summary of Care Provided Minutes Spent on Discharge: 45 Hospital Course: Per HPI: The patient is a 60 y/o F w/ PMHx: Hx EtOH Abuse, GERD, Former tobacco use, Sarcoidosis, s/p Bilroth II, Stage IV metastatic cholangiocarcinoma following w/ Dr. Guzman, noted to have been recently discharged on 07/09/2021 following admission from 07/07/2021 until discharge treated for acute pancreatitis post ERCP complicated by stage IV cholangiocarcinoma with during that admission EGD with a fully covered 10 x [address] David with at that time bilirubin rising however other LFTs were de-escalating therefore at that time it was suspected that the stent had been at the level of the kathleen hepatis possibly obstructing the left right hepatic ducts or swelling from the new stent placement with plan repeat procedure for removal of the distal stent or replacement if further rise. Additionally during that procedure patient had a lot of food remnants in her stomach noted suspected secondary to gastroparesis secondary to Juve Moon to surgery therefore at that time she was placed on Reglan of note. The patient now re-presents to the [facility] ED on 07/11/21 with history of worsening jaundiced with follow-up 07/11/2021 with oncology with repeat labs with notable hypokalemia in addition to rising total bilirubin from prior prompting referral to the ED for evaluation. Patient denies any significant recurrent pain to the abdomen but does admit to bloating with no nausea or emesis associated with 2 bowel movements on day of presentation; however, on palpation patient has notable epigastric discomfort and some voluntary guarding. Patient denies any recent fevers or chills. She does report that the jaundice is improved from the day prior but still persistent. Recent outpatient 07/11/2021 CMP with potassium 2.6, glucose 125, total bilirubin increased to 7.80 from prior 07/09/2021 5.30, AST/ALT however decreased to 73/75 from prior 07/09/2021 AST/ALT 101/102, alk phos mildly increased 07/12/2019 2-21 from prior 07/09/2021 126, CRP 157, amylase 162, lipase 1468 from 07/08/2021 841. Work-up in the ED included T98.6, heart rate 94, BP 143/87, respiratory rate 18, 97% on room air, CT abdomen and pelvis with IV contrast and requested per ED physician and is pending. ED physician did discuss case with Dr. David. Hospital Course: 1. Metastatic cholangiocarcinoma stage IV complicated with an elevated bilirubin/gastroparesis/GERD?60-year-old female with stage IV cholangiocarcinoma had recently presented to the hospital with pancreatitis status post ERCP with stent placement. At that time her bilirubin was elevated to a little bit over 5 however she felt like she can go home and she wanted to go home. She presented back to the hospital after following up with oncology, repeat labs at that time demonstrated a climbing bilirubin as well as severe hypokalemia. She was admitted and had her repeat ERCP with stent removal and the duct was swept and cleared. Her bilirubin is significantly improved today down to 2.1. She continues to have what is felt to be gastroparesis so her Reglan regimen was increased. She was also started on lactulose. There is some concern for ascites as well as edema so she was also started on Lasix daily. I do recommend that she continue all these medications as an outpatient. I would recommend an outpatient CMP to monitor bilirubin as well as renal function on Sunday or Sunday of next week to make sure that we continue in the right direction. She did have significant hypokalemia as well as hypophosphatemia both of these were replaced and her phosphorus level was stable yesterday. Potassium was replaced again today but on discharge. We will continue with Reglan but increase the dose to 10 mg every 6 daily, lactulose will be given every other day and will continue with her PPI. I discussed with her the plan for discharge today and she expressed understanding of the risk benefits going home and would like to go home today. She states that she has tolerated her breakfast today and would be interested in going home if possible. Physical Exam Const alert, oriented x3 and no apparent distress General Appearance: cooperative HEENT normocephalic and moist oral mucous membranes Eyes PERRL, EOMs intact bilaterally and conjunctivae normal Eyes Narrative: Slight scleral icterus Neck supple and no JVD Resp normal respiratory effort, no retractions, no use of accessory muscles and clear to auscultation bilaterally Auscultation: Negative for crackles, rales, rhonchi or wheezes Cardio regular rate, regular rhythm, S1 normal heart sound, S2 normal heart sound and no murmurs GI soft to palpation, non-tender and non-distended; Negative for hepatosplenomegaly Extremity no clubbing, cyanosis or edema Skin no rashes or lesions noted Neuro no focal motor deficits and no sensory deficits noted Psych affect normal Appearance: appropriate Weight / BMI Weight Weight: 163 lb 2.273 oz Body Mass Index (BMI) 28.5 ABG / Lab / Microbiology Data Result Diagrams: 07/15/21 05:55 07/15/21 05:55 Laboratory: Laboratory Results - last 24 hr 07/15/21 05:55: WBC 5.1, RBC 2.69 L, Hgb 9.5 L, Hct 27.6 L, MCV 102.6 H, MCH 35.3 H, MCHC 34.4, RDW Std Deviation 50.9 H, RDW Coeff of Todd 14.2, Plt Count 167, MPV 9.9, Immature Gran % (Auto) 1.000 H, Neut % (Auto) 69.8, Lymph % (Auto) 18.1 L, Toombs % (Auto) 8.9, Eos % (Auto) 2.0, Baso % (Auto) 0.2, Absolute Neuts (auto) 3.6, Absolute Lymphs (auto) 0.92, Nucleated RBC % 0, Macrocytosis 1+ 07/15/21 05:55: Sodium 136, Potassium 3.1 L, Chloride 100, Carbon Dioxide 28.0, Anion Gap 8, BUN 4 L, Creatinine 0.51 L, Estim Creat Clear Calc 101.30, Est GFR (MDRD) Af Amer 159, Est GFR (MDRD) Non-Af 132, BUN/Creatinine Ratio 7.9 L, Glucose 112 H, Calcium 8.2 L, Total Bilirubin 2.30 H, AST 36, ALT 44, Alkaline Phosphatase 228 H, Total Protein 6.0 L, Albumin 2.3 L, Globulin 3.7, Albu min/Globulin Ratio 0.6 L Microbiology: Microbiology 07/12/21 09:44 Blood Culture (Wb) - Anticubital Left Blood Culture - Preliminary No growth in 48 hours. 07/12/21 09:44 Blood Culture (Wb) - Anticubital Right Blood Culture - Preliminary No growth in 48 hours. 07/13/21 06:45 Nasal Secretion SARS-CoV-2 Antigen (Rapid) - Final Radiography Diagnostic Testing: Radiology Impression Abdomen Ultrasound 07/14/21 12:00 IMPRESSION: Small amount of fluid in the right lower quadrant. Not enough fluid for safe paracentesis. Electronically Signed: Eliot Barroso MD at 14:11 EDT , D/C Instructions Discharge Diet: No restrictions Call your doctor if you observe: Fever of 101 or Higher, Shortness of breath, Dizziness, Fainting spells, Swelling in the ankles, Chest pain and Increased palpitations (irregular heartbeat) Meaningful Use Info Meaningful Use Diagnoses (Choose all that apply): None applicable Discharge Plan Admission Admit Date/Time: 07/11/21 17:41 Attending Provider: Arnold Mead Primary Care Provider: Raji Mathis Consulting Providers: Nicanor Wilcox ; Mark Anthony Guzman ; Gracie Kearns ; Chirs Johnson ; Manuel Napoles ; Adarsh Gonzales ; Tushar Sales ; Daly Brandt NP ; Ria Ballesteros ; Avi Jones Discharge Orders/Prescriptions Prescriptions: New ursodiol 250 mg Tablet 500 mg PO BID 30 Days Qty: 120 RF: 0 furosemide 20 mg Tablet 20 mg PO DAILY 30 Days Qty: 30 RF: 0 lactulose 20 gram/30 mL solution 20 g PO DAILY Qty: 1200 RF: 0 Continued omeprazole 40 mg capsule,delayed release(DR/EC) 40 mg PO DAILY Qty: 90 RF: 3 melatonin 3 MG tablet 3 mg PO QHS PRN (Reason: Sleep) RF: 0 ivosidenib 250 MG tablet 500 mg PO DAILY@2100 RF: 0 sucralfate [Carafate] 1 gram tablet 1 g PO BID Qty: 90 RF: 0 acetaminophen 500 mg Tablet 1,000 mg PO DAILY PRN (Reason: Pain) RF: 0 Changed metoclopramide HCl [Reglan] 5 mg tablet 10 mg PO Q6H Qty: 90 RF: 1 Discontinued levofloxacin 500 mg tablet 500 mg PO DAILY Qty: 5 RF: 0 Referrals / Follow Up: Mark Anthony Guzman MD [NON-STAFF] - Within 1 Week Raji Mathis MD [Primary Care Provider] - 07/21/21 4:20 pm FriendYamil DO [STAFF PHYSICIAN] - Within 2 Weeks Disposition Disposition (needs filled in before D/C Order can be placed): Home, Self Care Charges/Coding Visit Charges Inpatient E&M: 18382 Disch Hosp
[2021-07-15] MEDS: Ursodiol 250 MG Tablet 500 MG PO (10:09)
[2021-07-15] MEDS: Furosemide 20 MG Tablet PO (10:09)
[2021-07-15] MEDS: Lactulose 20 GM/30 ML UDC PO (10:09)
[2021-07-15] MEDS: Magnesium Chloride 64 MG Delay Rel.Tablet 128 MG PO (10:10)
[2021-07-15] MEDS: Potassium Chloride Oral Tablet 20 MEQ 60 MEQ PO (10:16)
--- NOTE | 2021-07-15 11:25 | CASEMGMT ---
MANOJ CM in to pt room, pt lying in bed, had been ambulating plasencia. Pt family member at bedside. Pt denies any homegoing needs at this time.
[2021-07-15 13:35] VITALS: BP 136/70; PULSE 93; RESP 16; TEMP 36.9; O2SAT 98
[2021-07-15 13:57] VITALS: O2SAT 91
== END 2021-07-15 14:40 | disposition home or self-care (01) | DRG 438 ==
LOC: ED 18:00 → MS3 18:12
PROVIDERS: Internal Medicine; Internal Medicine Gastroenterology; Admitting Provider Family Medicine; Emergency Provider Emergency Medicine; PCP Family Medicine; Visit Provider Family Medicine
PROC: 0F798ZZ Dilation of Common Bile Duct, Via Natural or Artificial Opening Endoscopic (ICD-10-PCS; CPT 43260; principal; 2021-07-13 12:10)
DX: K85.90 Acute pancreatitis without necrosis or infection, unspecified (principal); K83.1 Obstruction of bile duct; C78.5 Secondary malignant neoplasm of large intestine and rectum; J90 Pleural effusion, not elsewhere classified; R18.8 Other ascites; T85.520A Displacement of bile duct prosthesis, initial encounter; C22.1 Intrahepatic bile duct carcinoma; C78.7 Secondary malignant neoplasm of liver and intrahepatic bile duct; K21.9 Gastro-esophageal reflux disease without esophagitis; E87.6 Hypokalemia; K31.84 Gastroparesis; K29.70 Gastritis, unspecified, without bleeding; G89.3 Neoplasm related pain (acute) (chronic); Z87.891 Personal history of nicotine dependence; Z66 Do not resuscitate; Z79.899 Other long term (current) drug therapy
CPT/HCPCS: 36415; 36591; 74177; 74328; 76000; 76705; 80053; 82150; 82977; 83690; 83735; 84100; 85025; 85610; 85652; 86140; 87040; 87426; 93005; 97802; 99251; 99285; J7030; J7040; J7120; Q9967; A4216; G0463; J1940; J2405

== ENCOUNTER → 2021-07-21 | Outpatient (CLI) | payer OTHER, SELFPAY ==
[2020-03-18 13:58] VITALS: BMI 29.2
[2021-07-21 17:47] LABS: Absolute Lymphocyte Count 1.09 X10^3/uL (0.83-4.51); Absolute Neutrophil Count 2.4 X10^3/uL (2.0-7.7); Basophil# 0.02 X10^3/uL; Basophil% 0.5 % (0-1); Eosinophil# 0.05 X10^3/uL; Eosinophils% 1.3 % (0-5); Hematocrit 31.1 % (37-47); Hemoglobin 10.2 g/dL (12.0-15.0); Lymphocyte # 1.09 X10^3/ul (0.83-4.51); Lymphocyte % 28.3 % (19-41); Mean Corp Hgb Conc 32.8 g/dL (32-36); Mean Corpuscular Hgb 35.4 pg (27.0-32.0); Mean Platelet Vol. 10.2 fl (6.2-12.0); Monocyte# 0.32 X10^3/uL; Monocyte% 8.3 % (0-10); NRBC Flagged by Analyzer 0 % (0-5); Neutrophil # 2.35 X10^3/uL (2.7-7.7); Neutrophil % 61.1 % (47-70); POSITIVE MORPHOLOGY YES; Platelet Count 269 K/mm3 (150-450); RBC Distribution Width CV 14.2 % (11.6-14.6); RBC Distribution Width SD 55.2 fl (35.1-43.9); Red Blood Count 2.88 M/mm3 (4.2-5.4); White Blood Count 3.9 K/mm3 (4.4-11.0)
[2021-07-21 17:55] LABS: ALB/GLOB Ratio 0.8 RATIO (0.9-2.4); AST(SGOT) 20 U/L (15-37); Alanine Aminotransfer ALT/SGPT 26 U/L (13-56); Albumin, Serum 3.2 g/dL (3.2-5.0); Alkaline Phosphatase 153 U/L (45-117); Anion Gap 4 (5-15); BUN 9 mg/dL (7-18); BUN/Creat Ratio 14.1 RATIO (10-20); Calcium,Total 9.3 mg/dL (8.5-10.1); Chloride 105 mmol/L (98-107); Creatinine, Serum 0.64 mg/dL (0.55-1.02); EST Glomerular Filtration Rate 100 mL/min (>60); Est Glom Filt Rate - Afr Amer 121 mL/min (>60); Globulin 4.2 g/dL (2.2-4.2); Glucose 109 mg/dL (74-106); Potassium 3.5 mmol/L (3.5-5.1); Protein, Total 7.4 g/dL (6.4-8.2); Sodium Level 138 mmol/L (136-145)
[2021-07-21 18:11] LABS: Differential Indicated SCAN CRITERIA MET
[2021-07-21 18:46] LABS: Differential Comment SCANNED; Reactive Lymphocyte 1+
[2021-07-22 13:27] LABS: Pathologist Review Reviewed
== END | disposition home or self-care (01) ==
LOC: MFPLAB 15:13
PROVIDERS: PCP Family Medicine; Visit Provider Family Medicine
DX: C22.1 Intrahepatic bile duct carcinoma (principal)
CPT/HCPCS: 36415; 80053; 85025

== ENCOUNTER 2021-09-13 12:43 | Emergency (ER) | payer OTHER, SELFPAY ==
[2020-03-18 13:58] VITALS: BMI 29.2
[2021-09-13 12:43] VITALS: BP 147/75; PULSE 104; RESP 16; TEMP 36.9; O2SAT 99; BMI 25.1
--- NOTE | 2021-09-13 13:21 | EKG12_ITS ---
Test Reason : GENERAL ILLNESS Blood Pressure : / mmHG Vent. Rate : 088 BPM Atrial Rate : 088 BPM P-R Int : 136 ms QRS Dur : 088 ms QT Int : 380 ms P-R-T Axes : 024 039 015 degrees QTc Int : 459 ms Normal sinus rhythm Incomplete right bundle branch block Confirmed by QUETA MANRIQUE, RONAK ([id number]), editor index RENATO GARNETT ([id number]) on 09/15/2021 8:59:44 AM Referred By: OLEKSANDR Confirmed By:RONAK BIRCH MD
[2021-09-13] MEDS: 0.9% Normal Saline 1,000 ML 150 ML IV (13:29)
[2021-09-13] MEDS: proMETHazine 25 MG/ML Syringe 12.5 MG IM (13:30)
[2021-09-13 13:40] LABS: Absolute Lymphocyte Count 0.75 X10^3/uL (0.83-4.51); Absolute Neutrophil Count 3.1 X10^3/uL (2.0-7.7); Basophil# 0.01 X10^3/uL; Basophil% 0.2 % (0-1); Eosinophil# 0.08 X10^3/uL; Eosinophils% 1.9 % (0-5); Hematocrit 28.9 % (37-47); Hemoglobin 9.3 g/dL (12.0-15.0); Lymphocyte # 0.75 X10^3/ul (0.83-4.51); Lymphocyte % 17.8 % (19-41); Mean Corp Hgb Conc 32.2 g/dL (32-36); Mean Corpuscular Hgb 33.7 pg (27.0-32.0); Mean Corpuscular Volume 104.7 fL (81-99); Mean Platelet Vol. 11.1 fl (6.2-12.0); Monocyte# 0.26 X10^3/uL; Monocyte% 6.2 % (0-10); NRBC Flagged by Analyzer 0 % (0-5); Neutrophil % 73.4 % (47-70); POSITIVE COUNT YES; Platelet Count 80 K/mm3 (150-450); RBC Distribution Width CV 14.7 % (11.6-14.6); RBC Distribution Width SD 54.2 fl (35.1-43.9); Red Blood Count 2.76 M/mm3 (4.2-5.4); White Blood Count 4.2 K/mm3 (4.4-11.0)
[2021-09-13 13:42] LABS: Differential Indicated SCAN CRITERIA MET
[2021-09-13 13:52] LABS: AST(SGOT) 22 U/L (15-37); Alanine Aminotransfer ALT/SGPT 26 U/L (13-56); Albumin, Serum 2.9 g/dL (3.2-5.0); Alkaline Phosphatase 124 U/L (45-117); Anion Gap 7 (5-15); BUN 10 mg/dL (7-18); BUN/Creat Ratio 15.2 RATIO (10-20); Bilirubin, Direct 0.15 mg/dL (0.00-0.30); Calcium,Total 8.8 mg/dL (8.5-10.1); Chloride 109 mmol/L (98-107); Creatinine, Serum 0.66 mg/dL (0.55-1.02); EST Glomerular Filtration Rate 97 mL/min (>60); Est Glom Filt Rate - Afr Amer 117 mL/min (>60); Estimated Creatinine Clearance 74.05 ml/min; Globulin 3.6 g/dL (2.2-4.2); Glucose 119 mg/dL (74-106); Lipase 75 U/L (73-393); Potassium 3.3 mmol/L (3.5-5.1); Protein, Total 6.5 g/dL (6.4-8.2); Sodium Level 141 mmol/L (136-145)
--- NOTE | 2021-09-13 14:02 | CT_ITS ---
STUDY: CT ABDOMEN AND PELVIS WITH CONTRAST REASON FOR EXAM: Female, 61 years old. Abdominal pain. History of cholangiocarcinoma. RADIATION DOSAGE (If Supplied By Facility): CTDIvol = ( 11.42 ) mGy, DLP = ( 650.30 ) mGycm TECHNIQUE: Transaxial images were obtained from the dome of the diaphragm to the symphysis pubis without oral contrast. IV 100mL Isovue-300 was administered. Sagittal and coronal images were reconstructed. Individualized dose optimization techniques were used for this CT. COMPARISON: Comparison is made with prior study dated 07/11/2021. FINDINGS: A portacatheter seen within the superior vena cava. Diffuse ascites. The visualized lung bases are unremarkable. The visualized portions of the heart are within normal limits. Pneumobilia. A biliary stent is seen within the common bile duct. The distal tip is within the second portion of the duodenum. The patient is status post cholecystectomy. Stable soft tissue prominence in the kathleen hepatis. Normal spleen. Normal pancreas. Normal bilateral adrenal glands. Normal right kidney. 2 cm cyst in the upper pole of the left kidney. There is a small hiatal hernia. Normal small intestine. Normal colon. The appendix is visualized and appears normal. Normal abdominal aorta. Normal inferior vena cava. Normal retroperitoneum. Normal urinary bladder. Enlarged calcified fibroid uterus. Normal abdominal wall. There are degenerative changes of the visualized lumbar spine. CT/Abdomen/Pelvis W IV Cont ONLY IMPRESSION: Diffuse ascites. Status post common bile duct stent with the pneumobilia. The patient is status post cholecystectomy. Electronically Signed: Eliot Barroso MD at 14:40 EDT ,
[2021-09-13 14:26] LABS: Platelet Estimate MOD DEC (ADEQ)
--- NOTE | 2021-09-13 14:41 | EDS_ITS ---
HPI History of Present Illness Chief Complaint: General Illness Detail of Chief Complaint: I feel awful Informant: patient Onset/Context/Timing Onset: Days Context: Gradual Onset Current Severity: Mild Maximum Severity: Moderate Narrative Narrative: Patient presents reporting that she just does not feel well in general. She reports increased abdominal pain of the past several days. It is generalized in location. She reports nausea and vomiting today. She has had chills but no fever. Past history is significant for cholangiocarcinoma. She is currently on chemotherapy and is scheduled for her next treatment tomorrow. She does have a biliary stent in place. [facility] Medical History Alcohol use Cancer Cardiology follow-up encounter Cholangiocarcinoma Encounter for monitoring cardiotoxic drug therapy Former smoker Gastric reflux Gastroparesis GERD (gastroesophageal reflux disease) Palpitations Post-menopausal Sarcoidosis Wears glasses Home Medications melatonin 3 mg tablet 3 mg PO QHS PRN Sleep 04/05/20 [History Last Taken 07/10/21] omeprazole 40 mg capsule,delayed release 40 mg PO DAILY #90 caps 06/29/21 [Rx La st Taken 07/11/21] acetaminophen 500 mg tablet 1,000 mg PO DAILY PRN Pain 07/07/21 [History Last Taken 07/10/21] ondansetron 4 mg disintegrating tablet 4 mg PO Q8H PRN nausea and vomiting #30 tabs 07/18/21 [Rx Last Taken Unknown] promethazine 25 mg tablet 25 mg PO TID PRN nausea and vomiting #14 tabs 09/13/21 [Rx Last Taken Unknown] Allergy/AdvReac Type Severity Reaction Status Date / Time No Known Allergies Allergy Verified 09/13/21 12:46 Family History Father Diabetes Heart disease Myocardial infarction, Onset Age: 75 Cancer leukemia, basal cell carcinoma Mother Multiple sclerosis Sister Basal cell carcinoma Surgical History History of esophagogastroduodenoscopy (EGD) History of laparoscopy History of tooth extraction S/P ERCP Social History housing: house number of children: 2 current occupational status: employed 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 current occupational exposures/hazards: Yes (communicable diseases) pets and animals: Yes (two dogs, two cats) Smoking Status: Former smoker alcohol intake: current alcohol intake frequency: a few times a week Alcohol type: beer details: social substance use type: does not use caffeine: Yes what type of physical activity do you participate in: walking seatbelt use: always do you feel safe at home: Yes additional social history: - 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 ROS ROS ED Constitutional Constitutional ED: Reports chills; Denies fever(s) Eyes Eyes: Denies change in vision or discharge from eye(s) ENT ENT ED: Denies discharge from eye(s), rhinorrhea or sore throat Cardiovascular Cardiovascular: Denies chest pain or palpitations Respiratory/Chest Respiratory/Chest: Denies cough or dyspnea Gastrointestinal Gastrointestinal: Reports abdominal pain, nausea and vomiting; Denies diarrhea Genitourinary Genitourinary ED: Denies difficulty urinating or dysuria Musculoskeletal Musculoskeletal: Denies back pain or extremity pain Integumentary Denies Abrasions or rash Neurologic Neurologic: Reports weakness; Denies headache(s) Psychiatric Psychiatric: Denies anxiety or depression Allergic/Immunologic Allergic/Immunologic ED: Denies lip swelling or urticaria EXAM Physical Exam Const Vital Signs: 09/13/21 12:43 09/13/21 13:08 09/13/21 15:06 Temperature 98.5 F Temperature Source Temporal Pulse Rate 104 H 82 Respiratory Rate 16 17 Respiratory Effort Normal Non-Labored Respiratory Pattern Normal Blood Pressure 147/75 H 122/73 H Blood Pressure Mean 99 89 Pulse Ox 99 97 Oxygen Delivery Method Room Air Positive well nourished and well developed General Appearance ED: well developed HEENT Reports normocephalic and head/scalp atraumatic Eyes PERRL and EOMs intact bilaterally Neck supple Chest Wall inspection of chest normal and palpation of chest normal Resp normal respiratory effort and clear to auscultation bilaterally Cardio regular rate and regular rhythm GI GI Narrative: Abdomen is soft but distended. Hypoactive bowel sounds are noted. Palpation: soft Extremity normal to inspection Neuro oriented x3 and no sensory deficits noted Sensorium / Orientation: alert Motor Exam: strength 5/5 throughout Psych mental status grossly normal Skin no rashes or lesions noted MDM MDM MDM Narrative Medical decision making narrative: EKG, lab work, CT abdomen pelvis with IV contrast ordered. Patient given Phenergan for nausea. Lab Data Attestation: I reviewed the patient's lab results. Labs: Laboratory Results - last 24 hr 09/13/21 09/13/21 13:30 13:30 WBC 4.2 L RBC 2.76 L Hgb 9.3 L Hct 28.9 L MCV 104.7 H MCH 33.7 H MCHC 32.2 RDW Std Deviation 54.2 H RDW Coeff of Todd 14.7 H Plt Count 80 L MPV 11.1 Immature Gran % (Auto) 0.500 Neut % (Auto) 73.4 H Lymph % (Auto) 17.8 L Faulkner % (Auto) 6.2 Eos % (Auto) 1.9 Baso % (Auto) 0.2 Absolute Neuts (auto) 3.1 Absolute Lymphs (auto) 0.75 L Nucleated RBC % 0 Platelet Estimate MOD DEC Sodium 141 Potassium 3.3 L Chloride 109 H Carbon Dioxide 25.0 Anion Gap 7 BUN 10 Creatinine 0.66 Estim Creat Clear Calc 74.05 Est GFR (MDRD) Af Amer 117 Est GFR (MDRD) Non-Af 97 BUN/Creatinine Ratio 15.2 Glucose 119 H Calcium 8.8 Total Bilirubin 0.60 Direct Bilirubin 0.15 AST 22 ALT 26 Alkaline Phosphatase 124 H Total Protein 6.5 Albumin 2.9 L Globulin 3.6 Lipase 75 Radiography Diagnostic Testing: Clinical Impression(s) from Imaging Studies Abdomen/Pelvis CT 09/13/21 14:02 IMPRESSION: Diffuse ascites. Status post common bile duct stent with the pneumobilia. The patient is status post cholecystectomy. Electronically Signed: Eliot Barroso MD at 14:40 EDT , EKG Initial EKG: Attestation: I personally reviewed and interpreted this EKG as follows: Interpretation: Sinus Rhythm (Sinus 88 with no acute ischemia.) Treatment and Re-Evaluation Narrative: Evaluation patient resting comfortably. She is sleepy from the Phenergan but states her nausea is significantly improved. Lab work is reviewed. White count is low at 4.2 consistent with her prior values. Platelet count is 80,000. Chemistry studies largely unremarkable. LFTs are at baseline with no significant elevation in her bilirubin levels. CT scan shows diffuse ascites. She has a common bile duct stent. It does appear the patient had an ultrasound in July for a paracentesis but there was not a pocket of fluid amenable to drainage at that time. It does appear that her ascites is increased. I spoke with Daly Brandt, nurse practitioner for oncology. Patient is scheduled to see her tomorrow. I have dated her with the patient's presentation. She would like to see the patient in the office tomorrow even if she is not feeling well enough to undergo her chemotherapy treatment. She will schedule the patient for an outpatient paracentesis. Patient will be given prescription for Phenergan to use at home if Zofran is not helping her nausea. Discharge Plan Triage Chief Complaint: General Illness ED Provider: Drea Hamilton Dx/Rx/DC Orders Clinical Impression: Vomiting, Abdominal pain Instructions: ED Abdominal Pain Unkn Cause Fem, ED Vomiting (Adult) Prescriptions: New promethazine 25 mg tablet 25 mg PO TID PRN (Reason: nausea and vomiting) Qty: 14 0RF No Action omeprazole 40 mg capsule,delayed release(DR/EC) 40 mg PO DAILY Qty: 90 3RF ondansetron 4 mg tablet,disintegrating 4 mg PO Q8H PRN (Reason: nausea and vomiting) Qty: 30 0RF melatonin 3 MG tablet 3 mg PO QHS PRN (Reason: Sleep) acetaminophen 500 mg Tablet 1,000 mg PO DAILY PRN (Reason: Pain) Primary Care Provider: Raji Mathis Referrals: Raji Mathis MD [Primary Care Provider] - Daly Brandt RECEIVABLE MANAGER, RECEIVABLE MANAGER-C [Nurse Practitioner] - 1 Day Disposition Disposition: Home, Self Care
[2021-09-13 15:06] VITALS: BP 122/73; PULSE 82; RESP 17; O2SAT 97
[2021-09-13 16:10] VITALS: BP 109/60; PULSE 82; RESP 16
== END 2021-09-13 16:14 | disposition home or self-care (01) ==
PROVIDERS: Emergency Provider Emergency Medicine; PCP Family Medicine; Visit Provider Emergency Medicine
DX: R11.2 Nausea with vomiting, unspecified (principal); R68.83 Chills (without fever); R10.9 Unspecified abdominal pain; Z87.891 Personal history of nicotine dependence
CPT/HCPCS: 36591; 74177; 80048; 80076; 83690; 85025; 93005; 96360; 96361; 96372; 99283; J7030; Q9967; A4216

== ENCOUNTER → 2021-09-15 | Outpatient (CLI) | payer OTHER, SELFPAY ==
[2020-03-18 13:58] VITALS: BMI 29.2
--- NOTE | 2021-09-15 13:58 | US_ITS ---
STUDY: ABDOMINAL ULTRASOUND - ascites survey. REASON FOR VISIT: Female, 61 years old ASCITES; H/O CHOLANGIOCARCINOMA TECHNIQUE: Ultrasound evaluation of the right upper quadrant was performed with real-time and static mcclelland-scale imaging. TECHNICAL QUALITY: Adequate. COMPARISON: None. FINDINGS: Small amount of ascites seen in the right lower quadrant. Not enough fluid for safe paracentesis. US/Abdomen Limited IMPRESSION: Not enough fluid for safe paracentesis. Electronically Signed: Eliot Barroso MD at 14:58 EDT ,
[2021-09-15 14:24] VITALS: BP 130/77; PULSE 103; RESP 16; O2SAT 97
[2021-09-15] MEDS: 0.9% Saline Lock 10 ML Syringe IV (14:24)
[2021-09-15 14:32] LABS: Absolute Lymphocyte Count 0.94 X10^3/uL (0.83-4.51); Absolute Neutrophil Count 1.8 X10^3/uL (2.0-7.7); Eosinophil# 0.11 X10^3/uL; Eosinophils% 3.6 % (0-5); Hematocrit 27.2 % (37-47); Hemoglobin 8.9 g/dL (12.0-15.0); Lymphocyte # 0.94 X10^3/ul (0.83-4.51); Lymphocyte % 30.5 % (19-41); Mean Corp Hgb Conc 32.7 g/dL (32-36); Mean Corpuscular Hgb 34.2 pg (27.0-32.0); Mean Corpuscular Volume 104.6 fL (81-99); Mean Platelet Vol. 10.5 fl (6.2-12.0); Monocyte# 0.25 X10^3/uL; Monocyte% 8.1 % (0-10); NRBC Flagged by Analyzer 0 % (0-5); Neutrophil # 1.78 X10^3/uL (2.7-7.7); Neutrophil % 57.8 % (47-70); POSITIVE COUNT YES; POSITIVE MORPHOLOGY YES; Platelet Count 93 K/mm3 (150-450); RBC Distribution Width SD 55.2 fl (35.1-43.9); White Blood Count 3.1 K/mm3 (4.4-11.0)
[2021-09-15 14:33] LABS: Differential Indicated SCAN CRITERIA MET
[2021-09-15 14:50] LABS: Partial Thromboplast Time 26.5 Seconds (24.1-36.2)
[2021-09-15 15:05] LABS: Vitamin B12 289 pg/mL (211-911)
[2021-09-15 15:06] LABS: Platelet Estimate MOD DEC (ADEQ); Reactive Lymphocyte RARE; Thyroid Stim Hormone (TSH) 3.14 uIU/mL (0.358-3.74)
== END | disposition home or self-care (01) ==
PROVIDERS: PCP Family Medicine; Referring Provider Nurse Practitioner Family; Visit Provider Nurse Practitioner Family
DX: R18.8 Other ascites (principal); C22.1 Intrahepatic bile duct carcinoma; D53.9 Nutritional anemia, unspecified
CPT/HCPCS: 76705; 82607; 82746; 84443; 85025; 85610; 85730; A4216

== ENCOUNTER → 2021-10-17 | Outpatient (CLI) | payer OTHER, SELFPAY ==
[2020-03-18 13:58] VITALS: BMI 29.2
--- NOTE | 2021-10-17 08:03 | CT_ITS ---
HISTORY: ASSESS TREATMENT RESPONSE-IV ONLY-BILE DUCT CA. TECHNIQUE: Helically acquired images were obtained of the chest, abdomen, and pelvis after the intravenous administration of 100mL Isovue-300. No oral contrast was administered. 2-D reformatted images provided. A radiation dose optimization technique was used for this scan. 1173 images. COMPARISON: CT 09/13/2021, PET-CT 07/27/2021. FINDINGS: ----Chest: LARGE AIRWAYS: Patent. LUNGS: Small calcified right upper lobe granuloma is again seen. Small right minor fissural scar. Mild linear right middle lobe scarring. No new suspicious nodule or acute alveolar consolidation. Decreased appearance of air trapping. PLEURA: No pneumothorax or significant pleural effusion. HEART AND PERICARDIUM: Heart within normal limits in size. No significant pericardial effusion. VESSELS: No thoracic aortic aneurysm or dissection flap. Mild atherosclerosis. No large central central pulmonary embolism although study not performed with the pulmonary embolism protocol. Right chest wall port with catheter tip at the junction of the superior vena cava and right atrium. MEDIASTINUM AND MAXX: 11 mm left supraclavicular lymph node, similar to prior. Small bilateral axillary lymph nodes again seen. Stable small mediastinal and right hilar lymph nodes. BONES: Stable small sclerotic foci in the T1 and T2 vertebrae. ----Abdomen/Pelvis: BOWEL: Bowel nondilated. Thickening of the distal gastric wall. Diffuse thickening or edema of small bowel wall. Moderate stool in colon. PERITONEUM: Mild free fluid, decreased from prior. Generalized intra-abdominal edema. Omental and peritoneal nodularity measuring up to 1.5 x 1.8 cm adjacent to the transverse colon, previously 1.4 x 2.2 cm. Ill-defined small nodules or peritoneal lymph nodes in the gastrohepatic region, mesenteric root, and retroperitoneum again seen. Limited evaluation due to lack of oral contrast. LIVER: Ill-defined mass with scarring in the central liver in the region of the gallbladder fossa and extending to the kathleen hepatis with narrowing of the right portal vein. BILIARY TREE: Chronic intrahepatic and extrahepatic pneumobilia with mild biliary ductal dilatation. Biliary stent again noted. SPLEEN: Homogeneous and not enlarged. PANCREAS: Borderline dilated proximal pancreatic duct. KIDNEYS: No hydronephrosis. Stable small left renal cyst. ADRENAL GLANDS: No nodules. VESSELS: No abdominal aortic aneurysm. Mild atherosclerosis. PELVIC ORGANS: Calcified uterine leiomyomata. BONES: Degenerative changes without suspicious osteoblastic or osteolytic lesion. CT/CT Chest, Abd, Pel w/Contrast IMPRESSION: No significant interval change in small left supraclavicular, biaxillary, mediastinal, and right hilar lymphadenopathy which were metabolically active on prior PET/CT. Stable small sclerotic foci in the T1 and T2 vertebrae. Gastric and small bowel wall thickening or edema. Decreased malignant ascites. No significant interval progression of omental and peritoneal metastases, although limited examination due to lack of oral contrast. Chronic pneumobilia with mild biliary ductal dilatation and ill-defined mass in the kathleen hepatis/central liver. Electronically Signed: Vivien Ferguson MD at 9:27 EDT ,
[2021-10-17] MEDS: 0.9% Saline Lock 10 ML Syringe IV (08:35)
== END | disposition home or self-care (01) ==
LOC: CT 08:03
PROVIDERS: PCP Family Medicine; Referring Provider Internal Medicine Medical Oncology; Visit Provider Internal Medicine Medical Oncology
DX: C24.0 Malignant neoplasm of extrahepatic bile duct (principal); R18.0 Malignant ascites; R59.0 Localized enlarged lymph nodes
CPT/HCPCS: 71260; 74177; Q9967; A4216

== ENCOUNTER → 2022-02-09 | Outpatient (CLI) | payer OTHER, SELFPAY ==
[2020-03-18 13:58] VITALS: BMI 29.2
--- NOTE | 2022-02-09 11:35 | RAD_ITS ---
STUDY: X-RAY - ABDOMEN/PELVIS REASON FOR EXAM: Female, 61 years old. Bile duct cancer. Pain. TECHNIQUE: Single AP view of the abdomen / pelvis on 2 images. COMPARISON: None. FINDINGS: Normal visualized lung bases. There is an unremarkable bowel gas pattern. There is no demonstrated free abdominal air. The visualized liver, spleen and kidneys are grossly normal in size and morphology. Graft in right upper quadrant with intrahepatic air, likely from graft placement. Calcified uterine fibroid. Normal visualized osseous structures. RAD/Abdomen Single View IMPRESSION: No acute abnormality of the lower chest, abdomen or pelvis Electronically Signed: Rosendo Crews, at 13:31 EST ,
--- NOTE | 2022-02-09 11:35 | RAD_ITS ---
STUDY: X-RAY CHEST REASON FOR EXAM: Female, 61 years old. Bile duct cancer. TECHNIQUE: Frontal and lateral views of the chest. COMPARISON: January 31, 2021. FINDINGS: Stable right internal jugular catheter with tip projected over the mid-SVC. The lungs are clear and expanded. There is no demonstrated pleural abnormality. Mild cardiomegaly unchanged. Normal mediastinum and aurelio. Normal visualized pulmonary arteries. Normal visualized aortic arch and descending thoracic aorta. Normal visualized thoracic spine. Normal visualized ribs, clavicles, and shoulders. There is no demonstrated abnormality of the visualized soft tissue structures of the upper abdomen. RAD/Chest PA and Lateral IMPRESSION: Stable chest with no acute or active cardiopulmonary disease. Electronically Signed: Rosendo Crews, at 12:18 EST ,
== END | disposition home or self-care (01) ==
LOC: RAD 11:32
PROVIDERS: PCP Family Medicine; Referring Provider Internal Medicine Medical Oncology; Visit Provider Internal Medicine Medical Oncology
DX: C22.1 Intrahepatic bile duct carcinoma (principal); G89.3 Neoplasm related pain (acute) (chronic); R11.10 Vomiting, unspecified
CPT/HCPCS: 71046; 74018

== ENCOUNTER → 2022-02-10 | Outpatient (CLI) | payer OTHER, SELFPAY ==
[2020-03-18 13:58] VITALS: BMI 29.2
== END | disposition home or self-care (01) ==
LOC: PSN 08:34
PROVIDERS: PCP Family Medicine; Visit Provider Internal Medicine Medical Oncology
DX: Z51.11 Encounter for antineoplastic chemotherapy (principal); C22.1 Intrahepatic bile duct carcinoma; Z51.81 Encounter for therapeutic drug level monitoring; Z79.899 Other long term (current) drug therapy
CPT/HCPCS: 93005

== ENCOUNTER → 2022-03-01 | Outpatient (CLI) | payer OTHER, SELFPAY ==
[2020-03-18 13:58] VITALS: BMI 29.2
--- NOTE | 2022-03-01 11:36 | US_ITS ---
PROCEDURE: Ultrasound guided paracentesis. DATE OF EXAMINATION: 03/01/2022. INDICATION: Female, 61 years old. Ascites. PHYSICIAN: Eliot Barroso M.D. TECHNIQUE: The risks, benefits, and alternatives to the procedure were explained to the patient. The specific risks of bleeding, infection, and damage to bowel were detailed and accepted. Witnessed informed consent was obtained. The abdomen was ultrasonographically surveyed. An appropriate pocket of fluid was identified at the left lower quadrant. The skin were cleaned and prepped in the usual sterile fashion. Using ultrasound guidance, the peritoneal cavity was accessed with a 5-Thai paracentesis needle/catheter system. The trocar was removed. A total of 4800 ml of christine-colored fluid were removed from the peritoneal cavity. A 100 mL sample was sent to the laboratory for analysis. The catheter was removed and a sterile dressing was applied. The procedure was well tolerated. US/Paracentesis with US IMPRESSION: Ultrasound guided paracentesis. Electronically Signed: Eliot Barroso MD at 13:01 EST ,
[2022-03-01 12:08] VITALS: BP 113/64; BP 114/66; BP 117/70; PULSE 108; PULSE 95; PULSE 99; RESP 16; O2SAT 96; O2SAT 97; O2SAT 98
[2022-03-01] MEDS: Lidocaine 1% (20 ml mdv) 20 ML Vial INFILT (12:10)
--- NOTE | 2022-03-01 12:15 | FLU_PTH ---
PATIENT: RUDY SCHWARZ LOC: [facility]#:[id number] AGE/SX: 61/F ROOM: RE03/01/[address]: Dr. Mark Anthony Guzman MD : 1960 BED: DIS: 03/01/2022 SPEC #: [id number] RECD: 03/01/22 12:47 STATUS: PAVAN REMauricio #: [id number] LINDA: 03/01/22 12:[address]: Mark Anthony Guzman DEPT: CYTOLOGY RECD BY: Kenyetta Mcguire ENTERED: 03/01/22 13:19 SP TYPE: Fluid OTHR DR: Dr. Raji Mathis MD Tissues: PARACENTESIS FLUID Procedures: Special Stain Group II Surgery Specimen Level IV Cytospin Fluid HEADER OPERATION: Ultrasound-guided paracentesis PRE-OP DIAGNOSIS: Ascites, intrahepatic bile duct carcinoma TISSUE SUBMITTED: Paracentesis fluid for cytology DIAGNOSIS CYTOLOGY Paracentesis fluid for cytology (cytospin and cell block): Negative for malignant cells. See comment. SJ:nithin 03/02/2022 COMMENT Correlation with clinical, radiologic findings and appropriate follow up are necessary. CYTOLOGY STUDY Slides are reviewed. CYTOLOGY GROSS Received is 50 ml of yellow cloudy fluid labeled with the patient's name and and designated per the requisition as paracentesis. Submitted for cytology preparation including cell block. / nithin 03/01/2022 TC:5 CPT: 25360, 87881
[2022-03-01 12:53] LABS: Cytology, Body Fluid / CSF SEE PATHOLOGY REPORT
== END | disposition home or self-care (01) ==
PROVIDERS: PCP Family Medicine; Referring Provider Internal Medicine Medical Oncology; Visit Provider Internal Medicine Medical Oncology
DX: R18.8 Other ascites (principal); C22.1 Intrahepatic bile duct carcinoma; R14.0 Abdominal distension (gaseous)
CPT/HCPCS: 49083; 88108; 88305; 88313

== ENCOUNTER 2022-03-10 17:56 | Inpatient (IN) | payer OTHER, SELFPAY ==
[2020-03-18 13:58] VITALS: BMI 29.2
[2022-03-10 17:58] VITALS: BP 100/69; PULSE 116; RESP 18; TEMP 36.9; O2SAT 98; BMI 20.2
--- NOTE | 2022-03-10 20:56 | EX.ED.DYSGE1 ---
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 She was scheduled for a Whipple procedure. When they opened her they determined that she had metastasis and she was closed. She is under the care of Dr. Aguilera. She denies fever, chills night sweats. Denies headache, visual, ocular auditory symptoms. She does endorse dry mouth and thirst. She denies cardiac or respiratory symptoms. She states she had a paracentesis performed a week ago. They removed 5 L of fluid. She does report decreased urination. She does have bowel movements. They are small and hard. She is flagellated. She denies change in color of her eyes or skin. She has not noted her urine to be dark. Prior similar symptoms: Yes Recent Illness/Hospitalization: Yes PFSH [facility] Medical History Alcohol use Ascites Cancer Cardiology follow-up encounter Cholangiocarcinoma Encounter for monitoring cardiotoxic drug therapy Former smoker Gastric reflux Gastroparesis GERD (gastroesophageal reflux disease) Macrocytic anemia Palpitations Post-menopausal Sarcoidosis Wears glasses Home Medications melatonin 3 mg tablet 3 mg PO QHS PRN Sleep 04/05/20 [History Last Taken 07/10/21] omeprazole 40 mg capsule,delayed release 40 mg PO DAILY #90 caps 06/29/21 [Rx Last Taken 07/11/21] acetaminophen 500 mg tablet 1,000 mg PO DAILY PRN Pain 07/07/21 [History Last Taken 07/10/21] promethazine 25 mg tablet 25 mg PO TID PRN nausea and vomiting #14 tabs 09/13/21 [Rx Last Taken Unknown] ondansetron 4 mg disintegrating tablet 4 mg PO Q8H PRN nausea and vomiting #30 tabs 09/21/21 [Rx Last Taken Unknown] mirtazapine 15 mg tablet (Remeron) 15 mg PO QHS #30 tabs 11/04/21 [Rx Last Taken Unknown] potassium chloride 20 mEq tablet,extended release 40 meq PO DAILY #60 tabs 02/15/22 [Rx Last Taken Unknown] sennosides 8.6 mg tablet (senna) 8.6 mg PO QHS #90 tabs 02/15/22 [Rx Last Taken Unknown] prochlorperazine maleate 5 mg tablet (Compazine) 5 mg PO TID PRN nausea and vomiting #30 tabs 03/07/22 [Rx Last Taken Unknown] spironolactone 25 mg tablet (Aldactone) 50 mg PO DAILY #30 tabs 03/07/22 [Rx Last Taken Unknown] ivosidenib 250 mg tablet (Tibsovo) 500 mg PO DAILY 03/10/22 [History Last Taken Unknown] Allergy/AdvReac Type Severity Reaction Status Date / Time No Known Allergies Allergy Verified 03/10/22 17:57 Family History Father Diabetes Heart disease Myocardial infarction, Onset Age: 75 Cancer leukemia, basal cell carcinoma Mother Multiple sclerosis Sister Basal cell carcinoma Surgical History History of esophagogastroduodenoscopy (EGD) History of laparoscopy History of tooth extraction S/P ERCP Social History housing: house number of children: 2 current occupational status: employed 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 current occupational exposures/hazards: Yes (communicable diseases) pets and animals: Yes (two dogs, two cats) Smoking Status: Former smoker alcohol intake: current alcohol intake frequency: a few times a week Alcohol type: beer details: social substance use type: does not use caffeine: Yes what type of physical activity do you participate in: walking seatbelt use: always do you feel safe at home: Yes additional social history: - 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 ROS ROS ED Constitutional Constitutional ED: Denies chills, fever(s), subjective, sweats or weight loss Eyes Eyes: Denies blurry vision, change in vision or diplopia ENT ENT ED: Denies ear pain, rhinorrhea or sore throat Cardiovascular Cardiovascular: Denies chest pain, orthopnea, palpitations, paroxysmal nocturnal dyspnea or racing heartbeat Respiratory/Chest Respiratory/Chest: Denies cough, dyspnea, dyspnea on exertion, orthopnea or paroxysmal nocturnal dyspnea Gastrointestinal Gastrointestinal: Reports abdominal pain, nausea and vomiting; Denies constipation, diarrhea or melena Genitourinary Genitourinary ED: Denies dysuria, hematuria or urinary frequency Musculoskeletal Musculoskeletal: Denies arthralgias, back pain, myalgias or neck pain Neurologic Neurologic: Reports weakness; Denies headache(s) or paresthesias Psychiatric Psychiatric: Denies anxiety or depression Endocrine Endocrinology: Denies cold intolerance or heat intolerance Hematologic/Lymphatic Hematologic/Lymphatic: Reports systems reviewed and no addt'l complaints, except as documented EXAM Physical Exam Const Vital Signs: 03/10/22 17:58 Temperature 98.4 F Temperature Source Temporal Pulse Rate 116 H Respiratory Rate 18 Blood Pressure 100/69 Blood Pressure Mean 79 Pulse Ox 98 Oxygen Delivery Method Room Air Positive well nourished and well developed Constitutional Narrative: Patient does not look well. She does not appear toxic. General Appearance ED: well developed; Negative for cyanotic, diaphoretic, NAD or pallor HEENT Reports dry mucous membranes HEENT Narrative: Head is atraumatic no cephalic. TMs normal. Ears normal. Nares patent. Uvula midline. No deviation or protrusion. Mouth ED: Yes dry mucous membranes Mouth: dry mucous membranes Eyes PERRL and EOMs intact bilaterally General Eye ED: Negative for pale conjunctiva or scleral icterus Neck no lymphadenopathy, supple and no JVD Chest Wall inspection of chest normal and palpation of chest normal Chest Narrative: Patient has Mediport right subclavian area. Resp normal respiratory effort and clear to auscultation bilaterally Cardio regular rhythm, S1 normal heart sound, S2 normal heart sound and no murmurs Rate: tachycardic GI no masses; Negative for non-tender, non-distended or hepatosplenomegaly GI Narrative: Abdomen is tympanitic. There is minimal tenderness. There is no pain or rebound tenderness. Inspection: abdominal distention Palpation: soft Back/Spine no CVA tenderness Back/Spine Narrative: Inspection of the neck is a Extremity normal to inspection General Extremety ED: Negative for edema or tenderness General Extremity: Negative for edema Neuro oriented x3, CN's II-XII intact bilaterally and no sensory deficits noted Sensorium / Orientation: alert Motor Exam: strength 5/5 throughout Psych mental status grossly normal Skin no rashes or lesions noted, no wounds and skin turgor normal General Skin Exam: Negative for jaundice or pallor MDM MDM MDM Narrative Medical decision making narrative: Clinically patient is dehydrated. Liter of normal saline was ordered. Antiemetic was ordered. Since this is been an ongoing process for 3 weeks BMP was obtained to assess renal function, electrolytes. CBC was obtained to assess for anemia and white count. Even though patient is tympanitic and slightly distended since she is passing gas and having bowel movements concern for obstruction is very low. Patient was reassessed at 2239. She has more color to her face. She reports feeling better. She is had no vomiting after receiving the Zofran. She does not have urge to urinate. Ordered additional IV fluids since she does not have urge to urinate. Lab Data Attestation: I reviewed the patient's lab results. Lab results narrative: White count is unremarkable. Patient's H&H is higher than baseline. There is a slight shift with no bands noted. Electrolyte panels remarkable for a potassium of 2.2, sodium of 127, chloride of 70 with a CO2 of greater than 45. This could represent in all likelihood a hypochloremic alkalosis. Labs: Laboratory Results - last 24 hr 03/10/22 22:00 WBC 8.1 RBC 3.77 L Hgb 11.9 L Hct 35.7 L MCV 94.7 MCH 31.6 MCHC 33.3 RDW Std Deviation 48.8 H RDW Coeff of Todd 14.1 Plt Count 284 MPV 9.6 Immature Gran % (Auto) 0.200 Neut % (Auto) 83.6 H Lymph % (Auto) 10.2 L Barron % (Auto) 5.7 Eos % (Auto) 0.2 Baso % (Auto) 0.1 Absolute Neuts (auto) 6.7 Absolute Lymphs (auto) 0.82 L Nucleated RBC % 0 Discharge Plan Triage Chief Complaint: Nausea/Vomiting ED Provider: Iván Padgett Dx/Rx/DC Orders Clinical Impression: Nausea & vomiting, Dehydration, moderate, MARINO (acute kidney injury), Acute hypokalemia, Hypochloremic alkalosis, Acute hyponatremia Prescriptions: No Action omeprazole 40 mg capsule,delayed release(DR/EC) 40 mg PO DAILY Qty: 90 3RF ondansetron 4 mg tablet,disintegrating 4 mg PO Q8H PRN (Reason: nausea and vomiting) Qty: 30 0RF mirtazapine [Remeron] 15 mg tablet 15 mg PO QHS Qty: 30 4RF potassium chloride 20 mEq tablet extended release 40 meq PO DAILY Qty: 60 2RF sennosides [senna] 8.6 mg tablet 8.6 mg PO QHS Qty: 90 2RF spironolactone [Aldactone] 25 mg tablet 50 mg PO DAILY Qty: 30 3RF prochlorperazine maleate [Compazine] 5 mg tablet 5 mg PO TID PRN (Reason: nausea and vomiting) Qty: 30 0RF melatonin 3 MG tablet 3 mg PO QHS PRN (Reason: Sleep) acetaminophen 500 mg Tablet 1,000 mg PO DAILY PRN (Reason: Pain) promethazine 25 mg tablet 25 mg PO TID PRN (Reason: nausea and vomiting) Qty: 14 0RF Tibsovo 250 mg tablet 500 mg PO DAILY Primary Care Provider: Raji Mathis Referrals: Raji Mathis MD [Primary Care Provider] - Disposition Disposition: Acute Care Hospital [facility]
[2022-03-10] MEDS: 0.9% Normal Saline 1,000 ML 1000 ML IV (21:37)
[2022-03-10] MEDS: Ondansetron 4 MG/2 ML Vial IV (21:37)
[2022-03-10 22:06] LABS: Absolute Lymphocyte Count 0.82 X10^3/uL (0.83-4.51); Absolute Neutrophil Count 6.7 X10^3/uL (2.0-7.7); Basophil# 0.01 X10^3/uL; Basophil% 0.1 % (0-1); Eosinophil# 0.02 X10^3/uL; Eosinophils% 0.2 % (0-5); Hematocrit 35.7 % (37-47); Hemoglobin 11.9 g/dL (12.0-15.0); Lymphocyte # 0.82 X10^3/ul (0.83-4.51); Lymphocyte % 10.2 % (19-41); Mean Corp Hgb Conc 33.3 g/dL (32-36); Mean Corpuscular Hgb 31.6 pg (27.0-32.0); Mean Corpuscular Volume 94.7 fL (81-99); Mean Platelet Vol. 9.6 fl (6.2-12.0); Monocyte# 0.46 X10^3/uL; Monocyte% 5.7 % (0-10); NRBC Flagged by Analyzer 0 % (0-5); Neutrophil # 6.72 X10^3/uL (2.7-7.7); Neutrophil % 83.6 % (47-70); Platelet Count 284 K/mm3 (150-450); RBC Distribution Width CV 14.1 % (11.6-14.6); RBC Distribution Width SD 48.8 fl (35.1-43.9); Red Blood Count 3.77 M/mm3 (4.2-5.4); White Blood Count 8.1 K/mm3 (4.4-11.0)
[2022-03-10 22:56] LABS: BUN 33 mg/dL (7-18); BUN/Creat Ratio 20.2 RATIO (10-20); Calcium,Total 9.5 mg/dL (8.5-10.1); Carbon Dioxide > 45.0 mmol/L (21.0-32.0); Chloride 70 mmol/L (98-107); Creatinine, Serum 1.63 mg/dL (0.55-1.02); EST Glomerular Filtration Rate 34 mL/min (>60); Est Glom Filt Rate - Afr Amer 41 mL/min (>60); Estimated Creatinine Clearance 28.67 ml/min; Glucose 122 mg/dL (74-106); Potassium 2.2 mmol/L (3.5-5.1); Sodium Level 127 mmol/L (136-145)
--- NOTE | 2022-03-10 23:17 | PCM.HP.STD ---
[facility] - General General Date of Service: 03/10/22 Chief Complaint: Nausea and vomiting HPI Narrative RUYD GONZALEZ, is a 61 F with a significant history of cholangiocarcinoma with metastasis to the omentum who presents to the emergency department with 1 to 2 weeks history of progressively worsening nausea and vomiting. Patient cannot keep anything down. She has anorexia. She has poor urine output. She reported she has small bowel movements because his she is not eating. Last bowel movement was on the same day of presentation. She reports losing about 20 pounds in the last 4 weeks. Patient has had a paracentesis before presentation and had about 5 L drained. It was the first time she had paracentesis. Of note in the past patient was scheduled for a Whipple procedure. When patient was opened up it was found that she has cancer spread over so the procedure was aborted and she was closed up. [facility] Medical History Alcohol use Ascites Cancer Cardiology follow-up encounter Cholangiocarcinoma Encounter for monitoring cardiotoxic drug therapy Former smoker Gastric reflux Gastroparesis GERD (gastroesophageal reflux disease) Macrocytic anemia Palpitations Post-menopausal Sarcoidosis Wears glasses Home Medications melatonin 3 mg tablet 3 mg PO QHS PRN Sleep 04/05/20 [History Last Taken 07/10/21] omeprazole 40 mg capsule,delayed release 40 mg PO DAILY #90 caps 06/29/21 [Rx Last Taken 07/11/21] acetaminophen 500 mg tablet 1,000 mg PO DAILY PRN Pain 07/07/21 [History Last Taken 07/10/21] promethazine 25 mg tablet 25 mg PO TID PRN nausea and vomiting #14 tabs 09/13/21 [Rx Last Taken Unknown] ondansetron 4 mg disintegrating tablet 4 mg PO Q8H PRN nausea and vomiting #30 tabs 09/21/21 [Rx Last Taken Unknown] mirtazapine 15 mg tablet (Remeron) 15 mg PO QHS #30 tabs 11/04/21 [Rx Last Taken Unknown] potassium chloride 20 mEq tablet,extended release 40 meq PO DAILY #60 tabs 02/15/22 [Rx Last Taken Unknown] sennosides 8.6 mg tablet (senna) 8.6 mg PO QHS #90 tabs 02/15/22 [Rx Last Taken Unknown] prochlorperazine maleate 5 mg tablet (Compazine) 5 mg PO TID PRN nausea and vomiting #30 tabs 03/07/22 [Rx Last Taken Unknown] spironolactone 25 mg tablet (Aldactone) 50 mg PO DAILY #30 tabs 03/07/22 [Rx Last Taken Unknown] ivosidenib 250 mg tablet (Tibsovo) 500 mg PO DAILY 03/10/22 [History Last Taken Unknown] Allergy/AdvReac Type Severity Reaction Status Date / Time No Known Allergies Allergy Verified 03/10/22 17:57 Family History Father Diabetes Heart disease Myocardial infarction, Onset Age: 75 Cancer leukemia, basal cell carcinoma Mother Multiple sclerosis Sister Basal cell carcinoma Surgical History History of esophagogastroduodenoscopy (EGD) History of laparoscopy History of tooth extraction S/P ERCP Social History housing: house number of children: 2 current occupational status: employed 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 All other systems were reviewed and are negative Vital Signs Vital Signs Vital Signs: 03/10/22 17:58 Temperature 98.4 F Temperature Source Temporal Pulse Rate 116 H Respiratory Rate 18 Blood Pressure 100/69 Blood Pressure Mean 79 Pulse Ox 98 Oxygen Delivery Method Room Air Weight Weight: 51.71 kg Body Mass Index (BMI) 20.2 Physical Exam Narrative Physical exam: General: Well-nourished, well-developed. Head: Normocephalic, atraumatic, no tenderness Eyes: Vision is grossly intact. EOMI ENT, no trauma, moist mucous membranes, no rhinorrhea Neck: Nontender, No thyromegaly. CVS: Regular rate and rhythm. S1-S2 present. No murmur, gallop or rub. Respiratory : clear to auscultation bilaterally, chest wall nontender, no wheezing Abdomen: Soft, nontender, nondistended, normal bowel sounds, no masses : Deferred Back: Nontender, no CVA tenderness, no midline spinal tenderness, deformities, step-offs Extremities: Cachexia. Nontender full range of motion, no trauma Skin: Normal color, no trauma, abrasions Neuro: Alert, oriented, cranial nerves II through XII grossly intact. Psychiatry: Normal mood. Normal affect. Not depressed. Not anxious. Results Lab / Micro Data Result Diagrams: 03/10/22 22:00 03/10/22 22:00 Labs: Laboratory Results - last 24 hr 03/10/22 22:00: WBC 8.1, RBC 3.77 L, Hgb 11.9 L, Hct 35.7 L, MCV 94.7, MCH 31.6, MCHC 33.3, RDW Std Deviation 48.8 H, RDW Coeff of Todd 14.1, Plt Count 284, MPV 9.6, Immature Gran % (Auto) 0.200, Neut % (Auto) 83.6 H, Lymph % (Auto) 10.2 L, [place] % (Auto) 5.7, Eos % (Auto) 0.2, Baso % (Auto) 0.1, Absolute Neuts (auto) 6.7, Absolute Lymphs (auto) 0.82 L, Nucleated RBC % 0 03/10/22 22:00: Sodium 127 L, Potassium 2.2 L*, Chloride 70 L*, Carbon Dioxide > 45.0 H*, Anion Gap TNP, BUN 33 H, Creatinine 1.63 H, Estim Creat Clear Calc 28.67, Est GFR (MDRD) Af Amer 41 L, Est GFR (MDRD) Non-Af 34 L, BUN/Creatinine Ratio 20.2 H, Glucose 122 H, Calcium 9.5 Assessment & Plan Assessment/Plan (1) Nausea & vomiting: (2) Cancer cachexia: (3) Acute hyponatremia: (4) Hypochloremic alkalosis: (5) Acute hypokalemia: (6) MARINO (acute kidney injury): PLAN: Plan Nausea and vomiting/MARINO/acute hyponatremia/acute hyponatremia/hypochloremic alkalosis Received normal saline bolus in the emergency department. Gentle IV hydration with normal saline and potassium.. Shared decision to start patient on clear liquid diet. Review of record shows electrolyte abnormalities with sodium of 127; potassium of 2.2; chloride of 78; CO2 of more than 45; BUN of 33; creatinine of 1.63 all of which could be attributed to dehydration and MARINO from nausea and vomiting. Creatinine on presentation was 1.63. Baseline creatinine is below 0.7. BUN over creatinine is 20.2. Likely prerenal. Avoid nephrotoxins. Trend BMP. Escalate home p.o. potassium. Home p.o. Phenergan continued. IV Zofran and IV Compazine ordered. Cancer cachexia/protein calorie malnutrition Nutrition consult. At this point patient is on clear liquid diets because of nausea and vomiting. Collagen carcinoma Worsening DVT prophylaxis: Subcutaneous Lovenox ordered Charges/Coding Visit Charges OBSV E&M: 63088 Initial observation care L3
[2022-03-10] MEDS: Potassium Chloride Oral Soln 20 MEQ/15 ML UDC 40 MEQ PO (23:38)
[2022-03-11] VITALS (12 sets, daily range): BP systolic 90–105; BP diastolic 49–69; PULSE 71–103; RESP 15–18; TEMP 36.3–37; O2SAT 91–96; BMI 20.5
[2022-03-11] MEDS: Potassium Chloride 10mEq/100mL 10 MEQ/100 ML IV.SOLN. 100 MEQ IV BOLUS ×2 (00:38→01:42)
[2022-03-11 01:12] LABS: Glucose, Dipstick Normal (Normal); Ketone-Dipstick 5 mg/dl (Negative); Leukocyte Esterase-Dipstick 25 /ul (Negative); Mucous, Urine 0 SEEN /hpf (<or=2+); Nitrite-Dipstick Negative (Negative); Occult Blood-Urine Negative /ul (Negative); Protein-Dipstick 30 mg/dl (Negative); Specific Gravity, Urine 1.025 (1.002-1.030); Squamous Epithelial Cells - UA 0 SEEN /hpf (5-10); Urine Bilirubin Dipstick 3 mg/dL (Negative); Urine Urobilinogen Normal (Normal)
[2022-03-11 01:13] LABS: Color, Urine AMBER (Yellow); Urine Clarity Sl Cloudy (Clear)
[2022-03-11 01:16] LABS: Red Blood Cells-Urine 0-5 SEEN /hpf (0-5); White Blood Cells 5-10 SEEN /hpf (0-5)
[2022-03-11 01:17] LABS: Bacteria 1+ /hpf (None Seen); Calcium Oxalate Crystals Ur 1+ /hpf (<or=2+); Hyaline Cast 10-25 SEEN /lpf (0-5)
[2022-03-11] MEDS: Potassium Chloride 40 MEQ in 0.9% Normal Saline 1,000 ML 75 MEQ IV (02:46)
[2022-03-11] MEDS: Potassium Chloride Oral Soln 20 MEQ/15 ML UDC 40 MEQ PO (05:19)
[2022-03-11] MEDS: Ondansetron 4 MG/2 ML Vial IV ×2 (05:29→18:54)
[2022-03-11 07:31] LABS: Absolute Lymphocyte Count 0.89 X10^3/uL (0.83-4.51); Absolute Neutrophil Count 6.1 X10^3/uL (2.0-7.7); Basophil# 0.02 X10^3/uL; Basophil% 0.3 % (0-1); Eosinophil# 0.04 X10^3/uL; Eosinophils% 0.5 % (0-5); Hematocrit 34.8 % (37-47); Hemoglobin 11.5 g/dL (12.0-15.0); Lymphocyte # 0.89 X10^3/ul (0.83-4.51); Lymphocyte % 11.9 % (19-41); Mean Corpuscular Hgb 31.8 pg (27.0-32.0); Mean Corpuscular Volume 96.1 fL (81-99); Mean Platelet Vol. 10.1 fl (6.2-12.0); Monocyte% 5.3 % (0-10); NRBC Flagged by Analyzer 0 % (0-5); Neutrophil # 6.12 X10^3/uL (2.7-7.7); Neutrophil % 81.6 % (47-70); Platelet Count 267 K/mm3 (150-450); RBC Distribution Width CV 14.1 % (11.6-14.6); RBC Distribution Width SD 49.6 fl (35.1-43.9); Red Blood Count 3.62 M/mm3 (4.2-5.4); White Blood Count 7.5 K/mm3 (4.4-11.0)
[2022-03-11 08:40] LABS: BUN 34 mg/dL (7-18); BUN/Creat Ratio 21.5 RATIO (10-20); Calcium,Total 9.3 mg/dL (8.5-10.1); Carbon Dioxide > 45.0 mmol/L (21.0-32.0); Chloride 73 mmol/L (98-107); Creatinine, Serum 1.58 mg/dL (0.55-1.02); EST Glomerular Filtration Rate 35 mL/min (>60); Est Glom Filt Rate - Afr Amer 43 mL/min (>60); Estimated Creatinine Clearance 30.93 ml/min; Glucose 112 mg/dL (74-106); Magnesium 2.1 mg/dL (1.6-2.6); Potassium 2.6 mmol/L (3.5-5.1); Sodium Level 129 mmol/L (136-145)
[2022-03-11] MEDS: Potassium Chloride Oral Tablet 20 MEQ 40 MEQ PO ×2 (09:38→22:01)
[2022-03-11] MEDS: Enoxaparin 30 MG/0.3 ML Syringe SC (09:46)
[2022-03-11] MEDS: Spironolactone 50 MG Tablet PO (09:47)
[2022-03-11] MEDS: Ensure Clear 120 ML Liquid PO ×3 (09:47→22:01)
[2022-03-11] MEDS: Senna Tablet 1 TABLET PO ×2 (09:57→22:01)
[2022-03-11 10:56] LABS: BUN 35 mg/dL (7-18); BUN/Creat Ratio 21.9 RATIO (10-20); Calcium,Total 9.4 mg/dL (8.5-10.1); Carbon Dioxide > 45.0 mmol/L (21.0-32.0); Chloride 75 mmol/L (98-107); EST Glomerular Filtration Rate 35 mL/min (>60); Est Glom Filt Rate - Afr Amer 42 mL/min (>60); Estimated Creatinine Clearance 30.54 ml/min; Glucose 114 mg/dL (74-106); Potassium 2.8 mmol/L (3.5-5.1); Sodium Level 129 mmol/L (136-145)
[2022-03-11] MEDS: Potassium Chloride 20mEq/100mL 20 MEQ/100 ML IV.SOLN. 100 MEQ IV BOLUS ×3 (10:57→13:31)
--- NOTE | 2022-03-11 11:16 | CASEMGMT ---
SW was advised that patient wants to speak to someone regarding hospice. SW met with patient and her sister. They want hospice. Patient was referred to palliative earlier this week. SW asked which hospice they preferred and Patient said [facility]. SW called [facility] and made referral to Eliza. Referral packet faxed to [facility]. SERENITY noted patient and family would like to speak to someone today. Referral to [facility] Charlee MILLER
--- NOTE | 2022-03-11 12:45 | CM.ED ---
SERENITY called [facility] and spoke to Sarah as this bid writer and set up and charger have not heard about appointment for hospice meeting with family. Sarah reported that she spoke to senior scheduler and hospice will be meeting with patient and sister at 2:00pm. SERENITY updated Analisa Charge and she will update family. Plan: Hospice Charlee MILLER
[2022-03-11] MEDS: Potassium Chloride 40 MEQ in 0.9% Normal Saline 1,000 ML 100 MEQ IV (16:34)
--- NOTE | 2022-03-11 17:16 | PCM.PN.HOSP ---
Subjective Subjective Patient with a history of cholangiocarcinoma with metastatic disease who was diagnosed 3 years ago but recently has terminated chemotherapy who presented to emergency department with 1 to 2-week history of progressively worsening nausea and vomiting. She evidently has not been able to keep much down and has had anorexia with a 20 pound weight loss in the last and 4 weeks. Objective Data Objective Data Vital Signs: Vital Signs Temp Pulse Resp BP Pulse Ox O2 Del Method 98.0 F 103 H 16 100/64 95 Room Air 03/11/22 09:34 03/11/22 15:00 03/11/22 09:34 03/11/22 09:34 03/11/22 09:34 03/11/22 09:34 Oxygen Delivery Method Room Air Weight: 52.5 kg Body Mass Index (BMI) 20.5 Intake & Output: Intake and Output for Last 24 Hours 03/09/22 03/10/22 03/11/22 23:59 23:59 23:59 Intake Total 1000 / 1000 2342.92 / 2342.92 Balance 1000 / 1000 2342.92 / 2342.92 Medical Nutrition Assessment Dietitian: Malnutrition Criteria Met Start: 03/11/22 11:42 Freq: Status: Active Protocol: Document 03/11/22 11:42 AG (Rec: 03/11/22 11:42 [id number]) Nutrition Malnutrition Evidence of Malnutrition Exists Yes Malnutrition (severe): Chronic Evidenced By Suboptimal Energy Intake ( Severe),Weight Loss (Severe) Clinical Problem Chronic Disease or Condition Related Malnutrition Etiology chronic, severe malnutrition related to inadequate energy intake w/ increased energy needs d/t cancer Signs/Symptoms as evidenced by unintentional wt loss of 33.#/22% < 1 year; estimated PO intake meeting < 75% of estimated energy needs > 3 months Status Active Problem Recommendation Dietitian Recommendations/Changes regular diet as tolerated, can offer ensure clear w/ medpass if desired by pt. Lab / Micro Data Result Diagrams: 03/11/22 06:07 03/11/22 10:08 Labs: Laboratory Results - last 24 hr 03/10/22 22:00: WBC 8.1, RBC 3.77 L, Hgb 11.9 L, Hct 35.7 L, MCV 94.7, MCH 31.6, MCHC 33.3, RDW Std Deviation 48.8 H, RDW Coeff of Todd 14.1, Plt Count 284, MPV 9.6, Immature Gran % (Auto) 0.200, Neut % (Auto) 83.6 H, Lymph % (Auto) 10.2 L, Culberson % (Auto) 5.7, Eos % (Auto) 0.2, Baso % (Auto) 0.1, Absolute Neuts (auto) 6.7, Absolute Lymphs (auto) 0.82 L, Nucleated RBC % 0 03/10/22 22:00: Sodium 127 L, Potassium 2.2 L*, Chloride 70 L*, Carbon Dioxide > 45.0 H*, Anion Gap TNP, BUN 33 H, Creatinine 1.63 H, Estim Creat Clear Calc 28.67, Est GFR (MDRD) Af Amer 41 L, Est GFR (MDRD) Non-Af 34 L, BUN/Creatinine Ratio 20.2 H, Glucose 122 H, Calcium 9.5 03/11/22 01:00: Urine Color SHAKIR, Urine Clarity Sl Cloudy, Urine pH 5.0, Ur Specific Hartly 1.025, Urine Protein 30 H, Urine Glucose (UA) Normal, Urine Ketones 5 H, Urine Occult Blood Negative, Urine Nitrite Negative, Urine Bilirubin 3 H, Urine Urobilinogen Normal, Ur Leukocyte Esterase 25 H, Urine RBC 0-5 SEEN, Urine WBC 5-10 SEEN, Ur Squamous Epith Cells 0 SEEN, Calcium Oxalate Crystal 1+, Urine Bacteria 1+, Hyaline Casts 10-25 SEEN, Urine Mucus 0 SEEN 03/11/22 06:07: Sodium 129 L, Potassium 2.6 L*, Chloride 73 L*, Carbon Dioxide > 45.0 H*, Anion Gap TNP, BUN 34 H, Creatinine 1.58 H, Estim Creat Clear Calc 30.93, Est GFR (MDRD) Af Amer 43 L, Est GFR (MDRD) Non-Af 35 L, BUN/Creatinine Ratio 21.5 H, Glucose 112 H, Calcium 9.3, Magnesium 2.1 03/11/22 06:07: WBC 7.5, RBC 3.62 L, Hgb 11.5 L, Hct 34.8 L, MCV 96.1, MCH 31.8, MCHC 33.0, RDW Std Deviation 49.6 H, RDW Coeff of Todd 14.1, Plt Count 267, MPV 10.1, Immature Gran % (Auto) 0.400, Neut % (Auto) 81.6 H, Lymph % (Auto) 11.9 L, Culberson % (Auto) 5.3, Eos % (Auto) 0.5, Baso % (Auto) 0.3, Absolute Neuts (auto) 6.1, Absolute Lymphs (auto) 0.89, Nucleated RBC % 0 03/11/22 10:08: Sodium 129 L, Potassium 2.8 L, Chloride 75 L, Carbon Dioxide > 45.0 H*, Anion Gap TNP, BUN 35 H, Creatinine 1.60 H, Estim Creat Clear Calc 30.54, Est GFR (MDRD) Af Amer 42 L, Est GFR (MDRD) Non-Af 35 L, BUN/Creatinine Ratio 21.9 H, Glucose 114 H, Calcium 9.4 Physical Exam Const alert, oriented x3 and no apparent distress Constitutional Narrative: Malnourished, middle-aged, white female sitting up in bed, sister at bedside, patient appears comfortable at this time, nontoxic HEENT head/scalp atraumatic and moist oral mucous membranes HEENT Narrative: Mallampati 2, no thrush Head and Scalp: normocephalic Resp normal respiratory effort, no retractions, no use of accessory muscles and clear to auscultation bilaterally Auscultation: Negative for crackles, rhonchi or wheezes Cardio regular rate, regular rhythm, S1 normal heart sound, S2 normal heart sound, no murmurs, no rub, no gallops and no clicks GI normal to inspection, nondistended, normoactive bowel sounds, soft to palpation and non-tender GI Narrative: Mild diffuse tenderness Extremity no clubbing, cyanosis or edema Extremity Narrative: 2+ pedal pulses Neuro oriented x3, moves all extremities and no focal motor deficits Neuro Narrative: Significant generalized weakness Speech: speech normal Assessment & Plan Assessment/Plan (1) Nausea & vomiting: (2) Dehydration, moderate: (3) MARINO (acute kidney injury): (4) Acute hypokalemia: (5) Hypochloremic alkalosis: (6) Acute hyponatremia: (7) Cholangiocarcinoma: (8) Severe malnutrition: PLAN: Plan Assessment: Metastatic cholangiocarcinoma on no further chemotherapy or treatment Tractable nausea and vomiting Hypokalemia Hyponatremia Metabolic alkalosis secondary to hypochloremia Hypochloremia MARINO (baseline serum creatinine is 0.5-0.7) Acute dehydration Severe malnutrition Chronic anemia GERD Depression and Recurrent ascites secondary to metastatic cholangiocarcinoma Plan: -Extensive discussion with patient and her sister at the bedside today. They expect is just in discussing things with hospice--> met with hospice earlier today they would like to think about their options and have further discussion tomorrow -Restart IV fluids at 100 cc/h -Aggressive potassium replacement -Dietitian following -Supplements added -As needed antiemetics -Continue home Aldactone for refractory ascites -Continue home PPI for GERD -Repeat BMP/mag/Phos in a.m. Charges/Coding Visit Charges OBSV E&M: 24974 Subsequent observation care L2
[2022-03-11 18:44] LABS: BUN 35 mg/dL (7-18); BUN/Creat Ratio 21.2 RATIO (10-20); Calcium,Total 9.4 mg/dL (8.5-10.1); Carbon Dioxide > 45.0 mmol/L (21.0-32.0); Chloride 79 mmol/L (98-107); Creatinine, Serum 1.65 mg/dL (0.55-1.02); EST Glomerular Filtration Rate 34 mL/min (>60); Est Glom Filt Rate - Afr Amer 41 mL/min (>60); Estimated Creatinine Clearance 29.62 ml/min; Glucose 114 mg/dL (74-106); Potassium 3.8 mmol/L (3.5-5.1); Sodium Level 129 mmol/L (136-145)
[2022-03-11] MEDS: Mirtazapine 15 MG Tablet PO (22:01)
[2022-03-11] MEDS: proCHLORPERazine 10 MG/2 ML Vial 5 MG IV (22:01)
[2022-03-11 22:05] LABS: BUN 35 mg/dL (7-18); BUN/Creat Ratio 20.6 RATIO (10-20); Calcium,Total 9.8 mg/dL (8.5-10.1); Carbon Dioxide > 45.0 mmol/L (21.0-32.0); Chloride 79 mmol/L (98-107); EST Glomerular Filtration Rate 32 mL/min (>60); Est Glom Filt Rate - Afr Amer 39 mL/min (>60); Estimated Creatinine Clearance 28.75 ml/min; Glucose 122 mg/dL (74-106); Potassium 4.2 mmol/L (3.5-5.1); Sodium Level 130 mmol/L (136-145)
[2022-03-12] MEDS: Potassium Chloride 40 MEQ in 0.9% Normal Saline 1,000 ML 100 MEQ IV (02:33)
[2022-03-12 02:36] VITALS: BP 115/74; PULSE 93; RESP 15; TEMP 36.4; O2SAT 94
[2022-03-12 03:00] VITALS: PULSE 95
[2022-03-12 06:11] LABS: Absolute Lymphocyte Count 0.79 X10^3/uL (0.83-4.51); Absolute Neutrophil Count 10.7 X10^3/uL (2.0-7.7); Basophil# 0.02 X10^3/uL; Basophil% 0.2 % (0-1); Eosinophil# 0.03 X10^3/uL; Eosinophils% 0.3 % (0-5); Hematocrit 35.4 % (37-47); Hemoglobin 11.6 g/dL (12.0-15.0); Lymphocyte # 0.79 X10^3/ul (0.83-4.51); Lymphocyte % 6.6 % (19-41); Mean Corp Hgb Conc 32.8 g/dL (32-36); Mean Corpuscular Hgb 31.6 pg (27.0-32.0); Mean Corpuscular Volume 96.5 fL (81-99); Mean Platelet Vol. 10.2 fl (6.2-12.0); Monocyte# 0.35 X10^3/uL; Monocyte% 2.9 % (0-10); NRBC Flagged by Analyzer 0 % (0-5); Neutrophil # 10.67 X10^3/uL (2.7-7.7); Neutrophil % 89.6 % (47-70); Platelet Count 275 K/mm3 (150-450); RBC Distribution Width CV 14.3 % (11.6-14.6); RBC Distribution Width SD 50.3 fl (35.1-43.9); Red Blood Count 3.67 M/mm3 (4.2-5.4); White Blood Count 11.9 K/mm3 (4.4-11.0)
[2022-03-12 06:36] VITALS: PULSE 91
[2022-03-12 06:41] LABS: Magnesium 2.2 mg/dL (1.6-2.6); Phosphorus 3.7 mg/dL (2.5-4.9)
[2022-03-12 08:04] VITALS: O2SAT 96
[2022-03-12 08:16] LABS: Anion Gap 6 (5-15); BUN 37 mg/dL (7-18); BUN/Creat Ratio 21.1 RATIO (10-20); Chloride 79 mmol/L (98-107); Creatinine, Serum 1.75 mg/dL (0.55-1.02); EST Glomerular Filtration Rate 31 mL/min (>60); Est Glom Filt Rate - Afr Amer 38 mL/min (>60); Estimated Creatinine Clearance 27.93 ml/min; Glucose 112 mg/dL (74-106); Potassium 3.8 mmol/L (3.5-5.1); Sodium Level 129 mmol/L (136-145)
[2022-03-12 09:00] VITALS: BP 109/70; PULSE 88; RESP 18; TEMP 36.6; O2SAT 92
[2022-03-12] MEDS: Enoxaparin 30 MG/0.3 ML Syringe SC (09:02)
[2022-03-12] MEDS: Potassium Chloride Oral Tablet 20 MEQ 40 MEQ PO (09:03)
[2022-03-12] MEDS: Spironolactone 50 MG Tablet PO (09:03)
--- NOTE | 2022-03-12 12:01 | DS.PCM_ITS ---
Providers Date of Admission: 03/11/22 Date of Discharge: 03/12/22 Primary Care Physician: Dr. Raji Mathis MD Reason For Visit: DEHYDRATION Diagnosis Discharge Diagnosis (1) Nausea & vomiting: Status: Acute Code(s): R11.2 - Nausea with vomiting, unspecified (2) Dehydration, moderate: Status: Acute Code(s): E86.0 - Dehydration (3) MARINO (acute kidney injury): Status: Acute Code(s): N17.9 - Acute kidney failure, unspecified (4) Acute hypokalemia: Status: Acute Code(s): E87.6 - Hypokalemia (5) Hypochloremic alkalosis: Status: Acute Code(s): E87.3 - Alkalosis (6) Acute hyponatremia: Status: Acute Code(s): E87.1 - Hypo-osmolality and hyponatremia (7) Cholangiocarcinoma: Status: Chronic Code(s): C22.1 - Intrahepatic bile duct carcinoma (8) Severe malnutrition: Status: Acute Code(s): E43 - Unspecified severe protein-calorie malnutrition Medications at Discharge Home Medications melatonin 3 mg tablet 3 mg PO QHS PRN Sleep 04/05/20 omeprazole 40 mg capsule,delayed release 40 mg PO DAILY #90 caps 06/29/21 acetaminophen 500 mg tablet 1,000 mg PO DAILY PRN Pain 07/07/21 promethazine 25 mg tablet 25 mg PO TID PRN nausea and vomiting #14 tabs 09/13/21 ondansetron 4 mg disintegrating tablet 4 mg PO Q8H PRN nausea and vomiting #30 tabs 09/21/21 mirtazapine 15 mg tablet (Remeron) 15 mg PO QHS #30 tabs 11/04/21 sennosides 8.6 mg tablet (senna) 8.6 mg PO QHS #90 tabs 02/15/22 prochlorperazine maleate 5 mg tablet (Compazine) 5 mg PO TID PRN nausea and vomiting #30 tabs 03/07/22 spironolactone 25 mg tablet (Aldactone) 50 mg PO DAILY #30 tabs 03/07/22 Hospital Course Operations None Procedures None Summary of Care Provided Minutes Spent on Discharge: 33 Hospital Course: Ms. Devine is a 61-year-old female who was diagnosed 3 years ago with cholangiocarcinoma having metastatic disease. She recently terminated chem otherapy and presented to the emergency department on 03/10/2021 suffering from a 1 to 2-week history of progressively worsening nausea and vomiting. She had not been able to keep much down and had significant anorexia with a 20 pound weight loss in the last 4 weeks. She met with her oncologist on 03/07/2022 and he made a palliative care referral at that time however they were not able to meet with her secondary to the holiday weekend. She has had recurrent paracenteses with the last 1 being 1 week prior to presentation. At admission she reported decreased urine production and abnormal bowel movements. She appeared clinically dehydrated on presentation and she was given IV fluids and antiemetics in the emergency department. Labs were obtained and she was found to be markedly hypokalemic with a potassium of 2.2, hyponatremic with a sodium of 127 and had a severe hypochloremia with a chloride of 70 causing a metabolic acidosis with a serum bicarb greater than 45. She was admitted to the hospital for ongoing potassium supplementation and I met with her extensively on 03/11 and then again on 03/12 with regards to ongoing desires for treatment and end-of-life discussion. She met with hospice on 03/11/2022 and on the a.m. of 03/12/2022 with my repeat discussion with her she had decided to pursue hospice in the home. Her sister was there to take care of her and she had multiple family members that were involved in her care as well. She met again with hospice on the day of discharge and signed hospice paperwork. During her hospital course she was again supplemented with potassium on 03/11/2021 which resulted in a normalized potassium at the time of discharge. Unfortunately her serum creatinine did not improve much despite IV hydration. She will be discharged home with hospice care in stable condition. 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 Physical Exam Const alert, oriented x3 and no apparent distress Constitutional Narrative: Malnourished, middle-aged, white female lying in bed, sister at bedside, patient appears comfortable at this time, nontoxic General Appearance: cooperative, comfortable, well kempt, frail and other Cachectic Orientation / Consciousness: awake, oriented to person, oriented to place and oriented to time Exam Limitations: no limitations Nutritional Appearance: cachectic HEENT normocephalic, head/scalp atraumatic, hearing grossly normal bilaterally and moist oral mucous membranes Eyes PERRL, EOMs intact bilaterally and conjunctivae normal Eyes Narrative: No scleral icterus Neck no lymphadenopathy and supple Neck Narrative: Trachea midline, no thyroid enlargement Resp normal respiratory effort, no retractions, no use of accessory muscles and clear to auscultation bilaterally Auscultation: Negative for crackles, rhonchi or wheezes Cardio regular rate, regular rhythm, S1 normal heart sound, S2 normal heart sound, no murmurs, no rub, no gallops and no clicks GI normal to inspection, nondistended, normoactive bowel sounds, soft to palpation and non-tender GI Narrative: Mild diffuse tenderness Extremity no clubbing, cyanosis or edema Extremity Narrative: 2+ pedal pulses Skin no rashes or lesions noted, no wounds, skin turgor normal and no jaundice Skin Narrative: Med port accessed right upper chest-dressing is clean and dry Neuro oriented x3, CN's II-XII intact bilaterally, moves all extremities and no focal motor deficits Neuro Narrative: Significant generalized weakness Speech: speech normal Psych Psych Narrative: Affect is somewhat flat patient appears tired eye contact is good Medical Records Data Medical Nutrition Assessment Dietitian: Malnutrition Criteria Met Start: 03/11/22 11:42 Freq: Status: Active Protocol: Document 03/11/22 11:42 (Rec: 03/11/22 11:42 [id number]) Nutrition Malnutrition Evidence of Malnutrition Exists Yes Malnutrition (severe): Chronic Evidenced By Suboptimal Energy Intake ( Severe),Weight Loss (Severe) Clinical Problem Chronic Disease or Condition Related Malnutrition Etiology chronic, severe malnutrition related to inadequate energy intake w/ increased energy needs d/t cancer Signs/Symptoms as evidenced by unintentional wt loss of 33.#/22% < 1 year; estimated PO intake meeting < 75% of estimated energy needs > 3 months Status Active Problem Recommendation Dietitian Recommendations/Changes regular diet as tolerated, can offer ensure clear w/ medpass if desired by pt. Weight / BMI Weight Weight: 52.5 kg Body Mass Index (BMI) 20.5 ABG / Lab / Microbiology Data Result Diagrams: 03/12/22 05:44 03/12/22 05:44 Laboratory: Laboratory Results - last 24 hr 03/11/22 17:49: Sodium 129 L, Potassium 3.8, Chloride 79 L, Carbon Dioxide > 45.0 H*, Anion Gap TNP, BUN 35 H, Creatinine 1.65 H, Estim Creat Clear Calc 29.62, Est GFR (MDRD) Af Amer 41 L, Est GFR (MDRD) Non-Af 34 L, BUN/Creatinine Ratio 21.2 H, Glucose 114 H, Calcium 9.4 03/11/22 21:26: Sodium 130 L, Potassium 4.2, Chloride 79 L, Carbon Dioxide > 45. 0 H*, Anion Gap TNP, BUN 35 H, Creatinine 1.70 H, Estim Creat Clear Calc 28.75, Est GFR (MDRD) Af Amer 39 L, Est GFR (MDRD) Non-Af 32 L, BUN/Creatinine Ratio 20.6 H, Glucose 122 H, Calcium 9.8 03/12/22 05:44: WBC 11.9 H, RBC 3.67 L, Hgb 11.6 L, Hct 35.4 L, MCV 96.5, MCH 31.6, MCHC 32.8, RDW Std Deviation 50.3 H, RDW Coeff of Todd 14.3, Plt Count 275, MPV 10.2, Immature Gran % (Auto) 0.400, Neut % (Auto) 89.6 H, Lymph % (Auto) 6.6 L, Clark % (Auto) 2.9, Eos % (Auto) 0.3, Baso % (Auto) 0.2, Absolute Neuts (auto) 10.7 H, Absolute Lymphs (auto) 0.79 L, Nucleated RBC % 0 03/12/22 05:44: Phosphorus 3.7, Magnesium 2.2 03/12/22 05:44: Sodium 129 L, Potassium 3.8, Chloride 79 L, Carbon Dioxide 44.0 H, Anion Gap 6, BUN 37 H, Creatinine 1.75 H, Estim Creat Clear Calc 27.93, Est GFR (MDRD) Af Amer 38 L, Est GFR (MDRD) Non-Af 31 L, BUN/Creatinine Ratio 21.1 H , Glucose 112 H, Calcium 10.0 D/C Instructions Discharge Diet: No restrictions Meaningful Use Info Meaningful Use Diagnoses (Choose all that apply): None applicable Discharge Plan Admission Admit Date/Time: 03/11/22 19:56 Primary Reason for Your Visit: Intractable nausea and vomiting Attending Provider: Christie Hein Primary Care Provider: Raji Mathis Consulting Providers: Mark Anthony Gonzalez Discharge Orders/Prescriptions Prescriptions: Continued omeprazole 40 mg capsule,delayed release(DR/EC) 40 mg PO DAILY Qty: 90 3RF ondansetron 4 mg tablet,disintegrating 4 mg PO Q8H PRN (Reason: nausea and vomiting) Qty: 30 0RF mirtazapine [Remeron] 15 mg tablet 15 mg PO QHS Qty: 30 4RF sennosides [senna] 8.6 mg tablet 8.6 mg PO QHS Qty: 90 2RF spironolactone [Aldactone] 25 mg tablet 50 mg PO DAILY Qty: 30 3RF prochlorperazine maleate [Compazine] 5 mg tablet 5 mg PO TID PRN (Reason: nausea and vomiting) Qty: 30 0RF melatonin 3 MG tablet 3 mg PO QHS PRN (Reason: Sleep) acetaminophen 500 mg Tablet 1,000 mg PO DAILY PRN (Reason: Pain) promethazine 25 mg tablet 25 mg PO TID PRN (Reason: nausea and vomiting) Qty: 14 0RF Discontinued potassium chloride 20 mEq tablet extended release 40 meq PO DAILY Qty: 60 2RF Tibsovo 250 mg tablet 500 mg PO DAILY Referrals / Follow Up: Raji Mathis MD [Primary Care Provider] - Disposition Disposition (needs filled in before D/C Order can be placed): Hospice in Home Charges/Coding Visit Charges Inpatient E&M: 17233 Disch Hosp >30min
[2022-03-12] MEDS: 0.9% Saline Lock 10 ML Syringe IV (12:35)
[2022-03-12] MEDS: Ondansetron 4 MG/2 ML Vial IV (12:35)
== END 2022-03-12 13:11 | disposition hospice, home (50) | DRG 640 ==
LOC: ED 23:07 → PCU 03-11 00:17
PROVIDERS: Admitting Provider Hospitalist; Emergency Provider Emergency Medicine; PCP Family Medicine; Visit Provider Internal Medicine
DX: E86.0 Dehydration (principal); E43 Unspecified severe protein-calorie malnutrition; N17.9 Acute kidney failure, unspecified; R18.8 Other ascites; C22.1 Intrahepatic bile duct carcinoma; C78.6 Secondary malignant neoplasm of retroperitoneum and peritoneum; E87.3 Alkalosis; E87.20 Acidosis, unspecified; E87.6 Hypokalemia; E87.1 Hypo-osmolality and hyponatremia; E87.8 Other disorders of electrolyte and fluid balance, not elsewhere classified; K21.9 Gastro-esophageal reflux disease without esophagitis; D63.0 Anemia in neoplastic disease; F32.A Depression, unspecified; F10.90 Alcohol use, unspecified, uncomplicated; R63.0 Anorexia; Z51.5 Encounter for palliative care; Z68.20 Body mass index [BMI] 20.0-20.9, adult; Z79.899 Other long term (current) drug therapy; Z87.891 Personal history of nicotine dependence
CPT/HCPCS: 36415; 80048; 81001; 83735; 84100; 85025; 99283; J7030; J7040; A4216; J2405